=== PATIENT | male | born 1935 | race Caucasian/White ===

== ENCOUNTER 2017-12-30 20:48 | Inpatient (IN) | payer MEDICARE, OTHER ==
[2017-12-30] MEDS ORDERED: Sodium Chloride 0.9% 10 ML Syringe FLUSH PRN (21:02)
[2017-12-30] MEDS ORDERED: cefTRIAXone 2 GM in Sodium Chloride 0.9% 100 ML IV ONE (21:03)
[2017-12-30] MEDS ORDERED: Sodium Chloride 0.9% 500 ML IV ONE (21:05)
[2017-12-30] MEDS ORDERED: Albuterol/Ipratropium 3.0-0.5 MG/3 ML Neb Soln NEB ONE (21:38)
--- NOTE | 2017-12-30 23:36 | EDM.PDOC ---
ED HPI GENERAL MEDICAL PROBLEM - General Chief Complaint: General Stated Complaint: [facility] Time Seen by Provider: 12/30/17 20:53 Source of Information: Reports: Patient, EMS History Limitations: Reports: No Limitations - History of Present Illness INITIAL COMMENTS - FREE TEXT/NARRATIVE: The patient presents by ambulance from [facility]. He has had generalized weakness, nausea, fever and cough. This has been going on for a few days. When EMS arrived his oxygen saturations were in the low 80s. He was also confused. They got him on some oxygen and he is feeling better. He has a productive cough. He has a low grade temp. He has no asthma or COPD. He is trying to stop smoking. He has no chest pain but he does feel short of breath. He has no abdominal pain. He has nausea but no vomiting. He did have some diarrhea but that is normal for him. Onset: Gradual Duration: Day(s): (3) Severity: Moderate Improves with: Reports: None Worsens with: Reports: None Associated Symptoms: Reports: Cough, Fever/Chills, Malaise, Nausea/Vomiting, Shortness of Breath. Denies: Chest Pain, Headaches - Related Data Allergies Allergy/AdvReac Type Severity Reaction Status Date / Time levofloxacin Allergy Airway Verified 02/29/16 03:50 Tightness Sulfa (Sulfonamide Allergy Anaphylactic Verified 02/28/16 14:18 Antibiotics) Shock Home Meds: Home Meds Aspirin 1 tab PO DAILY 07/02/15 [History] Levothyroxine [Synthroid] 50 mcg PO DAILY 07/02/15 [History] Metoprolol Tartrate [Lopressor] 50 mg PO BID 07/02/15 [History] amLODIPine Besylate [Amlodipine Besylate] 2.5 mg PO DAILY 07/02/15 [History] predniSONE [Prednisone] 5 mg PO DAILY 07/02/15 [History] Cholecalciferol (Vitamin D3) [Vitamin D] 2,000 unit PO DAILY 02/05/16 [History] Cyanocobalamin (Vitamin B-12) [Cyanocobalamin Injection] 1,000 mcg IM ASDIRECTED 02/05/16 [History] Furosemide [Lasix] 20 - 40 mg PO DAILY PRN 02/05/16 [History] LORazepam [Ativan] 0.5 mg PO BEDTIME 02/05/16 [History] Niacin 500 mg PO DAILY 02/05/16 [History] Omeprazole [Prilosec] 20 mg PO DAILY 02/05/16 [History] Warfarin [Coumadin] 5 mg PO MOFR 02/05/16 [History] Hydrocodone/Acetaminophen [Hydrocodon-Acetaminophen 5-325] 1 - 2 each PO Q6HR PRN #20 tablet 02/22/16 [Rx] PARoxetine [Paxil] 10 tab PO BEDTIME 02/28/16 [History] Pravastatin Sodium 5 mg PO DAILY 02/28/16 [History] Warfarin [Coumadin] 2.5 mg PO SUTUWETHSA 02/28/16 [History] metroNIDAZOLE [Flagyl] 500 mg PO Q12H 02/28/16 [History] Past Medical History Cardiovascular History: Reports: Afib, Arrhythmia, CAD, High Cholesterol, Hypertension, [place], PVD Gastrointestinal History: Reports: GERD Genitourinary History: Reports: Chronic Renal Insuffiency Musculoskeletal History: Reports: Other (See Below) Other Musculoskeletal History: Chronic back pain Psychiatric History: Reports: Anxiety, Depression Endocrine/Metabolic History: Reports: Hypothyroidism - Past Surgical History Cardiovascular Surgical History: Reports: Carotid Endarterectomy, Coronary Artery Stent, Vascular Surgery GI Surgical History: Reports: Appendectomy Social & Family History - Family History Cardiac: Reports: [place] - Tobacco Use Smoking Status *Q: Former Smoker Years of Tobacco use: 50 Packs/Tins Daily: 1 Used Tobacco, but Quit: Yes Month Tobacco Last Used: doesnt remember when he quit Second Hand Smoke Exposure: No - Caffeine Use Caffeine Use: Reports: Coffee - Alcohol Use Days Per Week of Alcohol Use: 1 Number of Drinks Per Day: 1 Total Drinks Per Week: 1 - Recreational Drug Use Recreational Drug Use: No - Living Situation & Occupation Living situation: Reports: , with Spouse Occupation: Retired ED ROS GENERAL - Review of Systems Review Of Systems: See Below Constitutional: Reports: Fever, Chills, Malaise, Weakness, Fatigue HEENT: Reports: No Symptoms Respiratory: Reports: Shortness of Breath, Cough Cardiovascular: Reports: No Symptoms Endocrine: Reports: No Symptoms GI/Abdominal: Reports: Abdominal Pain, Nausea. Denies: Vomiting : Reports: No Symptoms Musculoskeletal: Reports: No Symptoms Skin: Reports: No Symptoms ED EXAM, GENERAL - Physical Exam Exam: See Below Exam Limited By: No Limitations General Appearance: Alert, No Apparent Distress Ears: Normal External Exam Nose: Normal Inspection Head: Atraumatic, Normocephalic Neck: Normal Inspection Respiratory/Chest: No Respiratory Distress, Rhonchi Cardiovascular: Regular Rate, Rhythm, No Edema, No Murmur GI/Abdominal: Soft, Non-Tender, No Organomegaly, No Mass Back Exam: Normal Inspection Extremities: Normal Inspection Course - Vital Signs Last Recorded V/S: Last Vital Signs Temp 99.7 F 12/30/17 20:55 Pulse 106 H 12/30/17 20:55 Resp 18 12/30/17 20:55 BP 114/73 12/30/17 20:55 Pulse Ox 95 12/30/17 22:12 - Orders/Labs/Meds Orders: Active Orders 24 hr Category Date Time Status Patient Status [ADT] Routine ADT 12/30/17 23:37 Ordered Cardiac Monitoring [RC] . DIRECTED Care 12/30/17 21:02 Active Oxygen Therapy [RC] PRN Care 12/30/17 21:02 Active Peripheral IV Care [RC] . DIRECTED Care 12/30/17 21:02 Active RT Aerosol Therapy [RC] ASDIRECTED Care 12/30/17 21:38 Active Chest 2V [CR] Stat Exams 12/30/17 21:02 Taken CULTURE BLOOD [BC] Stat Lab 12/30/17 21:24 Received CULTURE BLOOD [BC] Stat Lab 12/30/17 21:30 Received Sodium Chloride 0.9% [Saline Flush] Med 12/30/17 21:02 Active 10 ml FLUSH ASDIRECTED PRN Blood Culture x2 Reflex Set [OM.PC] Stat Oth 12/30/17 21:03 Ordered Peripheral IV Insertion Adult [OM.PC] Stat Oth 12/30/17 21:02 Ordered Medication Orders Sodium Chloride (Saline Flush) 10 ml FLUSH ASDIRECTED PRN PRN Reason: Keep Vein Open Last Admin: 12/30/17 21:38 Dose: 10 ml Labs: Laboratory Tests 12/30/17 12/30/17 12/30/17 Range/Units 21:24 21:24 21:24 WBC 6.92 (4.23-9.07) K/mm3 RBC 3.76 L (4.63-6.08) M/mm3 Hgb 14.0 (13.7-17.5) gm/L Hct 39.1 L (40.1-51.0) % MCV 104.0 H (79.0-92.2) fl MCH 37.2 H (25.7-32.2) pg MCHC 35.8 H (32.2-35.5) g/dl RDW Std Deviation 52.3 H (35.1-43.9) fL Plt Count 148 L (163-337) K/mm3 MPV 9.4 (9.4-12.3) fl Neut % (Auto) 72.9 H (34.0-67.9) % Lymph % (Auto) 14.6 L (21.8-53.1) % [place] % (Auto) 11.1 (5.3-12.2) % Eos % (Auto) 1.0 (0.8-7.0) Baso % (Auto) 0.4 (0.1-1.2) % Neut # (Auto) 5.04 (1.78-5.38) K/mm3 Lymph # (Auto) 1.01 L (1.32-3.57) K/mm3 [place] # (Auto) 0.77 (0.30-0.82) K/mm3 Eos # (Auto) 0.07 (0.04-0.54) K/mm3 Baso # (Auto) 0.03 (0.01-0.08) K/mm3 PT (8.0-13.0) SECONDS INR Sodium 134 L (136-145) mEq/L Potassium 4.0 (3.5-5.1) mEq/L Chloride 97 L (98-107) mEq/L Carbon Dioxide 25 (21-32) mEq/L Anion Gap 16.0 H (5-15) BUN 21 H (7-18) mg/dL Creatinine 1.8 H (0.7-1.3) mg/dL Est Cr Clr Drug Dosing 26.39 mL/min Estimated GFR (MDRD) 36 (>60) mL/min BUN/Creatinine Ratio 11.7 L (14-18) Glucose 114 (83-115) mg/dL Lactic Acid 1.3 (0.4-2.0) mmol/L Calcium 8.8 (8.5-10.1) mg/dL Total Bilirubin 0.7 (0.2-1.0) mg/dL AST 34 (15-37) U/L ALT 30 (16-63) U/L Alkaline Phosphatase 84 (46-116) U/L C-Reactive Protein 5.2 H* (<1.0) mg/dL Total Protein 7.2 (6.4-8.2) g/dl Albumin 3.4 (3.4-5.0) g/dl Globulin 3.8 gm/dL Albumin/Globulin Ratio 0.9 L (1-2) 12/30/17 Range/Units 21:24 WBC (4.23-9.07) K/mm3 RBC (4.63-6.08) M/mm3 Hgb (13.7-17.5) gm/L Hct (40.1-51.0) % MCV (79.0-92.2) fl MCH (25.7-32.2) pg MCHC (32.2-35.5) g/dl RDW Std Deviation (35.1-43.9) fL Plt Count (163-337) K/mm3 MPV (9.4-12.3) fl Neut % (Auto) (34.0-67.9) % Lymph % (Auto) (21.8-53.1) % [place] % (Auto) (5.3-12.2) % Eos % (Auto) (0.8-7.0) Baso % (Auto) (0.1-1.2) % Neut # (Auto) (1.78-5.38) K/mm3 Lymph # (Auto) (1.32-3.57) K/mm3 [place] # (Auto) (0.30-0.82) K/mm3 Eos # (Auto) (0.04-0.54) K/mm3 Baso # (Auto) (0.01-0.08) K/mm3 PT 14.0 H (8.0-13.0) SECONDS INR 1.27 Sodium (136-145) mEq/L Potassium (3.5-5.1) mEq/L Chloride (98-107) mEq/L Carbon Dioxide (21-32) mEq/L Anion Gap (5-15) BUN (7-18) mg/dL Creatinine (0.7-1.3) mg/dL Est Cr Clr Drug Dosing mL/min Estimated GFR (MDRD) (>60) mL/min BUN/Creatinine Ratio (14-18) Glucose (83-115) mg/dL Lactic Acid (0.4-2.0) mmol/L Calcium (8.5-10.1) mg/dL Total Bilirubin (0.2-1.0) mg/dL AST (15-37) U/L ALT (16-63) U/L Alkaline Phosphatase (46-116) U/L C-Reactive Protein (<1.0) mg/dL Total Protein (6.4-8.2) g/dl Albumin (3.4-5.0) g/dl Globulin gm/dL Albumin/Globulin Ratio (1-2) Meds: Medications Generic Name Dose Route Start Last Admin Trade Name Freq PRN Reason Stop Dose Admin Sodium Chloride 10 ml 12/30/17 21:02 12/30/17 21:38 Saline Flush FLUSH 10 ml ASDIRECTED PRN Administration Keep Vein Open Discontinued Medications Generic Name Dose Route Start Last Admin Trade Name Freq PRN Reason Stop Dose Admin Albuterol/Ipratropium 3 ml 12/30/17 21:38 12/30/17 22:09 Duoneb 3.0-0.5 Mg/3 Ml NEB 12/30/17 21:39 3 ml ONETIME ONE Administration Ceftriaxone Sodium 2 gm/ 100 mls @ 200 mls/hr 12/30/17 21:03 12/30/17 21:38 Sodium Chloride IV 12/30/17 21:32 200 mls/hr ONETIME ONE Administration Sodium Chloride 500 mls @ 1,000 mls/hr 12/30/17 21:05 12/30/17 21:38 Normal Saline IV 12/30/17 21:34 1,000 mls/hr .BOLUS ONE Administration - Re-Assessments/Exams Free Text/Narrative Re-Assessment/Exam: 12/30/17 23:36 I ordered oxygen, IV NS 500ml bolus, duoneb, labs, CXR, influenza and rocephin 2 grams IV. 12/30/17 23:39 His CXR shows emphysematous changes. His CBC looks good. His INR was 1.27. His Na was 134. His creatinine was elevated at 1.8. His CRP was elevated at 5.2. I feel clinically he has pneumonia. He also has hypoxia. I feel he needs to be admitted. I called Dr Catalan and he agreed to the admission. Departure - Departure Time of Disposition: 23:45 Disposition: Admitted As Inpatient 66 Condition: Good Clinical Impression: Hypoxia, Renal insufficiency Pneumonia Qualifiers: Pneumonia type: due to unspecified organism Laterality: unspecified laterality Lung location: unspecified part of lung Qualified Code(s): J18.9 - Pneumonia, unspecified organism - Discharge Information Referrals: David Hazel MD [Primary Care Provider] - Forms: ED Department Discharge - My Orders Last 24 Hours: My Active Orders 12/30/17 21:02 Cardiac Monitoring [RC] . DIRECTED Oxygen Therapy [RC] PRN Peripheral IV Care [RC] . DIRECTED Chest 2V [CR] Stat Sodium Chloride 0.9% [Saline Flush] 10 ml FLUSH ASDIRECTED PRN Peripheral IV Insertion Adult [OM.PC] Stat 12/30/17 21:03 Blood Culture x2 Reflex Set [OM.PC] Stat 12/30/17 21:24 CULTURE BLOOD [BC] Stat 12/30/17 21:30 CULTURE BLOOD [BC] Stat 12/30/17 21:38 RT Aerosol Therapy [RC] ASDIRECTED 12/30/17 23:37 Patient Status [ADT] Routine - Assessment/Plan Last 24 Hours: My Active Orders 12/30/17 21:02 Cardiac Monitoring [RC] . DIRECTED Oxygen Therapy [RC] PRN Peripheral IV Care [RC] . DIRECTED Chest 2V [CR] Stat Sodium Chloride 0.9% [Saline Flush] 10 ml FLUSH ASDIRECTED PRN Peripheral IV Insertion Adult [OM.PC] Stat 12/30/17 21:03 Blood Culture x2 Reflex Set [OM.PC] Stat 12/30/17 21:24 CULTURE BLOOD [BC] Stat 12/30/17 21:30 CULTURE BLOOD [BC] Stat 12/30/17 21:38 RT Aerosol Therapy [RC] ASDIRECTED 12/30/17 23:37 Patient Status [ADT] Routine
[2017-12-31] MEDS ORDERED: Ondansetron 4 MG/2 ML SDV IVPUSH PRN (00:30)
[2017-12-31] MEDS ORDERED: cefTRIAXone 2 GM in Sodium Chloride 0.9% 100 ML IV SCH (01:00)
[2017-12-31] MEDS: Albuterol/Ipratropium 3.0-0.5 MG/3 ML Neb Soln NEB SCH ×4 (02:14→21:16)
[2017-12-31] MEDS: Acetaminophen 325 MG Tab PO PRN (03:41)
--- NOTE | 2017-12-31 06:32 | PCM.HP ---
H&P History of Present Illness - General Date of Service: 12/31/17 Admit Problem/Dx: Admission Diagnosis/Problem Admission Diagnosis/Problem Hypoxia Source of Information: Patient, Old Records, Provider, RN Notes Reviewed History Limitations: Reports: No Limitations - History of Present Illness Initial Comments - Free Text/Narative: This is an 82 yo elderly white male with past medical hx/o Atrial Fibrillation, HR controlled, on Warfarin, Hx/o Arrhythmia, CAD S/p Stent Placement, HTN, HLD, PVD, GERD, Renal Insufficiency/CKD Stage 3, Chronic Back Pain, Hypothyroidism, Anxiety, Depression, Hx/o GCA, PMR, and Temporal Arteritis who was brought in by ambulance to the emergency department for evaluation of subjective fever associated with generalized weakness, malaise, nausea, vomiting and productive cough that have been going on for a few days now. Patient carries a history of smoking but quit long time ago. He was never been diagnosed with asthma or COPD in the past. He denies any chest pain but admits to feeling short winded. When EMS arrived at the [facility], he was found saturating in the low 80s. His initial workup in the emergency department shows a CBC remarkable for RBC of 3.76, hematocrit of 39.1, MCV of 104.0, MCH of 37.2, MCHC of 35.8, RDW of 52.3, platelet count of 148, neutrophils of 72.9% and lymphocytes of 14.6%. His coagulation study shows PT of 14 and INR of 1.27. His chemistry is remarkable for sodium of 134, chloride of 97, anion gap of 16, BUN of 21, creatinine of 1.8, and CRP of 5.2. His UA is not suggestive of urinary tract infection. His chest x-ray shows no acute abnormal findings. Patient is being admitted for acute viral illness and bronchitis. He is full code. - Related Data Allergies/Adverse Reactions: Allergies Allergy/AdvReac Type Severity Reaction Status Date / Time levofloxacin Allergy Airway Verified 12/31/17 00:35 Tightness Sulfa (Sulfonamide Allergy Anaphylactic Verified 12/31/17 00:35 Antibiotics) Shock Home Medications: Home Meds Aspirin 1 tab PO DAILY 07/02/15 [History] Levothyroxine [Synthroid] 50 mcg PO 0600 07/02/15 [History] Metoprolol Tartrate [Lopressor] 25 mg PO BID 07/02/15 [History] predniSONE [Prednisone] 2.5 mg PO DAILY 07/02/15 [History] Cholecalciferol (Vitamin D3) [Vitamin D] 1,000 unit PO DAILY 02/05/16 [History] Cyanocobalamin (Vitamin B-12) [Cyanocobalamin Injection] 1,000 mcg IM ASDIRECTED 02/05/16 [History] Omeprazole [Prilosec] 20 mg PO DAILY 02/05/16 [History] PARoxetine [Paxil] 15 mg PO BID 12/31/17 [History] Pravastatin Sodium 10 mg PO DAILY 12/31/17 [History] Warfarin Pharmacy to Dose [Pharmacy to Dose - Warfarin] 1 dose .XX ASDIRECTED [History] predniSONE [Prednisone] 2.5 mg PO Q48H 01/01/18 [History] Past Medical History Cardiovascular History: Reports: Afib, Arrhythmia, CAD, High Cholesterol, Hypertension, [place], PVD Gastrointestinal History: Reports: GERD Genitourinary History: Reports: Chronic Renal Insuffiency Musculoskeletal History: Reports: Other (See Below) Other Musculoskeletal History: Chronic back pain Psychiatric History: Reports: Anxiety, Depression Endocrine/Metabolic History: Reports: Hypothyroidism - Past Surgical History Cardiovascular Surgical History: Reports: Carotid Endarterectomy, Coronary Artery Stent, Vascular Surgery GI Surgical History: Reports: Appendectomy Social & Family History - Family History Cardiac: Reports: [place] - Tobacco Use Smoking Status *Q: Unknown Ever Smoked Years of Tobacco use: 50 Packs/Tins Daily: 1 Used Tobacco, but Quit: Yes Month Tobacco Last Used: doesnt remember when he quit Second Hand Smoke Exposure: No - Caffeine Use Caffeine Use: Reports: Coffee - Alcohol Use Days Per Week of Alcohol Use: 1 Number of Drinks Per Day: 1 Total Drinks Per Week: 1 - Recreational Drug Use Recreational Drug Use: No - Living Situation & Occupation Living situation: Reports: , with Spouse Occupation: Retired H&P Review of Systems - Review of Systems: Review Of Systems: See Below General: Reports: Fever, Chills, Malaise, Weakness, Fatigue HEENT: Reports: No Symptoms Pulmonary: Reports: Shortness of Breath, Cough Cardiovascular: Denies: Chest Pain, Palpitations, Dyspnea on Exertion, Edema, Lightheadedness, Syncope, Claudication Gastrointestinal: Reports: Abdominal Pain, Flatus, Nausea. Denies: Constipation , Diarrhea, Decreased Appetite, Difficulty Swallowing, Vomiting Genitourinary: Reports: No Symptoms Musculoskeletal: Reports: No Symptoms Skin: Denies: Cyanosis, Mottled, Pallor, Diaphoresis, Bruising, Pruritis, Rash Psychiatric: Denies: Confusion, Depression, Anxiety, Hallucinations Neurological: Denies: Confusion, Pre-Existing Deficit, Difficulty Walking, Weakness, Gait Disturbance Hematologic/Lymphatic: Reports: No Symptoms Immunologic: Reports: No Symptoms Exam - Exam Exam: See Below - Vital Signs Vital Signs: Last Vital Signs Temp 37.0 C 12/31/17 04:36 Pulse 103 H 12/31/17 03:36 Resp 26 H 12/31/17 03:36 BP 100/70 12/31/17 03:36 Pulse Ox 95 12/31/17 03:36 Weight: 56.926 kg - Exam General: Alert, Cooperative, Mild Distress, Other (Appears well and reasonable) HEENT: Conjunctiva Clear, EACs Clear, EOMI, Hearing Intact, Mucosa Moist & [place] , Nares Patent, Normal Nasal Septum, Posterior Pharynx Clear, Pupils Equal, Pupils Reactive Neck: Supple, Trachea Midline, +2 Carotid Pulse wo Bruit Lungs: Normal Respiratory Effort, Decreased Breath Sounds, Rhonchi, Wheezing Cardiovascular: Regular Rate, Regular Rhythm, Normal S1, Normal S2 GI/Abdominal Exam: Normal Bowel Sounds, Soft, Non-Tender, No Organomegaly, No Distention, No Abnormal Bruit (Male) Exam: Deferred Rectal (Males) Exam: Deferred Back Exam: Normal Inspection, Decreased Range of Motion Extremities: Normal Inspection, Normal Range of Motion, Non-Tender, No Pedal Edema, Normal Capillary Refill Peripheral Pulses: 2+: Posterior Tibial (L), Posterior Tibial (R), Dorsalis Pedis (L), Dorsalis Pedis (R) Skin: Warm, Dry, Intact Neuro Extensive - Mental Status: Normal Cognition, Memory Intact Neuro Extensive - Motor, Sensory, Reflexes: CN II-XII Intact, Normal Gait Psychiatric: Alert, Normal Affect, Normal Mood - Patient Data Lab Results Last 24 hrs: Laboratory Results - last 24 hr 12/31/17 12/31/17 12/31/17 Range/Units 00:45 04:33 05:23 WBC 7.62 (4.23-9.07) K/mm3 RBC 3.50 L (4.63-6.08) M/mm3 Hgb 12.6 L (13.7-17.5) gm/L Hct 37.2 L (40.1-51.0) % MCV 106.3 H (79.0-92.2) fl MCH 36.0 H (25.7-32.2) pg MCHC 33.9 (32.2-35.5) g/dl RDW Std Deviation 51.9 H (35.1-43.9) fL Plt Count 140 L (163-337) K/mm3 MPV 9.2 L (9.4-12.3) fl Neut % (Auto) 71.8 H (34.0-67.9) % Lymph % (Auto) 13.4 L (21.8-53.1) % [place] % (Auto) 13.8 H (5.3-12.2) % Eos % (Auto) 0.7 L (0.8-7.0) Baso % (Auto) 0.3 (0.1-1.2) % Neut # (Auto) 5.48 H (1.78-5.38) K/mm3 Lymph # (Auto) 1.02 L (1.32-3.57) K/mm3 [place] # (Auto) 1.05 H (0.30-0.82) K/mm3 Eos # (Auto) 0.05 (0.04-0.54) K/mm3 Baso # (Auto) 0.02 (0.01-0.08) K/mm3 Urine Color Yellow (Yellow) Urine Appearance Clear (Clear) Urine pH 6.5 (5.0-8.0) Ur Specific [place] 1.025 (1.005-1.030) Urine Protein 2+ H (Negative) Urine Glucose (UA) Negative (Negative) Urine Ketones Negative (Negative) Urine Occult Blood Negative (Negative) Urine Nitrite Negative (Negative) Urine Bilirubin Negative (Negative) Urine Urobilinogen 0.2 (0.2-1.0) Ur Leukocyte Esterase Negative (Negative) MRSA (PCR) Negative Result Diagrams: 01/01/18 06:45 01/01/18 06:45 *Q Meaningful Use (ADM) - VTE *Q VTE Criteria *Q: - Stroke *Q Stroke Criteria *Q: - AMI *Q AMI Criteria *Q: Problem List Initiated/Reviewed/Updated: Yes Orders Last 24hrs: Active Orders 24 hr Category Date Time Status Aspiration Precautions [RC] ASDIRECTED Care 12/31/17 04:34 Active Bedrest Bathroom Privileges [RC] ASDIRECTED Care 12/31/17 00:25 Active Insert Urinary Catheter [OM.PC] Q24H Care 12/31/17 04:45 Ordered Oxygen Therapy Adult [Oxygen Therapy] [RC] ASDIRECTED Care 12/31/17 00:26 Active Regular Diet [DIET] Diet 12/31/17 Breakfast Active BMP [BASIC METABOLIC PANEL,BMP] [CHEM] Routine Lab 12/31/17 05:23 Received CBC WITH AUTO DIFF [HEME] Routine Lab 12/31/17 05:23 Results CRP [C-REACTIVE PROTEIN] [CHEM] Routine Lab 12/31/17 05:23 Received CULTURE URINE [RM] Routine Lab 12/31/17 05:20 Received MG [MAGNESIUM] [CHEM] Routine Lab 12/31/17 05:23 Received RESPIRATORY PANEL BY PCR [MREF] Routine Lab 12/31/17 00:45 Received UA W/MICROSCOPIC [URIN] Routine Lab 12/31/17 04:33 Results Acetaminophen [Tylenol] Med 12/31/17 00:32 Active 650 mg PO Q4H PRN Albuterol/Ipratropium [DuoNeb 3.0-0.5 MG/3 ML] Med 12/31/17 03:00 Active 3 ml NEB Q6HRRT Ondansetron [Zofran] Med 12/31/17 00:30 Active 4 mg IVPUSH Q6H PRN cefTRIAXone [Rocephin] 2 gm Med 12/31/17 21:00 Active Sodium Chloride 0.9% [Normal Saline] 100 ml IV Q24H Resuscitation Status Routine Resus Stat 12/31/17 00:25 Ordered Medication Orders Acetaminophen (Tylenol) 650 mg PO Q4H PRN PRN Reason: Pain/Fever Last Admin: 12/31/17 03:41 Dose: 650 mg Albuterol/Ipratropium (Duoneb 3.0-0.5 Mg/3 Ml) 3 ml NEB Q6HRRT JARRED Last Admin: 12/31/17 02:14 Dose: 3 ml Ceftriaxone Sodium 2 gm/ (Sodium Chloride) 100 mls @ 200 mls/hr IV Q24H JARRED Ondansetron HCl (Zofran) 4 mg IVPUSH Q6H PRN PRN Reason: Nausea/Vomiting Sodium Chloride (Saline Flush) 10 ml FLUSH ASDIRECTED PRN PRN Reason: Keep Vein Open Last Admin: 12/30/17 21:38 Dose: 10 ml Assessment/Plan Comment:: Assessment/Plan: Acute: AMS/Encephalopathy - Likely 2/2 Metabolic Encephalopathy - Supportive Care - Aspiration and Fall Precautions - DDx: Organic Brain failure--> consider cognitive eval by [employer] - Treat underlying cause Febrile Illness - Likely 2/2 Viral Illness - Influenza screening, Blood cultures, and UA-all negative - Respiratory Panel - Supportive care RAD with Bronchitis - Cannot r/o Viral - Productive cough - No hx/o Asthma/COPD - He was a former smoker - Decongestant/Expectorant - IV Azithromycin Daily - Sputum Cx, Mycoplasma, Strep pneumonia Ag test - Consider PFT Subtherapeutic INR - INR 1.27 - Non-complaint per [facility] staff - Will bridge with Lovenox subQ BID Chronic: Atrial Fibrillation, HR controlled, on Warfarin Hx/o Arrhythmia CAD S/p Stent Placement HTN HLD PVD GERD Renal Insufficiency/CKD Stage 3 Back Pain Hypothyroidism Anxiety Depression Plan: Admitted to the floor midnight Resume Home Meds Routine AM Labs PT/OT consult SW/CM for d/c planning Fall Precaution Code status: 1
[2017-12-31] MEDS ORDERED: Warfarin 5 MG Tab PO SCH ×2 (06:45→18:00)
--- NOTE | 2017-12-31 07:15 | CR ---
Chest: Two views of the chest were obtained. Comparison: Prior chest x-ray of 02/28/16. Heart size appears at the upper limits of normal. Mild tortuosity of the thoracic aorta is seen with atherosclerotic change. Lungs show no acute parenchymal densities. Bony structures are within normal limits for the patient's age. Surgical clips are seen at the base of the left neck. Impression: 1. Incidental findings. Nothing acute is suspected. Diagnostic code #2
[2017-12-31] MEDS ORDERED: PRAVASTATIN 10 MG PO SCH (09:00)
[2017-12-31] MEDS ORDERED: PRAVASTATIN SODIUM 5 MG PO SCH (09:00)
[2017-12-31] MEDS ORDERED: amLODIPine 10 MG Tab PO SCH (09:00)
[2017-12-31] MEDS ORDERED: NIACIN 500 MG PO SCH (09:00)
[2017-12-31] MEDS ORDERED: LORazepam 2 MG/ML MDV IVPUSH PRN (09:35)
[2017-12-31] MEDS ORDERED: hydrALAZINE 20 MG/ML SDV IVPUSH PRN (09:35)
[2017-12-31] MEDS ORDERED: Metoprolol Tartrate 5 MG/5 ML SDV IVPUSH PRN (09:35)
[2017-12-31] MEDS ORDERED: Acetaminophen/HYDROcodone 325-5 MG Tab PO PRN (09:37)
[2017-12-31] MEDS ORDERED: Bisacodyl 5 MG Tab PO PRN (09:37)
[2017-12-31] MEDS ORDERED: HYDROmorphone 0.5 MG/0.5 ML SYRINGE IVPUSH PRN (09:37)
[2017-12-31] MEDS ORDERED: Polyethylene Glycol 3350 Powder 17 GM Packet PO PRN (09:37)
[2017-12-31] MEDS ORDERED: Promethazine 6.25 MG in Sodium Chloride 0.9% 50 ML IV PRN (09:37)
[2017-12-31] MEDS ORDERED: Docusate Sodium 100 MG Cap PO PRN (09:37)
[2017-12-31] MEDS ORDERED: Azithromycin 500 MG in Sodium Chloride 0.9% 250 ML IV ONE (10:00)
--- NOTE | 2017-12-31 10:30 | PCM.SN ---
- Free Text/Narrative Note: Anna Balbuena called to inform us that patient was non-compliant with his medications. He was confused overnight but seemed to be at baseline. He was reasonable and pleasant during my conversation with him this morning. He may need possible cognitive eval.
[2017-12-31] MEDS: Enoxaparin 60 MG/0.6 ML Syringe SUBCUT SCH (10:49)
[2017-12-31] MEDS: Levothyroxine 50 MCG Tab PO SCH (10:52)
[2017-12-31] MEDS: Potassium Chloride 20 MEQ Tab.ER PO ONE ×2 (10:52→11:57)
[2017-12-31] MEDS: Cholecalciferol (Vitamin D3) 1,000 Unit Tab PO SCH (10:53)
[2017-12-31] MEDS: Aspirin 81 MG Tab.Chew PO SCH (10:53)
[2017-12-31] MEDS: Pantoprazole 40 MG Tab.CR PO SCH (10:53)
[2017-12-31] MEDS: Metoprolol Tartrate 25 MG Tab PO SCH ×2 (12:18→22:10)
[2017-12-31] MEDS ORDERED: Temazepam 7.5 MG Cap PO PRN (21:00)
[2017-12-31] MEDS ORDERED: PARoxetine 20 MG Tab PO SCH (21:00)
[2017-12-31] MEDS ORDERED: LORazepam 0.5 MG Tab PO SCH (21:00)
[2017-12-31] MEDS: PAROXETINE PO SCH (22:09)
[2017-12-31] MEDS: Simvastatin 10 MG Tab PO SCH (22:10)
[2018-01-01] MEDS ORDERED: guaiFENesin/Dextromethorphan 100-10 MG/5 ML Soln 5 ML Cup PO PRN (00:55)
[2018-01-01] MEDS: Albuterol/Ipratropium 3.0-0.5 MG/3 ML Neb Soln NEB SCH ×4 (03:52→20:13)
[2018-01-01] MEDS: Pantoprazole 40 MG Tab.CR PO SCH (06:30)
[2018-01-01] MEDS: Levothyroxine 50 MCG Tab PO SCH (06:30)
[2018-01-01] MEDS: Acetaminophen 325 MG Tab PO PRN (08:16)
[2018-01-01] MEDS: Cholecalciferol (Vitamin D3) 1,000 Unit Tab PO SCH (08:17)
[2018-01-01] MEDS: Metoprolol Tartrate 25 MG Tab PO SCH ×2 (08:17→20:51)
[2018-01-01] MEDS: Aspirin 81 MG Tab.Chew PO SCH (08:17)
[2018-01-01] MEDS: Enoxaparin 60 MG/0.6 ML Syringe SUBCUT SCH (08:18)
[2018-01-01] MEDS: PAROXETINE PO SCH ×2 (08:21→20:57)
[2018-01-01] MEDS: Azithromycin 500 MG in Sodium Chloride 0.9% 250 ML IV SCH (08:22)
--- NOTE | 2018-01-01 09:46 | PCM.PN ---
- General Info Date of Service: 01/01/18 Admission Dx/Problem (Free Text): Admission Diagnosis/Problem Admission Diagnosis/Problem Hypoxia Subjective Update: Follow Up Functional Status: Reports: Pain Controlled, Tolerating Diet, Ambulating - Review of Systems General: Denies: Fever, Weakness, Fatigue, Malaise, Chills HEENT: Reports: No Symptoms Pulmonary: Reports: Cough, Sputum. Denies: Shortness of Breath Cardiovascular: Denies: Chest Pain, Palpitations, Dyspnea on Exertion, Edema, Lightheadedness Gastrointestinal: Reports: Flatus. Denies: Abdominal Pain, Constipation, Diarrhea, Nausea, Vomiting Genitourinary: Reports: No Symptoms Musculoskeletal: Reports: No Symptoms Skin: Denies: Cyanosis, Mottled, Pallor, Diaphoresis Neurological: Denies: Confusion, Seizure, Difficulty Walking, Weakness, Gait Disturbance Psychiatric: Denies: Depression, Anxiety, Agitation, Hallucinations Systems Review Comment:: No significant overnight or acute issues. She still has mild cough. She slept pretty good last night. He is afebrile without leukocytosis. He is on 1L NC sating at 99%. He has no new complaints. - Patient Data Vitals - Most Recent: Last Vital Signs Temp 38.2 C H 01/01/18 08:16 Pulse 89 01/01/18 08:17 Resp 24 H 01/01/18 07:33 BP 122/49 L 01/01/18 08:17 Pulse Ox 84 L 01/01/18 08:52 Weight - Most Recent: 57.198 kg I&O - Last 24 Hours: Intake & Output 12/31/17 01/01/18 01/01/18 22:59 06:59 14:59 Intake Total 1200 350 Output Total 400 Balance 800 350 Lab Results Last 24 Hours: Laboratory Results - last 24 hr 12/31/17 01/01/18 01/01/18 Range/Units 05:23 06:45 06:45 WBC 7.28 (4.23-9.07) K/mm3 RBC 3.46 L (4.63-6.08) M/mm3 Hgb 12.6 L (13.7-17.5) gm/L Hct 37.1 L (40.1-51.0) % MCV 107.2 H (79.0-92.2) fl MCH 36.4 H (25.7-32.2) pg MCHC 34.0 (32.2-35.5) g/dl RDW Std Deviation 52.8 H (35.1-43.9) fL Plt Count 117 L (163-337) K/mm3 MPV 9.4 (9.4-12.3) fl Neut % (Auto) 63.7 (34.0-67.9) % Lymph % (Auto) 16.9 L (21.8-53.1) % Weber % (Auto) 18.1 H (5.3-12.2) % Eos % (Auto) 1.0 (0.8-7.0) Baso % (Auto) 0.3 (0.1-1.2) % Neut # (Auto) 4.64 (1.78-5.38) K/mm3 Lymph # (Auto) 1.23 L (1.32-3.57) K/mm3 Weber # (Auto) 1.32 H (0.30-0.82) K/mm3 Eos # (Auto) 0.07 (0.04-0.54) K/mm3 Baso # (Auto) 0.02 (0.01-0.08) K/mm3 Manual Slide Review Abnormal smear PT (8.0-13.0) SECONDS INR Sodium 134 L (136-145) mEq/L Potassium 4.7 (3.5-5.1) mEq/L Chloride 99 (98-107) mEq/L Carbon Dioxide 24 (21-32) mEq/L Anion Gap 15.7 H (5-15) BUN 27 H (7-18) mg/dL Creatinine 1.9 H (0.7-1.3) mg/dL Est Cr Clr Drug Dosing 24.25 mL/min Estimated GFR (MDRD) 34 (>60) mL/min BUN/Creatinine Ratio 14.2 (14-18) Glucose 75 L (83-115) mg/dL Calcium 8.7 (8.5-10.1) mg/dL Magnesium 2.1 (1.8-2.4) mg/dl C-Reactive Protein 17.2 H* (<1.0) mg/dL Mycoplasma pneumon IgM Negative (NEGATIVE) 01/01/18 Range/Units 06:45 WBC (4.23-9.07) K/mm3 RBC (4.63-6.08) M/mm3 Hgb (13.7-17.5) gm/L Hct (40.1-51.0) % MCV (79.0-92.2) fl MCH (25.7-32.2) pg MCHC (32.2-35.5) g/dl RDW Std Deviation (35.1-43.9) fL Plt Count (163-337) K/mm3 MPV (9.4-12.3) fl Neut % (Auto) (34.0-67.9) % Lymph % (Auto) (21.8-53.1) % Weber % (Auto) (5.3-12.2) % Eos % (Auto) (0.8-7.0) Baso % (Auto) (0.1-1.2) % Neut # (Auto) (1.78-5.38) K/mm3 Lymph # (Auto) (1.32-3.57) K/mm3 Weber # (Auto) (0.30-0.82) K/mm3 Eos # (Auto) (0.04-0.54) K/mm3 Baso # (Auto) (0.01-0.08) K/mm3 Manual Slide Review PT 13.0 (8.0-13.0) SECONDS INR 1.21 Sodium (136-145) mEq/L Potassium (3.5-5.1) mEq/L Chloride (98-107) mEq/L Carbon Dioxide (21-32) mEq/L Anion Gap (5-15) BUN (7-18) mg/dL Creatinine (0.7-1.3) mg/dL Est Cr Clr Drug Dosing mL/min Estimated GFR (MDRD) (>60) mL/min BUN/Creatinine Ratio (14-18) Glucose (83-115) mg/dL Calcium (8.5-10.1) mg/dL Magnesium (1.8-2.4) mg/dl C-Reactive Protein (<1.0) mg/dL Mycoplasma pneumon IgM (NEGATIVE) Manjeet Results Last 24 Hours: Microbiology 12/31/17 00:45 Respiratory Virus Panel (PCR) (MANJEET) - Final Nasopharyngeal Swab 12/31/17 05:20 Urine Culture - Preliminary Urine, Catheterized NO GROWTH AFTER 1 DAY Med Orders - Current: Current Medications Acetaminophen (Tylenol) 650 mg PO Q4H PRN PRN Reason: Pain/Fever Last Admin: 01/01/18 08:16 Dose: 650 mg Hydrocodone Bitart/Acetaminophen ([place] 325-5 Mg) 1 tab PO Q4H PRN PRN Reason: Pain (moderate 4-6) Albuterol/Ipratropium (Duoneb 3.0-0.5 Mg/3 Ml) 3 ml NEB Q6HRRT [facility] [place] Last Admin: 01/01/18 09:05 Dose: 3 ml Aspirin (Aspirin) 81 mg PO DAILY [facility] [place] Last Admin: 01/01/18 08:17 Dose: 81 mg Bisacodyl (Dulcolax) 5 mg PO DAILY PRN PRN Reason: Constipation Cholecalciferol (Vitamin D3) 2,000 units PO DAILY [facility] [place] Last Admin: 01/01/18 08:17 Dose: 2,000 units Docusate Sodium (Colace) 100 mg PO BID PRN PRN Reason: Constipation Enoxaparin Sodium (Lovenox) 55 mg SUBCUT DAILY [facility] [place] Last Admin: 01/01/18 08:18 Dose: 55 mg Guaifenesin/Phenylephrine HCl (Robitussin Dm) 5 ml PO Q4H PRN PRN Reason: Cough Hydralazine HCl (Apresoline) 10 mg IVPUSH Q4H PRN PRN Reason: Hypertension Hydromorphone HCl (Dilaudid) 0.25 mg IVPUSH Q2H PRN PRN Reason: Pain (severe 7-10) Promethazine HCl 6.25 mg/ (Sodium Chloride) 50.25 mls @ 100 mls/hr IV Q6H PRN PRN Reason: Nausea/Vomiting Azithromycin 500 mg/ Sodium (Chloride) 250 mls @ 250 mls/hr IV Q24H [facility] [place] Last Admin: 01/01/18 08:22 Dose: 250 mls/hr Levothyroxine Sodium (Synthroid) 50 mcg PO ACBREAKFAST [facility] [place] Last Admin: 01/01/18 06:30 Dose: 50 mcg Lorazepam (Ativan) 2 mg IVPUSH Q4H PRN PRN Reason: Seizures Magnesium Sulfate (Pharmacy To Dose - Magnesium Replacement) 0 dose .XX ASDIRECTED PRN PRN Reason: RX TO WATCH MAG LEVELS Metoprolol Tartrate (Lopressor) 25 mg PO BID [facility] [place] Last Admin: 01/01/18 08:17 Dose: 25 mg Metoprolol Tartrate (Lopressor) 5 mg IVPUSH Q4H PRN PRN Reason: Tachycardia Ondansetron HCl (Zofran) 4 mg IVPUSH Q6H PRN PRN Reason: Nausea/Vomiting Last Admin: 12/31/17 11:13 Dose: 4 mg Pantoprazole Sodium (Protonix) 40 mg PO DAILY@0700 [facility] [place] Last Admin: 01/01/18 06:30 Dose: 40 mg Paroxetine 15 Mg 0 each PO BID [facility] [place] Last Admin: 01/01/18 08:21 Dose: Not Given Polyethylene Glycol (Miralax) 17 gm PO DAILY PRN PRN Reason: Constipation Potassium Chloride (Pharmacy To Dose - Potassium Replacement) 0 dose .XX ASDIRECTED PRN PRN Reason: RX TO WATCH K LEVELS Senna/Docusate Sodium (Senna Plus) 1 tab PO BID PRN PRN Reason: Constipation Simvastatin (Zocor) 5 mg PO BEDTIME [facility] [place] Last Admin: 12/31/17 22:10 Dose: 5 mg Sodium Chloride (Saline Flush) 10 ml FLUSH ASDIRECTED PRN PRN Reason: Keep Vein Open Last Admin: 12/30/17 21:38 Dose: 10 ml Temazepam (Restoril) 7.5 mg PO BEDTIME PRN PRN Reason: Sleep Warfarin Sodium (Pharmacy To Dose - Warfarin) 0 dose .XX ASDIRECTED PRN PRN Reason: RX TO DOSE COUMADIN Discontinued Medications Albuterol/Ipratropium (Duoneb 3.0-0.5 Mg/3 Ml) 3 ml NEB ONETIME ONE Stop: 12/30/17 21:39 Last Admin: 12/30/17 22:09 Dose: 3 ml Amlodipine Besylate (Norvasc) 2.5 mg PO DAILY [facility] [place] Ceftriaxone Sodium 2 gm/ (Sodium Chloride) 100 mls @ 200 mls/hr IV ONETIME ONE Stop: 12/30/17 21:32 Last Admin: 12/30/17 21:38 Dose: 200 mls/hr Sodium Chloride (Normal Saline) 500 mls @ 1,000 mls/hr IV .BOLUS ONE Stop: 12/30/17 21:34 Last Admin: 12/30/17 21:38 Dose: 1,000 mls/hr Ceftriaxone Sodium 2 gm/ (Sodium Chloride) 100 mls @ 200 mls/hr IV Q24H [facility] [place] Ceftriaxone Sodium 2 gm/ (Dextrose/Water) 100 mls @ 200 mls/hr IV Q24H [facility] [place] Azithromycin 500 mg/ Sodium (Chloride) 250 mls @ 250 mls/hr IV ONETIME ONE Stop: 12/31/17 10:59 Last Admin: 12/31/17 10:48 Dose: 250 mls/hr Magnesium Sulfate/Dextrose 1 (gm/ Premix) 100 mls @ 100 mls/hr IV ONETIME ONE Stop: 12/31/17 11:59 Last Admin: 12/31/17 10:48 Dose: 100 mls/hr Lorazepam (Ativan) 0.5 mg PO BEDTIME [facility] [place] Non-Formulary Medication (Niacin) 500 mg PO DAILY [facility] [place] Non-Formulary Medication (Pravastatin Sodium [Pravastatin Sodium]) 5 mg PO DAILY [facility] [place] Last Admin: 12/31/17 11:59 Dose: Not Given Pravastatin 10 Mg 1 each PO DAILY [facility] [place] Last Admin: 12/31/17 11:59 Dose: Not Given Paroxetine HCl (Paxil) mg PO BEDTIME [facility] [place] Potassium Chloride (Klor-Con M20) 40 meq PO ONETIME ONE Stop: 12/31/17 12:01 Last Admin: 12/31/17 11:57 Dose: Not Given Warfarin Sodium (Coumadin) 5 mg PO MOFR [facility] [place] Warfarin Sodium (Coumadin) 2.5 mg PO SUTUWETHSA [facility] [place] Last Admin: 12/31/17 11:59 Dose: Not Given Warfarin Sodium (Coumadin) 5 mg PO QPM [facility] [place] Stop: 12/31/17 21:00 Last Admin: 12/31/17 18:06 Dose: 5 mg - Exam Quality Assessment: Supplemental Oxygen General: Alert, Cooperative, No Acute Distress HEENT: Pupils Equal, Pupils Reactive, EOMI, Mucous Membr. Moist/[place] Neck: Supple, Trachea Midline, No JVD, No Thyromegaly Lungs: Normal Respiratory Effort, Decreased Breath Sounds, Rhonchi (mild) Cardiovascular: Regular Rate, Regular Rhythm GI/Abdominal Exam: Normal Bowel Sounds, Soft, Non-Tender, No Organomegaly, No Distention, No Abnormal Bruit (Male) Exam: Deferred Back Exam: Normal Inspection, Decreased Range of Motion Extremities: Normal Inspection, Normal Range of Motion, Non-Tender, No Pedal Edema, Normal Capillary Refill Peripheral Pulses: 2+: Dorsalis Pedis (L), Dorsalis Pedis (R) Skin: Warm, Dry, Intact Neurological: No New Focal Deficit Psy/Mental Status: Alert, Normal Affect, Normal Mood - Problem List Review Problem List Initiated/Reviewed/Updated: Yes - My Orders Last 24 Hours: My Active Orders 12/31/17 09:00 Aspirin 81 mg PO DAILY Cholecalciferol (Vitamin D3) [Vitamin D3] 2,000 units PO DAILY Levothyroxine [Synthroid] 50 mcg PO ACBREAKFAST 12/31/17 09:35 LORazepam [Ativan] 2 mg IVPUSH Q4H PRN Metoprolol Tartrate [Lopressor] 5 mg IVPUSH Q4H PRN hydrALAZINE [Apresoline] 10 mg IVPUSH Q4H PRN 12/31/17 09:37 Ambulate [RC] ASDIRECTED Height and Weight [RC] 04 Intake and Output [RC] 04,16 Up ad Babita [RC] ASDIRECTED VTE/DVT Education [RC] PER UNIT ROUTINE Vital Signs [RC] Q4H Acetaminophen/HYDROcodone [[place] 325-5 MG] 1 tab PO Q4H PRN Bisacodyl [Dulcolax] 5 mg PO DAILY PRN Docusate Sodium [Colace] 100 mg PO BID PRN Docusate Sodium/Sennosides [Senna Plus] 1 tab PO BID PRN HYDROmorphone [Dilaudid] 0.25 mg IVPUSH Q2H PRN Polyethylene Glycol 3350 [MiraLAX] 17 gm PO DAILY PRN Promethazine [Phenergan] 6.25 mg Sodium Chloride 0.9% [Normal Saline] 50 ml IV Q6H 12/31/17 09:39 Consult to [employer] Assistant [CONS] Routine Consult to Spiritual Care [CONS] Routine OT Evaluation and Treatment [CONS] Routine PT Evaluation and Treatment [CONS] Routine Respiratory Care Assess and Treatment [CONS] Routine 12/31/17 09:45 Magnesium Rep Pharmacy to Dose [Pharmacy to Dose - Magnesium Replacement] 0 dose .XX ASDIRECTED PRN Potassium Rep Pharmacy to Dose [Pharmacy to Dose - Potassium Replacement] 0 dose .XX ASDIRECTED PRN Warfarin Pharmacy to Dose [Pharmacy to Dose - Warfarin] 0 dose .XX ASDIRECTED PRN 12/31/17 10:30 Acapella [RT Chest Physiotherapy] [RC] ASDIRECTED Enoxaparin [Lovenox] 55 mg SUBCUT DAILY 12/31/17 11:45 Metoprolol Tartrate [Lopressor] 25 mg PO BID 12/31/17 16:10 [employer] Evaluation and Treatment [CONS] Routine 12/31/17 21:00 Patient's Own Medication [Ptom] 0 each PO BID Simvastatin [Zocor] 5 mg PO BEDTIME Temazepam [Restoril] 7.5 mg PO BEDTIME PRN 01/01/18 00:55 Dextromethorphan/guaiFENesin [Robitussin DM] 5 ml PO Q4H PRN 01/01/18 00:56 CULTURE SPUTUM + SMEAR [RM] Routine 01/01/18 07:00 PFT with Bronchodilator [RT Spirometry with Bronchodilator] [RESPCARE] Routine 01/01/18 09:00 Azithromycin [Zithromax] 500 mg Sodium Chloride 0.9% [Normal Saline] 250 ml IV Q24H 01/02/18 05:11 BASIC METABOLIC PANEL,BMP [CHEM] AM C-REACTIVE PROTEIN [CHEM] AM CBC WITH AUTO DIFF [HEME] AM INR,PT,PROTHROMBIN TIME [COAG] AM MAGNESIUM [CHEM] AM 01/03/18 05:11 BASIC METABOLIC PANEL,BMP [CHEM] AM C-REACTIVE PROTEIN [CHEM] AM CBC WITH AUTO DIFF [HEME] AM INR,PT,PROTHROMBIN TIME [COAG] AM MAGNESIUM [CHEM] AM 01/04/18 05:11 INR,PT,PROTHROMBIN TIME [COAG] AM MAGNESIUM [CHEM] AM - Plan Plan:: Assessment/Plan: Acute: RAD with Bronchitis, Improved - 2/2 Human Metapneumovirus - Productive cough - No hx/o Asthma/COPD - He was a former smoker - Decongestant/Expectorant - IV Azithromycin Daily - Mycoplasma-negative; Sputum Cx and Strep pneumonia Ag test-pending - Unable to perform PFT Subtherapeutic INR - INR 1.27--> 1.21 - Non-complaint per [facility] staff - Continue home dose warfarin and Lovenox subQ Daily Severe Memory Impairment - [employer] eval - He is non-compliant with home meds according [facility] staff - [facility] placement recommendation Resolved: S/p AMS/Encephalopathy--> He is at baseline - Likely 2/2 Metabolic Encephalopathy - Supportive Care - Aspiration and Fall Precautions - DDx: Organic Brain failure--> consider cognitive eval by [employer]IL[employer] - Treat underlying cause S/p Febrile Illness - Likely 2/2 Viral Illness from Human Metapneumovirus - Influenza screening, Blood cultures, and UA-all negative - Respiratory Panel - Supportive care Chronic: Atrial Fibrillation, HR controlled, on Warfarin Hx/o Arrhythmia CAD S/p Stent Placement HTN HLD PVD GERD Renal Insufficiency/CKD Stage 3 Back Pain Hypothyroidism Anxiety Depression Plan: He is clinically stable Continue current treatment Routine AM Labs Continue RT/PT/OT consult SW/CM for d/c planning Fall Precaution DVT/GI PPx: Warfarin/Lovenox and PPI Additional orders as above Code status: 1 D/c pending placement
[2018-01-01] MEDS: Nicotine 7 MG/24 Hr Patch TRDERM SCH (14:20)
[2018-01-01] MEDS ORDERED: Warfarin 7.5 MG Tab PO SCH (18:00)
[2018-01-01] MEDS: Simvastatin 10 MG Tab PO SCH (20:51)
[2018-01-02] MEDS: Albuterol/Ipratropium 3.0-0.5 MG/3 ML Neb Soln NEB SCH ×2 (02:12→09:03)
[2018-01-02] MEDS: Levothyroxine 50 MCG Tab PO SCH (05:59)
[2018-01-02] MEDS: Pantoprazole 40 MG Tab.CR PO SCH (05:59)
[2018-01-02] MEDS ORDERED: Warfarin 5 MG Tab PO SCH (06:32)
[2018-01-02] MEDS: Cholecalciferol (Vitamin D3) 1,000 Unit Tab PO SCH (08:39)
[2018-01-02] MEDS: Metoprolol Tartrate 25 MG Tab PO SCH (08:39)
[2018-01-02] MEDS: Enoxaparin 60 MG/0.6 ML Syringe SUBCUT SCH (08:40)
[2018-01-02] MEDS: Nicotine 7 MG/24 Hr Patch TRDERM SCH (08:40)
[2018-01-02] MEDS: Aspirin 81 MG Tab.Chew PO SCH (08:40)
[2018-01-02] MEDS: Azithromycin 500 MG in Sodium Chloride 0.9% 250 ML IV SCH (08:41)
--- NOTE | 2018-01-02 14:52 | PCM.DCSUM1 ---
Discharge Summary - Hospital Course Brief History: This is an 82 yo elderly white male with past medical hx/o Atrial Fibrillation, HR controlled, on Warfarin, Hx/o Arrhythmia, CAD S/p Stent Placement, HTN, HLD, PVD, GERD, Renal Insufficiency/CKD Stage 3, Chronic Back Pain, Hypothyroidism, Anxiety, Depression, Hx/o GCA, PMR, and Temporal Arteritis who was brought in by ambulance to the emergency department for evaluation of subjective fever associated with generalized weakness, malaise, nausea, vomiting and productive cough that have been going on for a few days now. - Discharge Data Discharge Date: 01/02/18 Discharge Disposition: DC/Tfer to SNF 03 Condition: Good - Discharge Diagnosis/Problem(s) (1) Bronchitis SNOMED Code(s): 77696904 ICD Code: J40 - BRONCHITIS, NOT SPECIFIED ACUTE OR CHRONIC Status: Acute (2) Subtherapeutic international normalized ratio (INR) SNOMED Code(s): 146674093 ICD Code: R79.1 - ABNORMAL COAGULATION PROFILE Status: Acute (3) Memory loss or impairment SNOMED Code(s): 214846856 ICD Code: R41.3 - OTHER AMNESIA Status: Acute (4) Altered mental status, unspecified SNOMED Code(s): 525163716 ICD Code: R41.82 - ALTERED MENTAL STATUS, UNSPECIFIED Status: Acute Qualifiers: Altered mental status type: transient alteration of awareness Qualified Code(s): R40.4 - Transient alteration of awareness (5) Febrile respiratory illness SNOMED Code(s): 64513668 ICD Code: J98.9 - RESPIRATORY DISORDER, UNSPECIFIED; R50.9 - FEVER, UNSPECIFIED Status: Acute - Patient Summary/Data Operative Procedure(s) Performed: None Complications: None Consults: Consultations 12/31/17 09:39 Consult to Assembler Motor Vehicle [CONS] Routine Consult to Spiritual Care [CONS] Routine OT Evaluation and Treatment [CONS] Routine PT Evaluation and Treatment [CONS] Routine Respiratory Care Assess and Treatment [CONS] Routine 12/31/17 16:10 SLIDE FASTENER CHAIN ASSEMBLER Evaluation and Treatment [CONS] Routine Labs Pending at D/C: None Recommended Follow-up Testing/Procedures: None Planned Operative Procedure(s) after DC: None Hospital Course: Patient was admitted for acute viral illness and bronchitis. All infectious work up to include influenza screening, mycoplasma pneumonia antigen, strep pneumoniae antigen, urine and blood cultures, were all negative for any organismal growth. His respiratory panel was positive for Human Metapneumovirus which we suspect was the cause of his bronchitis. However he improved immediately with adequate respiratory treatment. On this admission, he was found with subtherapeutic INR. We felt this was due to medical noncompliance confirmed by [facility] staff. But he was bridged with Lovenox and continued on his home warfarin dose. His hospital course was uncomplicated and the rest of his chronic medical illness remained stable. During this admission, he was diagnosed with severe memory impairment through cognitive evaluation and was deemed appropriate for placement in a facility with 24hr care. Therefore once medically cleared, he was then discharged to [facility] which will be his new home. - Patient Instructions Diet: Heart Healthy Diet, Usual Diet as Tolerated Activity: As Tolerated Driving: Do Not Drive Showering/Bathing: May Shower Notify Provider of: Fever, Increased Pain, Nausea and/or Vomiting Other/Special Instructions: - Please take all new medications as directed. - Resume all routine medications. - Recommend INR check through your family doctor's office Fri-Friday. - Recommend PFT after discharge. - Continue routine home activities as tolerated. - Use IS Q2H. - Call or follow up with your doctor for any questions or concerns after discharge. - Follow up with your doctor in 1 week - Discharge Plan Prescriptions/Med Rec: Albuterol/Ipratropium [Combivent Respimat] 4 gm IH Q4H PRN #1 aer.w.adap PRN Reason: Other Azithromycin [IJP: Azithromycin] 250 mg PO ASDIRECTED #6 tab Enoxaparin Sodium [Lovenox] 60 mg SQ DAILY #3 ml Saccharomyces Boulardii [Florastor] 250 mg PO DAILY #5 cap Home Medications: Home Meds Aspirin 1 tab PO DAILY 07/02/15 [History] Levothyroxine [Synthroid] 50 mcg PO 0600 07/02/15 [History] Metoprolol Tartrate [Lopressor] 25 mg PO BID 07/02/15 [History] predniSONE [Prednisone] 2.5 mg PO DAILY 07/02/15 [History] Cholecalciferol (Vitamin D3) [Vitamin D3] 1,000 unit PO DAILY 02/05/16 [History] Cyanocobalamin (Vitamin B-12) [Cyanocobalamin Injection] 1,000 mcg IM ASDIRECTED 02/05/16 [History] Omeprazole [Prilosec] 20 mg PO DAILY 02/05/16 [History] PARoxetine [Paxil] 15 mg PO BID 12/31/17 [History] Pravastatin Sodium 10 mg PO DAILY 12/31/17 [History] Warfarin Pharmacy to Dose [Pharmacy to Dose - Warfarin] 1 dose .XX ASDIRECTED [History] predniSONE [Prednisone] 2.5 mg PO Q48H 01/01/18 [History] Albuterol/Ipratropium [Combivent Respimat] 4 gm IH Q4H PRN #1 aer.w.adap [Rx] Azithromycin [IJP: Azithromycin] 250 mg PO ASDIRECTED #6 tab 01/02/18 [Rx] Enoxaparin Sodium [Lovenox] 60 mg SQ DAILY #3 ml 01/02/18 [Rx] Saccharomyces Boulardii [Florastor] 250 mg PO DAILY #5 cap 01/02/18 [Rx] Patient Handouts: Viral Respiratory Infection, [id number], Acute Bronchitis, Adult, [id number], Steps to Quit Smoking, Fever, Adult, [id number] Referrals: David Hazel MD [Primary Care Provider] - - Discharge Summary/Plan Comment DC Time >30 min.: Yes (45 mins) Discharge Summary/Plan Comment: Discharge to [facility] Info Date of Service: 01/02/18 Admission Dx/Problem (Free Text: Admission Diagnosis/Problem Admission Diagnosis/Problem Hypoxia Subjective Update: Follow Up Functional Status: Reports: Pain Controlled, Tolerating Diet, Urinating. Denies : New Symptoms - Review of Systems General: Reports: Malaise. Denies: Fever, Weakness, Fatigue, Chills HEENT: Reports: No Symptoms Pulmonary: Reports: Shortness of Breath, Cough Cardiovascular: Denies: Chest Pain, Palpitations, Dyspnea on Exertion, Lightheadedness Gastrointestinal: Reports: Flatus. Denies: Abdominal Pain, Constipation, Decreased Appetite, Diarrhea, Nausea, Vomiting Genitourinary: Reports: No Symptoms Musculoskeletal: Reports: No Symptoms Skin: Denies: Cyanosis, Jaundice, Mottled, Pallor, Diaphoresis, Pruritis, Rash Neurological: Reports: Weakness, Gait Disturbance. Denies: Confusion, Difficulty Walking Psychiatric: Denies: Depression, Anxiety, Agitation, Hallucinations Systems Review Comment: No significant overnight or acute issues. He slept pretty good. He feels brethter - Patient Data Vitals - Most Recent: Last Vital Signs Temp 36.6 C 01/02/18 07:41 Pulse 97 01/02/18 08:39 Resp 19 01/02/18 07:41 BP 104/86 01/02/18 08:39 Pulse Ox 94 L 01/02/18 09:04 Weight - Most Recent: 57.833 kg I&O - Last 24 hours: Intake & Output 01/01/18 01/02/18 01/02/18 22:59 06:59 14:59 Intake Total 910 700 0 Balance 910 700 0 Lab Results - Last 24 hrs: Laboratory Results - last 24 hr 01/02/18 01/02/18 01/02/18 Range/Units 06:50 06:50 06:50 WBC 5.46 (4.23-9.07) K/mm3 RBC 3.12 L (4.63-6.08) M/mm3 Hgb 11.1 L (13.7-17.5) gm/L Hct 32.9 L (40.1-51.0) % MCV 105.4 H (79.0-92.2) fl MCH 35.6 H (25.7-32.2) pg MCHC 33.7 (32.2-35.5) g/dl RDW Std Deviation 52.2 H (35.1-43.9) fL Plt Count 121 L (163-337) K/mm3 MPV 9.4 (9.4-12.3) fl Neut % (Auto) 56.7 (34.0-67.9) % Lymph % (Auto) 26.4 (21.8-53.1) % [place] % (Auto) 14.7 H (5.3-12.2) % Eos % (Auto) 1.8 (0.8-7.0) Baso % (Auto) 0.2 (0.1-1.2) % Neut # (Auto) 3.10 (1.78-5.38) K/mm3 Lymph # (Auto) 1.44 (1.32-3.57) K/mm3 [place] # (Auto) 0.80 (0.30-0.82) K/mm3 Eos # (Auto) 0.10 (0.04-0.54) K/mm3 Baso # (Auto) 0.01 (0.01-0.08) K/mm3 Manual Slide Review Abnormal smear PT 17.8 H (8.0-13.0) SECONDS INR 1.66 Sodium 135 L (136-145) mEq/L Potassium 4.2 (3.5-5.1) mEq/L Chloride 99 (98-107) mEq/L Carbon Dioxide 27 (21-32) mEq/L Anion Gap 13.2 (5-15) BUN 31 H (7-18) mg/dL Creatinine 2.0 H (0.7-1.3) mg/dL Est Cr Clr Drug Dosing 23.29 mL/min Estimated GFR (MDRD) 32 (>60) mL/min BUN/Creatinine Ratio 15.5 (14-18) Glucose 81 L (83-115) mg/dL Calcium 8.3 L (8.5-10.1) mg/dL Magnesium 1.9 (1.8-2.4) mg/dl C-Reactive Protein 13.9 H* (<1.0) mg/dL RAMON Results - Last 24 hrs: Microbiology 12/31/17 05:20 Urine Culture - Final Urine, Catheterized NO GROWTH AFTER 2 DAYS 12/31/17 05:20 Streptococcus pneumoniae Antigen (M - Final Urine Med Orders - Current: Current Medications Acetaminophen (Tylenol) 650 mg PO Q4H PRN PRN Reason: Pain/Fever Last Admin: 01/01/18 08:16 Dose: 650 mg Hydrocodone Bitart/Acetaminophen ([place] 325-5 Mg) 1 tab PO Q4H PRN PRN Reason: Pain (moderate 4-6) Albuterol/Ipratropium (Duoneb 3.0-0.5 Mg/3 Ml) 3 ml NEB Q6HRRT [facility] Last Admin: 01/02/18 09:03 Dose: 3 ml Aspirin (Aspirin) 81 mg PO DAILY [facility] Last Admin: 01/02/18 08:40 Dose: 81 mg Bisacodyl (Dulcolax) 5 mg PO DAILY PRN PRN Reason: Constipation Cholecalciferol (Vitamin D3) 2,000 units PO DAILY [facility] Last Admin: 01/02/18 08:39 Dose: 2,000 units Docusate Sodium (Colace) 100 mg PO BID PRN PRN Reason: Constipation Enoxaparin Sodium (Lovenox) 55 mg SUBCUT DAILY [facility] Last Admin: 01/02/18 08:40 Dose: 55 mg Guaifenesin/Phenylephrine HCl (Robitussin Dm) 5 ml PO Q4H PRN PRN Reason: Cough Hydralazine HCl (Apresoline) 10 mg IVPUSH Q4H PRN PRN Reason: Hypertension Hydromorphone HCl (Dilaudid) 0.25 mg IVPUSH Q2H PRN PRN Reason: Pain (severe 7-10) Promethazine HCl 6.25 mg/ (Sodium Chloride) 50.25 mls @ 100 mls/hr IV Q6H PRN PRN Reason: Nausea/Vomiting Azithromycin 500 mg/ Sodium (Chloride) 250 mls @ 250 mls/hr IV Q24H [facility] Last Admin: 01/02/18 08:41 Dose: 250 mls/hr Levothyroxine Sodium (Synthroid) 50 mcg PO ACBREAKFAST [facility] Last Admin: 01/02/18 05:59 Dose: 50 mcg Lorazepam (Ativan) 2 mg IVPUSH Q4H PRN PRN Reason: Seizures Magnesium Sulfate (Pharmacy To Dose - Magnesium Replacement) 0 dose .XX ASDIRECTED PRN PRN Reason: RX TO WATCH MAG LEVELS Metoprolol Tartrate (Lopressor) 25 mg PO BID [facility] Last Admin: 01/02/18 08:39 Dose: 25 mg Metoprolol Tartrate (Lopressor) 5 mg IVPUSH Q4H PRN PRN Reason: Tachycardia Miscellaneous Information (Remove Patch) 0 ea TRDERM DAILY [facility] Nicotine (Habitrol) 7 mg TRDERM DAILY [facility] Last Admin: 01/02/18 08:40 Dose: 7 mg Ondansetron HCl (Zofran) 4 mg IVPUSH Q6H PRN PRN Reason: Nausea/Vomiting Last Admin: 12/31/17 11:13 Dose: 4 mg Pantoprazole Sodium (Protonix) 40 mg PO DAILY@0700 [facility] Last Admin: 01/02/18 05:59 Dose: 40 mg Paroxetine 15 Mg 0 each PO BID [facility] Last Admin: 01/01/18 20:57 Dose: Not Given Polyethylene Glycol (Miralax) 17 gm PO DAILY PRN PRN Reason: Constipation Potassium Chloride (Pharmacy To Dose - Potassium Replacement) 0 dose .XX ASDIRECTED PRN PRN Reason: RX TO WATCH K LEVELS Senna/Docusate Sodium (Senna Plus) 1 tab PO BID PRN PRN Reason: Constipation Simvastatin (Zocor) 5 mg PO BEDTIME [facility] Last Admin: 01/01/18 20:51 Dose: 5 mg Sodium Chloride (Saline Flush) 10 ml FLUSH ASDIRECTED PRN PRN Reason: Keep Vein Open Last Admin: 12/30/17 21:38 Dose: 10 ml Temazepam (Restoril) 7.5 mg PO BEDTIME PRN PRN Reason: Sleep Warfarin Sodium (Pharmacy To Dose - Warfarin) 0 dose .XX ASDIRECTED PRN PRN Reason: RX TO DOSE COUMADIN Discontinued Medications Albuterol/Ipratropium (Duoneb 3.0-0.5 Mg/3 Ml) 3 ml NEB ONETIME ONE Stop: 12/30/17 21:39 Last Admin: 12/30/17 22:09 Dose: 3 ml Amlodipine Besylate (Norvasc) 2.5 mg PO DAILY [facility] Ceftriaxone Sodium 2 gm/ (Sodium Chloride) 100 mls @ 200 mls/hr IV ONETIME ONE Stop: 12/30/17 21:32 Last Admin: 12/30/17 21:38 Dose: 200 mls/hr Sodium Chloride (Normal Saline) 500 mls @ 1,000 mls/hr IV .BOLUS ONE Stop: 12/30/17 21:34 Last Admin: 12/30/17 21:38 Dose: 1,000 mls/hr Ceftriaxone Sodium 2 gm/ (Sodium Chloride) 100 mls @ 200 mls/hr IV Q24H [facility] Ceftriaxone Sodium 2 gm/ (Dextrose/Water) 100 mls @ 200 mls/hr IV Q24H [facility] Azithromycin 500 mg/ Sodium (Chloride) 250 mls @ 250 mls/hr IV ONETIME ONE Stop: 12/31/17 10:59 Last Admin: 12/31/17 10:48 Dose: 250 mls/hr Magnesium Sulfate/Dextrose 1 (gm/ Premix) 100 mls @ 100 mls/hr IV ONETIME ONE Stop: 12/31/17 11:59 Last Admin: 12/31/17 10:48 Dose: 100 mls/hr Lorazepam (Ativan) 0.5 mg PO BEDTIME [facility] Non-Formulary Medication (Niacin) 500 mg PO DAILY [facility] Non-Formulary Medication (Pravastatin Sodium [Pravastatin Sodium]) 5 mg PO DAILY [facility] Last Admin: 12/31/17 11:59 Dose: Not Given Pravastatin 10 Mg 1 each PO DAILY [facility] Last Admin: 12/31/17 11:59 Dose: Not Given Paroxetine HCl (Paxil) mg PO BEDTIME [facility] Potassium Chloride (Klor-Con M20) 40 meq PO ONETIME ONE Stop: 12/31/17 12:01 Last Admin: 12/31/17 11:57 Dose: Not Given Warfarin Sodium (Coumadin) 5 mg PO MOFR [facility] Warfarin Sodium (Coumadin) 2.5 mg PO SUTUWETHSA [facility] Last Admin: 12/31/17 11:59 Dose: Not Given Warfarin Sodium (Coumadin) 5 mg PO QPM [facility] Stop: 12/31/17 21:00 Last Admin: 12/31/17 18:06 Dose: 5 mg Warfarin Sodium (Coumadin) 7.5 mg PO QPM [facility] Stop: 01/01/18 21:00 Last Admin: 01/01/18 17:09 Dose: 7.5 mg - Exam Quality Assessment: Reports: Supplemental Oxygen General: Reports: Alert, Cooperative, No Acute Distress HEENT: Reports: Pupils Equal, Pupils Reactive, EOMI, Mucous Membr. Moist/[place] Neck: Reports: Supple, Trachea Midline, No JVD, No Thyromegaly Lungs: Reports: Normal Respiratory Effort, Decreased Breath Sounds, Rhonchi Cardiovascular: Reports: Irregular Rhythm GI/Abdominal Exam: Normal Bowel Sounds, Soft, Non-Tender, No Organomegaly, No Distention, No Abnormal Bruit, No Mass (Male) Exam: Deferred Rectal (Males) Exam: Deferred Back Exam: Reports: Normal Inspection, Decreased Range of Motion Extremities: Normal Inspection, Normal Range of Motion, Non-Tender, No Pedal Edema, Normal Capillary Refill Skin: Reports: Warm, Dry, Intact Neurological: Reports: No New Focal Deficit Psy/Mental Status: Reports: Alert, Normal Affect, Normal Mood *Q Meaningful Use (DIS) - VTE *Q VTE Criteria *Q: - Stroke *Q Stroke Criteria *Q: - AMI *Q AMI Criteria *Q:
[2018-01-02 17:25] VITALS: BP 97/57
== END 2018-01-02 15:05 | DRG 203 ==
LOC: JD.ED 20:48 → JD.MS 23:37
PROVIDERS: ADMIT Internal Medicine; ATTEND Internal Medicine
DX: J18.9 Pneumonia, unspecified organism (principal); J45.909 Unspecified asthma, uncomplicated; R79.1 Abnormal coagulation profile; R09.02 Hypoxemia; N18.9 Chronic kidney disease, unspecified; R41.3 Other amnesia; R41.82 Altered mental status, unspecified; B34.9 Viral infection, unspecified; B34.8 Other viral infections of unspecified site; I25.10 Atherosclerotic heart disease of native coronary artery without angina pectoris; I12.9 Hypertensive chronic kidney disease with stage 1 through stage 4 chronic kidney disease, or unspecified chronic kidney disease; N18.3 Chronic kidney disease, stage 3 (moderate); Z95.5 Presence of coronary angioplasty implant and graft; I25.2 Old myocardial infarction; I73.9 Peripheral vascular disease, unspecified; I48.91 Unspecified atrial fibrillation; K21.9 Gastro-esophageal reflux disease without esophagitis; E03.9 Hypothyroidism, unspecified; F32.9 Major depressive disorder, single episode, unspecified; F41.9 Anxiety disorder, unspecified; G89.29 Other chronic pain; M54.9 Dorsalgia, unspecified; Z91.19 Patient's noncompliance with other medical treatment and regimen; Z87.891 Personal history of nicotine dependence; Z88.1 Allergy status to other antibiotic agents; Z88.2 Allergy status to sulfonamides; Z79.01 Long term (current) use of anticoagulants; Z79.82 Long term (current) use of aspirin; Z79.899 Other long term (current) drug therapy
CPT/HCPCS: 36415; 71046; 80053; 83605; 85025; 85610; 86140; 87040 ×2; 87804 ×2; 94640; 96365; 99285; J0696; J7030; J7040; J7050; 51701; 80048; 81001; 83735; 86738; 87086; 87486; 87581; 87633; 87641; 87798; 87899; 94667; 94760; 94761; 96125-GN; 97110-GO; 97110-GP; 97116-GP; 97162-GP; 97166-GO; 97530-GO; 97530-GP; 97535-GO; A9270-GY; G0515-GN; J0456; J1650; J2405; J3475

== ENCOUNTER 2018-01-09 08:13 | Emergency (ER) | payer MEDICARE, OTHER ==
[2018-01-09 08:30] VITALS: BP 151/41
[2018-01-09] MEDS ORDERED: Acetaminophen/HYDROcodone 325-5 MG Tab PO ONE (08:39)
--- NOTE | 2018-01-09 10:50 | EDM.PDOC ---
ED HPI GENERAL MEDICAL PROBLEM - General Chief Complaint: Lower Extremity Injury/Pain Stated Complaint: FLANK PAIN/NAUSEA Time Seen by Provider: 01/09/18 08:35 Source of Information: Reports: Patient, [facility] Records History Limitations: Reports: No Limitations - History of Present Illness INITIAL COMMENTS - FREE TEXT/NARRATIVE: The patient presents with progressive right hip pain. This has been going on for over 1 week. He denies injury such as a fall or lifting. He is a resident of a skilled nursing here in town. He says it hurts more when he moves a certain way. It feels better to lay on his right side. He has no other injuries. He denies fever, chills, cough, chest pain, shortness of breath, abdominal pain, nausea or vomiting. Onset: Gradual Duration: Week(s): Location: Reports: Lower Extremity, Right (hip) Quality: Reports: Sharp Severity: Moderate Improves with: Reports: Immobilization Worsens with: Reports: Movement Associated Symptoms: Reports: No Other Symptoms Right Hip Pain Score (Numeric/FACES): 9 - Related Data Allergies Allergy/AdvReac Type Severity Reaction Status Date / Time levofloxacin Allergy Airway Verified 01/09/18 08:25 Tightness Sulfa (Sulfonamide Allergy Anaphylactic Verified 01/09/18 08:25 Antibiotics) Shock Home Meds: Home Meds Aspirin 81 mg PO DAILY 01/09/18 [History] Azithromycin [IJD: Azithromycin] 250 mg PO DAILY 01/09/18 [History] Enoxaparin [Lovenox] 60 mg SQ BID 01/09/18 [History] Hydrocodone/Acetaminophen [Hydrocodon-Acetaminophen 5-325] 1 - 2 each PO Q6HR PRN #20 tablet 01/09/18 [Rx] Levothyroxine [Synthroid] 50 mcg PO DAILY 01/09/18 [History] Metoprolol Tartrate [Lopressor] 25 mg PO BID 01/09/18 [History] Omeprazole 20 mg PO DAILY 01/09/18 [History] PARoxetine [Paxil] 15 mg PO BID 01/09/18 [History] Pravastatin Sodium [Pravastatin (Pravachol)] 10 mg PO DAILY 01/09/18 [History] Saccharomyces Boulardii [Florastor] 250 mg PO DAILY 01/09/18 [History] predniSONE [Prednisone] 2.5 mg PO ASDIRECTED 01/09/18 [History] predniSONE [Prednisone] 2.5 mg PO DAILY 01/09/18 [History] Past Medical History Cardiovascular History: Reports: Afib, Arrhythmia, CAD, High Cholesterol, Hypertension, [place], PVD Gastrointestinal History: Reports: GERD Genitourinary History: Reports: Chronic Renal Insuffiency Musculoskeletal History: Reports: Other (See Below) Other Musculoskeletal History: Chronic back pain Psychiatric History: Reports: Anxiety, Depression Endocrine/Metabolic History: Reports: Hypothyroidism - Past Surgical History Cardiovascular Surgical History: Reports: Carotid Endarterectomy, Coronary Artery Stent, Vascular Surgery GI Surgical History: Reports: Appendectomy Social & Family History - Family History Cardiac: Reports: [place] - Tobacco Use Smoking Status *Q: Former Smoker Years of Tobacco use: 50 Packs/Tins Daily: 1 Used Tobacco, but Quit: Yes Month Tobacco Last Used: 2 years ago Second Hand Smoke Exposure: No - Caffeine Use Caffeine Use: Reports: Coffee Caffeine Use Comment: drinks about 2 cups of coffee per day - Alcohol Use Days Per Week of Alcohol Use: 1 Number of Drinks Per Day: 1 Total Drinks Per Week: 1 - Recreational Drug Use Recreational Drug Use: No - Living Situation & Occupation Living situation: Reports: , with Spouse Occupation: Retired Review of Systems - Review of Systems Review Of Systems: See Below Constitutional: Reports: No Symptoms Eyes: Reports: No Symptoms Ears: Reports: No Symptoms Nose: Reports: No Symptoms Mouth/Throat: Reports: No Symptoms Respiratory: Reports: No Symptoms Cardiovascular: Reports: No Symptoms GI/Abdominal: Reports: No Symptoms Genitourinary: Reports: No Symptoms Musculoskeletal: Reports: Other (Right hip pain) ED EXAM, GENERAL - Physical Exam Exam: See Below Exam Limited By: No Limitations General Appearance: Alert, No Apparent Distress Ears: Normal External Exam Nose: Normal Inspection Head: Atraumatic, Normocephalic Neck: Normal Inspection Respiratory/Chest: No Respiratory Distress, Lungs Clear, Normal Breath Sounds Cardiovascular: Regular Rate, Rhythm, No Edema, No Murmur GI/Abdominal: Soft, Non-Tender, No Organomegaly, No Mass Back Exam: Normal Inspection Extremities: Other (No pain upon palpation to the right hip. He has pain when he moves in the bed but I cannot reproduce the pain with palpation.) Course - Vital Signs Last Recorded V/S: Last Vital Signs Temp 98.4 F 01/09/18 08:26 Pulse 80 03/02/18 08:26 Resp 16 01/09/18 08:26 BP 151/41 H 01/09/18 08:26 Pulse Ox 92 L 01/09/18 08:26 - Orders/Labs/Meds Orders: Active Orders 24 hr Category Date Time Status Hip wo Cont Rt [CT] Stat Exams 01/09/18 08:40 Taken Meds: Medications Discontinued Medications Generic Name Dose Route Start Last Admin Trade Name Brayan PRN Reason Stop Dose Admin Hydrocodone Bitart/Acetaminophen 1 tab 01/09/18 08:39 01/09/18 08:45 [place] 325-5 Mg PO 01/09/18 08:40 1 tab ONETIME ONE Administration - Re-Assessments/Exams Free Text/Narrative Re-Assessment/Exam: 01/09/18 10:55 I ordered a hydrococone and a CT of his right hip. The CT shows old fractures within the inferior and superior right pubic ramus. Degenerative change within the right hip and osteopenia. Nothing acute is appreciated on CT study of the right hip. He may have aggravated the old injury. He thinks maybe a few weeks ago he may have fallen but he is not sure. Departure - Departure Time of Disposition: 11:00 Disposition: Home, Self-Care 01 Condition: Good Clinical Impression: Inferior pubic ramus fracture Qualifiers: Encounter type: subsequent encounter Fracture type: closed Laterality: right Fracture healing: with routine healing Qualified Code(s): S32.591D - Other specified fracture of right pubis, subsequent encounter for fracture with routine healing Fracture of superior ramus of right pubis Qualifiers: Encounter type: initial encounter Fracture type: closed Qualified Code(s): S32.511A - Fracture of superior rim of right pubis, initial encounter for closed fracture - Discharge Information Prescriptions: Hydrocodone/Acetaminophen [Hydrocodon-Acetaminophen 5-325] 1 - 2 each PO Q6HR PRN #20 tablet PRN Reason: Pain Referrals: David Hazel MD [Primary Care Provider] - 1 Week Additional Instructions: Take your medication as prescribed. Take the hydrocodone as needed for pain. Please return if you are worse. - My Orders Last 24 Hours: My Active Orders 01/09/18 08:40 Hip wo Cont Rt [CT] Stat - Assessment/Plan Last 24 Hours: My Active Orders 01/09/18 08:40 Hip wo Cont Rt [CT] Stat
--- NOTE | 2018-01-12 08:13 | CT ---
CT right hip Technique: Multiple axial through the right hip were obtained. Reconstructed coronal and sagittal images were reviewed. Comparison: No prior hip exam. Findings: Degenerative cystic change is noted within the humeral head and within the acetabulum. Minimal spurring is noted off the femoral head. Deformity from old healed fracture is noted within the superior and inferior pubic ramus on the right side. No acute fracture is identified within the right hip. Osteopenia is present. Mild degenerative change is seen within the right sacroiliac joint. Impression: 1. Old fractures within the inferior and superior right pubic ramus. 2. Degenerative change within the right hip and osteopenia. 3. Nothing acute is appreciated on CT study of the right hip. Diagnostic code #2 MTDD
== END 2018-01-09 11:47 | disposition home or self-care (01) ==
LOC: JD.ED 08:13
DX: S32.511A Fracture of superior rim of right pubis, initial encounter for closed fracture (principal); S32.591A Other specified fracture of right pubis, initial encounter for closed fracture; I25.10 Atherosclerotic heart disease of native coronary artery without angina pectoris; I48.91 Unspecified atrial fibrillation; I12.9 Hypertensive chronic kidney disease with stage 1 through stage 4 chronic kidney disease, or unspecified chronic kidney disease; N18.9 Chronic kidney disease, unspecified; F32.9 Major depressive disorder, single episode, unspecified; E03.9 Hypothyroidism, unspecified; K21.9 Gastro-esophageal reflux disease without esophagitis; Z95.5 Presence of coronary angioplasty implant and graft; Z87.891 Personal history of nicotine dependence; Z79.82 Long term (current) use of aspirin; Z79.2 Long term (current) use of antibiotics; Z79.899 Other long term (current) drug therapy; Z79.52 Long term (current) use of systemic steroids; Z88.1 Allergy status to other antibiotic agents; Z88.2 Allergy status to sulfonamides; X58.XXXA Exposure to other specified factors, initial encounter
CPT/HCPCS: 73700; 99285; A9270; 99283

== ENCOUNTER 2018-01-12 12:16 | Inpatient (IN) | payer MEDICARE, OTHER ==
--- NOTE | 2018-01-12 13:34 | EDM.PDOC ---
ED HPI GENERAL MEDICAL PROBLEM - General Chief Complaint: General Stated Complaint: [facility] Time Seen by Provider: 01/12/18 13:15 Source of Information: Reports: Patient, [facility] Records History Limitations: Reports: Other (confused) - History of Present Illness INITIAL COMMENTS - FREE TEXT/NARRATIVE: Patient is a 82-year-old male who presents to the ED from [facility] with concerns of low hemoglobin and also mildly confuse with elevated INR. Bleeding persisted after trimming his finger nails. Bleeding subsided with placement of a Band-Aid. Due to the confusion and elevated INR with low hemoglobin referred to the ED for further evaluation. - Related Data Allergies Allergy/AdvReac Type Severity Reaction Status Date / Time levofloxacin Allergy Airway Verified 01/09/18 08:25 Tightness Sulfa (Sulfonamide Allergy Anaphylactic Verified 01/09/18 08:25 Antibiotics) Shock Home Meds: Home Meds Acetaminophen 650 mg PO Q4H PRN 01/12/18 [History] Acetaminophen/HYDROcodone [[place] 325-5 MG] 1 tab PO Q6H PRN 01/12/18 [History] Albuterol/Ipratropium [Combivent Respimat] 1 inhalation IH Q4H PRN 01/12/18 [ History] Aspirin [Adult Low Dose Aspirin EC] 81 mg PO QAM 01/12/18 [History] Barrier Cream. 1 applic TOP TID 01/12/18 [History] Cholecalciferol (Vitamin D3) [Vitamin D3] 1,000 unit PO QAM 01/12/18 [History] Cyanocobalamin (Vitamin B-12) [Cyanocobalamin Injection] 1,000 mcg IJ Q30D 01/12 [History] Levothyroxine [Synthroid] 50 mcg PO QAM 01/12/18 [History] Metoprolol Tartrate 25 mg PO BID 01/12/18 [History] Omeprazole 20 mg PO QAM 01/12/18 [History] PARoxetine HCl [Paroxetine HCl] 15 mg PO BID 01/12/18 [History] Pravastatin Sodium 10 mg PO QAM 01/12/18 [History] Saccharomyces Boulardii [Florastor] 250 mg PO QAM 01/12/18 [History] Warfarin [Coumadin] 2.5 mg PO QPM 01/12/18 [History] predniSONE [Prednisone] 2.5 mg PO Q2D 01/12/18 [History] predniSONE [Prednisone] 2.5 mg PO QAM 01/12/18 [History] Past Medical History Cardiovascular History: Reports: Afib, Arrhythmia, CAD, High Cholesterol, Hypertension, NV, PVD Gastrointestinal History: Reports: GERD Genitourinary History: Reports: Chronic Renal Insuffiency Musculoskeletal History: Reports: Other (See Below) Other Musculoskeletal History: Chronic back pain Psychiatric History: Reports: Anxiety, Depression Endocrine/Metabolic History: Reports: Hypothyroidism - Past Surgical History Cardiovascular Surgical History: Reports: Carotid Endarterectomy, Coronary Artery Stent, Vascular Surgery GI Surgical History: Reports: Appendectomy Social & Family History - Family History Cardiac: Reports: NV - Tobacco Use Smoking Status *Q: Unknown Ever Smoked Years of Tobacco use: 50 Packs/Tins Daily: 1 Used Tobacco, but Quit: Yes Month Tobacco Last Used: 2 years ago Second Hand Smoke Exposure: No - Caffeine Use Caffeine Use: Reports: Coffee Caffeine Use Comment: drinks about 2 cups of coffee per day - Alcohol Use Days Per Week of Alcohol Use: 1 Number of Drinks Per Day: 1 Total Drinks Per Week: 1 - Recreational Drug Use Recreational Drug Use: No - Living Situation & Occupation Living situation: Reports: , with Spouse Occupation: Retired ED ROS GENERAL - Review of Systems Review Of Systems: See Below Constitutional: Reports: No Symptoms HEENT: Reports: No Symptoms Respiratory: Reports: Shortness of Breath (chronically, on O2 via NC). Denies: Cough, Sputum Cardiovascular: Reports: No Symptoms GI/Abdominal: Reports: No Symptoms : Reports: No Symptoms Skin: Denies: Rash Neurological: Reports: Confusion ED EXAM, GENERAL - Physical Exam Exam: See Below Exam Limited By: Other (mildly confused.) General Appearance: Alert, No Apparent Distress Eye Exam: Bilateral Eye: EOMI, PERRL (pinpoint) Ears: Hearing Grossly Normal Nose: Normal Inspection Throat/Mouth: Normal Voice, No Airway Compromise Head: Atraumatic, Normocephalic Neck: Normal Inspection, Supple, Non-Tender, Full Range of Motion Respiratory/Chest: No Respiratory Distress, Lungs Clear, Normal Breath Sounds, No Accessory Muscle Use, Other (Chronically on o2. ) Cardiovascular: Normal Peripheral Pulses, Irregularly Irregular Peripheral Pulses: 3+: Radial (L), Radial (R) GI/Abdominal: Normal Bowel Sounds, Soft, Non-Tender, No Organomegaly Rectal (Males) Exam: Normal Exam, Normal Rectal Tone, Heme - Stool. No: Black Stool, Bloody Stool, Heme + Stool, Hemorrhoids Back Exam: Normal Inspection Extremities: Normal Inspection, Normal Range of Motion, Non-Tender Neurological: Alert, CN II-XII Intact, Normal Cognition, No Motor/Sensory Deficits, Confused Psychiatric: Normal Affect, Normal Mood Skin Exam: Warm, Dry, Intact, Other (Intermittent bruising throughout his body.) . No: Normal Color (pale) Course - Vital Signs Last Recorded V/S: Last Vital Signs Temp 98.4 F 01/12/18 18:46 Pulse 68 01/12/18 12:27 Resp 19 01/12/18 18:46 BP 135/51 L 01/12/18 18:46 Pulse Ox 99 01/12/18 18:46 - Orders/Labs/Meds Orders: Active Orders 24 hr Category Date Time Status Admission Status [Patient Status] [ADT] Routine ADT 01/12/18 20:07 Ordered Cardiac Monitoring [RC] . DIRECTED Care 01/12/18 20:07 Ordered EKG Documentation Completion [RC] STAT Care 01/12/18 13:29 Active Notify Provider [RC] ASDIRECTED Care 01/12/18 17:17 Active CXR [Chest 1V Frontal] [CR] Stat Exams 01/12/18 17:14 Taken PACKED CELLS [RED BLOOD CELLS LP] [BBK] Stat Lab 01/12/18 13:45 Results TYPE AND SCREEN [BBK] Stat Lab 01/12/18 13:45 Results Oseltamivir [Tamiflu] Med 01/13/18 19:52 Once 30 mg PO ONETIME ONE Sodium Chloride 0.9% [Normal Saline] 100 ml Med 01/12/18 15:00 Active IV ASDIRECTED Sodium Chloride 0.9% [Saline Flush] Med 01/12/18 14:55 Active 10 ml FLUSH ONETIME PRN Transfuse Red Blood Cells [COMM] Stat Oth 01/12/18 17:17 Ordered Medication Orders Sodium Chloride (Normal Saline) 100 mls @ 75 mls/hr IV ASDIRECTED JARRED Last Admin: 01/12/18 15:29 Dose: 75 mls/hr Oseltamivir Phosphate (Tamiflu) 30 mg PO ONETIME ONE Stop: 01/13/18 19:53 Sodium Chloride (Saline Flush) 10 ml FLUSH ONETIME PRN PRN Reason: IV FLUSH Last Admin: 01/12/18 15:29 Dose: 10 ml Labs: Laboratory Tests 01/12/18 01/12/18 01/12/18 Range/Units 13:45 13:45 13:45 WBC 14.09 H (4.23-9.07) K/mm3 RBC 2.29 L (4.63-6.08) M/mm3 Hgb 8.1 L (13.7-17.5) gm/L Hct 24.3 L (40.1-51.0) % MCV 106.1 H (79.0-92.2) fl MCH 35.4 H (25.7-32.2) pg MCHC 33.3 (32.2-35.5) g/dl RDW Std Deviation 50.3 H (35.1-43.9) fL Plt Count 429 H (163-337) K/mm3 MPV 8.5 L (9.4-12.3) fl Neutrophils % (Manual) 88 H (40-60) % Band Neutrophils % 0 (0-10) % Lymphocytes % (Manual) 11 L (20-40) % Atypical Lymphs % 0 % Monocytes % (Manual) 1 L (2-10) % Eosinophils % (Manual) 0 L (0.8-7.0) % Basophils % (Manual) 0 L (0.2-1.2) Platelet Estimate Adequate Plt Morphology Comment Normal Anisocytosis 2+ moderate Macrocytosis 2+ moderate RBC Morph Comment Not Reportable PT 63.0 H* (8.0-13.0) SECONDS INR 5.78 H* APTT 67 H (22-36) SECONDS Sodium 136 (136-145) mEq/L Potassium 4.2 (3.5-5.1) mEq/L Chloride 99 (98-107) mEq/L Carbon Dioxide 26 (21-32) mEq/L Anion Gap 15.2 H (5-15) BUN 27 H (7-18) mg/dL Creatinine 1.8 H (0.7-1.3) mg/dL Est Cr Clr Drug Dosing 24.36 mL/min Estimated GFR (MDRD) 36 (>60) mL/min BUN/Creatinine Ratio 15.0 (14-18) Glucose 126 H (83-115) mg/dL Calcium 8.9 (8.5-10.1) mg/dL Total Bilirubin 0.7 (0.2-1.0) mg/dL AST 42 H (15-37) U/L ALT 31 (16-63) U/L Alkaline Phosphatase 77 (46-116) U/L Troponin I < 0.017 (0.00-0.056) ng/mL Total Protein 7.1 (6.4-8.2) g/dl Albumin 2.9 L (3.4-5.0) g/dl Globulin 4.2 gm/dL Albumin/Globulin Ratio 0.7 L (1-2) TSH 3rd Generation (0.358-3.74) uIU/mL Urine Color (Yellow) Urine Appearance (Clear) Urine pH (5.0-8.0) Ur Specific [place] (1.005-1.030) Urine Protein (Negative) Urine Glucose (UA) (Negative) Urine Ketones (Negative) Urine Occult Blood (Negative) Urine Nitrite (Negative) Urine Bilirubin (Negative) Urine Urobilinogen (0.2-1.0) Ur Leukocyte Esterase (Negative) Urine RBC (0-5) /hpf Urine WBC (0-5) /hpf Ur Epithelial Cells (0-5) /hpf Urine Bacteria (FEW) /hpf Urine Mucus (FEW) /hpf Mycoplasma pneumon IgM (NEGATIVE) Blood Type Gel Antibody Screen Crossmatch 01/12/18 01/12/18 01/12/18 Range/Units 13:45 13:45 13:45 WBC (4.23-9.07) K/mm3 RBC (4.63-6.08) M/mm3 Hgb (13.7-17.5) gm/L Hct (40.1-51.0) % MCV (79.0-92.2) fl MCH (25.7-32.2) pg MCHC (32.2-35.5) g/dl RDW Std Deviation (35.1-43.9) fL Plt Count (163-337) K/mm3 MPV (9.4-12.3) fl Neutrophils % (Manual) (40-60) % Band Neutrophils % (0-10) % Lymphocytes % (Manual) (20-40) % Atypical Lymphs % % Monocytes % (Manual) (2-10) % Eosinophils % (Manual) (0.8-7.0) % Basophils % (Manual) (0.2-1.2) Platelet Estimate Plt Morphology Comment Anisocytosis Macrocytosis RBC Morph Comment PT (8.0-13.0) SECONDS INR APTT (22-36) SECONDS Sodium (136-145) mEq/L Potassium (3.5-5.1) mEq/L Chloride (98-107) mEq/L Carbon Dioxide (21-32) mEq/L Anion Gap (5-15) BUN (7-18) mg/dL Creatinine (0.7-1.3) mg/dL Est Cr Clr Drug Dosing mL/min Estimated GFR (MDRD) (>60) mL/min BUN/Creatinine Ratio (14-18) Glucose (83-115) mg/dL Calcium (8.5-10.1) mg/dL Total Bilirubin (0.2-1.0) mg/dL AST (15-37) U/L ALT (16-63) U/L Alkaline Phosphatase (46-116) U/L Troponin I (0.00-0.056) ng/mL Total Protein (6.4-8.2) g/dl Albumin (3.4-5.0) g/dl Globulin gm/dL Albumin/Globulin Ratio (1-2) TSH 3rd Generation 1.725 (0.358-3.74) uIU/mL Urine Color (Yellow) Urine Appearance (Clear) Urine pH (5.0-8.0) Ur Specific [place] (1.005-1.030) Urine Protein (Negative) Urine Glucose (UA) (Negative) Urine Ketones (Negative) Urine Occult Blood (Negative) Urine Nitrite (Negative) Urine Bilirubin (Negative) Urine Urobilinogen (0.2-1.0) Ur Leukocyte Esterase (Negative) Urine RBC (0-5) /hpf Urine WBC (0-5) /hpf Ur Epithelial Cells (0-5) /hpf Urine Bacteria (FEW) /hpf Urine Mucus (FEW) /hpf Mycoplasma pneumon IgM Negative (NEGATIVE) Blood Type AB POSITIVE Gel Antibody Screen Negative Crossmatch See Detail 01/12/18 Range/Units 16:08 WBC (4.23-9.07) K/mm3 RBC (4.63-6.08) M/mm3 Hgb (13.7-17.5) gm/L Hct (40.1-51.0) % MCV (79.0-92.2) fl MCH (25.7-32.2) pg MCHC (32.2-35.5) g/dl RDW Std Deviation (35.1-43.9) fL Plt Count (163-337) K/mm3 MPV (9.4-12.3) fl Neutrophils % (Manual) (40-60) % Band Neutrophils % (0-10) % Lymphocytes % (Manual) (20-40) % Atypical Lymphs % % Monocytes % (Manual) (2-10) % Eosinophils % (Manual) (0.8-7.0) % Basophils % (Manual) (0.2-1.2) Platelet Estimate Plt Morphology Comment Anisocytosis Macrocytosis RBC Morph Comment PT (8.0-13.0) SECONDS INR APTT (22-36) SECONDS Sodium (136-145) mEq/L Potassium (3.5-5.1) mEq/L Chloride (98-107) mEq/L Carbon Dioxide (21-32) mEq/L Anion Gap (5-15) BUN (7-18) mg/dL Creatinine (0.7-1.3) mg/dL Est Cr Clr Drug Dosing mL/min Estimated GFR (MDRD) (>60) mL/min BUN/Creatinine Ratio (14-18) Glucose (83-115) mg/dL Calcium (8.5-10.1) mg/dL Total Bilirubin (0.2-1.0) mg/dL AST (15-37) U/L ALT (16-63) U/L Alkaline Phosphatase (46-116) U/L Troponin I (0.00-0.056) ng/mL Total Protein (6.4-8.2) g/dl Albumin (3.4-5.0) g/dl Globulin gm/dL Albumin/Globulin Ratio (1-2) TSH 3rd Generation (0.358-3.74) uIU/mL Urine Color Yellow (Yellow) Urine Appearance Clear (Clear) Urine pH 5.5 (5.0-8.0) Ur Specific [place] 1.025 (1.005-1.030) Urine Protein 2+ H (Negative) Urine Glucose (UA) Negative (Negative) Urine Ketones Trace H (Negative) Urine Occult Blood Negative (Negative) Urine Nitrite Negative (Negative) Urine Bilirubin Negative (Negative) Urine Urobilinogen 0.2 (0.2-1.0) Ur Leukocyte Esterase Negative (Negative) Urine RBC Not seen (0-5) /hpf Urine WBC 0-5 (0-5) /hpf Ur Epithelial Cells 0-5 (0-5) /hpf Urine Bacteria Few (FEW) /hpf Urine Mucus Not seen (FEW) /hpf Mycoplasma pneumon IgM (NEGATIVE) Blood Type Gel Antibody Screen Crossmatch Meds: Medications Generic Name Dose Route Start Last Admin Trade Name Freq PRN Reason Stop Dose Admin Sodium Chloride 100 mls @ 75 mls/hr 01/12/18 15:00 01/12/18 15:29 Normal Saline IV 75 mls/hr ASDIRECTED JARRED Administration Oseltamivir Phosphate 30 mg 01/13/18 19:52 Tamiflu PO 01/13/18 19:53 ONETIME ONE Sodium Chloride 10 ml 01/12/18 14:55 01/12/18 15:29 Saline Flush FLUSH 10 ml ONETIME PRN Administration IV FLUSH Discontinued Medications Generic Name Dose Route Start Last Admin Trade Name Freq PRN Reason Stop Dose Admin Sodium Chloride 500 mls @ 999 mls/hr 01/12/18 14:49 01/12/18 16:10 Normal Saline IV 01/12/18 15:19 999 mls/hr .BOLUS ONE Administration Iopamidol 100 ml 01/12/18 14:55 01/12/18 15:28 Isovue-300 (61%) IVPUSH 01/12/18 14:56 100 ml ONETIME ONE Administration - Re-Assessments/Exams Free Text/Narrative Re-Assessment/Exam: On examination patient has a Band-Aid to the tip of the right middle finger. Appears bleeding is controlled. Patient offers no complaints this time. He is mildly confused. He has a history of major depression disorder, anxiety, A. fib on Coumadin. Per nursing staff patient is mildly confused unclear cause at this point. Hemoglobin was found to be low at 8 thus referred to ER for further evaluation and treatment. Patient denies any nausea vomiting, chest pain, shortness of breath, abdominal pain, blood from his rectum or blood within the stool. He denies any painful urination. Does not recall hitting his head. On examination of the head there is no concerning findings. Pupils are pinpoint and slightly reactive. EOM's intact. There is no known recent fall. 01/12/18 14:14 Stool hemoccult was negagive . Patient has severe ecchymosis noted to the right flank and also right anterior iliac crest. Unclear patient fell. On previous examination 01/02/18 hgb was 11. X-ray of the right hip did not indicate any bony abnormalities. Per [facility] staff patient became more confused after taking norco. 1417 Patients INR is 5.78. Will order CT of the head w/o contrast. Awaiting for cmp. Patient will most likely require ct of the abdomen and pelvis. Labs reviewed: White blood cell count 14.09, hemoglobin 8.1, platelet count 429 , differential is pending. INR supratherapeutic at 5.78. Chemistry panel revealed creatinine 1.8 which is close to patient's baseline. Troponin less than 0.017. Hemoglobin has dropped from 14.0 December 30, 2017 to 8.1 today. Stool Hemoccult test was negative for blood. Ordered CT of the head and abdomen pelvis with IV contrast. Discussed with Dr. Benjamin and agrees to obtain CT of the abdomen/pelvis with IV contrast although Creatine is elevated. IV with NS 500mls/hr bolus ordered. CT of the head impression: No acute findings. CT abdomen and pelvis impression: Enlarged and heterogeneous psoas muscle continues into the iliac crests muscle. This is noted on the right side is compatible with ilial psoas muscle hematoma. No free fluid within the abdomen is seen. Increasing size abdominal aortic aneurysm from previous study measuring 2.7 cm to 4.7 rate is now. My dilated bladder. Compression deformities at the thoracolumnar junction which are an interval change from prior exam. 01/12/18 17:[address] Benson. Requests CXR, mycoplasma, influenza, and type/cross PRBCs 2 units. 01/12/18 17:[address] Benjamin. No significant change from previous cxr. No acute findings. Spoke with Dr. Benson again with results of CXR. Influenza screen pending. Blood ordered. [facility] [place]. Influenza screen is positive for B. Blood being administered. Awaiting for admission. 2210 Admission orders placed. Departure - Departure Time of Disposition: 13:50 Disposition: Refer to Observation Condition: Good Clinical Impression: Confusion, Influenza, Influenza B Anemia Qualifiers: Anemia type: unspecified type Qualified Code(s): D64.9 - Anemia, unspecified Hematoma of right psoas region to anticoagulant therapy Qualifiers: Encounter type: initial encounter Qualified Code(s): S30.1XXA - Contusion of abdominal wall, initial encounter - Discharge Information Referrals: David Hazel MD [Primary Care Provider] - Forms: ED Department Discharge - My Orders Last 24 Hours: My Active Orders 01/12/18 13:29 EKG Documentation Completion [RC] STAT 01/12/18 13:45 PACKED CELLS [RED BLOOD CELLS LP] [BBK] Stat TYPE AND SCREEN [BBK] Stat 01/12/18 14:55 Sodium Chloride 0.9% [Saline Flush] 10 ml FLUSH ONETIME PRN 01/12/18 15:00 Sodium Chloride 0.9% [Normal Saline] 100 ml IV ASDIRECTED 01/12/18 17:14 CXR [Chest 1V Frontal] [CR] Stat 01/12/18 17:17 Notify Provider [RC] ASDIRECTED Transfuse Red Blood Cells [COMM] Stat 01/12/18 20:07 Admission Status [Patient Status] [ADT] Routine Cardiac Monitoring [RC] . DIRECTED 01/13/18 19:52 Oseltamivir [Tamiflu] 30 mg PO ONETIME ONE - Assessment/Plan Last 24 Hours: My Active Orders 01/12/18 13:29 EKG Documentation Completion [RC] STAT 01/12/18 13:45 PACKED CELLS [RED BLOOD CELLS LP] [BBK] Stat TYPE AND SCREEN [BBK] Stat 01/12/18 14:55 Sodium Chloride 0.9% [Saline Flush] 10 ml FLUSH ONETIME PRN 01/12/18 15:00 Sodium Chloride 0.9% [Normal Saline] 100 ml IV ASDIRECTED 01/12/18 17:14 CXR [Chest 1V Frontal] [CR] Stat 01/12/18 17:17 Notify Provider [RC] ASDIRECTED Transfuse Red Blood Cells [COMM] Stat 01/12/18 20:07 Admission Status [Patient Status] [ADT] Routine Cardiac Monitoring [RC] . DIRECTED 01/13/18 19:52 Oseltamivir [Tamiflu] 30 mg PO ONETIME ONE
[2018-01-12] MEDS ORDERED: Sodium Chloride 0.9% 500 ML IV ONE (14:49)
[2018-01-12] MEDS ORDERED: Sodium Chloride 0.9% 10 ML Syringe FLUSH PRN (14:55)
[2018-01-12] MEDS ORDERED: Iopamidol 612 MG/ML 100 ML Bottle IVPUSH ONE (14:55)
[2018-01-12] MEDS ORDERED: Sodium Chloride 0.9% 100 ML IV SCH (15:00)
--- NOTE | 2018-01-12 15:38 | CT ---
CT abdomen and pelvis Technique: Multiple axial sections were obtained from above the dome of the diaphragm inferiorly through the pubic symphysis. Intravenous contrast was utilized. No oral contrast has been given. Findings: Enlarged heterogeneous psoas muscle is seen compatible with iliopsoas muscle hematoma. This continues down into the iliacus muscle. Calcified pleural plaques seen within the right lung base with adjacent parenchymal scarring. Liver shows no focal parenchymal abnormality. Spleen appears within normal limits. Distal aorta shows aneurysmal dilatation with intramural thrombus. Maximum AP dimension is about 4.0 cm. Aneurysm on prior study measures about 3.7 cm in greatest size. Atherosclerotic change seen throughout the aorta and iliac vessels. Kidneys show symmetric contrast enhancement. Cortical calcification is noted within the right kidney which is stable from previous exam. No hydronephrosis is seen. Pancreas is within normal limits. Gallbladder contains no calcified gallstones. No retroperitoneal adenopathy or mesenteric abnormalities are seen. No pelvic mass or adenopathy is noted. Bladder is mildly dilated. Delayed images shows contrast within the ureters and bladder. Bone window settings were reviewed which shows several compression deformities at the thoracolumbar junction which represent an interval change from prior CT exam. Impression: 1. Enlarged and heterogeneous psoas muscle continues into the iliacus muscle. This is noted on the right side and is compatible with iliopsoas muscle hematoma. 2. No free fluid within the abdomen is seen. 3. Increasing size of abdominal aortic aneurysm from prior study from 3.7 cm 4.0 cm. 4. Mildly dilated bladder. 5. Compression deformities at the thoracolumbar junction which are an interval change from prior exam. Diagnostic code #3
--- NOTE | 2018-01-12 15:38 | CT ---
Head CT Technique: Multiple axial sections through the brain were obtained. Intravenous contrast was not utilized. Comparison: No prior intracranial imaging. Findings: Ventricles along with basal cisterns and sulci over the convexities are moderately prominent. 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 Mild diminished density is noted within the periventricular white matter which is compatible with small vessel ischemic demyelination change. Old lacunar infarct is noted within the left basal ganglia. No other abnormal parenchymal densities are seen. No evidence of intracranial hemorrhage. No midline shift or mass effect is seen. Bone window settings were reviewed which shows no acute calvarial abnormality. Mild areas of mucosal thickening are seen within the ethmoid and frontal sinuses which is most likely chronic. Impression: 1. Senescent change as noted above. Sinus findings which are felt to be incidental. 2. No acute intracranial abnormality is identified. Diagnostic code #2
[2018-01-12] MEDS ORDERED: Acetaminophen 325 MG Tab PO PRN (20:33)
[2018-01-12] MEDS ORDERED: Furosemide 40 MG/4 ML VIAL IVPUSH ONE (21:45)
[2018-01-12] MEDS: Metoprolol Tartrate 25 MG Tab PO SCH (21:46)
[2018-01-12] MEDS ORDERED: Oseltamivir 30 MG Cap PO ONE (22:30)
[2018-01-12] MEDS: Acetaminophen/HYDROcodone 325-5 MG Tab PO PRN (23:05)
[2018-01-13] MEDS: Acetaminophen/HYDROcodone 325-5 MG Tab PO PRN ×2 (06:48→17:15)
[2018-01-13] MEDS: Levothyroxine 50 MCG Tab PO SCH (06:48)
[2018-01-13] MEDS: Pantoprazole 40 MG Tab.CR PO SCH (06:48)
--- NOTE | 2018-01-13 07:26 | CR ---
Chest: Portable view of the chest was obtained. Comparison: Prior chest x-ray of 12/30/17. Heart size appears within normal limits for portable technique. Slight tortuosity of the thoracic aorta is seen as well as mild atherosclerotic calcification. Minimal atelectasis is seen within the right lateral costophrenic angle. Lungs otherwise are clear. Bony structures show mild scoliosis within the spine as well as osteopenia. Impression: 1. Incidental findings. Nothing acute is seen on portable chest x-ray. Diagnostic code #2
[2018-01-13] MEDS ORDERED: Phytonadione ORAL 2.5mg/2.5ml Soln Simple Syrup U/D PO ONE (08:00)
[2018-01-13] MEDS: PAROXETINE HCL PO SCH ×3 (08:17→21:26)
[2018-01-13] MEDS: Saccharomyces Boulardii (Probiotic) 250 MG Cap PO SCH (09:09)
[2018-01-13] MEDS: Simvastatin 20 MG Tab PO SCH (09:10)
[2018-01-13] MEDS: Metoprolol Tartrate 25 MG Tab PO SCH ×2 (09:10→21:22)
[2018-01-13] MEDS: Oseltamivir 30 MG Cap PO SCH (09:10)
--- NOTE | 2018-01-13 16:08 | PCM.PN ---
- General Info Date of Service: 01/13/18 Functional Status: Reports: Tolerating Diet (minimal intake), Urinating - Review of Systems General: Reports: Weakness HEENT: Reports: No Symptoms Pulmonary: Reports: No Symptoms Cardiovascular: Reports: No Symptoms Gastrointestinal: Reports: No Symptoms Genitourinary: Reports: No Symptoms Musculoskeletal: Reports: No Symptoms Skin: Reports: No Symptoms Neurological: Reports: Confusion (decreased) Psychiatric: Reports: No Symptoms - Patient Data Vitals - Most Recent: Last Vital Signs Temp 36.9 C 01/13/18 09:09 Pulse 73 01/13/18 09:10 Resp 18 01/13/18 09:09 BP 121/75 01/13/18 09:10 Pulse Ox 92 L 01/13/18 09:09 Weight - Most Recent: 55.111 kg I&O - Last 24 Hours: Intake & Output 01/13/18 01/13/18 01/13/18 06:59 14:59 22:59 Intake Total 0 Balance 0 Med Orders - Current: Current Medications Acetaminophen (Tylenol) 650 mg PO Q6H PRN PRN Reason: Pain/Fever Hydrocodone Bitart/Acetaminophen ([place] 325-5 Mg) 1 tab PO Q6H PRN PRN Reason: Pain Last Admin: 01/13/18 06:48 Dose: 1 tab Levothyroxine Sodium (Synthroid) 50 mcg PO ACBREAKFAST [facility] Last Admin: 01/13/18 06:48 Dose: 50 mcg Metoprolol Tartrate (Lopressor) 25 mg PO BID [facility] Last Admin: 01/13/18 09:10 Dose: 25 mg Oseltamivir Phosphate (Tamiflu) 30 mg PO DAILY [facility] Last Admin: 01/13/18 09:10 Dose: 30 mg Pantoprazole Sodium (Protonix) 40 mg PO DAILY@0700 [facility] Last Admin: 01/13/18 06:48 Dose: 40 mg Paroxetine Hcl [ Paroxetine Hcl] 15 Mg 0 each PO BID [facility] Last Admin: 01/13/18 10:49 Dose: Not Given Saccharomyces Boulardii (Florastor) 250 mg PO QAM [facility] Last Admin: 01/13/18 09:09 Dose: 250 mg Simvastatin (Zocor) 20 mg PO QAM [facility] Last Admin: 01/13/18 09:10 Dose: 20 mg Sodium Chloride (Saline Flush) 10 ml FLUSH ONETIME PRN PRN Reason: IV FLUSH Last Admin: 01/12/18 15:29 Dose: 10 ml Discontinued Medications Furosemide (Lasix) 40 mg IVPUSH NOW ONE Stop: 01/12/18 21:46 Last Admin: 01/12/18 21:53 Dose: 40 mg Sodium Chloride (Normal Saline) 500 mls @ 999 mls/hr IV .BOLUS ONE Stop: 01/12/18 15:19 Last Admin: 01/12/18 16:10 Dose: 999 mls/hr Sodium Chloride (Normal Saline) 100 mls @ 75 mls/hr IV ASDIRECTED [facility] Last Admin: 01/12/18 15:29 Dose: 75 mls/hr Iopamidol (Isovue-300 (61%)) 100 ml IVPUSH ONETIME ONE Stop: 01/12/18 14:56 Last Admin: 01/12/18 15:28 Dose: 100 ml Oseltamivir Phosphate (Tamiflu) 30 mg PO ONETIME ONE Stop: 01/13/18 19:53 Oseltamivir Phosphate (Tamiflu) 30 mg PO ONETIME ONE Stop: 01/12/18 22:31 Last Admin: 01/12/18 22:21 Dose: 30 mg Phytonadione (Aquamephyton) 2.5 mg PO ONETIME ONE Stop: 01/13/18 08:01 Last Admin: 01/13/18 09:10 Dose: 2.5 mg - Exam Quality Assessment: Supplemental Oxygen, DVT Prophylaxis General: Alert, Oriented, Cooperative, No Acute Distress HEENT: Pupils Equal, Pupils Reactive, EOMI Neck: Supple, Trachea Midline, No JVD Lungs: Normal Respiratory Effort GI/Abdominal Exam: Normal Bowel Sounds, Soft, Non-Tender, No Organomegaly, No Distention (Male) Exam: Deferred Back Exam: Normal Inspection Extremities: Normal Inspection, Normal Capillary Refill Skin: Warm, Dry Neurological: No New Focal Deficit, Normal Speech Psy/Mental Status: Alert, Normal Affect, Normal Mood - Problem List & Annotations (1) Anemia SNOMED Code(s): 425094133 Code(s): D64.9 - ANEMIA, UNSPECIFIED Status: Acute Priority: High Current Visit: Yes Qualifiers: Anemia type: unspecified type Qualified Code(s): D64.9 - Anemia, unspecified (2) Hematoma of right psoas region to anticoagulant therapy SNOMED Code(s): 327735659 Code(s): S30.1XXA - CONTUSION OF ABDOMINAL WALL, INITIAL ENCOUNTER Status: Acute Priority: High Current Visit: Yes Qualifiers: Encounter type: subsequent encounter Qualified Code(s): S30.1XXD - Contusion of abdominal wall, subsequent encounter (3) Influenza B SNOMED Code(s): 11300011 Code(s): J10.1 - FLU DUE TO OTH IDENT INFLUENZA VIRUS W OTH RESP MANIFEST Status: Resolved Priority: High Current Visit: Yes (4) Altered mental status, unspecified SNOMED Code(s): 730803659 Code(s): R41.82 - ALTERED MENTAL STATUS, UNSPECIFIED Status: Acute Current Visit: No Qualifiers: Altered mental status type: transient alteration of awareness Qualified Code(s): R40.4 - Transient alteration of awareness (5) Benign essential hypertension SNOMED Code(s): 3985703 Code(s): I10 - ESSENTIAL (PRIMARY) HYPERTENSION Status: Acute Current Visit: No - Problem List Review Problem List Initiated/Reviewed/Updated: Yes - Plan Plan:: Impression: AMS with leukocyctosis Influenza B positive, SNF resident; clarify vaccination status Supra-therapeutic INR on Coumadin for A Fib Anemia with recent fall, unclear time frame. radiology studies: CT of head unremarkable; CT of abdomen/pelvis large hemotoma involving psoas muscle to the iliac crest; additionally enlarging abdominal aortic aneursym, 2.7 now 4.7 cm as noted. Compression fractures as mentioned, see formal report. Chronic CAD/[place] with PCI HTN HLD A fib on Coumadin PVD (carotid artery stenosis with CEA) Plan: IVF-->dec reased when oral intake has improved; follow UO TamiFlu, renal dose Infectious work up Vitamin K, hold Coumadin; resume home dose when appropriate Pain mgt Transfuse 2 units PRBCs with lasix Correct electrolyte imbalance Droplet isolation Vascular surg consult for AA as OP. Clear liquids advance as tolerated DVT prophylaxis GI prophylaxis Consult PT/OT; return SNF when appropriate.
--- NOTE | 2018-01-13 16:08 | PCM.HP ---
H&P History of Present Illness - General Date of Service: 01/12/18 Source of Information: Provider History Limitations: Reports: No Limitations - History of Present Illness Initial Comments - Free Text/Narative: 82 year old frail SNF resident with multiple medical problems presents with AMS ; he has been found to have a psoas muscle hematoma with a supra-therapeutic INR. The patient will receive two units of PRBCs. It is unknown when he fell at the SNF. He has been worked up for respiratory infection and is Influenza B positive. Clarification for his Flu vaccine status will be pursue. The patient is unable to participate in his history. Onset of Symptoms: Reports: Unknown/Unsure Symptom Onset Date: 01/12/18 Duration of Symptoms: Reports: Day(s):, Getting Worse Location: Reports: Generalized Quality: Reports: Same as Previous Episode Severity: Moderate Improves with: Reports: Medication Worsens with: Reports: None Associated Symptoms: Reports: Confusion, Cough, Diaphoresis, Fever/Chills, Loss of Appetite, Malaise, Nausea/Vomiting, Shortness of Breath, Weakness - Related Data Allergies/Adverse Reactions: Allergies Allergy/AdvReac Type Severity Reaction Status Date / Time levofloxacin Allergy Airway Verified 01/09/18 08:25 Tightness Sulfa (Sulfonamide Allergy Anaphylactic Verified 01/09/18 08:25 Antibiotics) Shock Home Medications: Home Meds Acetaminophen 650 mg PO Q4H PRN 01/12/18 [History] Acetaminophen/HYDROcodone [[place] 325-5 MG] 1 tab PO Q6H PRN 01/12/18 [History] Albuterol/Ipratropium [Combivent Respimat] 1 inhalation IH Q4H PRN 01/12/18 [ History] Barrier Cream. 1 applic TOP TID 01/12/18 [History] Cholecalciferol (Vitamin D3) [Vitamin D3] 1,000 unit PO QAM 01/12/18 [History] Cyanocobalamin (Vitamin B-12) [Cyanocobalamin Injection] 1,000 mcg IJ Q30D 01/12 [History] Levothyroxine [Synthroid] 50 mcg PO QAM 01/12/18 [History] Metoprolol Tartrate 25 mg PO BID 01/12/18 [History] Omeprazole 20 mg PO QAM 01/12/18 [History] PARoxetine HCl [Paroxetine HCl] 15 mg PO BID 01/12/18 [History] Pravastatin Sodium 10 mg PO QAM 01/12/18 [History] Saccharomyces Boulardii [Florastor] 250 mg PO QAM 01/12/18 [History] Warfarin [Coumadin] 2.5 mg PO QPM 01/12/18 [History] Tamsulosin [Flomax] 0.4 mg PO BIDPC #60 cap.er 01/16/18 [Rx] Past Medical History Cardiovascular History: Reports: Afib, Arrhythmia, CAD, High Cholesterol, Hypertension, [place], PVD Gastrointestinal History: Reports: GERD Genitourinary History: Reports: Chronic Renal Insuffiency Musculoskeletal History: Reports: Other (See Below) Other Musculoskeletal History: Chronic back pain Psychiatric History: Reports: Anxiety, Depression Endocrine/Metabolic History: Reports: Hypothyroidism - Past Surgical History Cardiovascular Surgical History: Reports: Carotid Endarterectomy, Coronary Artery Stent, Vascular Surgery GI Surgical History: Reports: Appendectomy Social & Family History - Family History Family Medical History: Noncontributory Cardiac: Reports: [place] - Tobacco Use Smoking Status *Q: Former Smoker Years of Tobacco use: 50 Packs/Tins Daily: 1 Used Tobacco, but Quit: Yes Month Tobacco Last Used: unsure Second Hand Smoke Exposure: No - Caffeine Use Caffeine Use: Reports: Coffee Other Caffeine Use: 2 cups per day Caffeine Use Comment: drinks about 2 cups of coffee per day - Alcohol Use Days Per Week of Alcohol Use: 0 Number of Drinks Per Day: 1 Total Drinks Per Week: 0 - Recreational Drug Use Recreational Drug Use: No - Living Situation & Occupation Living situation: Reports: , with Spouse Occupation: Retired H&P Review of Systems - Review of Systems: Review Of Systems: See Below General: Reports: Malaise, Weakness, Fatigue HEENT: Reports: No Symptoms Pulmonary: Reports: Shortness of Breath Cardiovascular: Reports: No Symptoms Gastrointestinal: Reports: No Symptoms Genitourinary: Reports: No Symptoms Musculoskeletal: Reports: Back Pain Skin: Reports: No Symptoms Psychiatric: Reports: Confusion Neurological: Reports: No Symptoms, Dizziness Hematologic/Lymphatic: Reports: No Symptoms Immunologic: Reports: No Symptoms Exam - Exam Exam: See Below - Vital Signs Vital Signs: Last Vital Signs Temp 36.9 C 01/13/18 09:09 Pulse 73 01/13/18 09:10 Resp 18 01/13/18 09:09 BP 121/75 01/13/18 09:10 Pulse Ox 92 L 01/13/18 09:09 Weight: 55.111 kg - Exam Quality Assessment: Supplemental Oxygen General: Mild Distress, Lethargic HEENT: Conjunctiva Clear, Pupils Equal, Pupils Reactive, PERRLA Neck: Trachea Midline Lungs: Normal Respiratory Effort, Decreased Breath Sounds Cardiovascular: Regular Rate, Irregular Rhythm GI/Abdominal Exam: Normal Bowel Sounds, Soft, No Organomegaly, No Distention (Male) Exam: Deferred Rectal (Males) Exam: Deferred Back Exam: Normal Inspection Extremities: Normal Inspection, Slow Capillary Refill Skin: Warm Neurological: Cranial Nerves Intact Neuro Extensive - Mental Status: Other (lethergy) Neuro Extensive - Motor, Sensory, Reflexes: CN II-XII Intact Psychiatric: Other (see above) - Patient Data Result Diagrams: 01/16/18 06:38 01/16/18 06:38 *Q Meaningful Use (ADM) - VTE *Q VTE Criteria *Q: - Stroke *Q Stroke Criteria *Q: - AMI *Q AMI Criteria *Q: Problem List Initiated/Reviewed/Updated: Yes Orders Last 24hrs: Medication Orders Acetaminophen (Tylenol) 650 mg PO Q6H PRN PRN Reason: Pain/Fever Hydrocodone Bitart/Acetaminophen ([place] 325-5 Mg) 1 tab PO Q6H PRN PRN Reason: Pain Last Admin: 01/13/18 06:48 Dose: 1 tab Admin: 01/12/18 23:05 Dose: 1 tab Levothyroxine Sodium (Synthroid) 50 mcg PO ACBREAKFAST [facility] Last Admin: 01/13/18 06:48 Dose: 50 mcg Metoprolol Tartrate (Lopressor) 25 mg PO BID [facility] Last Admin: 01/13/18 09:10 Dose: 25 mg Admin: 01/12/18 21:46 Dose: 25 mg Oseltamivir Phosphate (Tamiflu) 30 mg PO DAILY [facility] Last Admin: 01/13/18 09:10 Dose: 30 mg Pantoprazole Sodium (Protonix) 40 mg PO DAILY@0700 [facility] Last Admin: 01/13/18 06:48 Dose: 40 mg Paroxetine Hcl [ Paroxetine Hcl] 15 Mg 0 each PO BID [facility] Last Admin: 01/13/18 10:49 Dose: Admin: 01/13/18 08:17 Dose: Saccharomyces Boulardii (Florastor) 250 mg PO QAM [facility] Last Admin: 01/13/18 09:09 Dose: 250 mg Simvastatin (Zocor) 20 mg PO QAM [facility] Last Admin: 01/13/18 09:10 Dose: 20 mg Sodium Chloride (Saline Flush) 10 ml FLUSH ONETIME PRN PRN Reason: IV FLUSH Last Admin: 01/12/18 15:29 Dose: 10 ml Assessment/Plan Comment:: Impression: AMS with leukocyctosis Influenza B positive, SNF resident; clarify vaccination status Supra-therapeutic INR on Coumadin for A Fib Anemia with recent fall, unclear time frame. radiology studies: CT of head unremarkable; CT of abdomen/pelvis large hemotoma involving psoas muscle to the iliac crest; additionally enlarging abdominal aortic aneursym, 2.7 now 4.7 cm as noted. Compression fractures as mentioned, see formal report. Chronic CAD/[place] with PCI HTN HLD A fib on Coumadin PVD (carotid artery stenosis with CEA) Plan: IVF TamiFlu, renal dose Infectious work up Vitamin K, hold Coumadin Pain mgt Transfuse 2 units PRBCs with lasix Correct electrolyte imbalance Droplet isolation Vascular surg consult for AA as OP. Clear liquids advance as tolerated DVT prophylaxis GI prophylaxis Consult PT/OT; return SNF when appropriate.
[2018-01-13] MEDS: HYDROmorphone 0.5 MG/0.5 ML SYRINGE IVPUSH PRN (18:53)
[2018-01-13] MEDS ORDERED: Oseltamivir 30 MG Cap PO ONE (19:52)
[2018-01-14] MEDS: Pantoprazole 40 MG Tab.CR PO SCH (05:59)
[2018-01-14] MEDS: Levothyroxine 50 MCG Tab PO SCH (05:59)
[2018-01-14] MEDS: Acetaminophen/HYDROcodone 325-5 MG Tab PO PRN ×2 (07:54→15:01)
[2018-01-14] MEDS: Saccharomyces Boulardii (Probiotic) 250 MG Cap PO SCH (09:38)
[2018-01-14] MEDS: Oseltamivir 30 MG Cap PO SCH (09:39)
[2018-01-14] MEDS: Simvastatin 20 MG Tab PO SCH (09:40)
[2018-01-14] MEDS: Metoprolol Tartrate 25 MG Tab PO SCH ×2 (09:40→20:33)
[2018-01-14] MEDS: PAROXETINE HCL PO SCH ×2 (09:43→20:33)
[2018-01-14] MEDS: HYDROmorphone 0.5 MG/0.5 ML SYRINGE IVPUSH PRN ×2 (11:02→21:09)
--- NOTE | 2018-01-14 13:18 | PCM.PN ---
- General Info Date of Service: 01/14/18 Functional Status: Reports: Tolerating Diet (improved) - Review of Systems General: Reports: No Symptoms HEENT: Reports: No Symptoms Pulmonary: Reports: No Symptoms Cardiovascular: Reports: No Symptoms Gastrointestinal: Reports: No Symptoms Genitourinary: Reports: No Symptoms Musculoskeletal: Reports: No Symptoms Skin: Reports: No Symptoms Psychiatric: Reports: Confusion (query ), Other (demanding with the nurses at night) - Patient Data Vitals - Most Recent: Last Vital Signs Temp 37.1 C 01/14/18 07:32 Pulse 70 01/14/18 09:40 Resp 20 01/14/18 07:32 BP 122/63 01/14/18 09:40 Pulse Ox 93 L 01/14/18 08:28 Weight - Most Recent: 54.941 kg I&O - Last 24 Hours: Intake & Output 01/13/18 01/14/18 01/14/18 22:59 06:59 14:59 Intake Total 760 100 240 Output Total 400 0 Balance 360 100 240 Lab Results Last 24 Hours: Laboratory Results - last 24 hr 01/14/18 01/14/18 01/14/18 Range/Units 06:00 06:10 06:10 WBC 9.60 H (4.23-9.07) K/mm3 RBC 3.17 L (4.63-6.08) M/mm3 Hgb 10.6 L (13.7-17.5) gm/L Hct 32.0 L (40.1-51.0) % MCV 100.9 H (79.0-92.2) fl MCH 33.4 H (25.7-32.2) pg MCHC 33.1 (32.2-35.5) g/dl RDW Std Deviation 57.9 H (35.1-43.9) fL Plt Count 331 (163-337) K/mm3 MPV 8.9 L (9.4-12.3) fl Neut % (Auto) 68.0 H (34.0-67.9) % Lymph % (Auto) 17.2 L (21.8-53.1) % [place] % (Auto) 11.8 (5.3-12.2) % Eos % (Auto) 2.4 (0.8-7.0) Baso % (Auto) 0.2 (0.1-1.2) % Neut # (Auto) 6.53 H (1.78-5.38) K/mm3 Lymph # (Auto) 1.65 (1.32-3.57) K/mm3 [place] # (Auto) 1.13 H (0.30-0.82) K/mm3 Eos # (Auto) 0.23 (0.04-0.54) K/mm3 Baso # (Auto) 0.02 (0.01-0.08) K/mm3 Manual Slide Review Not Reportable PT 14.7 H (8.0-13.0) SECONDS INR 1.37 Sodium 135 L (136-145) mEq/L Potassium 3.7 (3.5-5.1) mEq/L Chloride 97 L (98-107) mEq/L Carbon Dioxide 28 (21-32) mEq/L Anion Gap 13.7 (5-15) BUN 23 H (7-18) mg/dL Creatinine 1.8 H (0.7-1.3) mg/dL Est Cr Clr Drug Dosing 24.59 mL/min Estimated GFR (MDRD) 36 (>60) mL/min BUN/Creatinine Ratio 12.8 L (14-18) Glucose 87 (83-115) mg/dL Calcium 8.7 (8.5-10.1) mg/dL Magnesium 2.1 (1.8-2.4) mg/dl C-Reactive Protein 19.0 H* (<1.0) mg/dL Med Orders - Current: Current Medications Acetaminophen (Tylenol) 650 mg PO Q6H PRN PRN Reason: Pain/Fever Hydrocodone Bitart/Acetaminophen ([place] 325-5 Mg) 1 tab PO Q6H PRN PRN Reason: Pain Last Admin: 01/14/18 07:54 Dose: 1 tab Hydromorphone HCl (Dilaudid) 0.5 mg IVPUSH Q4H PRN PRN Reason: Pain (severe 7-10) Last Admin: 01/14/18 11:02 Dose: 0.5 mg Levothyroxine Sodium (Synthroid) 50 mcg PO ACBREAKFAST [facility] Last Admin: 01/14/18 05:59 Dose: 50 mcg Metoprolol Tartrate (Lopressor) 25 mg PO BID [facility] Last Admin: 01/14/18 09:40 Dose: 25 mg Oseltamivir Phosphate (Tamiflu) 30 mg PO DAILY [facility] Stop: 01/16/18 11:00 Last Admin: 01/14/18 09:39 Dose: 30 mg Pantoprazole Sodium (Protonix) 40 mg PO DAILY@0700 [facility] Last Admin: 01/14/18 05:59 Dose: 40 mg Paroxetine Hcl [ Paroxetine Hcl] 15 Mg 0 each PO BID [facility] Last Admin: 01/14/18 09:43 Dose: Not Given Saccharomyces Boulardii (Florastor) 250 mg PO [facility] Last Admin: 01/14/18 09:38 Dose: 250 mg Simvastatin (Zocor) 20 mg PO [facility] Last Admin: 01/14/18 09:40 Dose: 20 mg Sodium Chloride (Saline Flush) 10 ml FLUSH ONETIME PRN PRN Reason: IV FLUSH Last Admin: 01/12/18 15:29 Dose: 10 ml Warfarin Sodium (Pharmacy To Dose - Warfarin) 1 dose PO ASDIRECTED [facility] Warfarin Sodium (Coumadin) 7.5 mg PO ONETIME ONE Stop: 01/14/18 18:01 Discontinued Medications Furosemide (Lasix) 40 mg IVPUSH NOW ONE Stop: 01/12/18 21:46 Last Admin: 01/12/18 21:53 Dose: 40 mg Sodium Chloride (Normal Saline) 500 mls @ 999 mls/hr IV .BOLUS ONE Stop: 01/12/18 15:19 Last Admin: 01/12/18 16:10 Dose: 999 mls/hr Sodium Chloride (Normal Saline) 100 mls @ 75 mls/hr IV ASDIRECTED [facility] Last Admin: 01/12/18 15:29 Dose: 75 mls/hr Iopamidol (Isovue-300 (61%)) 100 ml IVPUSH ONETIME ONE Stop: 01/12/18 14:56 Last Admin: 01/12/18 15:28 Dose: 100 ml Oseltamivir Phosphate (Tamiflu) 30 mg PO ONETIME ONE Stop: 01/13/18 19:53 Oseltamivir Phosphate (Tamiflu) 30 mg PO ONETIME ONE Stop: 01/12/18 22:31 Last Admin: 01/12/18 22:21 Dose: 30 mg Phytonadione (Aquamephyton) 2.5 mg PO ONETIME ONE Stop: 01/13/18 08:01 Last Admin: 01/13/18 09:10 Dose: 2.5 mg - Exam Quality Assessment: Supplemental Oxygen, DVT Prophylaxis General: Alert, Oriented, Cooperative, No Acute Distress HEENT: Pupils Equal, Pupils Reactive, EOMI Neck: Supple, Trachea Midline, No JVD Lungs: Normal Respiratory Effort Cardiovascular: Regular Rate GI/Abdominal Exam: Normal Bowel Sounds, Soft, Non-Tender, No Organomegaly, No Distention (Male) Exam: Deferred Back Exam: Normal Inspection Extremities: Normal Inspection Skin: Warm Neurological: No New Focal Deficit, Normal Speech Psy/Mental Status: Alert, Labile Mood - Problem List Review Problem List Initiated/Reviewed/Updated: Yes - My Orders Last 24 Hours: My Active Orders 01/13/18 16:44 Occult Blood Diagnostic GI [OCCULT BLOOD DIAGNOSTIC] [OP] Routine 01/13/18 18:42 HYDROmorphone [Dilaudid] 0.5 mg IVPUSH Q4H PRN 01/13/18 20:07 Oxygen Therapy [RC] ASDIRECTED 01/14/18 10:45 Warfarin Pharmacy to Dose [Pharmacy to Dose - Warfarin] 1 dose PO ASDIRECTED 01/14/18 18:00 Warfarin [Coumadin] 7.5 mg PO ONETIME ONE - Plan Plan:: Impression: AMS with leukocyctosis Influenza B positive, SNF resident; clarify vaccination status Supra-therapeutic INR on Coumadin for A Fib Anemia with recent fall, unclear time frame. radiology studies: CT of head unremarkable; CT of abdomen/pelvis large hemotoma involving psoas muscle to the iliac crest; additionally enlarging abdominal aortic aneursym, 2.7 now 4.7 cm as noted. Compression fractures as mentioned, see formal report. Chronic CAD/[place] with PCI HTN HLD A fib on Coumadin PVD (carotid artery stenosis with CEA) Plan: IVF-->decreased when oral intake has improved; follow UO TamiFlu, renal dose Infectious negative except Influenza B Straight cath, if bladder scan with urine content >300 cc; check Q 6 H Resume Coumadin, home dose Pain mgt Hgb stable, follow Correct electrolyte imbalance Droplet isolation Vascular surg consult for AA as OP. Sofet diet DVT prophylaxis GI prophylaxis Consult PT/OT; return SNF when appropriate.
[2018-01-14] MEDS: Dextrose 5%-0.9% NaCl 1,000 ML IV SCH (17:45)
[2018-01-14] MEDS ORDERED: Warfarin 7.5 MG Tab PO ONE (18:00)
[2018-01-15] MEDS ORDERED: Magnesium Hydroxide 400 MG/5 ML Susp 30 ML Cup PO ONE ×2 (03:34→06:30)
[2018-01-15] MEDS: Levothyroxine 50 MCG Tab PO SCH (06:17)
[2018-01-15] MEDS: Pantoprazole 40 MG Tab.CR PO SCH (06:18)
[2018-01-15] MEDS: Dextrose 5%-0.9% NaCl 1,000 ML IV SCH (07:46)
[2018-01-15] MEDS: Saccharomyces Boulardii (Probiotic) 250 MG Cap PO SCH (09:17)
[2018-01-15] MEDS: Simvastatin 20 MG Tab PO SCH (09:17)
[2018-01-15] MEDS: Tamsulosin 0.4 MG Cap.ER PO SCH ×2 (09:17→17:45)
[2018-01-15] MEDS: Metoprolol Tartrate 25 MG Tab PO SCH ×2 (09:18→21:41)
[2018-01-15] MEDS: PAROXETINE HCL PO SCH ×2 (09:19→21:42)
[2018-01-15] MEDS: Oseltamivir 30 MG Cap PO SCH (09:19)
[2018-01-15] MEDS: Acetaminophen/HYDROcodone 325-5 MG Tab PO PRN ×2 (10:42→17:45)
--- NOTE | 2018-01-15 14:00 | PCM.PN ---
- General Info Date of Service: 01/15/18 Subjective Update: Inappropriate and demanding with the nurses, see nursing notes Functional Status: Reports: Pain Controlled, Tolerating Diet, Urinating - Review of Systems General: Reports: No Symptoms HEENT: Reports: No Symptoms Pulmonary: Reports: No Symptoms Cardiovascular: Reports: No Symptoms Gastrointestinal: Reports: No Symptoms Genitourinary: Reports: No Symptoms Musculoskeletal: Reports: No Symptoms Skin: Reports: No Symptoms Neurological: Reports: No Symptoms Psychiatric: Reports: No Symptoms - Patient Data Vitals - Most Recent: Last Vital Signs Temp 36.6 C 01/15/18 06:27 Pulse 72 01/15/18 09:18 Resp 18 01/15/18 06:27 BP 126/80 01/15/18 09:18 Pulse Ox 91 L 01/15/18 08:53 Weight - Most Recent: 55.021 kg I&O - Last 24 Hours: Intake & Output 01/14/18 01/15/18 01/15/18 22:59 06:59 14:59 Intake Total 1220 350 120 Output Total 0 375 Balance 1220 -25 120 Lab Results Last 24 Hours: Laboratory Results - last 24 hr 01/15/18 01/15/18 01/15/18 Range/Units 06:27 06:27 06:27 WBC 8.87 (4.23-9.07) K/mm3 RBC 3.14 L (4.63-6.08) M/mm3 Hgb 10.5 L (13.7-17.5) gm/L Hct 31.8 L (40.1-51.0) % MCV 101.3 H (79.0-92.2) fl MCH 33.4 H (25.7-32.2) pg MCHC 33.0 (32.2-35.5) g/dl RDW Std Deviation 53.8 H (35.1-43.9) fL Plt Count 325 (163-337) K/mm3 MPV 8.9 L (9.4-12.3) fl Neut % (Auto) 69.9 H (34.0-67.9) % Lymph % (Auto) 16.0 L (21.8-53.1) % [place] % (Auto) 10.7 (5.3-12.2) % Eos % (Auto) 2.7 (0.8-7.0) Baso % (Auto) 0.2 (0.1-1.2) % Neut # (Auto) 6.20 H (1.78-5.38) K/mm3 Lymph # (Auto) 1.42 (1.32-3.57) K/mm3 [place] # (Auto) 0.95 H (0.30-0.82) K/mm3 Eos # (Auto) 0.24 (0.04-0.54) K/mm3 Baso # (Auto) 0.02 (0.01-0.08) K/mm3 PT 14.2 H (8.0-13.0) SECONDS INR 1.32 Sodium 135 L (136-145) mEq/L Potassium 3.7 (3.5-5.1) mEq/L Chloride 100 (98-107) mEq/L Carbon Dioxide 27 (21-32) mEq/L Anion Gap 11.7 (5-15) BUN 22 H (7-18) mg/dL Creatinine 1.6 H (0.7-1.3) mg/dL Est Cr Clr Drug Dosing 27.70 mL/min Estimated GFR (MDRD) 42 (>60) mL/min BUN/Creatinine Ratio 13.8 L (14-18) Glucose 130 H (83-115) mg/dL Calcium 8.3 L (8.5-10.1) mg/dL Magnesium 1.7 L (1.8-2.4) mg/dl C-Reactive Protein 17.5 H* (<1.0) mg/dL Manjeet Results Last 24 Hours: Microbiology 01/15/18 10:20 Stool Occult Blood (MANJEET) - Final Stool / Feces NEGATIVE OCCULT BLOOD Med Orders - Current: Current Medications Acetaminophen (Tylenol) 650 mg PO Q6H PRN PRN Reason: Pain/Fever Hydrocodone Bitart/Acetaminophen ([place] 325-5 Mg) 1 tab PO Q6H PRN PRN Reason: Pain Last Admin: 01/15/18 10:42 Dose: 1 tab Hydromorphone HCl (Dilaudid) 0.5 mg IVPUSH Q4H PRN PRN Reason: Pain (severe 7-10) Last Admin: 01/14/18 21:09 Dose: 0.5 mg Levothyroxine Sodium (Synthroid) 50 mcg PO ACBREAKFAST JARRED Last Admin: 01/15/18 06:17 Dose: 50 mcg Metoprolol Tartrate (Lopressor) 25 mg PO BID [facility] Last Admin: 01/15/18 09:18 Dose: 25 mg Oseltamivir Phosphate (Tamiflu) 30 mg PO DAILY [facility] Stop: 01/16/18 11:00 Last Admin: 01/15/18 09:19 Dose: 30 mg Pantoprazole Sodium (Protonix) 40 mg PO DAILY@0700 [facility] Last Admin: 01/15/18 06:18 Dose: 40 mg Paroxetine Hcl [ Paroxetine Hcl] 15 Mg 0 each PO BID [facility] Last Admin: 01/15/18 09:19 Dose: Not Given Saccharomyces Boulardii (Florastor) [facility] Last Admin: 01/15/18 09:17 Dose: 250 mg Simvastatin (Zocor) [address] [facility] Last Admin: 01/15/18 09:17 Dose: 20 mg Sodium Chloride (Saline Flush) 10 ml FLUSH ONETIME PRN PRN Reason: IV FLUSH Last Admin: 01/12/18 15:29 Dose: 10 ml [facility] Last Admin: 01/15/18 09:17 Dose: 0.4 mg Warfarin Sodium (Pharmacy To Dose - Warfarin) 1 dose PO ASDIRECTED [facility] Discontinued Medications Furosemide (Lasix) 40 mg IVPUSH NOW ONE Stop: 01/12/18 21:46 Last Admin: 01/12/18 21:53 Dose: 40 mg Sodium Chloride (Normal Saline) 500 mls @ 999 mls/hr IV .BOLUS ONE Stop: 01/12/18 15:19 Last Admin: 01/12/18 16:10 Dose: 999 mls/hr Sodium Chloride (Normal Saline) 100 mls @ 75 mls/hr IV ASDIRECTED [facility] Last Admin: 01/12/18 15:29 Dose: 75 mls/hr Dextrose/Sodium Chloride (Dextrose 5%-Normal Saline) 1,000 mls @ 75 mls/hr IV ASDIRECTED [facility] Last Admin: 01/15/18 07:46 Dose: 75 mls/hr Iopamidol (Isovue-300 (61%)) 100 ml IVPUSH ONETIME ONE Stop: 01/12/18 14:56 Last Admin: 01/12/18 15:28 Dose: 100 ml Magnesium Hydroxide (Milk Of Magnesia) 30 ml PO ONETIME ONE Stop: 01/15/18 03:35 Last Admin: 01/15/18 06:24 Dose: 30 ml Magnesium Hydroxide (Milk Of Magnesia) 30 ml PO ONETIME ONE Stop: 01/15/18 06:31 Last Admin: 01/15/18 07:03 Dose: Not Given Oseltamivir Phosphate (Tamiflu) 30 mg PO ONETIME ONE Stop: 01/13/18 19:53 Oseltamivir Phosphate (Tamiflu) 30 mg PO ONETIME ONE Stop: 01/12/18 22:31 Last Admin: 01/12/18 22:21 Dose: 30 mg Phytonadione (Aquamephyton) 2.5 mg PO ONETIME ONE Stop: 01/13/18 08:01 Last Admin: 01/13/18 09:10 Dose: 2.5 mg Warfarin Sodium (Coumadin) 7.5 mg PO ONETIME ONE Stop: 01/14/18 18:01 Last Admin: 01/14/18 17:35 Dose: 7.5 mg - Exam Quality Assessment: DVT Prophylaxis General: Alert, Oriented, No Acute Distress HEENT: Pupils Equal, Pupils Reactive, EOMI Neck: Trachea Midline, No JVD Lungs: Normal Respiratory Effort, Decreased Breath Sounds Cardiovascular: Regular Rate, Irregular Rhythm GI/Abdominal Exam: Normal Bowel Sounds, Soft, Non-Tender, No Organomegaly, No Distention (Male) Exam: Deferred Back Exam: Normal Inspection Extremities: Normal Inspection, Normal Capillary Refill Skin: Warm, Dry Neurological: No New Focal Deficit Psy/Mental Status: Alert, Labile Mood, Agitated - Problem List Review Problem List Initiated/Reviewed/Updated: Yes - My Orders Last 24 Hours: My Active Orders 01/14/18 17:15 Communication Order [RC] ASDIRECTED 01/15/18 12:42 Urinary Catheter Assessment [RC] ASDIRECTED 01/15/18 12:45 Urinary Catheter Insertion [Insert Urinary Catheter] [OM.PC] Q24H - Plan Plan:: Impression: AMS with leukocyctosis; resolved, currently labile, demanding of staff; see documentation BPH/post void check Q 6H; santos if needed; Flomax 0.4 mg BID Influenza B positive---->TamiFlu last dose will be01/16/18, SNF resident; clarify vaccination status Supra-therapeutic INR on Coumadin for A Fib; received Vitamin K, continue home dose; will need INR on 01/19/18 Anemia with recent fall, unclear time frame. radiology studies: CT of head unremarkable; CT of abdomen/pelvis large hemotoma involving psoas muscle to the iliac crest; additionally enlarging abdominal aortic aneursym, 2.7 now 4.7 cm as noted. Compression fractures as mentioned, see formal report. Chronic CAD/MS with PCI HTN HLD A fib on Coumadin PVD (carotid artery stenosis with CEA) Plan: IVF-->decreased when oral intake has improved; follow UO TamiFlu, renal dose Infectious negative except Influenza B Straight cath, if bladder scan with urine content >300 cc; check Q 6 H Resume Coumadin, home dose Pain mgt Hgb stable, follow Correct electrolyte imbalance Droplet isolation Vascular surg consult for AA as OP. Sofet diet DVT prophylaxis GI prophylaxis Consult PT/OT; return SNF 24-48 hours.
[2018-01-15] MEDS ORDERED: Sodium Chloride 0.9% 1,000 ML IV SCH (19:30)
[2018-01-16] MEDS: HYDROmorphone 0.5 MG/0.5 ML SYRINGE IVPUSH PRN (01:28)
[2018-01-16] MEDS: Levothyroxine 50 MCG Tab PO SCH (06:38)
[2018-01-16] MEDS: Pantoprazole 40 MG Tab.CR PO SCH (06:39)
[2018-01-16] MEDS: Saccharomyces Boulardii (Probiotic) 250 MG Cap PO SCH (10:08)
[2018-01-16] MEDS: Metoprolol Tartrate 25 MG Tab PO SCH ×2 (10:08→11:33)
[2018-01-16] MEDS: Tamsulosin 0.4 MG Cap.ER PO SCH (10:08)
[2018-01-16] MEDS: Oseltamivir 30 MG Cap PO SCH (10:08)
[2018-01-16] MEDS: Simvastatin 20 MG Tab PO SCH (10:08)
[2018-01-16 10:21] VITALS: BP 90/62
--- NOTE | 2018-01-16 11:28 | PCM.DCSUM1 ---
Discharge Summary - Hospital Course Free Text/Narrative:: Patient is a 82-year-old male who presents to the ED from [facility] with concerns of low hemoglobin and also mildly confuse with elevated INR. Bleeding persisted after trimming his finger nails. Bleeding subsided with placement of a Band-Aid. Due to the confusion and elevated INR with low hemoglobin referred to the ED for further evaluation. On examination patient has a Band-Aid to the tip of the right middle finger. Appears bleeding is controlled. Patient offers no complaints this time. He is mildly confused. He has a history of major depression disorder, anxiety, A. fib on Coumadin. Per nursing staff patient is mildly confused unclear cause at this point. Hemoglobin was found to be low at 8 thus referred to ER for further evaluation and treatment. Patient denies any nausea vomiting, chest pain, shortness of breath, abdominal pain, blood from his rectum or blood within the stool. He denies any painful urination. Does not recall hitting his head. On examination of the head there is no concerning findings. Pupils are pinpoint and slightly reactive. EOM's intact. There is no known recent fall. Hemoglobin has dropped from 14.0 on 12/30/17, 11. on 01/02/18 and 8.1 today. Stool Hemoccult test was negative for blood in ED . Patient has severe ecchymosis noted to the right flank and also right anterior iliac crest. Unclear if patient fell. X- ray of the right hip did not indicate any bony abnormalities. Per [facility] staff patient became more confused after taking norco. INR is 5.78. CT of the head is obtained in ED and with impression: No acute findings. Chemistry panel revealed creatinine 1.8 which is close to patient's baseline. Troponin less than 0.017. Discussed with Dr. Benjamin and agrees to obtain CT of the abdomen/ pelvis with IV contrast although Creatinine is elevated. IV with NS 500mls/hr bolus ordered; CT abdomen and pelvis impression: Enlarged and heterogeneous psoas muscle continues into the iliac crests muscle. This is noted on the right side is compatible with ilial psoas muscle hematoma. No free fluid within the abdomen is seen. Increasing size abdominal aortic aneurysm from previous study measuring 2.7 cm to 4.7 rate is now. My dilated bladder. Compression deformities at the thoracolumnar junction which are an interval change from prior exam. CXR reviewed with Dr. Benjamin. No significant change from previous cxr. No acute findings. Influenza screen is positive for B. Blood being administered. Spoke with Dr. Kim, Hospitalist who agrees to admission, Admission orders placed - Discharge Data Discharge Date: 01/16/18 (admit date 01/13/18) Discharge Disposition: DC/Tfer to SNF 03 Condition: Fair - Discharge Diagnosis/Problem(s) (1) Anemia SNOMED Code(s): 105162735 ICD Code: D64.9 - ANEMIA, UNSPECIFIED Status: Acute Priority: High Qualifiers: Anemia type: unspecified type Qualified Code(s): D64.9 - Anemia, unspecified (2) Hematoma of right psoas region to anticoagulant therapy SNOMED Code(s): 503270427 ICD Code: S30.1XXA - CONTUSION OF ABDOMINAL WALL, INITIAL ENCOUNTER Status : Acute Priority: High Qualifiers: Encounter type: subsequent encounter Qualified Code(s): S30.1XXD - Contusion of abdominal wall, subsequent encounter (3) Influenza B SNOMED Code(s): 95764270 ICD Code: J10.1 - FLU DUE TO OTH IDENT INFLUENZA VIRUS W OTH RESP MANIFEST Status: Resolved Priority: High (4) Urinary retention SNOMED Code(s): 413301745 ICD Code: R33.9 - RETENTION OF URINE, UNSPECIFIED Status: Acute Priority : High (5) Confusion SNOMED Code(s): 343208249 ICD Code: R41.0 - DISORIENTATION, UNSPECIFIED Status: Chronic Priority: Medium - Patient Summary/Data Operative Procedure(s) Performed: None Complications: None Consults: None Labs Pending at D/C: None Recommended Follow-up Testing/Procedures: Patient DC instructions: PT OT to eval and treat upon return to [facility] facility. Follow up with PCP Dr. Hazel within one week of discharge, recheck labs at that time- CBC, BMP, INR -Follow up on aortic aneurysm as well Bladder scan every 6-8 hours, straight cath if >300cc or per protocol. Planned Operative Procedure(s) after DC: None Hospital Course: Impression: AMS with leukocyctosis; resolved, currently labile, demanding of staff; see documentation BPH/post void check Q 6H; santos if needed; Flomax 0.4 mg BID Influenza B positive---->TamiFlu last dose will be01/16/18, SNF resident; clarify vaccination status Supra-therapeutic INR on Coumadin for A Fib; received Vitamin K, continue home dose; will need INR on 01/19/18 Anemia with recent fall, unclear time frame. radiology studies: CT of head unremarkable; CT of abdomen/pelvis large hemotoma involving psoas muscle to the iliac crest; additionally enlarging abdominal aortic aneursym, 2.7 now 4.7 cm as noted. Compression fractures as mentioned, see formal report. Chronic CAD/MO with PCI HTN HLD A fib on Coumadin PVD (carotid artery stenosis with CEA) Plan: IVF-->decreased when oral intake has improved; follow UO TamiFlu, renal dose Infectious negative except Influenza B Straight cath, if bladder scan with urine content >300 cc; check Q 6 H Resume Coumadin, home dose Pain mgt Hgb stable, follow Correct electrolyte imbalance Droplet isolation Vascular surg consult for AA as OP. Sofet diet DVT prophylaxis GI prophylaxis Consult PT/OT; return SNF 24-48 hours. - Patient Instructions Diet: Heart Healthy Diet, Usual Diet as Tolerated Activity: As Tolerated Driving: Do Not Drive Showering/Bathing: May Shower Notify Provider of: Fever, Increased Pain, Swelling and Redness, Nausea and/or Vomiting - Discharge Plan Prescriptions/Med Rec: Tamsulosin [Flomax] 0.4 mg PO BIDPC #60 cap.er Home Medications: Home Meds Acetaminophen 650 mg PO Q4H PRN 01/12/18 [History] Acetaminophen/HYDROcodone [[place] 325-5 MG] 1 tab PO Q6H PRN 01/12/18 [History] Albuterol/Ipratropium [Combivent Respimat] 1 inhalation IH Q4H PRN 01/12/18 [ History] Barrier Cream. 1 applic TOP TID 01/12/18 [History] Cholecalciferol (Vitamin D3) [Vitamin D3] 1,000 unit PO QAM 01/12/18 [History] Cyanocobalamin (Vitamin B-12) [Cyanocobalamin Injection] 1,000 mcg IJ Q30D 01/12 [History] Levothyroxine [Synthroid] 50 mcg PO QAM 01/12/18 [History] Metoprolol Tartrate 25 mg PO BID 01/12/18 [History] Omeprazole 20 mg PO QAM 01/12/18 [History] PARoxetine HCl [Paroxetine HCl] 15 mg PO BID 01/12/18 [History] Pravastatin Sodium 10 mg PO QAM 01/12/18 [History] Saccharomyces Boulardii [Florastor] 250 mg PO QAM 01/12/18 [History] Warfarin [Coumadin] 2.5 mg PO QPM 01/12/18 [History] Tamsulosin [Flomax] 0.4 mg PO BIDPC #60 cap.er 01/16/18 [Rx] Patient Handouts: Blood Transfusion, Adult, [id number], Anemia Forms: ED Department Discharge Referrals: David Hazel MD [Primary Care Provider] - - Discharge Summary/Plan Comment DC Time >30 min.: Yes (45 min) - General Info Date of Service: 01/16/18 Admission Dx/Problem (Free Text: Anemia, Influenza B Doing better, VSS, last day of tamiflu tx for flu B. Plans for DC back to SNF today. Functional Status: Reports: Pain Controlled, Tolerating Diet, Ambulating, Urinating (bladder scans) - Review of Systems General: Reports: Weakness, Fatigue HEENT: Reports: No Symptoms Pulmonary: Reports: No Symptoms. Denies: Cough Cardiovascular: Reports: No Symptoms. Denies: Chest Pain Gastrointestinal: Reports: No Symptoms. Denies: Abdominal Pain, Diarrhea, Nausea, Vomiting Genitourinary: Reports: Retention (santos cath has been dc'd, PRN bladder scans) Musculoskeletal: Reports: Other (still with ecchymosis to flank) Neurological: Reports: Confusion Psychiatric: Reports: Confusion - Patient Data Vitals - Most Recent: Last Vital Signs Temp 99.0 F 01/16/18 09:22 Pulse 92 01/16/18 10:19 Resp 20 01/16/18 09:22 BP 90/62 01/16/18 10:19 Pulse Ox 95 01/16/18 10:27 Weight - Most Recent: 120 lb 11.2 oz I&O - Last 24 hours: Intake & Output 01/15/18 01/16/18 01/16/18 22:59 06:59 14:59 Intake Total 620 562 Output Total 1425 1000 Balance -805 -438 Lab Results - Last 24 hrs: Laboratory Results - last 24 hr 01/15/18 01/16/18 01/16/18 Range/Units 19:54 06:38 06:38 WBC 8.21 (4.23-9.07) K/mm3 RBC 2.96 L (4.63-6.08) M/mm3 Hgb 9.9 L (13.7-17.5) gm/L Hct 30.5 L (40.1-51.0) % MCV 103.0 H (79.0-92.2) fl MCH 33.4 H (25.7-32.2) pg MCHC 32.5 (32.2-35.5) g/dl RDW Std Deviation 54.8 H (35.1-43.9) fL Plt Count 298 (163-337) K/mm3 MPV 8.9 L (9.4-12.3) fl Neut % (Auto) 69.9 H (34.0-67.9) % Lymph % (Auto) 14.0 L (21.8-53.1) % [place] % (Auto) 12.7 H (5.3-12.2) % Eos % (Auto) 2.8 (0.8-7.0) Baso % (Auto) 0.2 (0.1-1.2) % Neut # (Auto) 5.74 H (1.78-5.38) K/mm3 Lymph # (Auto) 1.15 L (1.32-3.57) K/mm3 [place] # (Auto) 1.04 H (0.30-0.82) K/mm3 Eos # (Auto) 0.23 (0.04-0.54) K/mm3 Baso # (Auto) 0.02 (0.01-0.08) K/mm3 PT 17.8 H (8.0-13.0) SECONDS INR 1.66 Sodium (136-145) mEq/L Potassium (3.5-5.1) mEq/L Chloride (98-107) mEq/L Carbon Dioxide (21-32) mEq/L Anion Gap (5-15) BUN (7-18) mg/dL Creatinine (0.7-1.3) mg/dL Est Cr Clr Drug Dosing mL/min Estimated GFR (MDRD) (>60) mL/min BUN/Creatinine Ratio (14-18) Glucose (83-115) mg/dL Calcium (8.5-10.1) mg/dL Magnesium (1.8-2.4) mg/dl C-Reactive Protein (<1.0) mg/dL C.difficile [id number]-[id number] Presumptive negative C. difficile Tox (PCR) Negative 01/16/18 Range/Units 06:38 WBC (4.23-9.07) K/mm3 RBC (4.63-6.08) M/mm3 Hgb (13.7-17.5) gm/L Hct (40.1-51.0) % MCV (79.0-92.2) fl MCH (25.7-32.2) pg MCHC (32.2-35.5) g/dl RDW Std Deviation (35.1-43.9) fL Plt Count (163-337) K/mm3 MPV (9.4-12.3) fl Neut % (Auto) (34.0-67.9) % Lymph % (Auto) (21.8-53.1) % [place] % (Auto) (5.3-12.2) % Eos % (Auto) (0.8-7.0) Baso % (Auto) (0.1-1.2) % Neut # (Auto) (1.78-5.38) K/mm3 Lymph # (Auto) (1.32-3.57) K/mm3 [place] # (Auto) (0.30-0.82) K/mm3 Eos # (Auto) (0.04-0.54) K/mm3 Baso # (Auto) (0.01-0.08) K/mm3 PT (8.0-13.0) SECONDS INR Sodium 135 L (136-145) mEq/L Potassium 3.9 (3.5-5.1) mEq/L Chloride 100 (98-107) mEq/L Carbon Dioxide 27 (21-32) mEq/L Anion Gap 11.9 (5-15) BUN 20 H (7-18) mg/dL Creatinine 1.6 H (0.7-1.3) mg/dL Est Cr Clr Drug Dosing 27.56 mL/min Estimated GFR (MDRD) 42 (>60) mL/min BUN/Creatinine Ratio 12.5 L (14-18) Glucose 109 (83-115) mg/dL Calcium 8.3 L (8.5-10.1) mg/dL Magnesium 1.8 (1.8-2.4) mg/dl C-Reactive Protein 19.6 H* (<1.0) mg/dL C.difficile [id number] C. difficile Tox (PCR) RAMON Results - Last 24 hrs: Microbiology 01/15/18 10:20 Stool Occult Blood (RAMON) - Final Stool / Feces NEGATIVE OCCULT BLOOD Med Orders - Current: Current Medications Acetaminophen (Tylenol) 650 mg PO Q6H PRN PRN Reason: Pain/Fever Hydrocodone Bitart/Acetaminophen ([place] 325-5 Mg) 1 tab PO Q6H PRN PRN Reason: Pain Last Admin: 01/15/18 17:45 Dose: 1 tab Hydromorphone HCl (Dilaudid) 0.5 mg IVPUSH Q4H PRN PRN Reason: Pain (severe 7-10) Last Admin: 01/16/18 01:28 Dose: 0.5 mg Levothyroxine Sodium (Synthroid) 50 mcg PO ACBREAKFAST [facility] Last Admin: 01/16/18 06:38 Dose: 50 mcg Metoprolol Tartrate (Lopressor) 25 mg PO BID [facility] Last Admin: 01/15/18 21:41 Dose: 25 mg Pantoprazole Sodium (Protonix) 40 mg PO DAILY@0700 [facility] Last Admin: 01/16/18 06:39 Dose: 40 mg Paroxetine Hcl [ Paroxetine Hcl] 15 Mg 0 each PO BID [facility] Last Admin: 01/15/18 21:42 Dose: Not Given Saccharomyces Boulardii (Florastor) 250 mg PO QAM [facility] Last Admin: 01/16/18 10:08 Dose: 250 mg Simvastatin (Zocor) 20 mg PO QAM [facility] Last Admin: 01/16/18 10:08 Dose: 20 mg Sodium Chloride (Saline Flush) 10 ml FLUSH ONETIME PRN PRN Reason: IV FLUSH Last Admin: 01/12/18 15:29 Dose: 10 ml [facility] Last Admin: 01/16/18 10:08 Dose: 0.4 mg Warfarin Sodium (Pharmacy To Dose - Warfarin) 1 dose PO ASDIRECTED [facility] Discontinued Medications Furosemide (Lasix) 40 mg IVPUSH NOW ONE Stop: 01/12/18 21:46 Last Admin: 01/12/18 21:53 Dose: 40 mg Sodium Chloride (Normal Saline) 500 mls @ 999 mls/hr IV .BOLUS ONE Stop: 01/12/18 15:19 Last Admin: 01/12/18 16:10 Dose: 999 mls/hr Sodium Chloride (Normal Saline) 100 mls @ 75 mls/hr IV ASDIRECTED [facility] Last Admin: 01/12/18 15:29 Dose: 75 mls/hr Dextrose/Sodium Chloride (Dextrose 5%-Normal Saline) 1,000 mls @ 75 mls/hr IV ASDIRECTED [facility] Last Admin: 01/15/18 07:46 Dose: 75 mls/hr Sodium Chloride (Normal Saline) 1,000 mls @ 75 mls/hr IV ASDIRECTED [facility] Stop: 01/16/18 08:49 Last Admin: 01/15/18 20:05 Dose: 75 mls/hr Iopamidol (Isovue-300 (61%)) 100 ml IVPUSH ONETIME ONE Stop: 01/12/18 14:56 Last Admin: 01/12/18 15:28 Dose: 100 ml Magnesium Hydroxide (Milk Of Magnesia) 30 ml PO ONETIME ONE Stop: 01/15/18 03:35 Last Admin: 01/15/18 06:24 Dose: 30 ml Magnesium Hydroxide (Milk Of Magnesia) 30 ml PO ONETIME ONE Stop: 01/15/18 06:31 Last Admin: 01/15/18 07:03 Dose: Not Given Oseltamivir Phosphate (Tamiflu) 30 mg PO ONETIME ONE Stop: 01/13/18 19:53 Oseltamivir Phosphate (Tamiflu) 30 mg PO DAILY [facility] Stop: 01/16/18 11:00 Last Admin: 01/16/18 10:08 Dose: 30 mg Oseltamivir Phosphate (Tamiflu) 30 mg PO ONETIME ONE Stop: 01/12/18 22:31 Last Admin: 01/12/18 22:21 Dose: 30 mg Phytonadione (Aquamephyton) 2.5 mg PO ONETIME ONE Stop: 01/13/18 08:01 Last Admin: 01/13/18 09:10 Dose: 2.5 mg Warfarin Sodium (Coumadin) 7.5 mg PO ONETIME ONE Stop: 01/14/18 18:01 Last Admin: 01/14/18 17:35 Dose: 7.5 mg - Exam Quality Assessment: Reports: DVT Prophylaxis General: Reports: Alert, Cooperative HEENT: Reports: Pupils Equal, EOMI, Mucous Membr. Moist/[place] Neck: Reports: Supple Lungs: Reports: Normal Respiratory Effort, Decreased Breath Sounds Cardiovascular: Reports: Regular Rate, Regular Rhythm GI/Abdominal Exam: Normal Bowel Sounds, Soft, Non-Tender (Male) Exam: Deferred Rectal (Males) Exam: Deferred Back Exam: Reports: Other (ecchymosis noted to flank) Extremities: No Pedal Edema, Normal Capillary Refill Neurological: Reports: No New Focal Deficit Psy/Mental Status: Reports: Alert, Anxious *Q Meaningful Use (DIS) - VTE *Q VTE Criteria *Q: - Stroke *Q Stroke Criteria *Q: - AMI *Q AMI Criteria *Q:
[2018-01-16] MEDS: PAROXETINE HCL PO SCH (11:34)
== END 2018-01-16 12:30 | DRG 153 ==
LOC: JD.ED 12:16 → JD.MS 20:07 → OBSVTOIN 01-13 13:44
PROVIDERS: ADMIT Physician Assistant Medical; ATTEND Internal Medicine Cardiovascular Disease
DX: J11.1 Influenza due to unidentified influenza virus with other respiratory manifestations (principal); D64.9 Anemia, unspecified; S30.1XXD Contusion of abdominal wall, subsequent encounter; W19.XXXD Unspecified fall, subsequent encounter; R41.82 Altered mental status, unspecified; I48.91 Unspecified atrial fibrillation; N40.1 Benign prostatic hyperplasia with lower urinary tract symptoms; R33.8 Other retention of urine; I25.10 Atherosclerotic heart disease of native coronary artery without angina pectoris; I10 Essential (primary) hypertension; Z95.5 Presence of coronary angioplasty implant and graft; Z87.891 Personal history of nicotine dependence; I25.2 Old myocardial infarction; E78.5 Hyperlipidemia, unspecified; K21.9 Gastro-esophageal reflux disease without esophagitis; G89.29 Other chronic pain; M54.9 Dorsalgia, unspecified; F32.9 Major depressive disorder, single episode, unspecified; F41.9 Anxiety disorder, unspecified; E03.9 Hypothyroidism, unspecified; Z88.1 Allergy status to other antibiotic agents; Z88.2 Allergy status to sulfonamides; Z79.01 Long term (current) use of anticoagulants; Z79.82 Long term (current) use of aspirin; Z79.899 Other long term (current) drug therapy
CPT/HCPCS: 36415 ×2; 70450; 71045; 74177; 80048; 80053; 81001; 83735; 84443; 84484; 85025 ×2; 85610 ×3; 85730; 86140; 86738; 86850; 86900; 86901; 86922; 87804 ×2; 93005; 96361; 96374; 97116; 97162; 99285; A9270 ×11; G0378 ×2; J1940; J7030; J7040; J7050; P9016 ×2; Q9967; 36430; 51701; 51702; 51798; 82272; 87493; 87641; 87899; 94760; 94761; 96360; 97110-GO; 97166-GO; 97530-GO; 97535-GO; 99220; 99231; 99232; 99239; 99283; J1170; J7042

== ENCOUNTER 2018-02-09 09:40 | Inpatient (IN) | payer MEDICARE, OTHER ==
[2018-02-09] MEDS ORDERED: Sodium Chloride 0.9% 10 ML Syringe FLUSH PRN ×2 (10:06→17:01)
[2018-02-09] MEDS ORDERED: Albuterol/Ipratropium 3.0-0.5 MG/3 ML Neb Soln NEB ONE (10:09)
--- NOTE | 2018-02-09 10:51 | CR ---
Chest: Portable view of the chest was obtained. Comparison: Prior chest x-ray of 01/12/18. Heart is enlarged. Lungs are hyperinflated compatible with emphysematous change. Small pleural effusion is felt to be present within the right lung base. Mild parenchymal density is noted within the right lung base. Right perihilar markings are slightly increased. Impression: 1. Cardiomegaly and small right-sided pleural effusion with questionable asymmetric right-sided pulmonary vascular congestion. 2. Possible right basilar pneumonia or atelectasis. 3. Emphysematous change. Diagnostic code #3
[2018-02-09] MEDS ORDERED: cefTRIAXone 2 GM in Sodium Chloride 0.9% 100 ML IV ONE (12:08)
--- NOTE | 2018-02-09 14:16 | EDM.PDOC ---
ED HPI GENERAL MEDICAL PROBLEM - General Chief Complaint: Respiratory Problem Stated Complaint: HIGH BP/EDEMA/RESPIRATORY PROBLEMS Time Seen by Provider: 02/09/18 10:01 Source of Information: Reports: Patient, Intermediate Records History Limitations: Reports: No Limitations - History of Present Illness INITIAL COMMENTS - FREE TEXT/NARRATIVE: The patient presents with increased shortness of breath and cough. He is a resident of [facility]. He is on oxygen at the halfway at 2L. He is requiring 4L to keep above 90%. Without it he is 74%. He does not have a fever here but he has some chills. He has a productive cough. He has no chest pain. He has no abdominal pain, nausea, or vomiting. He has no pain or edema in his legs. Onset: Gradual Duration: Day(s): Severity: Moderate Improves with: Reports: None Worsens with: Reports: None Associated Symptoms: Reports: Cough, cough w sputum, Fever/Chills, Shortness of Breath. Denies: Headaches, Nausea/Vomiting - Related Data Allergies Allergy/AdvReac Type Severity Reaction Status Date / Time levofloxacin Allergy Airway Verified 02/09/18 09:57 Tightness Sulfa (Sulfonamide Allergy Anaphylactic Verified 02/09/18 09:57 Antibiotics) Shock Home Meds: Home Meds Acetaminophen 650 mg PO TID 02/09/18 [History] Acetaminophen/HYDROcodone [[place] 325-5 MG] 1 tab PO Q6H PRN 02/09/18 [History] Albuterol/Ipratropium [Combivent Respimat] 4 gm IH Q4H PRN 02/09/18 [History] Cholecalciferol (Vitamin D3) [Vitamin D3] 1,000 unit PO DAILY 02/09/18 [History] Cyanocobalamin (Vitamin B-12) [Physicians Ez Use B-12] 1,000 mcg IJ ASDIRECTED 02/09/18 [History] Levothyroxine [Synthroid] 50 mcg PO ACBREAKFAST 02/09/18 [History] Metoprolol Tartrate [Lopressor] 25 mg PO Q12HR 02/09/18 [History] Omeprazole 20 mg PO DAILY 02/09/18 [History] PARoxetine HCl [Paroxetine HCl] 15 mg PO BID 02/09/18 [History] Pravastatin [Pravachol] 10 mg PO DAILY 02/09/18 [History] Saccharomyces Boulardii [Florastor] 250 mg PO DAILY 02/09/18 [History] Tamsulosin HCl [Flomax] 0.4 mg PO BID 02/09/18 [History] fentaNYL [Fentanyl] 1 each TD ASDIRECTED 02/09/18 [History] predniSONE [Prednisone] 25 mg PO DAILY 02/09/18 [History] Past Medical History Cardiovascular History: Reports: Afib, Arrhythmia, CAD, High Cholesterol, Hypertension, [place], PVD Respiratory History: Reports: Bronchitis, Recurrent Gastrointestinal History: Reports: GERD Genitourinary History: Reports: Chronic Renal Insuffiency Musculoskeletal History: Reports: Back Pain, Chronic Other Musculoskeletal History: Chronic back pain Psychiatric History: Reports: Anxiety, Depression Endocrine/Metabolic History: Reports: Hypothyroidism - Infectious Disease History Infectious Disease History: Reports: Other (See Below) Other Infectious Disease History: human metapneumovirus - Past Surgical History Cardiovascular Surgical History: Reports: Carotid Endarterectomy, Coronary Artery Stent, Vascular Surgery GI Surgical History: Reports: Appendectomy Social & Family History - Family History Family Medical History: Noncontributory Cardiac: Reports: [place] - Tobacco Use Smoking Status *Q: Never Smoker Years of Tobacco use: 50 Packs/Tins Daily: 1 Used Tobacco, but Quit: Yes Month/Year Tobacco Last Used: unsure Second Hand Smoke Exposure: No - Caffeine Use Caffeine Use: Reports: None Other Caffeine Use: 2 cups per day Caffeine Use Comment: drinks about 2 cups of coffee per day - Alcohol Use Days Per Week of Alcohol Use: 0 Number of Drinks Per Day: 1 Total Drinks Per Week: 0 - Recreational Drug Use Recreational Drug Use: No - Living Situation & Occupation Living situation: Reports: , with Spouse Occupation: Retired ED ROS GENERAL - Review of Systems Review Of Systems: See Below Constitutional: Reports: Chills. Denies: Fever HEENT: Reports: No Symptoms Respiratory: Reports: Shortness of Breath, Cough, Sputum Cardiovascular: Reports: No Symptoms Endocrine: Reports: No Symptoms GI/Abdominal: Reports: No Symptoms : Reports: No Symptoms Musculoskeletal: Reports: No Symptoms ED EXAM, GENERAL - Physical Exam Exam: See Below Exam Limited By: No Limitations General Appearance: Alert, No Apparent Distress Ears: Normal External Exam Nose: Normal Inspection Head: Atraumatic, Normocephalic Neck: Normal Inspection Respiratory/Chest: No Respiratory Distress, Decreased Breath Sounds, Rhonchi Cardiovascular: Regular Rate, Rhythm, No Edema, No Murmur GI/Abdominal: Soft, Non-Tender, No Organomegaly, No Mass Back Exam: Normal Inspection Extremities: Normal Inspection Course - Vital Signs Last Recorded V/S: Last Vital Signs Temp 97.6 F 02/09/18 09:52 Pulse 70 02/09/18 09:52 Resp 13 02/09/18 09:52 BP 169/64 H 02/09/18 09:52 Pulse Ox 97 02/09/18 10:35 - Orders/Labs/Meds Orders: Active Orders 24 hr Category Date Time Status Cardiac Monitoring [RC] . DIRECTED Care 02/09/18 10:06 Active EKG Documentation Completion [RC] STAT Care 02/09/18 10:08 Active Oxygen Therapy [RC] PRN Care 02/09/18 10:06 Active Peripheral IV Care [RC] . DIRECTED Care 02/09/18 10:08 Active RT Aerosol Therapy [RC] ASDIRECTED Care 02/09/18 10:09 Active CULTURE BLOOD [BC] Stat Lab 02/09/18 10:25 Received CULTURE BLOOD [BC] Stat Lab 02/09/18 10:33 Received UA W/MICROSCOPIC [URIN] Stat Lab 02/09/18 12:57 Ordered Sodium Chloride 0.9% [Saline Flush] Med 02/09/18 10:06 Active 10 ml FLUSH ASDIRECTED PRN Blood Culture x2 Reflex Set [OM.PC] Stat Oth 02/09/18 10:09 Ordered Peripheral IV Insertion Adult [OM.PC] Stat Oth 02/09/18 10:06 Ordered Medication Orders Sodium Chloride (Saline Flush) 10 ml FLUSH ASDIRECTED PRN PRN Reason: Keep Vein Open Last Admin: 02/09/18 10:33 Dose: 10 ml Labs: Laboratory Tests 02/09/18 02/09/18 02/09/18 Range/Units 09:55 09:55 09:55 WBC 21.33 H (4.23-9.07) K/mm3 RBC 2.79 L (4.63-6.08) M/mm3 Hgb 9.6 L (13.7-17.5) gm/L Hct 30.0 L (40.1-51.0) % MCV 107.5 H (79.0-92.2) fl MCH 34.4 H (25.7-32.2) pg MCHC 32.0 L (32.2-35.5) g/dl RDW Std Deviation 65.0 H (35.1-43.9) fL Plt Count 130 L (163-337) K/mm3 MPV 10.1 (9.4-12.3) fl Neut % (Auto) 85.3 H (34.0-67.9) % Lymph % (Auto) 2.9 L (21.8-53.1) % [place] % (Auto) 11.1 (5.3-12.2) % Eos % (Auto) 0.5 L (0.8-7.0) Baso % (Auto) 0.0 L (0.1-1.2) % Neut # (Auto) 18.19 H (1.78-5.38) K/mm3 Lymph # (Auto) 0.62 L (1.32-3.57) K/mm3 [place] # (Auto) 2.36 H (0.30-0.82) K/mm3 Eos # (Auto) 0.10 (0.04-0.54) K/mm3 Baso # (Auto) 0.01 (0.01-0.08) K/mm3 Manual Slide Review Abnormal smear Sodium 141 (136-145) mEq/L Potassium 4.6 (3.5-5.1) mEq/L Chloride 102 (98-107) mEq/L Carbon Dioxide 33 H (21-32) mEq/L Anion Gap 10.6 (5-15) BUN 34 H (7-18) mg/dL Creatinine 1.5 H (0.7-1.3) mg/dL Est Cr Clr Drug Dosing 33.20 mL/min Estimated GFR (MDRD) 45 (>60) mL/min BUN/Creatinine Ratio 22.7 H (14-18) Glucose 124 H (83-115) mg/dL Lactic Acid (0.4-2.0) mmol/L Calcium 9.1 (8.5-10.1) mg/dL Total Bilirubin 0.5 (0.2-1.0) mg/dL AST 33 (15-37) U/L ALT 33 (16-63) U/L Alkaline Phosphatase 56 (46-116) U/L Troponin I 0.043 (0.00-0.056) ng/mL NT-Pro-B Natriuret Pep 19876 H (0-450) pg/mL Total Protein 6.0 L (6.4-8.2) g/dl Albumin 3.0 L (3.4-5.0) g/dl Globulin 3.0 gm/dL Albumin/Globulin Ratio 1.0 (1-2) 02/09/18 Range/Units 10:33 WBC (4.23-9.07) K/mm3 RBC (4.63-6.08) M/mm3 Hgb (13.7-17.5) gm/L Hct (40.1-51.0) % MCV (79.0-92.2) fl MCH (25.7-32.2) pg MCHC (32.2-35.5) g/dl RDW Std Deviation (35.1-43.9) fL Plt Count (163-337) K/mm3 MPV (9.4-12.3) fl Neut % (Auto) (34.0-67.9) % Lymph % (Auto) (21.8-53.1) % [place] % (Auto) (5.3-12.2) % Eos % (Auto) (0.8-7.0) Baso % (Auto) (0.1-1.2) % Neut # (Auto) (1.78-5.38) K/mm3 Lymph # (Auto) (1.32-3.57) K/mm3 [place] # (Auto) (0.30-0.82) K/mm3 Eos # (Auto) (0.04-0.54) K/mm3 Baso # (Auto) (0.01-0.08) K/mm3 Manual Slide Review Sodium (136-145) mEq/L Potassium (3.5-5.1) mEq/L Chloride (98-107) mEq/L Carbon Dioxide (21-32) mEq/L Anion Gap (5-15) BUN (7-18) mg/dL Creatinine (0.7-1.3) mg/dL Est Cr Clr Drug Dosing mL/min Estimated GFR (MDRD) (>60) mL/min BUN/Creatinine Ratio (14-18) Glucose (83-115) mg/dL Lactic Acid 1.3 (0.4-2.0) mmol/L Calcium (8.5-10.1) mg/dL Total Bilirubin (0.2-1.0) mg/dL AST (15-37) U/L ALT (16-63) U/L Alkaline Phosphatase (46-116) U/L Troponin I (0.00-0.056) ng/mL NT-Pro-B Natriuret Pep (0-450) pg/mL Total Protein (6.4-8.2) g/dl Albumin (3.4-5.0) g/dl Globulin gm/dL Albumin/Globulin Ratio (1-2) Meds: Medications Generic Name Dose Route Start Last Admin Trade Name Freq PRN Reason Stop Dose Admin Sodium Chloride 10 ml 02/09/18 10:06 02/09/18 10:33 Saline Flush FLUSH 10 ml ASDIRECTED PRN Administration Keep Vein Open Discontinued Medications Generic Name Dose Route Start Last Admin Trade Name Freq PRN Reason Stop Dose Admin Albuterol/Ipratropium 3 ml 02/09/18 10:09 02/09/18 10:18 Duoneb 3.0-0.5 Mg/3 Ml NEB 02/09/18 10:10 3 ml ONETIME ONE Administration Ceftriaxone Sodium 2 gm/ 100 mls @ 100 mls/hr 02/09/18 12:08 02/09/18 12:14 Sodium Chloride IV 02/09/18 13:07 100 mls/hr ONETIME ONE Administration - Re-Assessments/Exams Free Text/Narrative Re-Assessment/Exam: 02/09/18 14:12 I ordered oxygen, duoneb, IV, CXR, EKG, labs, and blood cultures. 02/09/18 14:13 His WBC was elevated at 21.33. His Hgb was low at 9.6. His platelets were low at 130. His creatinine was elevated at 1.5. His glucose was 124. His BNP was elevated at 15,721. His troponin is negative. His CXR shows cardiomegaly, emphysema, congestion and a RLL infiltrate. I did get blood cultures and I ordered rocephin 2 grams IV. He has pneumonia and hypoxia. I called Dr Catalan and he agreed to the admission. Departure - Departure Time of Disposition: 14:15 Disposition: Admitted As Inpatient 66 Condition: Fair Clinical Impression: Hypoxia, Elevated brain natriuretic peptide (BNP) level, Renal insufficiency Pneumonia Qualifiers: Pneumonia type: due to unspecified organism Laterality: unspecified laterality Lung location: unspecified part of lung Qualified Code(s): J18.9 - Pneumonia, unspecified organism Anemia Qualifiers: Anemia type: unspecified type Qualified Code(s): D64.9 - Anemia, unspecified CHF (congestive heart failure) Qualifiers: Heart failure type: other Qualified Code(s): I50.9 - Heart failure, unspecified - Discharge Information Referrals: David Hazel MD [Primary Care Provider] - - My Orders Last 24 Hours: My Active Orders 02/09/18 10:06 Cardiac Monitoring [RC] . DIRECTED Oxygen Therapy [RC] PRN Sodium Chloride 0.9% [Saline Flush] 10 ml FLUSH ASDIRECTED PRN Peripheral IV Insertion Adult [OM.PC] Stat 02/09/18 10:08 EKG Documentation Completion [RC] STAT Peripheral IV Care [RC] . DIRECTED 02/09/18 10:09 RT Aerosol Therapy [RC] ASDIRECTED Blood Culture x2 Reflex Set [OM.PC] Stat 02/09/18 10:25 CULTURE BLOOD [BC] Stat 02/09/18 10:33 CULTURE BLOOD [BC] Stat 02/09/18 12:57 UA W/MICROSCOPIC [URIN] Stat - Assessment/Plan Last 24 Hours: My Active Orders 02/09/18 10:06 Cardiac Monitoring [RC] . DIRECTED Oxygen Therapy [RC] PRN Sodium Chloride 0.9% [Saline Flush] 10 ml FLUSH ASDIRECTED PRN Peripheral IV Insertion Adult [OM.PC] Stat 02/09/18 10:08 EKG Documentation Completion [RC] STAT Peripheral IV Care [RC] . DIRECTED 02/09/18 10:09 RT Aerosol Therapy [RC] ASDIRECTED Blood Culture x2 Reflex Set [OM.PC] Stat 02/09/18 10:25 CULTURE BLOOD [BC] Stat 02/09/18 10:33 CULTURE BLOOD [BC] Stat 02/09/18 12:57 UA W/MICROSCOPIC [URIN] Stat
--- NOTE | 2018-02-09 14:34 | EDM.PDOC ---
ED HPI GENERAL MEDICAL PROBLEM - General Chief Complaint: Respiratory Problem Stated Complaint: HIGH BP/EDEMA/RESPIRATORY PROBLEMS Time Seen by Provider: 02/09/18 10:01 - Related Data Allergies Allergy/AdvReac Type Severity Reaction Status Date / Time levofloxacin Allergy Airway Verified 02/09/18 09:57 Tightness Sulfa (Sulfonamide Allergy Anaphylactic Verified 02/09/18 09:57 Antibiotics) Shock Home Meds: Home Meds Acetaminophen 650 mg PO TID 02/09/18 [History] Acetaminophen/HYDROcodone [[place] 325-5 MG] 1 tab PO Q6H PRN 02/09/18 [History] Albuterol/Ipratropium [Combivent Respimat] 4 gm IH Q4H PRN 02/09/18 [History] Cholecalciferol (Vitamin D3) [Vitamin D3] 1,000 unit PO DAILY 02/09/18 [History] Cyanocobalamin (Vitamin B-12) [Physicians Ez Use B-12] 1,000 mcg IJ ASDIRECTED 02/09/18 [History] Levothyroxine [Synthroid] 50 mcg PO ACBREAKFAST 02/09/18 [History] Metoprolol Tartrate [Lopressor] 25 mg PO Q12HR 02/09/18 [History] Omeprazole 20 mg PO DAILY 02/09/18 [History] PARoxetine HCl [Paroxetine HCl] 15 mg PO BID 02/09/18 [History] Pravastatin [Pravachol] 10 mg PO DAILY 02/09/18 [History] Saccharomyces Boulardii [Florastor] 250 mg PO DAILY 02/09/18 [History] Tamsulosin HCl [Flomax] 0.4 mg PO BID 02/09/18 [History] fentaNYL [Fentanyl] 1 each TD ASDIRECTED 02/09/18 [History] predniSONE [Prednisone] 25 mg PO DAILY 02/09/18 [History] Past Medical History Cardiovascular History: Reports: Afib, Arrhythmia, CAD, High Cholesterol, Hypertension, [place], PVD Respiratory History: Reports: Bronchitis, Recurrent Gastrointestinal History: Reports: GERD Genitourinary History: Reports: Chronic Renal Insuffiency Musculoskeletal History: Reports: Back Pain, Chronic Other Musculoskeletal History: Chronic back pain Psychiatric History: Reports: Anxiety, Depression Endocrine/Metabolic History: Reports: Hypothyroidism - Infectious Disease History Infectious Disease History: Reports: Other (See Below) Other Infectious Disease History: human metapneumovirus - Past Surgical History Cardiovascular Surgical History: Reports: Carotid Endarterectomy, Coronary Artery Stent, Vascular Surgery GI Surgical History: Reports: Appendectomy Social & Family History - Family History Family Medical History: Noncontributory Cardiac: Reports: [place] - Tobacco Use Smoking Status *Q: Never Smoker Years of Tobacco use: 50 Packs/Tins Daily: 1 Used Tobacco, but Quit: Yes Month/Year Tobacco Last Used: unsure Second Hand Smoke Exposure: No - Caffeine Use Caffeine Use: Reports: None Other Caffeine Use: 2 cups per day Caffeine Use Comment: drinks about 2 cups of coffee per day - Alcohol Use Days Per Week of Alcohol Use: 0 Number of Drinks Per Day: 1 Total Drinks Per Week: 0 - Recreational Drug Use Recreational Drug Use: No - Living Situation & Occupation Living situation: Reports: , with Spouse Occupation: Retired Course - Vital Signs Last Recorded V/S: Last Vital Signs Temp 97.6 F 02/09/18 09:52 Pulse 70 02/09/18 09:52 Resp 13 02/09/18 09:52 BP 169/64 H 02/09/18 09:52 Pulse Ox 97 02/09/18 10:35 - Orders/Labs/Meds Orders: Active Orders 24 hr Category Date Time Status Cardiac Monitoring [RC] . DIRECTED Care 02/09/18 10:06 Active EKG Documentation Completion [RC] STAT Care 02/09/18 10:08 Active Oxygen Therapy [RC] PRN Care 02/09/18 10:06 Active Peripheral IV Care [RC] . DIRECTED Care 02/09/18 10:08 Active RT Aerosol Therapy [RC] ASDIRECTED Care 02/09/18 10:09 Active CULTURE BLOOD [BC] Stat Lab 02/09/18 10:25 Received CULTURE BLOOD [BC] Stat Lab 02/09/18 10:33 Received UA W/MICROSCOPIC [URIN] Stat Lab 02/09/18 12:57 Ordered Sodium Chloride 0.9% [Saline Flush] Med 02/09/18 10:06 Active 10 ml FLUSH ASDIRECTED PRN Blood Culture x2 Reflex Set [OM.PC] Stat Oth 02/09/18 10:09 Ordered Peripheral IV Insertion Adult [OM.PC] Stat Oth 02/09/18 10:06 Ordered Medication Orders Sodium Chloride (Saline Flush) 10 ml FLUSH ASDIRECTED PRN PRN Reason: Keep Vein Open Last Admin: 02/09/18 10:33 Dose: 10 ml Labs: Laboratory Tests 02/09/18 02/09/18 02/09/18 Range/Units 09:55 09:55 09:55 WBC 21.33 H (4.23-9.07) K/mm3 RBC 2.79 L (4.63-6.08) M/mm3 Hgb 9.6 L (13.7-17.5) gm/L Hct 30.0 L (40.1-51.0) % MCV 107.5 H (79.0-92.2) fl MCH 34.4 H (25.7-32.2) pg MCHC 32.0 L (32.2-35.5) g/dl RDW Std Deviation 65.0 H (35.1-43.9) fL Plt Count 130 L (163-337) K/mm3 MPV 10.1 (9.4-12.3) fl Neut % (Auto) 85.3 H (34.0-67.9) % Lymph % (Auto) 2.9 L (21.8-53.1) % [place] % (Auto) 11.1 (5.3-12.2) % Eos % (Auto) 0.5 L (0.8-7.0) Baso % (Auto) 0.0 L (0.1-1.2) % Neut # (Auto) 18.19 H (1.78-5.38) K/mm3 Lymph # (Auto) 0.62 L (1.32-3.57) K/mm3 [place] # (Auto) 2.36 H (0.30-0.82) K/mm3 Eos # (Auto) 0.10 (0.04-0.54) K/mm3 Baso # (Auto) 0.01 (0.01-0.08) K/mm3 Manual Slide Review Abnormal smear Sodium 141 (136-145) mEq/L Potassium 4.6 (3.5-5.1) mEq/L Chloride 102 (98-107) mEq/L Carbon Dioxide 33 H (21-32) mEq/L Anion Gap 10.6 (5-15) BUN 34 H (7-18) mg/dL Creatinine 1.5 H (0.7-1.3) mg/dL Est Cr Clr Drug Dosing 33.20 mL/min Estimated GFR (MDRD) 45 (>60) mL/min BUN/Creatinine Ratio 22.7 H (14-18) Glucose 124 H (83-115) mg/dL Lactic Acid (0.4-2.0) mmol/L Calcium 9.1 (8.5-10.1) mg/dL Total Bilirubin 0.5 (0.2-1.0) mg/dL AST 33 (15-37) U/L ALT 33 (16-63) U/L Alkaline Phosphatase 56 (46-116) U/L Troponin I 0.043 (0.00-0.056) ng/mL NT-Pro-B Natriuret Pep 28665 H (0-450) pg/mL Total Protein 6.0 L (6.4-8.2) g/dl Albumin 3.0 L (3.4-5.0) g/dl Globulin 3.0 gm/dL Albumin/Globulin Ratio 1.0 (1-2) 02/09/18 Range/Units 10:33 WBC (4.23-9.07) K/mm3 RBC (4.63-6.08) M/mm3 Hgb (13.7-17.5) gm/L Hct (40.1-51.0) % MCV (79.0-92.2) fl MCH (25.7-32.2) pg MCHC (32.2-35.5) g/dl RDW Std Deviation (35.1-43.9) fL Plt Count (163-337) K/mm3 MPV (9.4-12.3) fl Neut % (Auto) (34.0-67.9) % Lymph % (Auto) (21.8-53.1) % [place] % (Auto) (5.3-12.2) % Eos % (Auto) (0.8-7.0) Baso % (Auto) (0.1-1.2) % Neut # (Auto) (1.78-5.38) K/mm3 Lymph # (Auto) (1.32-3.57) K/mm3 [place] # (Auto) (0.30-0.82) K/mm3 Eos # (Auto) (0.04-0.54) K/mm3 Baso # (Auto) (0.01-0.08) K/mm3 Manual Slide Review Sodium (136-145) mEq/L Potassium (3.5-5.1) mEq/L Chloride (98-107) mEq/L Carbon Dioxide (21-32) mEq/L Anion Gap (5-15) BUN (7-18) mg/dL Creatinine (0.7-1.3) mg/dL Est Cr Clr Drug Dosing mL/min Estimated GFR (MDRD) (>60) mL/min BUN/Creatinine Ratio (14-18) Glucose (83-115) mg/dL Lactic Acid 1.3 (0.4-2.0) mmol/L Calcium (8.5-10.1) mg/dL Total Bilirubin (0.2-1.0) mg/dL AST (15-37) U/L ALT (16-63) U/L Alkaline Phosphatase (46-116) U/L Troponin I (0.00-0.056) ng/mL NT-Pro-B Natriuret Pep (0-450) pg/mL Total Protein (6.4-8.2) g/dl Albumin (3.4-5.0) g/dl Globulin gm/dL Albumin/Globulin Ratio (1-2) Meds: Medications Generic Name Dose Route Start Last Admin Trade Name Freq PRN Reason Stop Dose Admin Sodium Chloride 10 ml 02/09/18 10:06 02/09/18 10:33 Saline Flush FLUSH 10 ml ASDIRECTED PRN Administration Keep Vein Open Discontinued Medications Generic Name Dose Route Start Last Admin Trade Name Freq PRN Reason Stop Dose Admin Albuterol/Ipratropium 3 ml 02/09/18 10:09 02/09/18 10:18 Duoneb 3.0-0.5 Mg/3 Ml NEB 02/09/18 10:10 3 ml ONETIME ONE Administration Ceftriaxone Sodium 2 gm/ 100 mls @ 100 mls/hr 02/09/18 12:08 02/09/18 12:14 Sodium Chloride IV 02/09/18 13:07 100 mls/hr ONETIME ONE Administration Departure - Discharge Information Referrals: David Hazel MD [Primary Care Provider] - Forms: ED Department Discharge
--- NOTE | 2018-02-09 16:40 | PCM.HP ---
<Deana Corona - Last Filed: 02/09/18 18:47> H&P History of Present Illness - General Date of Service: 02/09/18 Admit Problem/Dx: Admission Diagnosis/Problem Admission Diagnosis/Problem Hypoxia Source of Information: Patient, [facility] Records, Old Records, Provider History Limitations: Reports: No Limitations - History of Present Illness Initial Comments - Free Text/Narative: HPI: This is an 82 yo male with past medical hx/o Afib, MS, CAD with stenting, recurrent bronchitis, HLD, GERD, HTN, CKD stage III, anemia, hypothyroid who comes in today from [facility] for increased shortness of breath and a productive cough. He reports no fever, abdominal pain, chest pain, or GI/ complaints. He does report some chills. His initial workup in the ED showed a CBC remarkable for WBC of 21.33, MCHC of 34.4, RDW 65, neutrophils of 85.3 % and lymphocyte of 2.9 %. His chemistry is remarkable for BUN of 34, Creatinine of 1.5, Glucose of 124, Alkaline phosphatase of 56, Troponin of 0.043, [place] [address], Total protein of 6, an Albumin of 3. UA is not impressive for UTI. Chest X-ray shows cardiomegaly, emphysematous change, right-sided pleural effusion and vascular congestion possible for right basilar pneumonia or atelectasis per Dr. Ricardo. He is subsequently admitted to the telemetry unit. His code status is DNR/DNI. His PCP is David Hazel at [place]. - Related Data Allergies/Adverse Reactions: Allergies Allergy/AdvReac Type Severity Reaction Status Date / Time levofloxacin Allergy Airway Verified 02/09/18 09:57 Tightness Sulfa (Sulfonamide Allergy Anaphylactic Verified 02/09/18 09:57 Antibiotics) Shock Home Medications: Home Meds Acetaminophen 650 mg PO Q4HR 02/09/18 [History] Acetaminophen/HYDROcodone [[place] 325-5 MG] 1 tab PO Q6H PRN 02/09/18 [History] Albuterol/Ipratropium [Combivent Respimat] 4 gm IH Q4H PRN 02/09/18 [History] Cholecalciferol (Vitamin D3) [Vitamin D3] 1,000 unit PO DAILY 02/09/18 [History] Cyanocobalamin (Vitamin B-12) [Physicians Ez Use B-12] 1,000 mcg IJ ASDIRECTED 02/09/18 [History] Insulin Aspart [NovoLOG] 4 units SQ BID 02/09/18 [History] Levothyroxine [Synthroid] 50 mcg PO ACBREAKFAST 02/09/18 [History] Metoprolol Tartrate [Lopressor] 25 mg PO Q12HR 02/09/18 [History] Omeprazole 20 mg PO DAILY 02/09/18 [History] PARoxetine HCl [Paroxetine HCl] 15 mg PO BID 02/09/18 [History] Pravastatin [Pravachol] 10 mg PO DAILY 02/09/18 [History] Saccharomyces Boulardii [Florastor] 250 mg PO DAILY 02/09/18 [History] Tamsulosin HCl [Flomax] 0.4 mg PO BID 02/09/18 [History] Warfarin [Coumadin] 1.25 mg PO DAILY 02/09/18 [History] fentaNYL [Fentanyl] 1 each TD ASDIRECTED 02/09/18 [History] predniSONE [Prednisone] 25 mg PO DAILY 02/09/18 [History] Past Medical History Cardiovascular History: Reports: Afib, Arrhythmia, CAD, High Cholesterol, Hypertension, MS, PVD Respiratory History: Reports: Bronchitis, Recurrent Gastrointestinal History: Reports: GERD Genitourinary History: Reports: Chronic Renal Insuffiency Musculoskeletal History: Reports: Back Pain, Chronic, Fracture Other Musculoskeletal History: Chronic back pain Psychiatric History: Reports: Anxiety, Depression Endocrine/Metabolic History: Reports: Hypothyroidism Hematologic History: Reports: Anemia - Infectious Disease History Infectious Disease History: Reports: Other (See Below) Other Infectious Disease History: human metapneumovirus - Past Surgical History Cardiovascular Surgical History: Reports: Carotid Endarterectomy, Coronary Artery Stent, Vascular Surgery Respiratory Surgical History: Reports: None GI Surgical History: Reports: Appendectomy Male Surgical History: Reports: Other (See Below) Other Male Surgeries/Procedures: exploratory prostate/testicle surgery Endocrine Surgical History: Reports: None Social & Family History - Family History Family Medical History: Noncontributory Cardiac: Reports: MS - Tobacco Use Smoking Status *Q: Former Smoker Years of Tobacco use: 64 Packs/Tins Daily: 1 Used Tobacco, but Quit: Yes Month/Year Tobacco Last Used: can't quite remember Second Hand Smoke Exposure: No - Caffeine Use Caffeine Use: Reports: Coffee Other Caffeine Use: 2 cups per day Caffeine Use Comment: drinks about 2 cups of coffee per day - Alcohol Use Days Per Week of Alcohol Use: 0 Number of Drinks Per Day: 1 Total Drinks Per Week: 0 - Recreational Drug Use Recreational Drug Use: No - Living Situation & Occupation Living situation: Reports: , with Spouse Occupation: Retired H&P Review of Systems - Review of Systems: Review Of Systems: See Below General: Reports: Chills. Denies: Fever HEENT: Reports: No Symptoms Pulmonary: Reports: Shortness of Breath (O2 2L at home increased to 4L here), Wheezing (throughout), Cough, Sputum Cardiovascular: Reports: No Symptoms. Denies: Chest Pain Gastrointestinal: Reports: No Symptoms. Denies: Abdominal Pain, Diarrhea, Nausea, Vomiting Genitourinary: Reports: No Symptoms Musculoskeletal: Reports: No Symptoms Skin: Reports: No Symptoms Psychiatric: Reports: No Symptoms Neurological: Reports: No Symptoms Hematologic/Lymphatic: Reports: No Symptoms Immunologic: Reports: No Symptoms Exam - Exam Exam: See Below - Vital Signs Vital Signs: Last Vital Signs Temp 98.8 F 02/09/18 15:50 Pulse 69 02/09/18 15:50 Resp 24 H 02/09/18 15:50 BP 150/59 H 02/09/18 15:50 Pulse Ox 97 02/09/18 15:50 Weight: 64.728 kg - Exam Quality Assessment: Supplemental Oxygen (4L nasal cannula), DVT Prophylaxis. No : Urinary Catheter General: Alert, Oriented, Cooperative HEENT: Conjunctiva Clear, EOMI, Hearing Intact, Mucosa Moist & [employer], Nares Patent, Normal Nasal Septum, PERRLA Neck: Supple, Trachea Midline, 2 Lungs: Normal Respiratory Effort, Crackles (R>L), Rhonchi (R>L) Cardiovascular: Irregular Rhythm (A Fib) GI/Abdominal Exam: Normal Bowel Sounds, Soft, Non-Tender, No Organomegaly, No Distention, No Abnormal Bruit, No Mass, Pelvis Stable (Male) Exam: Deferred Rectal (Males) Exam: Deferred Back Exam: Normal Inspection, Full Range of Motion, NT Extremities: Normal Range of Motion, Non-Tender, Normal Capillary Refill, Pedal Edema (+2 bilaterally) Peripheral Pulses: 1+: Posterior Tibial (L), Posterior Tibial (R), Dorsalis Pedis (L), Dorsalis Pedis (R) Skin: Warm, Dry, Intact Neurological: Cranial Nerves Intact (grossly) Neuro Extensive - Mental Status: Alert, Oriented x3, Normal Mood/Affect, Normal Cognition Psychiatric: Alert, Normal Affect, Normal Mood - Patient Data Lab Results Last 24 hrs: Laboratory Results - last 24 hr 02/09/18 02/09/18 02/09/18 Range/Units 09:55 09:55 09:55 WBC 21.33 H (4.23-9.07) K/mm3 RBC 2.79 L (4.63-6.08) M/mm3 Hgb 9.6 L (13.7-17.5) gm/L Hct 30.0 L (40.1-51.0) % MCV 107.5 H (79.0-92.2) fl MCH 34.4 H (25.7-32.2) pg MCHC 32.0 L (32.2-35.5) g/dl RDW Std Deviation 65.0 H (35.1-43.9) fL Plt Count 130 L (163-337) K/mm3 MPV 10.1 (9.4-12.3) fl Neut % (Auto) 85.3 H (34.0-67.9) % Lymph % (Auto) 2.9 L (21.8-53.1) % [place] % (Auto) 11.1 (5.3-12.2) % Eos % (Auto) 0.5 L (0.8-7.0) Baso % (Auto) 0.0 L (0.1-1.2) % Neut # (Auto) 18.19 H (1.78-5.38) K/mm3 Lymph # (Auto) 0.62 L (1.32-3.57) K/mm3 [place] # (Auto) 2.36 H (0.30-0.82) K/mm3 Eos # (Auto) 0.10 (0.04-0.54) K/mm3 Baso # (Auto) 0.01 (0.01-0.08) K/mm3 Manual Slide Review Abnormal smear Sodium 141 (136-145) mEq/L Potassium 4.6 (3.5-5.1) mEq/L Chloride 102 (98-107) mEq/L Carbon Dioxide 33 H (21-32) mEq/L Anion Gap 10.6 (5-15) BUN 34 H (7-18) mg/dL Creatinine 1.5 H (0.7-1.3) mg/dL Est Cr Clr Drug Dosing 33.20 mL/min Estimated GFR (MDRD) 45 (>60) mL/min BUN/Creatinine Ratio 22.7 H (14-18) Glucose 124 H (83-115) mg/dL Lactic Acid (0.4-2.0) mmol/L Calcium 9.1 (8.5-10.1) mg/dL Total Bilirubin 0.5 (0.2-1.0) mg/dL AST 33 (15-37) U/L ALT 33 (16-63) U/L Alkaline Phosphatase 56 (46-116) U/L Troponin I 0.043 (0.00-0.056) ng/mL NT-Pro-B Natriuret Pep 45121 H (0-450) pg/mL Total Protein 6.0 L (6.4-8.2) g/dl Albumin 3.0 L (3.4-5.0) g/dl Globulin 3.0 gm/dL Albumin/Globulin Ratio 1.0 (1-2) Urine Color (Yellow) Urine Appearance (Clear) Urine pH (5.0-8.0) Ur Specific [place] (1.005-1.030) Urine Protein (Negative) Urine Glucose (UA) (Negative) Urine Ketones (Negative) Urine Occult Blood (Negative) Urine Nitrite (Negative) Urine Bilirubin (Negative) Urine Urobilinogen (0.2-1.0) Ur Leukocyte Esterase (Negative) Urine RBC (0-5) /hpf Urine WBC (0-5) /hpf Ur Epithelial Cells (0-5) /hpf Amorphous Sediment (NOT SEEN) /hpf Urine Bacteria (FEW) /hpf Urine Mucus (FEW) /hpf 02/09/18 02/09/18 Range/Units 10:33 15:20 WBC (4.23-9.07) K/mm3 RBC (4.63-6.08) M/mm3 Hgb (13.7-17.5) gm/L Hct (40.1-51.0) % MCV (79.0-92.2) fl MCH (25.7-32.2) pg MCHC (32.2-35.5) g/dl RDW Std Deviation (35.1-43.9) fL Plt Count (163-337) K/mm3 MPV (9.4-12.3) fl Neut % (Auto) (34.0-67.9) % Lymph % (Auto) (21.8-53.1) % [place] % (Auto) (5.3-12.2) % Eos % (Auto) (0.8-7.0) Baso % (Auto) (0.1-1.2) % Neut # (Auto) (1.78-5.38) K/mm3 Lymph # (Auto) (1.32-3.57) K/mm3 [place] # (Auto) (0.30-0.82) K/mm3 Eos # (Auto) (0.04-0.54) K/mm3 Baso # (Auto) (0.01-0.08) K/mm3 Manual Slide Review Sodium (136-145) mEq/L Potassium (3.5-5.1) mEq/L Chloride (98-107) mEq/L Carbon Dioxide (21-32) mEq/L Anion Gap (5-15) BUN (7-18) mg/dL Creatinine (0.7-1.3) mg/dL Est Cr Clr Drug Dosing mL/min Estimated GFR (MDRD) (>60) mL/min BUN/Creatinine Ratio (14-18) Glucose (83-115) mg/dL Lactic Acid 1.3 (0.4-2.0) mmol/L Calcium (8.5-10.1) mg/dL Total Bilirubin (0.2-1.0) mg/dL AST (15-37) U/L ALT (16-63) U/L Alkaline Phosphatase (46-116) U/L Troponin I (0.00-0.056) ng/mL NT-Pro-B Natriuret Pep (0-450) pg/mL Total Protein (6.4-8.2) g/dl Albumin (3.4-5.0) g/dl Globulin gm/dL Albumin/Globulin Ratio (1-2) Urine Color Light yellow (Yellow) Urine Appearance Slt cloudy H (Clear) Urine pH 7.0 (5.0-8.0) Ur Specific [place] 1.020 (1.005-1.030) Urine Protein 1+ H (Negative) Urine Glucose (UA) Negative (Negative) Urine Ketones Negative (Negative) Urine Occult Blood Negative (Negative) Urine Nitrite Negative (Negative) Urine Bilirubin Negative (Negative) Urine Urobilinogen 0.2 (0.2-1.0) Ur Leukocyte Esterase Negative (Negative) Urine RBC 0-5 (0-5) /hpf Urine WBC 10-20 H (0-5) /hpf Ur Epithelial Cells 0-5 (0-5) /hpf Amorphous Sediment Moderate H (NOT SEEN) /hpf Urine Bacteria Many H (FEW) /hpf Urine Mucus Not seen (FEW) /hpf Result Diagrams: 02/09/18 09:55 02/09/18 09:55 - Problem List (1) ARDS (adult respiratory distress syndrome) SNOMED Code(s): 50158619 ICD Code: J80 - ACUTE RESPIRATORY DISTRESS SYNDROME Status: Acute Priority: High Current Visit: Yes (2) Afib SNOMED Code(s): 07203500 ICD Code: I48.91 - UNSPECIFIED ATRIAL FIBRILLATION Status: Chronic Priority: Medium Current Visit: Yes (3) CAD (coronary artery disease) SNOMED Code(s): 42026334 ICD Code: I25.10 - ATHSCL HEART DISEASE OF [place] CORONARY ARTERY W/O ANG PCTRS Status: Acute Priority: Medium Current Visit: No Qualifiers: Coronary Disease-Associated Artery/Lesion type: unspecified vessel or lesion type [place] vs. transplanted heart: [place] heart Associated angina: without angina Qualified Code(s): I25.10 - Atherosclerotic heart disease of [place] coronary artery without angina pectoris (4) HLD (hyperlipidemia) SNOMED Code(s): 73139695 ICD Code: E78.5 - HYPERLIPIDEMIA, UNSPECIFIED Status: Chronic Priority: Low Current Visit: No (5) GERD (gastroesophageal reflux disease) SNOMED Code(s): 609263889 ICD Code: K21.9 - GASTRO-ESOPHAGEAL REFLUX DISEASE WITHOUT ESOPHAGITIS Status: Chronic Priority: Low Current Visit: No (6) CKD (chronic kidney disease), stage III SNOMED Code(s): 797856449 ICD Code: N18.3 - CHRONIC KIDNEY DISEASE, STAGE 3 (MODERATE) Status: Chronic Priority: Medium Current Visit: Yes (7) Hypothyroid SNOMED Code(s): 41063756 ICD Code: E03.9 - HYPOTHYROIDISM, UNSPECIFIED Status: Chronic Priority: Low Current Visit: No (8) Elevated brain natriuretic peptide (BNP) level SNOMED Code(s): 309932154, 123822638 ICD Code: R79.89 - OTHER SPECIFIED ABNORMAL FINDINGS OF BLOOD CHEMISTRY Status: Acute Current Visit: Yes (9) Hypoxia SNOMED Code(s): 250282088 ICD Code: R09.02 - HYPOXEMIA Status: Acute Current Visit: Yes (10) Benign essential hypertension SNOMED Code(s): 0558185 ICD Code: I10 - ESSENTIAL (PRIMARY) HYPERTENSION Status: Acute Current Visit: No (11) Subtherapeutic international normalized ratio (INR) SNOMED Code(s): 475362134, 153107250 ICD Code: R79.1 - ABNORMAL COAGULATION PROFILE Status: Acute Priority: Medium Current Visit: No Problem List Initiated/Reviewed/Updated: Yes Orders Last 24hrs: Active Orders 24 hr Category Date Time Status Patient Status [ADT] Routine ADT 02/09/18 15:32 Active Cardiac Monitoring [RC] . DIRECTED Care 02/09/18 10:06 Active EKG Documentation Completion [RC] STAT Care 02/09/18 10:08 Active Oxygen Therapy [RC] PRN Care 02/09/18 10:06 Active RT Aerosol Therapy [RC] ASDIRECTED Care 02/09/18 10:09 Active CULTURE BLOOD [BC] Stat Lab 02/09/18 10:25 Received CULTURE BLOOD [BC] Stat Lab 02/09/18 10:33 Received UA W/MICROSCOPIC [URIN] Stat Lab 02/09/18 15:20 Ordered Sodium Chloride 0.9% [Saline Flush] Med 02/09/18 10:06 Active 10 ml FLUSH ASDIRECTED PRN Blood Culture x2 Reflex Set [OM.PC] Stat Oth 02/09/18 10:09 Ordered Peripheral IV Insertion Adult [OM.PC] Stat Oth 02/09/18 10:06 Ordered Medication Orders Sodium Chloride (Saline Flush) 10 ml FLUSH ASDIRECTED PRN PRN Reason: Keep Vein Open Last Admin: 02/09/18 10:33 Dose: 10 ml Assessment/Plan Comment:: I/P: Acute: Probable ARDS -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 Atelectasis -H/o metapneumo -Rocephin 2g IV given in ER -Start Azithro 500 IV--> PO 250 tomorrow for prophylactic treatment -Labs: Respiratory viral panel, Influenza, M. pneumo, S. pneumo Probable New onset CHF -Risk factors: CAD, MS, Afib -CXR: Pleural effusion -BNP: 85170 -Clinical: Pitting edema 2+ bilaterally -2D echo in AM -Fluid and salt restriction -Start Lasix IV Chronic: Afib--> On warfarin MS CAD with stenting Recurrent bronchitis HLD GERD HTN CKD stage III--> eGFR 45, baseline Anemia--> Hgb 9.6; monitor Hypothyroid Subtherapeutic INR --> check INR today; pharmacy to dose warfarin Plan: Transfered to telemetry unit today PNA protocol Continue home meds Other orders as indicated above CM/SW for discharge planning Routine AM labs RT/PT/OT DVT Prophylaxis: On warfarin GI prophylaxis: Protonix Ambulated as tolerated Code Status: DNR/DNI; PCP: David Hazel <Neptali Catalan - Last Filed: 02/09/18 19:05> H&P History of Present Illness - General Admit Problem/Dx: Admission Diagnosis/Problem Admission Diagnosis/Problem Hypoxia Exam - Vital Signs Vital Signs: Last Vital Signs Temp 37.1 C 02/09/18 15:50 Pulse 69 02/09/18 15:50 Resp 24 H 02/09/18 15:50 BP 150/59 H 02/09/18 15:50 Pulse Ox 100 02/09/18 17:48 - Patient Data Lab Results Last 24 hrs: Laboratory Results - last 24 hr 02/09/18 02/09/18 02/09/18 Range/Units 09:55 09:55 09:55 WBC 21.33 H (4.23-9.07) K/mm3 RBC 2.79 L (4.63-6.08) M/mm3 Hgb 9.6 L (13.7-17.5) gm/L Hct 30.0 L (40.1-51.0) % MCV 107.5 H (79.0-92.2) fl MCH 34.4 H (25.7-32.2) pg MCHC 32.0 L (32.2-35.5) g/dl RDW Std Deviation 65.0 H (35.1-43.9) fL Plt Count 130 L (163-337) K/mm3 MPV 10.1 (9.4-12.3) fl Neut % (Auto) 85.3 H (34.0-67.9) % Lymph % (Auto) 2.9 L (21.8-53.1) % [place] % (Auto) 11.1 (5.3-12.2) % Eos % (Auto) 0.5 L (0.8-7.0) Baso % (Auto) 0.0 L (0.1-1.2) % Neut # (Auto) 18.19 H (1.78-5.38) K/mm3 Lymph # (Auto) 0.62 L (1.32-3.57) K/mm3 [place] # (Auto) 2.36 H (0.30-0.82) K/mm3 Eos # (Auto) 0.10 (0.04-0.54) K/mm3 Baso # (Auto) 0.01 (0.01-0.08) K/mm3 Manual Slide Review Abnormal smear Sodium 141 (136-145) mEq/L Potassium 4.6 (3.5-5.1) mEq/L Chloride 102 (98-107) mEq/L Carbon Dioxide 33 H (21-32) mEq/L Anion Gap 10.6 (5-15) BUN 34 H (7-18) mg/dL Creatinine 1.5 H (0.7-1.3) mg/dL Est Cr Clr Drug Dosing 33.20 mL/min Estimated GFR (MDRD) 45 (>60) mL/min BUN/Creatinine Ratio 22.7 H (14-18) Glucose 124 H (83-115) mg/dL Lactic Acid (0.4-2.0) mmol/L Calcium 9.1 (8.5-10.1) mg/dL Total Bilirubin 0.5 (0.2-1.0) mg/dL AST 33 (15-37) U/L ALT 33 (16-63) U/L Alkaline Phosphatase 56 (46-116) U/L CK-MB (CK-2) (0-3.6) ng/ml Troponin I 0.043 (0.00-0.056) ng/mL NT-Pro-B Natriuret Pep 36933 H (0-450) pg/mL Total Protein 6.0 L (6.4-8.2) g/dl Albumin 3.0 L (3.4-5.0) g/dl Globulin 3.0 gm/dL Albumin/Globulin Ratio 1.0 (1-2) Urine Color (Yellow) Urine Appearance (Clear) Urine pH (5.0-8.0) Ur Specific [place] (1.005-1.030) Urine Protein (Negative) Urine Glucose (UA) (Negative) Urine Ketones (Negative) Urine Occult Blood (Negative) Urine Nitrite (Negative) Urine Bilirubin (Negative) Urine Urobilinogen (0.2-1.0) Ur Leukocyte Esterase (Negative) Urine RBC (0-5) /hpf Urine WBC (0-5) /hpf Ur Epithelial Cells (0-5) /hpf Amorphous Sediment (NOT SEEN) /hpf Urine Bacteria (FEW) /hpf Urine Mucus (FEW) /hpf 02/09/18 02/09/18 02/09/18 Range/Units 10:33 15:20 17:35 WBC (4.23-9.07) K/mm3 RBC (4.63-6.08) M/mm3 Hgb (13.7-17.5) gm/L Hct (40.1-51.0) % MCV (79.0-92.2) fl MCH (25.7-32.2) pg MCHC (32.2-35.5) g/dl RDW Std Deviation (35.1-43.9) fL Plt Count (163-337) K/mm3 MPV (9.4-12.3) fl Neut % (Auto) (34.0-67.9) % Lymph % (Auto) (21.8-53.1) % [place] % (Auto) (5.3-12.2) % Eos % (Auto) (0.8-7.0) Baso % (Auto) (0.1-1.2) % Neut # (Auto) (1.78-5.38) K/mm3 Lymph # (Auto) (1.32-3.57) K/mm3 [place] # (Auto) (0.30-0.82) K/mm3 Eos # (Auto) (0.04-0.54) K/mm3 Baso # (Auto) (0.01-0.08) K/mm3 Manual Slide Review Sodium (136-145) mEq/L Potassium (3.5-5.1) mEq/L Chloride (98-107) mEq/L Carbon Dioxide (21-32) mEq/L Anion Gap (5-15) BUN (7-18) mg/dL Creatinine (0.7-1.3) mg/dL Est Cr Clr Drug Dosing mL/min Estimated GFR (MDRD) (>60) mL/min BUN/Creatinine Ratio (14-18) Glucose (83-115) mg/dL Lactic Acid 1.3 (0.4-2.0) mmol/L Calcium (8.5-10.1) mg/dL Total Bilirubin (0.2-1.0) mg/dL AST (15-37) U/L ALT (16-63) U/L Alkaline Phosphatase (46-116) U/L CK-MB (CK-2) 0.9 (0-3.6) ng/ml Troponin I 0.024 (0.00-0.056) ng/mL NT-Pro-B Natriuret Pep (0-450) pg/mL Total Protein (6.4-8.2) g/dl Albumin (3.4-5.0) g/dl Globulin gm/dL Albumin/Globulin Ratio (1-2) Urine Color Light yellow (Yellow) Urine Appearance Slt cloudy H (Clear) Urine pH 7.0 (5.0-8.0) Ur Specific [place] 1.020 (1.005-1.030) Urine Protein 1+ H (Negative) Urine Glucose (UA) Negative (Negative) Urine Ketones Negative (Negative) Urine Occult Blood Negative (Negative) Urine Nitrite Negative (Negative) Urine Bilirubin Negative (Negative) Urine Urobilinogen 0.2 (0.2-1.0) Ur Leukocyte Esterase Negative (Negative) Urine RBC 0-5 (0-5) /hpf Urine WBC 10-20 H (0-5) /hpf Ur Epithelial Cells 0-5 (0-5) /hpf Amorphous Sediment Moderate H (NOT SEEN) /hpf Urine Bacteria Many H (FEW) /hpf Urine Mucus Not seen (FEW) /hpf Result Diagrams: 02/09/18 09:55 02/09/18 09:55 Problem List Initiated/Reviewed/Updated: Yes Orders Last 24hrs: Active Orders 24 hr Category Date Time Status Patient Status [ADT] Routine ADT 02/09/18 15:32 Active Blood Glucose Check, Bedside [RC] BID Care 02/09/18 21:00 Active Cardiac Monitoring [RC] . DIRECTED Care 02/09/18 10:06 Active Cardiac Monitoring [RC] CONTINUOUS Care 02/09/18 17:02 Active EKG Documentation Completion [RC] STAT Care 02/09/18 10:08 Active Height and Weight [RC] 04 Care 02/09/18 17:01 Active Intake and Output [RC] QSHIFT Care 02/09/18 17:02 Active Oxygen Therapy [RC] PRN Care 02/09/18 10:06 Active Oxygen Therapy [RC] PRN Care 02/09/18 17:01 Active Pulse Oximetry [RC] PRN Care 02/09/18 17:02 Active RT Aerosol Therapy [RC] ASDIRECTED Care 02/09/18 10:09 Active RT Aerosol Therapy [RC] ASDIRECTED Care 02/09/18 17:03 Active RT Incentive Spirometry [RC] ASDIRECTED Care 02/09/18 17:22 Active Up With Assistance [RC] ASDIRECTED Care 02/09/18 17:01 Active Up ad Babita [RC] ASDIRECTED Care 02/09/18 17:01 Active VTE/DVT Education [RC] PER UNIT ROUTINE Care 02/09/18 17:01 Active Vital Signs [RC] Q4H Care 02/09/18 17:01 Active Consult to Rn Plastics [CONS] Routine Cons 02/09/18 17:04 Active OT Evaluation and Treatment [CONS] Routine Cons 02/09/18 17:04 Active PT Evaluation and Treatment [CONS] Routine Cons 02/09/18 17:04 Active Respiratory Care Assess and Treatment [CONS] Routine Cons 02/09/18 17:04 Active Fluid Restriction [DIET] Diet 02/09/18 Dinner Active Heart Healthy Diet [DIET] Diet 02/09/18 Dinner Active Sodium Restricted Diet [DIET] Diet 02/09/18 Dinner Active Chest 1V Frontal [CR] AM Exams 02/11/18 05:11 Ordered Echo Comp wo Cont [US] Routine Exams 02/10/18 07:00 Ordered BASIC METABOLIC PANEL,BMP [CHEM] AM Lab 02/10/18 05:11 Ordered BASIC METABOLIC PANEL,BMP [CHEM] AM Lab 02/11/18 05:11 Ordered BASIC METABOLIC PANEL,BMP [CHEM] AM Lab 02/12/18 05:11 Ordered BASIC METABOLIC PANEL,BMP [CHEM] AM Lab 02/13/18 05:11 Ordered BASIC METABOLIC PANEL,BMP [CHEM] AM Lab 02/14/18 05:11 Ordered C-REACTIVE PROTEIN [CHEM] AM Lab 02/10/18 05:11 Ordered C-REACTIVE PROTEIN [CHEM] AM Lab 02/11/18 05:11 Ordered C-REACTIVE PROTEIN [CHEM] AM Lab 02/12/18 05:11 Ordered C-REACTIVE PROTEIN [CHEM] AM Lab 02/13/18 05:11 Ordered C-REACTIVE PROTEIN [CHEM] AM Lab 02/14/18 05:11 Ordered CBC WITH AUTO DIFF [HEME] AM Lab 02/10/18 05:11 Ordered CBC WITH AUTO DIFF [HEME] AM Lab 02/11/18 05:11 Ordered CBC WITH AUTO DIFF [HEME] AM Lab 02/12/18 05:11 Ordered CBC WITH AUTO DIFF [HEME] AM Lab 02/13/18 05:11 Ordered CBC WITH AUTO DIFF [HEME] AM Lab 02/14/18 05:11 Ordered CKMB [CHEM] AM Lab 02/10/18 05:11 Ordered CULTURE BLOOD [BC] Stat Lab 02/09/18 10:25 Received CULTURE BLOOD [BC] Stat Lab 02/09/18 10:33 Received CULTURE SPUTUM + SMEAR [RM] Stat Lab 02/09/18 17:04 Ordered CULTURE URINE [RM] Stat Lab 02/09/18 15:20 Received INFLUENZA A+B AG SCREEN [RM] Stat Lab 02/09/18 18:29 Ordered MAGNESIUM [CHEM] AM Lab 02/10/18 05:11 Ordered MYCOPLASMA PNEUMONIAE IGM AB [CHEM] Stat Lab 02/09/18 09:55 Received PRO B-TYPE NATRIUR PEPT,BNPPRO [CHEM] DAILY Lab 02/10/18 05:11 Ordered PRO B-TYPE NATRIUR PEPT,BNPPRO [CHEM] DAILY Lab 02/11/18 05:11 Ordered PRO B-TYPE NATRIUR PEPT,BNPPRO [CHEM] DAILY Lab 02/12/18 05:11 Ordered PRO B-TYPE NATRIUR PEPT,BNPPRO [CHEM] DAILY Lab 02/13/18 05:11 Ordered PRO B-TYPE NATRIUR PEPT,BNPPRO [CHEM] DAILY Lab 02/14/18 05:11 Ordered RESPIRATORY PANEL BY PCR [MREF] Routine Lab 02/09/18 18:29 Ordered STREP PNEUMONIAE ANTIGEN [MREF] Routine Lab 02/09/18 15:20 Received TROPONIN I [CHEM] AM Lab 02/10/18 05:11 Ordered UA W/MICROSCOPIC [URIN] Stat Lab 02/09/18 15:20 Ordered Acetaminophen [Tylenol] Med 02/09/18 17:01 Active 650 mg PO Q4H PRN Acetaminophen [Tylenol] Med 02/09/18 17:00 Pending 650 mg PO Q4HR Acetaminophen/HYDROcodone [[place] 325-5 MG] Med 02/09/18 17:01 Active 1 tab PO Q4H PRN Albuterol/Ipratropium Med 02/09/18 16:55 Pending 4 gm IH Q4H PRN Albuterol/Ipratropium [DuoNeb 3.0-0.5 MG/3 ML] Med 02/09/18 17:01 Active 3 ml NEB Q4H PRN Azithromycin [Zithromax] Med 02/10/18 09:00 Active 250 mg PO DAILY Azithromycin [Zithromax] 500 mg Med 02/09/18 18:29 Active Sodium Chloride 0.9% [Normal Saline] 250 ml IV ONETIME Bisacodyl [Dulcolax] Med 02/09/18 17:01 Active 5 mg PO DAILY PRN Cholecalciferol (Vitamin D3) [Vitamin D3] Med 02/10/18 09:00 Active 1,000 units PO DAILY Cyanocobalamin (Vitamin B-12) [Physicians Ez Use B-12] Med 02/09/18 17:00 Pending 1,000 mcg IJ ASDIRECTED Dextromethorphan/guaiFENesin [Robitussin DM] Med 02/09/18 18:32 Active 10 ml PO Q4H PRN Docusate Sodium [Colace] Med 02/09/18 17:01 Active 100 mg PO BID PRN Docusate Sodium/Sennosides [Senna Plus] Med 02/09/18 17:01 Active 1 tab PO BID PRN Furosemide [Lasix] 100 mg Med 02/09/18 17:15 Active Sodium Chloride 0.9% [Normal Saline] 90 ml IV TITRATE HYDROmorphone [Dilaudid] Med 02/09/18 17:01 Active 0.25 mg IVPUSH Q2H PRN Hydrochlorothiazide Med 02/09/18 21:00 Active 6.25 mg PO BIDDIURETIC Insulin Aspart [NovoLOG] Med 02/09/18 21:00 Active 4 unit SUBCUT BID PRN LORazepam [Ativan] Med 02/09/18 17:01 Active 0.25 mg IV Q6H PRN Levothyroxine [Synthroid] Med 02/10/18 06:00 Active 50 mcg PO ACBREAKFAST Magnesium Rep Pharmacy to Dose [Pharmacy to Dose - Med 02/09/18 17:15 Pending Magnesium Replacement] 1 dose .XX ASDIRECTED Metoprolol Tartrate [Lopressor] Med 02/09/18 21:00 Active 25 mg PO Q12HR Metoprolol Tartrate [Lopressor] Med 02/09/18 17:07 Active 5 mg IVPUSH Q4H PRN Ondansetron [Zofran] Med 02/09/18 17:01 Active 4 mg IV Q6H PRN PARoxetine [Paxil] Med 02/09/18 21:00 Active 15 mg PO BID Pantoprazole [ProTONIX] Med 02/10/18 09:00 Active 40 mg PO DAILY Polyethylene Glycol 3350 [MiraLAX] Med 02/09/18 17:01 Active 17 gm PO DAILY PRN Potassium Rep Pharmacy to Dose [Pharmacy to Dose - Med 02/09/18 17:15 Pending Potassium Replacement] 1 dose .XX ASDIRECTED Promethazine [Phenergan] 6.25 mg Med 02/09/18 17:01 Active Sodium Chloride 0.9% [Normal Saline] 50 ml IV Q6H Saccharomyces Boulardii [Florastor] Med 02/10/18 09:00 Active 250 mg PO DAILY Simvastatin [Zocor] Med 02/10/18 09:00 Active 5 mg PO DAILY Sodium Chloride 0.9% [Saline Flush] Med 02/09/18 10:06 Active 10 ml FLUSH ASDIRECTED PRN Sodium Chloride 0.9% [Saline Flush] Med 02/09/18 17:01 Active 10 ml FLUSH ASDIRECTED PRN Tamsulosin [Flomax] Med 02/09/18 21:00 Active 0.4 mg PO BID Temazepam [Restoril] Med 02/09/18 17:01 Active 7.5 mg PO BEDTIME PRN Warfarin [Coumadin] Med 02/10/18 09:00 Pending 1.25 mg PO DAILY fentaNYL [Fentanyl] Med 02/09/18 17:00 Pending 1 each TD ASDIRECTED hydrALAZINE [Apresoline] Med 02/09/18 17:07 Active 10 mg IVPUSH Q4H PRN predniSONE Med 02/10/18 09:00 Active 25 mg PO DAILY Blood Culture x2 Reflex Set [OM.PC] Stat Oth 02/09/18 10:09 Ordered Peripheral IV Insertion Adult [OM.PC] Stat Oth 02/09/18 10:06 Ordered Saline Lock Insert [OM.PC] Routine Oth 02/09/18 17:01 Ordered Resuscitation Status Routine Resus Stat 02/09/18 16:29 Ordered Medication Orders Acetaminophen (Tylenol) 650 mg PO Q4HR JARRED Acetaminophen (Tylenol) 650 mg PO Q4H PRN PRN Reason: Pain (Mild 1-3)/fever Hydrocodone Bitart/Acetaminophen ([place] 325-5 Mg) 1 tab PO Q4H PRN PRN Reason: Pain (moderate 4-6) Albuterol/Ipratropium (Duoneb 3.0-0.5 Mg/3 Ml) 3 ml NEB Q4H PRN PRN Reason: Shortness Of Breath/wheezing Last Admin: 02/09/18 17:41 Dose: 3 ml Azithromycin (Zithromax) 250 mg PO DAILY JARRED Stop: 02/12/18 10:00 Bisacodyl (Dulcolax) 5 mg PO DAILY PRN PRN Reason: Constipation Cholecalciferol (Vitamin D3) 1,000 units PO DAILY JARRED Docusate Sodium (Colace) 100 mg PO BID PRN PRN Reason: Constipation Guaifenesin/Phenylephrine HCl (Robitussin Dm) 10 ml PO Q4H PRN PRN Reason: Cough Hydralazine HCl (Apresoline) 10 mg IVPUSH Q4H PRN PRN Reason: Hypertension Hydrochlorothiazide (Hydrochlorothiazide) 6.25 mg PO BIDDIURETIC JARRED Hydromorphone HCl (Dilaudid) 0.25 mg IVPUSH Q2H PRN PRN Reason: Pain (severe 7-10) Furosemide 100 mg/ Sodium (Chloride) 100 mls @ 3 mls/hr IV TITRATE JARRED; Protocol Promethazine HCl 6.25 mg/ (Sodium Chloride) 50.25 mls @ 100 mls/hr IV Q6H PRN PRN Reason: Nausea/Vomiting Azithromycin 500 mg/ Sodium (Chloride) 250 mls @ 250 mls/hr IV ONETIME ONE Stop: 02/09/18 19:28 Insulin Aspart (Novolog) 4 unit SUBCUT BID PRN PRN Reason: Blood Glucose Levothyroxine Sodium (Synthroid) 50 mcg PO ACBREAKFAST JARRED Lorazepam (Ativan) 0.25 mg IV Q6H PRN PRN Reason: Anxiety Magnesium Sulfate (Pharmacy To Dose - Magnesium Replacement) 1 dose .XX ASDIRECTED [facility] Metoprolol Tartrate (Lopressor) 25 mg PO Q12HR [facility] Metoprolol Tartrate (Lopressor) 5 mg IVPUSH Q4H PRN PRN Reason: Tachycardia Non-Formulary Medication (Albuterol/Ipratropium) 4 gm IH Q4H PRN PRN Reason: Shortness of Breath Non-Formulary Medication (Cyanocobalamin (Vitamin B-12) [Physicians Ez Use B-12] ) 1,000 mcg IJ ASDIRECTED [facility] Non-Formulary Medication (Fentanyl [Fentanyl]) 1 each TD ASDIRECTED [facility] Ondansetron HCl (Zofran) 4 mg IV Q6H PRN PRN Reason: Nausea/Vomiting Pantoprazole Sodium (Protonix) 40 mg PO DAILY [facility] Paroxetine HCl (Paxil) 15 mg PO BID [facility] Polyethylene Glycol (Miralax) 17 gm PO DAILY PRN PRN Reason: Constipation Potassium Chloride (Pharmacy To Dose - Potassium Replacement) 1 dose .XX ASDIRECTED [facility] Prednisone (Prednisone) 25 mg PO DAILY [facility] Saccharomyces Boulardii (Florastor) 250 mg PO DAILY [facility] Senna/Docusate Sodium (Senna Plus) 1 tab PO BID PRN PRN Reason: Constipation Simvastatin (Zocor) 5 mg PO DAILY [facility] Sodium Chloride (Saline Flush) 10 ml FLUSH ASDIRECTED PRN PRN Reason: Keep Vein Open Last Admin: 02/09/18 10:33 Dose: 10 ml Sodium Chloride (Saline Flush) 10 ml FLUSH ASDIRECTED PRN PRN Reason: Keep Vein Open Tamsulosin HCl (Flomax) 0.4 mg PO BID JARR[facility] Temazepam (Restoril) 7.5 mg PO BEDTIME PRN PRN Reason: Sleep Warfarin Sodium (Coumadin) 1.25 mg PO DAILY [facility] Assessment/Plan Comment:: Patient has no ARDS but ESSIE (acute respiratory distress) i.e trouble breathing.
[2018-02-09] MEDS ORDERED: Acetaminophen/HYDROcodone 325-5 MG Tab PO PRN ×2 (16:55→17:01)
[2018-02-09] MEDS ORDERED: COMBIVENT RESPIMAT INH PRN (16:55)
[2018-02-09] MEDS ORDERED: [UNRECOGNIZED DRUG - OTHER] IJ SCH (17:00)
[2018-02-09] MEDS ORDERED: Non-Formulary Medication 1 Each (Fentanyl [Fentanyl] 1 EACH) TD SCH (17:00)
[2018-02-09] MEDS ORDERED: CYANOCOBALAMIN IJ SCH (17:00)
[2018-02-09] MEDS ORDERED: HYDROmorphone 0.5 MG/0.5 ML SYRINGE IVPUSH PRN (17:01)
[2018-02-09] MEDS ORDERED: Promethazine 6.25 MG in Sodium Chloride 0.9% 50 ML IV PRN (17:01)
[2018-02-09] MEDS ORDERED: Docusate Sodium 100 MG Cap PO PRN (17:01)
[2018-02-09] MEDS ORDERED: Albuterol/Ipratropium 3.0-0.5 MG/3 ML Neb Soln NEB PRN (17:01)
[2018-02-09] MEDS ORDERED: Polyethylene Glycol 3350 Powder 17 GM Packet PO PRN (17:01)
[2018-02-09] MEDS ORDERED: Temazepam 7.5 MG Cap PO PRN (17:01)
[2018-02-09] MEDS ORDERED: Bisacodyl 5 MG Tab PO PRN (17:01)
[2018-02-09] MEDS ORDERED: Ondansetron 4 MG/2 ML SDV IV PRN (17:01)
[2018-02-09] MEDS ORDERED: LORazepam 2 MG/ML SDV IV PRN (17:01)
[2018-02-09] MEDS ORDERED: Metoprolol Tartrate 5 MG/5 ML SDV IVPUSH PRN (17:07)
[2018-02-09] MEDS ORDERED: hydrALAZINE 20 MG/ML SDV IVPUSH PRN (17:07)
[2018-02-09] MEDS ORDERED: Furosemide 100 MG in Sodium Chloride 0.9% 90 ML IV SCH (17:15)
[2018-02-09] MEDS ORDERED: Azithromycin 500 MG in Sodium Chloride 0.9% 250 ML IV ONE (18:29)
[2018-02-09] MEDS ORDERED: guaiFENesin/Dextromethorphan 100-10 MG/5 ML Soln 5 ML Cup PO PRN (18:32)
[2018-02-09] MEDS: Tamsulosin 0.4 MG Cap.ER PO SCH (20:27)
[2018-02-09] MEDS: Metoprolol Tartrate 25 MG Tab PO SCH (20:27)
[2018-02-09] MEDS: PARoxetine 20 MG Tab PO SCH (20:28)
[2018-02-09] MEDS: Hydrochlorothiazide 25 MG Tab PO SCH (20:29)
[2018-02-09] MEDS ORDERED: Insulin Aspart 100 Units/ML 3 ML Pen SUBCUT PRN (21:00)
[2018-02-09] MEDS ORDERED: Insulin Aspart 100 Units/ML 3 ML Pen SUBCUT SCH (21:00)
[2018-02-09] MEDS: Acetaminophen 325 MG Tab PO PRN (22:19)
[2018-02-10] MEDS: Hydrochlorothiazide 25 MG Tab PO SCH (06:16)
[2018-02-10] MEDS: Levothyroxine 50 MCG Tab PO SCH (06:16)
[2018-02-10] MEDS: Tamsulosin 0.4 MG Cap.ER PO SCH ×2 (08:59→20:04)
[2018-02-10] MEDS: Simvastatin 10 MG Tab PO SCH (08:59)
[2018-02-10] MEDS: Saccharomyces Boulardii (Probiotic) 250 MG Cap PO SCH (08:59)
[2018-02-10] MEDS: Pantoprazole 40 MG Tab.CR PO SCH (08:59)
[2018-02-10] MEDS: Cholecalciferol (Vitamin D3) 1,000 Unit Tab PO SCH (08:59)
[2018-02-10] MEDS: Metoprolol Tartrate 25 MG Tab PO SCH ×2 (09:00→20:02)
[2018-02-10] MEDS: Azithromycin 250 MG Tab PO SCH (09:00)
[2018-02-10] MEDS ORDERED: Cyanocobalamin (Vitamin B12) 1,000 MCG/ML SDV IM ONE (09:00)
[2018-02-10] MEDS: predniSONE 5 MG Tab PO SCH (09:00)
[2018-02-10] MEDS ORDERED: Enoxaparin 40 MG/0.4 ML Syringe SUBCUT SCH (11:00)
--- NOTE | 2018-02-10 12:31 | PCM.PN ---
<Deana Corona - Last Filed: 02/10/18 13:42> - General Info Date of Service: 02/10/18 Admission Dx/Problem (Free Text): Admission Diagnosis/Problem Admission Diagnosis/Problem Hypoxia Subjective Update: In to see Will today. He is sitting in bed eating lunch. Overall he is doing well. He has no complaints. His cough and breathing have improved slightly. He has been sleeping well. Good appetite. Ambulating. Pain is controlled. No fever , chills, abdominal pain, nausea, vomiting, diarrhea. Urinating well without catheter. Incentive Spirometry. No concerns from nursing. Functional Status: Reports: Pain Controlled, Tolerating Diet, Ambulating, Urinating, Incentive Spirometry - Review of Systems General: Reports: No Symptoms. Denies: Fever HEENT: Reports: No Symptoms Pulmonary: Reports: Shortness of Breath (improving), Cough (slight improvement) , Sputum, Wheezing. Denies: Pleuritic Chest Pain Cardiovascular: Reports: Edema (pedal edema). Denies: Chest Pain Gastrointestinal: Reports: No Symptoms. Denies: Abdominal Pain, Constipation, Diarrhea, Nausea, Vomiting Genitourinary: Reports: No Symptoms. Denies: Dysuria, Frequency, Burning, Pain , Incontinence Musculoskeletal: Reports: No Symptoms Skin: Reports: No Symptoms Neurological: Reports: No Symptoms Psychiatric: Reports: No Symptoms - Patient Data Vitals - Most Recent: Last Vital Signs Temp 97.9 F 02/10/18 02:29 Pulse 74 02/10/18 09:00 Resp 20 02/10/18 08:58 BP 140/89 02/10/18 09:00 Pulse Ox 95 02/10/18 08:58 Weight - Most Recent: 63.412 kg I&O - Last 24 Hours: Intake & Output 02/09/18 02/10/18 02/10/18 22:59 06:59 14:59 Intake Total 60 465 180 Output Total 1100 Balance 60 -635 180 Lab Results Last 24 Hours: Laboratory Results - last 24 hr 02/09/18 02/09/18 02/09/18 Range/Units 09:55 10:33 15:20 WBC (4.23-9.07) K/mm3 RBC (4.63-6.08) M/mm3 Hgb (13.7-17.5) gm/L Hct (40.1-51.0) % MCV (79.0-92.2) fl MCH (25.7-32.2) pg MCHC (32.2-35.5) g/dl RDW Std Deviation (35.1-43.9) fL Plt Count (163-337) K/mm3 MPV (9.4-12.3) fl Neut % (Auto) (34.0-67.9) % Lymph % (Auto) (21.8-53.1) % [place] % (Auto) (5.3-12.2) % Eos % (Auto) (0.8-7.0) Baso % (Auto) (0.1-1.2) % Neut # (Auto) (1.78-5.38) K/mm3 Lymph # (Auto) (1.32-3.57) K/mm3 [place] # (Auto) (0.30-0.82) K/mm3 Eos # (Auto) (0.04-0.54) K/mm3 Baso # (Auto) (0.01-0.08) K/mm3 Manual Slide Review PT (8.0-13.0) SECONDS INR Sodium (136-145) mEq/L Potassium (3.5-5.1) mEq/L Chloride (98-107) mEq/L Carbon Dioxide (21-32) mEq/L Anion Gap (5-15) BUN (7-18) mg/dL Creatinine (0.7-1.3) mg/dL Est Cr Clr Drug Dosing mL/min Estimated GFR (MDRD) (>60) mL/min BUN/Creatinine Ratio (14-18) Glucose (83-115) mg/dL POC Glucose (83-110) mg/dL Lactic Acid 1.3 (0.4-2.0) mmol/L Calcium (8.5-10.1) mg/dL Magnesium (1.8-2.4) mg/dl CK-MB (CK-2) (0-3.6) ng/ml Troponin I (0.00-0.056) ng/mL C-Reactive Protein (<1.0) mg/dL NT-Pro-B Natriuret Pep (0-450) pg/mL Urine Color Light yellow (Yellow) Urine Appearance Slt cloudy H (Clear) Urine pH 7.0 (5.0-8.0) Ur Specific [place] 1.020 (1.005-1.030) Urine Protein 1+ H (Negative) Urine Glucose (UA) Negative (Negative) Urine Ketones Negative (Negative) Urine Occult Blood Negative (Negative) Urine Nitrite Negative (Negative) Urine Bilirubin Negative (Negative) Urine Urobilinogen 0.2 (0.2-1.0) Ur Leukocyte Esterase Negative (Negative) Urine RBC 0-5 (0-5) /hpf Urine WBC 10-20 H (0-5) /hpf Ur Epithelial Cells 0-5 (0-5) /hpf Amorphous Sediment Moderate H (NOT SEEN) /hpf Urine Bacteria Many H (FEW) /hpf Urine Mucus Not seen (FEW) /hpf Mycoplasma pneumon IgM Negative (NEGATIVE) MRSA (PCR) 02/09/18 02/09/18 02/10/18 Range/Units 17:35 21:59 02:30 WBC (4.23-9.07) K/mm3 RBC (4.63-6.08) M/mm3 Hgb (13.7-17.5) gm/L Hct (40.1-51.0) % MCV (79.0-92.2) fl MCH (25.7-32.2) pg MCHC (32.2-35.5) g/dl RDW Std Deviation (35.1-43.9) fL Plt Count (163-337) K/mm3 MPV (9.4-12.3) fl Neut % (Auto) (34.0-67.9) % Lymph % (Auto) (21.8-53.1) % [place] % (Auto) (5.3-12.2) % Eos % (Auto) (0.8-7.0) Baso % (Auto) (0.1-1.2) % Neut # (Auto) (1.78-5.38) K/mm3 Lymph # (Auto) (1.32-3.57) K/mm3 [place] # (Auto) (0.30-0.82) K/mm3 Eos # (Auto) (0.04-0.54) K/mm3 Baso # (Auto) (0.01-0.08) K/mm3 Manual Slide Review PT (8.0-13.0) SECONDS INR Sodium (136-145) mEq/L Potassium (3.5-5.1) mEq/L Chloride (98-107) mEq/L Carbon Dioxide (21-32) mEq/L Anion Gap (5-15) BUN (7-18) mg/dL Creatinine (0.7-1.3) mg/dL Est Cr Clr Drug Dosing mL/min Estimated GFR (MDRD) (>60) mL/min BUN/Creatinine Ratio (14-18) Glucose (83-115) mg/dL POC Glucose 149 H (83-110) mg/dL Lactic Acid (0.4-2.0) mmol/L Calcium (8.5-10.1) mg/dL Magnesium (1.8-2.4) mg/dl CK-MB (CK-2) 0.9 (0-3.6) ng/ml Troponin I 0.024 (0.00-0.056) ng/mL C-Reactive Protein (<1.0) mg/dL NT-Pro-B Natriuret Pep (0-450) pg/mL Urine Color (Yellow) Urine Appearance (Clear) Urine pH (5.0-8.0) Ur Specific [place] (1.005-1.030) Urine Protein (Negative) Urine Glucose (UA) (Negative) Urine Ketones (Negative) Urine Occult Blood (Negative) Urine Nitrite (Negative) Urine Bilirubin (Negative) Urine Urobilinogen (0.2-1.0) Ur Leukocyte Esterase (Negative) Urine RBC (0-5) /hpf Urine WBC (0-5) /hpf Ur Epithelial Cells (0-5) /hpf Amorphous Sediment (NOT SEEN) /hpf Urine Bacteria (FEW) /hpf Urine Mucus (FEW) /hpf Mycoplasma pneumon IgM (NEGATIVE) MRSA (PCR) Negative 02/10/18 02/10/18 02/10/18 Range/Units 05:53 05:53 05:53 WBC 9.92 H (4.23-9.07) K/mm3 RBC 2.53 L (4.63-6.08) M/mm3 Hgb 8.5 L (13.7-17.5) gm/L Hct 27.0 L (40.1-51.0) % MCV 106.7 H (79.0-92.2) fl MCH 33.6 H (25.7-32.2) pg MCHC 31.5 L (32.2-35.5) g/dl RDW Std Deviation 65.8 H (35.1-43.9) fL Plt Count 116 L (163-337) K/mm3 MPV 10.3 (9.4-12.3) fl Neut % (Auto) 74.3 H (34.0-67.9) % Lymph % (Auto) 15.1 L (21.8-53.1) % [place] % (Auto) 10.0 (5.3-12.2) % Eos % (Auto) 0.4 L (0.8-7.0) Baso % (Auto) 0.0 L (0.1-1.2) % Neut # (Auto) 7.37 H (1.78-5.38) K/mm3 Lymph # (Auto) 1.50 (1.32-3.57) K/mm3 [place] # (Auto) 0.99 H (0.30-0.82) K/mm3 Eos # (Auto) 0.04 (0.04-0.54) K/mm3 Baso # (Auto) 0.00 L (0.01-0.08) K/mm3 Manual Slide Review Abnormal smear PT (8.0-13.0) SECONDS INR Sodium 143 (136-145) mEq/L Potassium 4.0 (3.5-5.1) mEq/L Chloride 103 (98-107) mEq/L Carbon Dioxide 34 H (21-32) mEq/L Anion Gap 10.0 (5-15) BUN 31 H (7-18) mg/dL Creatinine 1.4 H (0.7-1.3) mg/dL Est Cr Clr Drug Dosing 36.49 mL/min Estimated GFR (MDRD) 49 (>60) mL/min BUN/Creatinine Ratio 22.1 H (14-18) Glucose 91 (83-115) mg/dL POC Glucose (83-110) mg/dL Lactic Acid (0.4-2.0) mmol/L Calcium 8.6 (8.5-10.1) mg/dL Magnesium 1.9 (1.8-2.4) mg/dl CK-MB (CK-2) 0.8 (0-3.6) ng/ml Troponin I 0.032 (0.00-0.056) ng/mL C-Reactive Protein 11.9 H* (<1.0) mg/dL NT-Pro-B Natriuret Pep 17846 H (0-450) pg/mL Urine Color (Yellow) Urine Appearance (Clear) Urine pH (5.0-8.0) Ur Specific [place] (1.005-1.030) Urine Protein (Negative) Urine Glucose (UA) (Negative) Urine Ketones (Negative) Urine Occult Blood (Negative) Urine Nitrite (Negative) Urine Bilirubin (Negative) Urine Urobilinogen (0.2-1.0) Ur Leukocyte Esterase (Negative) Urine RBC (0-5) /hpf Urine WBC (0-5) /hpf Ur Epithelial Cells (0-5) /hpf Amorphous Sediment (NOT SEEN) /hpf Urine Bacteria (FEW) /hpf Urine Mucus (FEW) /hpf Mycoplasma pneumon IgM (NEGATIVE) MRSA (PCR) 02/10/18 02/10/18 02/10/18 Range/Units 05:53 05:53 06:15 WBC (4.23-9.07) K/mm3 RBC (4.63-6.08) M/mm3 Hgb (13.7-17.5) gm/L Hct (40.1-51.0) % MCV (79.0-92.2) fl MCH (25.7-32.2) pg MCHC (32.2-35.5) g/dl RDW Std Deviation (35.1-43.9) fL Plt Count (163-337) K/mm3 MPV (9.4-12.3) fl Neut % (Auto) (34.0-67.9) % Lymph % (Auto) (21.8-53.1) % [place] % (Auto) (5.3-12.2) % Eos % (Auto) (0.8-7.0) Baso % (Auto) (0.1-1.2) % Neut # (Auto) (1.78-5.38) K/mm3 Lymph # (Auto) (1.32-3.57) K/mm3 [place] # (Auto) (0.30-0.82) K/mm3 Eos # (Auto) (0.04-0.54) K/mm3 Baso # (Auto) (0.01-0.08) K/mm3 Manual Slide Review PT 16.1 H (8.0-13.0) SECONDS INR 1.50 Sodium (136-145) mEq/L Potassium (3.5-5.1) mEq/L Chloride (98-107) mEq/L Carbon Dioxide (21-32) mEq/L Anion Gap (5-15) BUN (7-18) mg/dL Creatinine (0.7-1.3) mg/dL Est Cr Clr Drug Dosing mL/min Estimated GFR (MDRD) (>60) mL/min BUN/Creatinine Ratio (14-18) Glucose (83-115) mg/dL POC Glucose 287 H (83-110) mg/dL Lactic Acid (0.4-2.0) mmol/L Calcium (8.5-10.1) mg/dL Magnesium (1.8-2.4) mg/dl CK-MB (CK-2) (0-3.6) ng/ml Troponin I (0.00-0.056) ng/mL C-Reactive Protein (<1.0) mg/dL NT-Pro-B Natriuret Pep (0-450) pg/mL Urine Color (Yellow) Urine Appearance (Clear) Urine pH (5.0-8.0) Ur Specific [place] (1.005-1.030) Urine Protein (Negative) Urine Glucose (UA) (Negative) Urine Ketones (Negative) Urine Occult Blood (Negative) Urine Nitrite (Negative) Urine Bilirubin (Negative) Urine Urobilinogen (0.2-1.0) Ur Leukocyte Esterase (Negative) Urine RBC (0-5) /hpf Urine WBC (0-5) /hpf Ur Epithelial Cells (0-5) /hpf Amorphous Sediment (NOT SEEN) /hpf Urine Bacteria (FEW) /hpf Urine Mucus (FEW) /hpf Mycoplasma pneumon IgM Negative (NEGATIVE) MRSA (PCR) 02/10/18 Range/Units 11:18 WBC (4.23-9.07) K/mm3 RBC (4.63-6.08) M/mm3 Hgb (13.7-17.5) gm/L Hct (40.1-51.0) % MCV (79.0-92.2) fl MCH (25.7-32.2) pg MCHC (32.2-35.5) g/dl RDW Std Deviation (35.1-43.9) fL Plt Count (163-337) K/mm3 MPV (9.4-12.3) fl Neut % (Auto) (34.0-67.9) % Lymph % (Auto) (21.8-53.1) % [place] % (Auto) (5.3-12.2) % Eos % (Auto) (0.8-7.0) Baso % (Auto) (0.1-1.2) % Neut # (Auto) (1.78-5.38) K/mm3 Lymph # (Auto) (1.32-3.57) K/mm3 [place] # (Auto) (0.30-0.82) K/mm3 Eos # (Auto) (0.04-0.54) K/mm3 Baso # (Auto) (0.01-0.08) K/mm3 Manual Slide Review PT (8.0-13.0) SECONDS INR Sodium (136-145) mEq/L Potassium (3.5-5.1) mEq/L Chloride (98-107) mEq/L Carbon Dioxide (21-32) mEq/L Anion Gap (5-15) BUN (7-18) mg/dL Creatinine (0.7-1.3) mg/dL Est Cr Clr Drug Dosing mL/min Estimated GFR (MDRD) (>60) mL/min BUN/Creatinine Ratio (14-18) Glucose (83-115) mg/dL POC Glucose 116 H (83-110) mg/dL Lactic Acid (0.4-2.0) mmol/L Calcium (8.5-10.1) mg/dL Magnesium (1.8-2.4) mg/dl CK-MB (CK-2) (0-3.6) ng/ml Troponin I (0.00-0.056) ng/mL C-Reactive Protein (<1.0) mg/dL NT-Pro-B Natriuret Pep (0-450) pg/mL Urine Color (Yellow) Urine Appearance (Clear) Urine pH (5.0-8.0) Ur Specific [place] (1.005-1.030) Urine Protein (Negative) Urine Glucose (UA) (Negative) Urine Ketones (Negative) Urine Occult Blood (Negative) Urine Nitrite (Negative) Urine Bilirubin (Negative) Urine Urobilinogen (0.2-1.0) Ur Leukocyte Esterase (Negative) Urine RBC (0-5) /hpf Urine WBC (0-5) /hpf Ur Epithelial Cells (0-5) /hpf Amorphous Sediment (NOT SEEN) /hpf Urine Bacteria (FEW) /hpf Urine Mucus (FEW) /hpf Mycoplasma pneumon IgM (NEGATIVE) MRSA (PCR) Manjeet Results Last 24 Hours: Microbiology 02/09/18 10:25 Aerobic Blood Culture - Preliminary Blood - Venous NO GROWTH AFTER 1 DAY Anaerobic Blood Culture - Preliminary NO GROWTH AFTER 1 DAY 02/09/18 10:33 Aerobic Blood Culture - Preliminary Blood - Venous - Lab Draw NO GROWTH AFTER 1 DAY Anaerobic Blood Culture - Preliminary NO GROWTH AFTER 1 DAY 02/09/18 19:13 Gram Stain - Final Sputum - Expectorated Sputum Culture - Final 02/09/18 19:15 Influenza Type A Antigen Screen - Final Nasopharyngeal Swab NEGATIVE INFLUENZA A VIRUS AG Influenza Type B Antigen Screen - Final NEGATIVE INFLUENZA B VIRUS AG Med Orders - Current: Current Medications Acetaminophen (Tylenol) 650 mg PO Q4H PRN PRN Reason: Pain (Mild 1-3)/fever Last Admin: 02/09/18 22:19 Dose: 650 mg Hydrocodone Bitart/Acetaminophen ([place] 325-5 Mg) 1 tab PO Q4H PRN PRN Reason: Pain (moderate 4-6) Albuterol/Ipratropium (Duoneb 3.0-0.5 Mg/3 Ml) 3 ml NEB Q4H PRN PRN Reason: Shortness Of Breath/wheezing Last Admin: 02/09/18 17:41 Dose: 3 ml Azithromycin (Zithromax) 250 mg PO DAILY [facility] Stop: 02/12/18 10:00 Last Admin: 02/10/18 09:00 Dose: 250 mg Bisacodyl (Dulcolax) 5 mg PO DAILY PRN PRN Reason: Constipation Cholecalciferol (Vitamin D3) 1,000 units PO DAILY [facility] Last Admin: 02/10/18 08:59 Dose: 1,000 units Docusate Sodium (Colace) 100 mg PO BID PRN PRN Reason: Constipation Enoxaparin Sodium (Lovenox) 40 mg SUBCUT DAILY [facility] Fentanyl (Duragesic) 12 mcg TRDERM Q72H [facility] Guaifenesin/Phenylephrine HCl (Robitussin Dm) 10 ml PO Q4H PRN PRN Reason: Cough Hydralazine HCl (Apresoline) 10 mg IVPUSH Q4H PRN PRN Reason: Hypertension Hydrochlorothiazide (Hydrochlorothiazide) 6.25 mg PO BIDDIURETIC [facility] Last Admin: 02/10/18 06:16 Dose: 6.25 mg Hydromorphone HCl (Dilaudid) 0.25 mg IVPUSH Q2H PRN PRN Reason: Pain (severe 7-10) Furosemide 100 mg/ Sodium (Chloride) 100 mls @ 3 mls/hr IV TITRATE [facility]; Protocol Stop: 02/10/18 22:30 Last Admin: 02/09/18 22:23 Dose: 3 mls/hr Promethazine HCl 6.25 mg/ (Sodium Chloride) 50.25 mls @ 100 mls/hr IV Q6H PRN PRN Reason: Nausea/Vomiting Insulin Aspart (Novolog) 0 unit SUBCUT BID [facility]; Protocol Levothyroxine Sodium (Synthroid) 50 mcg PO ACBREAKFAST [facility] Last Admin: 02/10/18 06:16 Dose: 50 mcg Lorazepam (Ativan) 0.25 mg IV Q6H PRN PRN Reason: Anxiety Magnesium Sulfate (Pharmacy To Dose - Magnesium Replacement) 0 dose .XX ASDIRECTED PRN PRN Reason: RX TO WATCH MAG LEVELS Metoprolol Tartrate (Lopressor) 25 mg PO Q12HR [facility] Last Admin: 02/10/18 09:00 Dose: 25 mg Metoprolol Tartrate (Lopressor) 5 mg IVPUSH Q4H PRN PRN Reason: Tachycardia Ondansetron HCl (Zofran) 4 mg IV Q6H PRN PRN Reason: Nausea/Vomiting Pantoprazole Sodium (Protonix) 40 mg PO DAILY [facility] Last Admin: 02/10/18 08:59 Dose: 40 mg Paroxetine HCl (Paxil) 15 mg PO BID [facility] Last Admin: 02/10/18 12:02 Dose: 15 mg Combivent Respimat Inhaler (Albuterol/Ipratropium 4 Gm) 0 each INH Q4H PRN PRN Reason: Shortness of Breath Polyethylene Glycol (Miralax) 17 gm PO DAILY PRN PRN Reason: Constipation Potassium Chloride (Pharmacy To Dose - Potassium Replacement) 0 dose .XX ASDIRECTED PRN PRN Reason: RX TO WATCH K LEVELS Prednisone (Prednisone) 25 mg PO DAILY [facility] Last Admin: 02/10/18 09:00 Dose: 25 mg Saccharomyces Boulardii (Florastor) 250 mg PO DAILY [facility] Last Admin: 02/10/18 08:59 Dose: 250 mg Senna/Docusate Sodium (Senna Plus) 1 tab PO BID PRN PRN Reason: Constipation Simvastatin (Zocor) 5 mg PO DAILY [facility] Last Admin: 02/10/18 08:59 Dose: 5 mg Sodium Chloride (Saline Flush) 10 ml FLUSH ASDIRECTED PRN PRN Reason: Keep Vein Open Tamsulosin HCl (Flomax) 0.4 mg PO BID [facility] Last Admin: 02/10/18 08:59 Dose: 0.4 mg Temazepam (Restoril) 7.5 mg PO BEDTIME PRN PRN Reason: Sleep Warfarin Sodium (Coumadin) 2.5 mg PO ONETIME ONE Stop: 02/10/18 18:01 Warfarin Sodium (Pharmacy To Dose - Warfarin) 1 dose PO ASDIRECTED [facility] Discontinued Medications Acetaminophen (Tylenol) 650 mg PO Q4HR [facility] Hydrocodone Bitart/Acetaminophen ([place] 325-5 Mg) 1 tab PO Q6H PRN PRN Reason: Pain Albuterol/Ipratropium (Duoneb 3.0-0.5 Mg/3 Ml) 3 ml NEB ONETIME ONE Stop: 02/09/18 10:10 Last Admin: 02/09/18 10:18 Dose: 3 ml Cyanocobalamin (Vitamin B12) 1,000 mcg IM SEECOMMENT ONE Stop: 02/10/18 09:01 Last Admin: 02/10/18 09:01 Dose: 1,000 mcg Ceftriaxone Sodium 2 gm/ (Sodium Chloride) 100 mls @ 100 mls/hr IV ONETIME ONE Stop: 02/09/18 13:07 Last Admin: 02/09/18 12:14 Dose: 100 mls/hr Azithromycin 500 mg/ Sodium (Chloride) 250 mls @ 250 mls/hr IV ONETIME ONE Stop: 02/09/18 19:28 Last Admin: 02/09/18 19:14 Dose: 250 mls/hr Insulin Aspart (Novolog) 4 unit SUBCUT BID [facility] Non-Formulary Medication (Cyanocobalamin (Vitamin B-12) [Physicians Ez Use B-12] ) 1,000 mcg IJ ASDIRECTED [facility] Non-Formulary Medication (Fentanyl [Fentanyl]) 1 each TD ASDIRECTED [facility] Paroxetine HCl (Paxil) 15 mg PO BID [facility] Last Admin: 02/09/18 20:28 Dose: 15 mg Sodium Chloride (Saline Flush) 10 ml FLUSH ASDIRECTED PRN PRN Reason: Keep Vein Open Last Admin: 02/09/18 10:33 Dose: 10 ml - Exam Quality Assessment: Supplemental Oxygen (nasal cannula 4L), DVT Prophylaxis. No : Urine Catheter General: Alert, Oriented, No Acute Distress HEENT: Pupils Equal, Pupils Reactive, EOMI, Mucous Membr. Moist/[place] Neck: Supple Lungs: Normal Respiratory Effort, Decreased Breath Sounds, Crackles (R>L), Rhonchi (R>L), Wheezing (throughout) Cardiovascular: Irregular Rhythm (Afib) GI/Abdominal Exam: Normal Bowel Sounds, Soft, Non-Tender, No Distention (Male) Exam: Deferred Back Exam: Normal Inspection, Full Range of Motion Extremities: Normal Range of Motion, Non-Tender, Normal Capillary Refill, Pedal Edema (3+) Peripheral Pulses: 1+: Posterior Tibial (L), Posterior Tibial (R), Dorsalis Pedis (L), Dorsalis Pedis (R) Skin: Warm, Dry, Intact Neurological: No New Focal Deficit Psy/Mental Status: Alert, Normal Affect, Normal Mood - Problem List & Annotations (1) Acute respiratory distress SNOMED Code(s): 116719087 Code(s): R06.03 - ACUTE RESPIRATORY DISTRESS Status: Acute Priority: High Current Visit: Yes (2) Afib SNOMED Code(s): 08197574 Code(s): I48.91 - UNSPECIFIED ATRIAL FIBRILLATION Status: Chronic Priority: Medium Current Visit: Yes (3) CAD (coronary artery disease) SNOMED Code(s): 65141525 Code(s): I25.10 - ATHSCL HEART DISEASE OF [place]' CORONARY ARTERY W/O ANG PCTRS Status: Acute Priority: Medium Current Visit: No Qualifiers: Coronary Disease-Associated Artery/Lesion type: unspecified vessel or lesion type Circle vs. transplanted heart: platinum heart Associated angina: without angina Qualified Code(s): I25.10 - Atherosclerotic heart disease of [place] coronary artery without angina pectoris (4) HLD (hyperlipidemia) SNOMED Code(s): 18648745 Code(s): E78.5 - HYPERLIPIDEMIA, UNSPECIFIED Status: Chronic Priority: Low Current Visit: No (5) GERD (gastroesophageal reflux disease) SNOMED Code(s): 892380155 Code(s): K21.9 - GASTRO-ESOPHAGEAL REFLUX DISEASE WITHOUT ESOPHAGITIS Status: Chronic Priority: Low Current Visit: No (6) CKD (chronic kidney disease), stage III SNOMED Code(s): 338276094 Code(s): N18.3 - CHRONIC KIDNEY DISEASE, STAGE 3 (MODERATE) Status: Chronic Priority: Medium Current Visit: Yes (7) Hypothyroid SNOMED Code(s): 68040828 Code(s): E03.9 - HYPOTHYROIDISM, UNSPECIFIED Status: Chronic Priority: Low Current Visit: No (8) Elevated brain natriuretic peptide (BNP) level SNOMED Code(s): 368624717, 254232051 Code(s): R79.89 - OTHER SPECIFIED ABNORMAL FINDINGS OF BLOOD CHEMISTRY Status: Acute Current Visit: Yes (9) Hypoxia SNOMED Code(s): 563058476 Code(s): R09.02 - HYPOXEMIA Status: Acute Current Visit: Yes (10) Benign essential hypertension SNOMED Code(s): 9196670 Code(s): I10 - ESSENTIAL (PRIMARY) HYPERTENSION Status: Acute Current Visit: No (11) Subtherapeutic international normalized ratio (INR) SNOMED Code(s): 914479749, 105447310 Code(s): R79.1 - ABNORMAL COAGULATION PROFILE Status: Acute Priority: Medium Current Visit: No - Problem List Review Problem List Initiated/Reviewed/Updated: Yes - My Orders Last 24 Hours: My Active Orders 02/09/18 15:20 STREP PNEUMONIAE ANTIGEN [MREF] Routine 02/09/18 18:32 Dextromethorphan/guaiFENesin [Robitussin DM] 10 ml PO Q4H PRN 02/09/18 19:15 RESPIRATORY PANEL BY PCR [MREF] Routine 02/10/18 08:51 Consult to Case Management [CONS] Routine Consult to [place] [CONS] Routine 02/10/18 09:00 Azithromycin [Zithromax] 250 mg PO DAILY 02/10/18 10:45 Warfarin Pharmacy to Dose [Pharmacy to Dose - Warfarin] 1 dose PO ASDIRECTED 02/10/18 11:00 Enoxaparin [Lovenox] 40 mg SUBCUT DAILY 02/10/18 12:01 CULTURE SPUTUM + SMEAR [RM] Stat - Plan Plan:: I/P: Acute: Probable Acute Respiratory Distress -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 Atelectasis -H/o metapneumo -Rocephin 2g IV given in ER -Azithro 500 IV x1 given 02/09/18--> Azithro 250 PO started 02/10/18 (Day 2) -Labs: RVP, Influenza, Mycoplasma, S. pneumo, MRSA--> Influenza, Mycoplasma and MRSA negative; awaiting RVP and S. pneumo results Probable New onset CHF -Risk factors: CAD, SD, Afib -CXR: Pleural effusion -BNP: 95464-->57011 -Clinical: Pitting edema 3+ bilaterally -2D echo 02/10/18--> done, awaiting report. -Fluid and salt restriction -Lasix (gtt started 02/09/18 @22:23) -D/C Lasix gtt after 24 hours--> Lasix IV push until BNP decreases and/or clinically improved, then switch to PO Chronic: Afib--> On warfarin SD CAD with stenting Recurrent bronchitis HLD GERD HTN CKD stage III--> eGFR 45, baseline Anemia--> Hgb 9.6-->8.5; continue to monitor Hypothyroid Subtherapeutic INR --> INR 1.71; pharmacy to dose lovenox bridge and warfarin Plan: Transfered to telemetry unit today PNA protocol Continue home meds Other orders as indicated above CM/SW for discharge planning Routine AM labs RT/PT/OT DVT Prophylaxis: On warfarin GI prophylaxis: Protonix Ambulated as tolerated Code Status: DNR/DNI; PCP: David Hazel <Neptali Catalan T - Last Filed: 02/10/18 15:23> - Patient Data Vitals - Most Recent: Last Vital Signs Temp 36.6 C 02/10/18 02:29 Pulse 74 02/10/18 09:00 Resp 20 02/10/18 08:58 BP 140/89 02/10/18 09:00 Pulse Ox 95 02/10/18 08:58 I&O - Last 24 Hours: Intake & Output 02/10/18 02/10/18 02/10/18 06:59 14:59 22:59 Intake Total 465 360 Output Total 1100 Balance -635 360 Lab Results Last 24 Hours: Laboratory Results - last 24 hr 02/09/18 02/09/18 02/09/18 Range/Units 09:55 15:20 17:35 WBC (4.23-9.07) K/mm3 RBC (4.63-6.08) M/mm3 Hgb (13.7-17.5) gm/L Hct (40.1-51.0) % MCV (79.0-92.2) fl MCH (25.7-32.2) pg MCHC (32.2-35.5) g/dl RDW Std Deviation (35.1-43.9) fL Plt Count (163-337) K/mm3 MPV (9.4-12.3) fl Neut % (Auto) (34.0-67.9) % Lymph % (Auto) (21.8-53.1) % [place] % (Auto) (5.3-12.2) % Eos % (Auto) (0.8-7.0) Baso % (Auto) (0.1-1.2) % Neut # (Auto) (1.78-5.38) K/mm3 Lymph # (Auto) (1.32-3.57) K/mm3 [place] # (Auto) (0.30-0.82) K/mm3 Eos # (Auto) (0.04-0.54) K/mm3 Baso # (Auto) (0.01-0.08) K/mm3 Manual Slide Review PT (8.0-13.0) SECONDS INR Sodium (136-145) mEq/L Potassium (3.5-5.1) mEq/L Chloride (98-107) mEq/L Carbon Dioxide (21-32) mEq/L Anion Gap (5-15) BUN (7-18) mg/dL Creatinine (0.7-1.3) mg/dL Est Cr Clr Drug Dosing mL/min Estimated GFR (MDRD) (>60) mL/min BUN/Creatinine Ratio (14-18) Glucose (83-115) mg/dL POC Glucose (83-110) mg/dL Calcium (8.5-10.1) mg/dL Magnesium (1.8-2.4) mg/dl CK-MB (CK-2) 0.9 (0-3.6) ng/ml Troponin I 0.024 (0.00-0.056) ng/mL C-Reactive Protein (<1.0) mg/dL NT-Pro-B Natriuret Pep (0-450) pg/mL Urine Color Light yellow (Yellow) Urine Appearance Slt cloudy H (Clear) Urine pH 7.0 (5.0-8.0) Ur Specific [place] 1.020 (1.005-1.030) Urine Protein 1+ H (Negative) Urine Glucose (UA) Negative (Negative) Urine Ketones Negative (Negative) Urine Occult Blood Negative (Negative) Urine Nitrite Negative (Negative) Urine Bilirubin Negative (Negative) Urine Urobilinogen 0.2 (0.2-1.0) Ur Leukocyte Esterase Negative (Negative) Urine RBC 0-5 (0-5) /hpf Urine WBC 10-20 H (0-5) /hpf Ur Epithelial Cells 0-5 (0-5) /hpf Amorphous Sediment Moderate H (NOT SEEN) /hpf Urine Bacteria Many H (FEW) /hpf Urine Mucus Not seen (FEW) /hpf Mycoplasma pneumon IgM Negative (NEGATIVE) MRSA (PCR) 02/09/18 02/10/18 02/10/18 Range/Units 21:59 02:30 05:53 WBC 9.92 H (4.23-9.07) K/mm3 RBC 2.53 L (4.63-6.08) M/mm3 Hgb 8.5 L (13.7-17.5) gm/L Hct 27.0 L (40.1-51.0) % MCV 106.7 H (79.0-92.2) fl MCH 33.6 H (25.7-32.2) pg MCHC 31.5 L (32.2-35.5) g/dl RDW Std Deviation 65.8 H (35.1-43.9) fL Plt Count 116 L (163-337) K/mm3 MPV 10.3 (9.4-12.3) fl Neut % (Auto) 74.3 H (34.0-67.9) % Lymph % (Auto) 15.1 L (21.8-53.1) % [place] % (Auto) 10.0 (5.3-12.2) % Eos % (Auto) 0.4 L (0.8-7.0) Baso % (Auto) 0.0 L (0.1-1.2) % Neut # (Auto) 7.37 H (1.78-5.38) K/mm3 Lymph # (Auto) 1.50 (1.32-3.57) K/mm3 [place] # (Auto) 0.99 H (0.30-0.82) K/mm3 Eos # (Auto) 0.04 (0.04-0.54) K/mm3 Baso # (Auto) 0.00 L (0.01-0.08) K/mm3 Manual Slide Review Abnormal smear PT (8.0-13.0) SECONDS INR Sodium (136-145) mEq/L Potassium (3.5-5.1) mEq/L Chloride (98-107) mEq/L Carbon Dioxide (21-32) mEq/L Anion Gap (5-15) BUN (7-18) mg/dL Creatinine (0.7-1.3) mg/dL Est Cr Clr Drug Dosing mL/min Estimated GFR (MDRD) (>60) mL/min BUN/Creatinine Ratio (14-18) Glucose (83-115) mg/dL POC Glucose 149 H (83-110) mg/dL Calcium (8.5-10.1) mg/dL Magnesium (1.8-2.4) mg/dl CK-MB (CK-2) (0-3.6) ng/ml Troponin I (0.00-0.056) ng/mL C-Reactive Protein (<1.0) mg/dL NT-Pro-B Natriuret Pep (0-450) pg/mL Urine Color (Yellow) Urine Appearance (Clear) Urine pH (5.0-8.0) Ur Specific [place] (1.005-1.030) Urine Protein (Negative) Urine Glucose (UA) (Negative) Urine Ketones (Negative) Urine Occult Blood (Negative) Urine Nitrite (Negative) Urine Bilirubin (Negative) Urine Urobilinogen (0.2-1.0) Ur Leukocyte Esterase (Negative) Urine RBC (0-5) /hpf Urine WBC (0-5) /hpf Ur Epithelial Cells (0-5) /hpf Amorphous Sediment (NOT SEEN) /hpf Urine Bacteria (FEW) /hpf Urine Mucus (FEW) /hpf Mycoplasma pneumon IgM (NEGATIVE) MRSA (PCR) Negative 02/10/18 02/10/18 02/10/18 Range/Units 05:53 05:53 05:53 WBC (4.23-9.07) K/mm3 RBC (4.63-6.08) M/mm3 Hgb (13.7-17.5) gm/L Hct (40.1-51.0) % MCV (79.0-92.2) fl MCH (25.7-32.2) pg MCHC (32.2-35.5) g/dl RDW Std Deviation (35.1-43.9) fL Plt Count (163-337) K/mm3 MPV (9.4-12.3) fl Neut % (Auto) (34.0-67.9) % Lymph % (Auto) (21.8-53.1) % [place] % (Auto) (5.3-12.2) % Eos % (Auto) (0.8-7.0) Baso % (Auto) (0.1-1.2) % Neut # (Auto) (1.78-5.38) K/mm3 Lymph # (Auto) (1.32-3.57) K/mm3 [place] # (Auto) (0.30-0.82) K/mm3 Eos # (Auto) (0.04-0.54) K/mm3 Baso # (Auto) (0.01-0.08) K/mm3 Manual Slide Review PT 16.1 H (8.0-13.0) SECONDS INR 1.50 Sodium 143 (136-145) mEq/L Potassium 4.0 (3.5-5.1) mEq/L Chloride 103 (98-107) mEq/L Carbon Dioxide 34 H (21-32) mEq/L Anion Gap 10.0 (5-15) BUN 31 H (7-18) mg/dL Creatinine 1.4 H (0.7-1.3) mg/dL Est Cr Clr Drug Dosing 36.49 mL/min Estimated GFR (MDRD) 49 (>60) mL/min BUN/Creatinine Ratio 22.1 H (14-18) Glucose 91 (83-115) mg/dL POC Glucose (83-110) mg/dL Calcium 8.6 (8.5-10.1) mg/dL Magnesium 1.9 (1.8-2.4) mg/dl CK-MB (CK-2) 0.8 (0-3.6) ng/ml Troponin I 0.032 (0.00-0.056) ng/mL C-Reactive Protein 11.9 H* (<1.0) mg/dL NT-Pro-B Natriuret Pep 05684 H (0-450) pg/mL Urine Color (Yellow) Urine Appearance (Clear) Urine pH (5.0-8.0) Ur Specific [place] (1.005-1.030) Urine Protein (Negative) Urine Glucose (UA) (Negative) Urine Ketones (Negative) Urine Occult Blood (Negative) Urine Nitrite (Negative) Urine Bilirubin (Negative) Urine Urobilinogen (0.2-1.0) Ur Leukocyte Esterase (Negative) Urine RBC (0-5) /hpf Urine WBC (0-5) /hpf Ur Epithelial Cells (0-5) /hpf Amorphous Sediment (NOT SEEN) /hpf Urine Bacteria (FEW) /hpf Urine Mucus (FEW) /hpf Mycoplasma pneumon IgM (NEGATIVE) MRSA (PCR) 02/10/18 02/10/18 02/10/18 Range/Units 05:53 06:15 11:18 WBC (4.23-9.07) K/mm3 RBC (4.63-6.08) M/mm3 Hgb (13.7-17.5) gm/L Hct (40.1-51.0) % MCV (79.0-92.2) fl MCH (25.7-32.2) pg MCHC (32.2-35.5) g/dl RDW Std Deviation (35.1-43.9) fL Plt Count (163-337) K/mm3 MPV (9.4-12.3) fl Neut % (Auto) (34.0-67.9) % Lymph % (Auto) (21.8-53.1) % [place] % (Auto) (5.3-12.2) % Eos % (Auto) (0.8-7.0) Baso % (Auto) (0.1-1.2) % Neut # (Auto) (1.78-5.38) K/mm3 Lymph # (Auto) (1.32-3.57) K/mm3 [place] # (Auto) (0.30-0.82) K/mm3 Eos # (Auto) (0.04-0.54) K/mm3 Baso # (Auto) (0.01-0.08) K/mm3 Manual Slide Review PT (8.0-13.0) SECONDS INR Sodium (136-145) mEq/L Potassium (3.5-5.1) mEq/L Chloride (98-107) mEq/L Carbon Dioxide (21-32) mEq/L Anion Gap (5-15) BUN (7-18) mg/dL Creatinine (0.7-1.3) mg/dL Est Cr Clr Drug Dosing mL/min Estimated GFR (MDRD) (>60) mL/min BUN/Creatinine Ratio (14-18) Glucose (83-115) mg/dL POC Glucose 287 H 116 H (83-110) mg/dL Calcium (8.5-10.1) mg/dL Magnesium (1.8-2.4) mg/dl CK-MB (CK-2) (0-3.6) ng/ml Troponin I (0.00-0.056) ng/mL C-Reactive Protein (<1.0) mg/dL NT-Pro-B Natriuret Pep (0-450) pg/mL Urine Color (Yellow) Urine Appearance (Clear) Urine pH (5.0-8.0) Ur Specific [place] (1.005-1.030) Urine Protein (Negative) Urine Glucose (UA) (Negative) Urine Ketones (Negative) Urine Occult Blood (Negative) Urine Nitrite (Negative) Urine Bilirubin (Negative) Urine Urobilinogen (0.2-1.0) Ur Leukocyte Esterase (Negative) Urine RBC (0-5) /hpf Urine WBC (0-5) /hpf Ur Epithelial Cells (0-5) /hpf Amorphous Sediment (NOT SEEN) /hpf Urine Bacteria (FEW) /hpf Urine Mucus (FEW) /hpf Mycoplasma pneumon IgM Negative (NEGATIVE) MRSA (PCR) Manjeet Results Last 24 Hours: Microbiology 02/09/18 15:20 Urine Culture - Preliminary Urine, Clean Catch Gram Positive Cocci Gram Positive Cocci#2 02/09/18 10:25 Aerobic Blood Culture - Preliminary Blood - Venous NO GROWTH AFTER 1 DAY Anaerobic Blood Culture - Preliminary NO GROWTH AFTER 1 DAY 02/09/18 10:33 Aerobic Blood Culture - Preliminary Blood - Venous - Lab Draw NO GROWTH AFTER 1 DAY Anaerobic Blood Culture - Preliminary NO GROWTH AFTER 1 DAY 02/09/18 19:13 Gram Stain - Final Sputum - Expectorated Sputum Culture - Final 02/09/18 19:15 Influenza Type A Antigen Screen - Final Nasopharyngeal Swab NEGATIVE INFLUENZA A VIRUS AG Influenza Type B Antigen Screen - Final NEGATIVE INFLUENZA B VIRUS AG Med Orders - Current: Current Medications Acetaminophen (Tylenol) 650 mg PO Q4H PRN PRN Reason: Pain (Mild 1-3)/fever Last Admin: 02/09/18 22:19 Dose: 650 mg Acetaminophen (Tylenol) 325 mg PO TID [facility] Last Admin: 02/10/18 14:43 Dose: 325 mg Hydrocodone Bitart/Acetaminophen ([place] 325-5 Mg) 1 tab PO Q4H PRN PRN Reason: Pain (moderate 4-6) Albuterol/Ipratropium (Duoneb 3.0-0.5 Mg/3 Ml) 3 ml NEB Q4H PRN PRN Reason: Shortness Of Breath/wheezing Last Admin: 02/09/18 17:41 Dose: 3 ml Azithromycin (Zithromax) 250 mg PO DAILY [facility] Stop: 02/12/18 10:00 Last Admin: 02/10/18 09:00 Dose: 250 mg Bisacodyl (Dulcolax) 5 mg PO DAILY PRN PRN Reason: Constipation Cholecalciferol (Vitamin D3) 1,000 units PO DAILY [facility] Last Admin: 02/10/18 08:59 Dose: 1,000 units Docusate Sodium (Colace) 100 mg PO BID PRN PRN Reason: Constipation Fentanyl (Duragesic) 12 mcg TRDERM Q72H JARRED Furosemide (Lasix) 20 mg IVPUSH BIDDIURETIC [facility] Guaifenesin/Phenylephrine HCl (Robitussin Dm) 10 ml PO Q4H PRN PRN Reason: Cough Hydralazine HCl (Apresoline) 10 mg IVPUSH Q4H PRN PRN Reason: Hypertension Hydrochlorothiazide (Hydrochlorothiazide) 12.5 mg PO BIDDIURETIC [facility] Last Admin: 02/10/18 13:39 Dose: 12.5 mg Hydromorphone HCl (Dilaudid) 0.25 mg IVPUSH Q2H PRN PRN Reason: Pain (severe 7-10) Furosemide 100 mg/ Sodium (Chloride) 100 mls @ 3 mls/hr IV TITRATE [facility]; Protocol Stop: 02/10/18 22:30 Last Admin: 02/09/18 22:23 Dose: 3 mls/hr Promethazine HCl 6.25 mg/ (Sodium Chloride) 50.25 mls @ 100 mls/hr IV Q6H PRN PRN Reason: Nausea/Vomiting Insulin Aspart (Novolog) 0 unit SUBCUT BID [facility]; Protocol Levothyroxine Sodium (Synthroid) 50 mcg PO ACBREAKFAST [facility] Last Admin: 02/10/18 06:16 Dose: 50 mcg Lorazepam (Ativan) 0.25 mg IV Q6H PRN PRN Reason: Anxiety Magnesium Sulfate (Pharmacy To Dose - Magnesium Replacement) 0 dose .XX ASDIRECTED PRN PRN Reason: RX TO WATCH MAG LEVELS Metoprolol Tartrate (Lopressor) 25 mg PO Q12HR [facility] Last Admin: 02/10/18 09:00 Dose: 25 mg Metoprolol Tartrate (Lopressor) 5 mg IVPUSH Q4H PRN PRN Reason: Tachycardia Ondansetron HCl (Zofran) 4 mg IV Q6H PRN PRN Reason: Nausea/Vomiting Pantoprazole Sodium (Protonix) 40 mg PO DAILY [facility] Last Admin: 02/10/18 08:59 Dose: 40 mg Paroxetine HCl (Paxil) 15 mg PO BID [facility] Last Admin: 02/10/18 12:02 Dose: 15 mg Combivent Respimat Inhaler (Albuterol/Ipratropium 4 Gm) 0 each INH Q4H PRN PRN Reason: Shortness of Breath Polyethylene Glycol (Miralax) 17 gm PO DAILY PRN PRN Reason: Constipation Potassium Chloride (Pharmacy To Dose - Potassium Replacement) 0 dose .XX ASDIRECTED PRN PRN Reason: RX TO WATCH K LEVELS Prednisone (Prednisone) 25 mg PO DAILY [facility] Last Admin: 02/10/18 09:00 Dose: 25 mg Saccharomyces Boulardii (Florastor) 250 mg PO DAILY [facility] Last Admin: 02/10/18 08:59 Dose: 250 mg Senna/Docusate Sodium (Senna Plus) 1 tab PO BID PRN PRN Reason: Constipation Simvastatin (Zocor) 5 mg PO DAILY [facility] Last Admin: 02/10/18 08:59 Dose: 5 mg Sodium Chloride (Saline Flush) 10 ml FLUSH ASDIRECTED PRN PRN Reason: Keep Vein Open Tamsulosin HCl (Flomax) 0.4 mg PO BID [facility] Last Admin: 02/10/18 08:59 Dose: 0.4 mg Temazepam (Restoril) 7.5 mg PO BEDTIME PRN PRN Reason: Sleep Warfarin Sodium (Coumadin) 2.5 mg PO ONETIME ONE Stop: 02/10/18 18:01 Warfarin Sodium (Pharmacy To Dose - Warfarin) 1 dose PO ASDIRECTED [facility] Discontinued Medications Acetaminophen (Tylenol) 650 mg PO Q4HR [facility] Hydrocodone Bitart/Acetaminophen ([place] 325-5 Mg) 1 tab PO Q6H PRN PRN Reason: Pain Albuterol/Ipratropium (Duoneb 3.0-0.5 Mg/3 Ml) 3 ml NEB ONETIME ONE Stop: 02/09/18 10:10 Last Admin: 02/09/18 10:18 Dose: 3 ml Cyanocobalamin (Vitamin B12) 1,000 mcg IM SEECOMMENT ONE Stop: 02/10/18 09:01 Last Admin: 02/10/18 09:01 Dose: 1,000 mcg Enoxaparin Sodium (Lovenox) 40 mg SUBCUT DAILY [facility] Last Admin: 02/10/18 12:44 Dose: 40 mg Hydrochlorothiazide (Hydrochlorothiazide) 6.25 mg PO BIDDIURETIC [facility] Last Admin: 02/10/18 06:16 Dose: 6.25 mg Ceftriaxone Sodium 2 gm/ (Sodium Chloride) 100 mls @ 100 mls/hr IV ONETIME ONE Stop: 02/09/18 13:07 Last Admin: 02/09/18 12:14 Dose: 100 mls/hr Azithromycin 500 mg/ Sodium (Chloride) 250 mls @ 250 mls/hr IV ONETIME ONE Stop: 02/09/18 19:28 Last Admin: 02/09/18 19:14 Dose: 250 mls/hr Insulin Aspart (Novolog) 4 unit SUBCUT BID JARRED Non-Formulary Medication (Cyanocobalamin (Vitamin B-12) [Physicians Ez Use B-12] ) 1,000 mcg IJ ASDIRECTED JARRED Non-Formulary Medication (Fentanyl [Fentanyl]) 1 each TD ASDIRECTED [facility] Paroxetine HCl (Paxil) 15 mg PO BID JARRED Last Admin: 02/10/18 12:55 Dose: Not Given Sodium Chloride (Saline Flush) 10 ml FLUSH ASDIRECTED PRN PRN Reason: Keep Vein Open Last Admin: 02/09/18 10:33 Dose: 10 ml - My Orders Last 24 Hours: My Active Orders 02/09/18 15:20 CULTURE URINE [RM] Stat 02/09/18 16:29 Resuscitation Status Routine 02/09/18 16:55 Patient's Own Medication [Ptom] 0 each INH Q4H PRN 02/09/18 17:01 Height and Weight [RC] 04 Oxygen Therapy [RC] PRN Up With Assistance [RC] ASDIRECTED Up ad Babita [RC] ASDIRECTED VTE/DVT Education [RC] PER UNIT ROUTINE Vital Signs [RC] Q4H Acetaminophen [Tylenol] 650 mg PO Q4H PRN Acetaminophen/HYDROcodone [[place] 325-5 MG] 1 tab PO Q4H PRN Albuterol/Ipratropium [DuoNeb 3.0-0.5 MG/3 ML] 3 ml NEB Q4H PRN Bisacodyl [Dulcolax] 5 mg PO DAILY PRN Docusate Sodium [Colace] 100 mg PO BID PRN Docusate Sodium/Sennosides [Senna Plus] 1 tab PO BID PRN HYDROmorphone [Dilaudid] 0.25 mg IVPUSH Q2H PRN LORazepam [Ativan] 0.25 mg IV Q6H PRN Ondansetron [Zofran] 4 mg IV Q6H PRN Polyethylene Glycol 3350 [MiraLAX] 17 gm PO DAILY PRN Promethazine [Phenergan] 6.25 mg Sodium Chloride 0.9% [Normal Saline] 50 ml IV Q6H Sodium Chloride 0.9% [Saline Flush] 10 ml FLUSH ASDIRECTED PRN Temazepam [Restoril] 7.5 mg PO BEDTIME PRN Saline Lock Insert [OM.PC] Routine 02/09/18 17:02 Cardiac Monitoring [RC] CONTINUOUS Intake and Output [RC] 04,16 Pulse Oximetry [RC] PRN 02/09/18 17:04 Consult to Maxillofacial Prosthetics Dentist [CONS] Routine OT Evaluation and Treatment [CONS] Routine PT Evaluation and Treatment [CONS] Routine Respiratory Care Assess and Treatment [CONS] Routine 02/09/18 17:07 Metoprolol Tartrate [Lopressor] 5 mg IVPUSH Q4H PRN hydrALAZINE [Apresoline] 10 mg IVPUSH Q4H PRN 02/09/18 17:15 Furosemide [Lasix] 100 mg Sodium Chloride 0.9% [Normal Saline] 90 ml IV TITRATE Magnesium Rep Pharmacy to Dose [Pharmacy to Dose - Magnesium Replacement] 0 dose .XX ASDIRECTED PRN Potassium Rep Pharmacy to Dose [Pharmacy to Dose - Potassium Replacement] 0 dose .XX ASDIRECTED PRN 02/09/18 17:22 RT Incentive Spirometry [RC] ASDIRECTED 02/09/18 19:13 CULTURE SPUTUM + SMEAR [RM] Stat 02/09/18 21:00 Blood Glucose Check, Bedside [RC] BID Metoprolol Tartrate [Lopressor] 25 mg PO Q12HR Tamsulosin [Flomax] 0.4 mg PO BID 02/09/18 23:25 CULTURE SPUTUM + SMEAR [RM] Routine 02/09/18 Dinner Fluid Restriction [DIET] Heart Healthy Diet [DIET] Sodium Restricted Diet [DIET] 02/10/18 02:30 METH-RESIST S.AUR,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 [MOLEC] Routine 02/10/18 06:00 Levothyroxine [Synthroid] 50 mcg PO ACBREAKFAST 02/10/18 09:00 Cholecalciferol (Vitamin D3) [Vitamin D3] 1,000 units PO DAILY Pantoprazole [ProTONIX] 40 mg PO DAILY Saccharomyces Boulardii [Florastor] 250 mg PO DAILY Simvastatin [Zocor] 5 mg PO DAILY fentaNYL [Duragesic] 12 mcg TRDERM Q72H predniSONE 25 mg PO DAILY 02/10/18 11:45 PARoxetine [Paxil] 15 mg PO BID 02/10/18 14:00 Hydrochlorothiazide 12.5 mg PO BIDDIURETIC 02/10/18 15:00 Acetaminophen [Tylenol] 325 mg PO TID 02/10/18 18:00 Warfarin [Coumadin] 2.5 mg PO ONETIME ONE 02/10/18 21:00 Insulin Aspart [NovoLOG] See Protocol SUBCUT BID 02/11/18 05:11 Chest 1V Frontal [CR] AM BASIC METABOLIC PANEL,BMP [CHEM] AM C-REACTIVE PROTEIN [CHEM] AM CBC WITH AUTO DIFF [HEME] AM PRO B-TYPE NATRIUR PEPT,BNPPRO [CHEM] DAILY 02/12/18 05:11 BASIC METABOLIC PANEL,BMP [CHEM] AM C-REACTIVE PROTEIN [CHEM] AM CBC WITH AUTO DIFF [HEME] AM PRO B-TYPE NATRIUR PEPT,BNPPRO [CHEM] DAILY 02/13/18 05:11 BASIC METABOLIC PANEL,BMP [CHEM] AM C-REACTIVE PROTEIN [CHEM] AM CBC WITH AUTO DIFF [HEME] AM PRO B-TYPE NATRIUR PEPT,BNPPRO [CHEM] DAILY 02/14/18 05:11 BASIC METABOLIC PANEL,BMP [CHEM] AM C-REACTIVE PROTEIN [CHEM] AM CBC WITH AUTO DIFF [HEME] AM PRO B-TYPE NATRIUR PEPT,BNPPRO [CHEM] DAILY - Plan Plan:: With increasing proNP level, he likely has New onset of HF pending 2D Echo. His respiratory distress resolved.
[2018-02-10] MEDS: PARoxetine 20 MG Tab PO SCH (12:55)
[2018-02-10] MEDS: Hydrochlorothiazide 12.5 MG Cap PO SCH (13:39)
[2018-02-10] MEDS: Acetaminophen 325 MG Tab PO SCH ×4 (14:43→20:04)
[2018-02-10] MEDS: fentaNYL 12 MCG/HR Transdermal Patch TRDERM SCH (16:37)
[2018-02-10] MEDS ORDERED: Warfarin 2.5 MG Tab PO ONE (18:00)
[2018-02-10] MEDS ORDERED: Insulin Aspart 100 Units/ML 3 ML Pen SUBCUT SCH (21:00)
[2018-02-11] MEDS: Levothyroxine 50 MCG Tab PO SCH (06:16)
[2018-02-11] MEDS: Furosemide 20 MG/2 ML VIAL IVPUSH SCH ×2 (06:16→14:40)
[2018-02-11] MEDS: Hydrochlorothiazide 12.5 MG Cap PO SCH ×2 (06:16→14:39)
[2018-02-11] MEDS: Insulin Aspart 100 Units/ML 3 ML Pen SUBCUT SCH ×2 (06:26→21:07)
[2018-02-11] MEDS ORDERED: Insulin Aspart 100 Units/ML 3 ML Pen SUBCUT SCH (07:00)
--- NOTE | 2018-02-11 08:00 | PCM.PN ---
- General Info Date of Service: 02/11/18 Admission Dx/Problem (Free Text): Admission Diagnosis/Problem Admission Diagnosis/Problem Hypoxia Subjective Update: In to see Will today. He is laying in bed. Overall he is doing well. His cough and breathing have improved slightly- he is now comfortable on 2L of O2 instead of 4L. Pain is controlled- per nursing he has been denying his fentanyl patch. No fever, chills, abdominal pain, nausea, or vomiting. Some diarrhea- will give probiotic. Urinating well without catheter- states he has no pain with urination and no blood in urine. He has been sleeping well. Good appetite. Per nursing, he has refused ambulating and sitting in chair- discussed the importance of walking and sitting up for his lungs. He also admits to not using his spirometry as prescribed- discussed the importance of using it to prevent increasing lung issues. Nursing noted there was ingrown toenail on right third toe- I did inspect it, but does not look infected- will monitor. No other concerns from nursing. Functional Status: Reports: Pain Controlled, Tolerating Diet, Ambulating, Urinating, Incentive Spirometry - Review of Systems General: Reports: No Symptoms. Denies: Fever, Chills HEENT: Reports: No Symptoms Pulmonary: Reports: Shortness of Breath (improving), Cough, Sputum (decreasing) , Wheezing. Denies: Pleuritic Chest Pain Cardiovascular: Reports: No Symptoms, Edema (pedal edema). Denies: Chest Pain Gastrointestinal: Reports: No Symptoms. Denies: Abdominal Pain, Constipation, Decreased Appetite, Diarrhea, Nausea, Vomiting Genitourinary: Reports: No Symptoms. Denies: Dysuria, Frequency, Burning, Pain , Hematuria Musculoskeletal: Reports: No Symptoms Skin: Reports: No Symptoms Neurological: Reports: No Symptoms Psychiatric: Reports: No Symptoms - Patient Data Vitals - Most Recent: Last Vital Signs Temp 98.4 F 02/11/18 04:08 Pulse 66 02/11/18 04:08 Resp 16 02/11/18 04:08 BP 180/144 H 02/11/18 04:08 Pulse Ox 96 02/11/18 04:08 Weight - Most Recent: 133 lb 2 oz I&O - Last 24 Hours: Intake & Output 02/10/18 02/11/18 02/11/18 22:59 06:59 14:59 Intake Total 700 218 Output Total 2700 1400 Balance -1999 Lab Results Last 24 Hours: Laboratory Results - last 24 hr 02/10/18 02/10/18 02/10/18 Range/Units 05:53 05:53 05:53 WBC (4.23-9.07) K/mm3 RBC (4.63-6.08) M/mm3 Hgb (13.7-17.5) gm/L Hct (40.1-51.0) % MCV (79.0-92.2) fl MCH (25.7-32.2) pg MCHC (32.2-35.5) g/dl RDW Std Deviation (35.1-43.9) fL Plt Count (163-337) K/mm3 MPV (9.4-12.3) fl Neut % (Auto) (34.0-67.9) % Lymph % (Auto) (21.8-53.1) % [place] % (Auto) (5.3-12.2) % Eos % (Auto) (0.8-7.0) Baso % (Auto) (0.1-1.2) % Neut # (Auto) (1.78-5.38) K/mm3 Lymph # (Auto) (1.32-3.57) K/mm3 [place] # (Auto) (0.30-0.82) K/mm3 Eos # (Auto) (0.04-0.54) K/mm3 Baso # (Auto) (0.01-0.08) K/mm3 Manual Slide Review Sodium 143 (136-145) mEq/L Potassium 4.0 (3.5-5.1) mEq/L Chloride 103 (98-107) mEq/L Carbon Dioxide 34 H (21-32) mEq/L Anion Gap 10.0 (5-15) BUN 31 H (7-18) mg/dL Creatinine 1.4 H (0.7-1.3) mg/dL Est Cr Clr Drug Dosing 36.49 mL/min Estimated GFR (MDRD) 49 (>60) mL/min BUN/Creatinine Ratio 22.1 H (14-18) Glucose 91 (83-115) mg/dL POC Glucose (83-110) mg/dL Calcium 8.6 (8.5-10.1) mg/dL Magnesium 1.9 (1.8-2.4) mg/dl CK-MB (CK-2) 0.8 (0-3.6) ng/ml Troponin I 0.032 (0.00-0.056) ng/mL C-Reactive Protein 11.9 H* (<1.0) mg/dL NT-Pro-B Natriuret Pep 49915 H (0-450) pg/mL Mycoplasma pneumon IgM Negative (NEGATIVE) 02/10/18 02/10/18 02/11/18 Range/Units 11:18 21:07 05:56 WBC (4.23-9.07) K/mm3 RBC (4.63-6.08) M/mm3 Hgb (13.7-17.5) gm/L Hct (40.1-51.0) % MCV (79.0-92.2) fl MCH (25.7-32.2) pg MCHC (32.2-35.5) g/dl RDW Std Deviation (35.1-43.9) fL Plt Count (163-337) K/mm3 MPV (9.4-12.3) fl Neut % (Auto) (34.0-67.9) % Lymph % (Auto) (21.8-53.1) % [place] % (Auto) (5.3-12.2) % Eos % (Auto) (0.8-7.0) Baso % (Auto) (0.1-1.2) % Neut # (Auto) (1.78-5.38) K/mm3 Lymph # (Auto) (1.32-3.57) K/mm3 [place] # (Auto) (0.30-0.82) K/mm3 Eos # (Auto) (0.04-0.54) K/mm3 Baso # (Auto) (0.01-0.08) K/mm3 Manual Slide Review Sodium (136-145) mEq/L Potassium (3.5-5.1) mEq/L Chloride (98-107) mEq/L Carbon Dioxide (21-32) mEq/L Anion Gap (5-15) BUN (7-18) mg/dL Creatinine (0.7-1.3) mg/dL Est Cr Clr Drug Dosing mL/min Estimated GFR (MDRD) (>60) mL/min BUN/Creatinine Ratio (14-18) Glucose (83-115) mg/dL POC Glucose 116 H 219 H 130 H (83-110) mg/dL Calcium (8.5-10.1) mg/dL Magnesium (1.8-2.4) mg/dl CK-MB (CK-2) (0-3.6) ng/ml Troponin I (0.00-0.056) ng/mL C-Reactive Protein (<1.0) mg/dL NT-Pro-B Natriuret Pep (0-450) pg/mL Mycoplasma pneumon IgM (NEGATIVE) 02/11/18 02/11/18 02/11/18 Range/Units 05:57 05:57 05:57 WBC 6.25 (4.23-9.07) K/mm3 RBC 2.76 L (4.63-6.08) M/mm3 Hgb 9.5 L (13.7-17.5) gm/L Hct 29.1 L (40.1-51.0) % MCV 105.4 H (79.0-92.2) fl MCH 34.4 H (25.7-32.2) pg MCHC 32.6 (32.2-35.5) g/dl RDW Std Deviation 62.9 H (35.1-43.9) fL Plt Count 134 L (163-337) K/mm3 MPV 10.0 (9.4-12.3) fl Neut % (Auto) 70.3 H (34.0-67.9) % Lymph % (Auto) 16.0 L (21.8-53.1) % [place] % (Auto) 13.1 H (5.3-12.2) % Eos % (Auto) 0.2 L (0.8-7.0) Baso % (Auto) 0.2 (0.1-1.2) % Neut # (Auto) 4.40 (1.78-5.38) K/mm3 Lymph # (Auto) 1.00 L (1.32-3.57) K/mm3 [place] # (Auto) 0.82 (0.30-0.82) K/mm3 Eos # (Auto) 0.01 L (0.04-0.54) K/mm3 Baso # (Auto) 0.01 (0.01-0.08) K/mm3 Manual Slide Review Abnormal smear Sodium 142 (136-145) mEq/L Potassium 3.7 (3.5-5.1) mEq/L Chloride 99 (98-107) mEq/L Carbon Dioxide 37 H (21-32) mEq/L Anion Gap 9.7 (5-15) BUN 31 H (7-18) mg/dL Creatinine 1.5 H (0.7-1.3) mg/dL Est Cr Clr Drug Dosing 32.43 mL/min Estimated GFR (MDRD) 45 (>60) mL/min BUN/Creatinine Ratio 20.7 H (14-18) Glucose 128 H (83-115) mg/dL POC Glucose (83-110) mg/dL Calcium 9.0 (8.5-10.1) mg/dL Magnesium (1.8-2.4) mg/dl CK-MB (CK-2) (0-3.6) ng/ml Troponin I (0.00-0.056) ng/mL C-Reactive Protein 10.3 H* (<1.0) mg/dL NT-Pro-B Natriuret Pep 58747 H (0-450) pg/mL Mycoplasma pneumon IgM (NEGATIVE) Manjeet Results Last 24 Hours: Microbiology 02/09/18 15:20 Urine Culture - Preliminary Urine, Clean Catch Gram Positive Cocci Gram Positive Cocci#2 02/09/18 19:15 Respiratory Virus Panel (PCR) - Final Nasopharyngeal Swab 02/09/18 15:20 Streptococcus pneumoniae Antigen (M - Final Urine 02/09/18 10:25 Aerobic Blood Culture - Preliminary Blood - Venous NO GROWTH AFTER 1 DAY Anaerobic Blood Culture - Preliminary NO GROWTH AFTER 1 DAY 02/09/18 10:33 Aerobic Blood Culture - Preliminary Blood - Venous - Lab Draw NO GROWTH AFTER 1 DAY Anaerobic Blood Culture - Preliminary NO GROWTH AFTER 1 DAY Med Orders - Current: Current Medications Acetaminophen (Tylenol) 650 mg PO Q4H PRN PRN Reason: Pain (Mild 1-3)/fever Last Admin: 02/09/18 22:19 Dose: 650 mg Acetaminophen (Tylenol) 325 mg PO TID JARRED Last Admin: 02/10/18 20:04 Dose: 325 mg Hydrocodone Bitart/Acetaminophen ([place] 325-5 Mg) 1 tab PO Q4H PRN PRN Reason: Pain (moderate 4-6) Albuterol/Ipratropium (Duoneb 3.0-0.5 Mg/3 Ml) 3 ml NEB Q4H PRN PRN Reason: Shortness Of Breath/wheezing Last Admin: 02/09/18 17:41 Dose: 3 ml Azithromycin (Zithromax) 250 mg PO DAILY [facility] Stop: 02/12/18 10:00 Last Admin: 02/10/18 09:00 Dose: 250 mg Bisacodyl (Dulcolax) 5 mg PO DAILY PRN PRN Reason: Constipation Cholecalciferol (Vitamin D3) 1,000 units PO DAILY [facility] Last Admin: 02/10/18 08:59 Dose: 1,000 units Docusate Sodium (Colace) 100 mg PO BID PRN PRN Reason: Constipation Fentanyl (Duragesic) 12 mcg TRDERM Q72H [facility] Last Admin: 02/10/18 16:37 Dose: Not Given Furosemide (Lasix) 20 mg IVPUSH BIDDIURETIC [facility] Last Admin: 02/11/18 06:16 Dose: 20 mg Guaifenesin/Phenylephrine HCl (Robitussin Dm) 10 ml PO Q4H PRN PRN Reason: Cough Hydralazine HCl (Apresoline) 10 mg IVPUSH Q4H PRN PRN Reason: Hypertension Hydrochlorothiazide (Hydrochlorothiazide) 12.5 mg PO BIDDIURETIC [facility] Last Admin: 02/11/18 06:16 Dose: 12.5 mg Hydromorphone HCl (Dilaudid) 0.25 mg IVPUSH Q2H PRN PRN Reason: Pain (severe 7-10) Promethazine HCl 6.25 mg/ (Sodium Chloride) 50.25 mls @ 100 mls/hr IV Q6H PRN PRN Reason: Nausea/Vomiting Insulin Aspart (Novolog) 0 unit SUBCUT BID@0700,2100 [facility]; Protocol Last Admin: 02/11/18 06:26 Dose: Not Given Levothyroxine Sodium (Synthroid) 50 mcg PO ACBREAKFAST [facility] Last Admin: 02/11/18 06:16 Dose: 50 mcg Lorazepam (Ativan) 0.25 mg IV Q6H PRN PRN Reason: Anxiety Magnesium Sulfate (Pharmacy To Dose - Magnesium Replacement) 0 dose .XX ASDIRECTED PRN PRN Reason: RX TO WATCH MAG LEVELS Metoprolol Tartrate (Lopressor) 25 mg PO Q12HR [facility] Last Admin: 02/10/18 20:02 Dose: 25 mg Metoprolol Tartrate (Lopressor) 5 mg IVPUSH Q4H PRN PRN Reason: Tachycardia Ondansetron HCl (Zofran) 4 mg IV Q6H PRN PRN Reason: Nausea/Vomiting Pantoprazole Sodium (Protonix) 40 mg PO DAILY [facility] Last Admin: 02/10/18 08:59 Dose: 40 mg Paroxetine HCl (Paxil) 15 mg PO BID [facility] Last Admin: 02/10/18 20:04 Dose: 15 mg Combivent Respimat Inhaler (Albuterol/Ipratropium 4 Gm) 0 each INH Q4H PRN PRN Reason: Shortness of Breath Polyethylene Glycol (Miralax) 17 gm PO DAILY PRN PRN Reason: Constipation Potassium Chloride (Pharmacy To Dose - Potassium Replacement) 0 dose .XX ASDIRECTED PRN PRN Reason: RX TO WATCH K LEVELS Prednisone (Prednisone) 25 mg PO DAILY [facility] Last Admin: 02/10/18 09:00 Dose: 25 mg Saccharomyces Boulardii (Florastor) 250 mg PO DAILY [facility] Last Admin: 02/10/18 08:59 Dose: 250 mg Senna/Docusate Sodium (Senna Plus) 1 tab PO BID PRN PRN Reason: Constipation Simvastatin (Zocor) 5 mg PO DAILY [facility] Last Admin: 02/10/18 08:59 Dose: 5 mg Sodium Chloride (Saline Flush) 10 ml FLUSH ASDIRECTED PRN PRN Reason: Keep Vein Open Tamsulosin HCl (Flomax) 0.4 mg PO BID [facility] Last Admin: 02/10/18 20:04 Dose: 0.4 mg Temazepam (Restoril) 7.5 mg PO BEDTIME PRN PRN Reason: Sleep Warfarin Sodium (Pharmacy To Dose - Warfarin) 1 dose PO ASDIRECTED [facility] Discontinued Medications Acetaminophen (Tylenol) 650 mg PO Q4HR [facility] Last Admin: 02/10/18 19:53 Dose: Not Given Hydrocodone Bitart/Acetaminophen ([place] 325-5 Mg) 1 tab PO Q6H PRN PRN Reason: Pain Albuterol/Ipratropium (Duoneb 3.0-0.5 Mg/3 Ml) 3 ml NEB ONETIME ONE Stop: 04/02/18 10:10 Last Admin: 02/09/18 10:18 Dose: 3 ml Cyanocobalamin (Vitamin B12) 1,000 mcg IM SEECOMMENT ONE Stop: 02/10/18 09:01 Last Admin: 02/10/18 09:01 Dose: 1,000 mcg Enoxaparin Sodium (Lovenox) 40 mg SUBCUT DAILY [facility] Last Admin: 02/10/18 12:44 Dose: 40 mg Hydrochlorothiazide (Hydrochlorothiazide) 6.25 mg PO BIDDIURETIC JARRED Last Admin: 02/10/18 06:16 Dose: 6.25 mg Ceftriaxone Sodium 2 gm/ (Sodium Chloride) 100 mls @ 100 mls/hr IV ONETIME ONE Stop: 02/09/18 13:07 Last Admin: 02/09/18 12:14 Dose: 100 mls/hr Furosemide 100 mg/ Sodium (Chloride) 100 mls @ 3 mls/hr IV TITRATE JARRED; Protocol Stop: 02/10/18 22:30 Last Admin: 02/09/18 22:23 Dose: 3 mls/hr Azithromycin 500 mg/ Sodium (Chloride) 250 mls @ 250 mls/hr IV ONETIME ONE Stop: 02/09/18 19:28 Last Admin: 02/09/18 19:14 Dose: 250 mls/hr Insulin Aspart (Novolog) 4 unit SUBCUT BID [facility] Insulin Aspart (Novolog) 0 unit SUBCUT BID [facility]; Protocol Last Admin: 02/10/18 21:30 Dose: 2 units Insulin Aspart (Novolog) 0 unit SUBCUT BID [facility]; Protocol Non-Formulary Medication (Cyanocobalamin (Vitamin B-12) [Physicians Ez Use B-12] ) 1,000 mcg IJ ASDIRECTED [facility] Non-Formulary Medication (Fentanyl [Fentanyl]) 1 each TD ASDIRECTED JARR[facility] Paroxetine HCl (Paxil) 15 mg PO BID [facility] Last Admin: 02/10/18 12:55 Dose: Not Given Sodium Chloride (Saline Flush) 10 ml FLUSH ASDIRECTED PRN PRN Reason: Keep Vein Open Last Admin: 02/09/18 10:33 Dose: 10 ml Warfarin Sodium (Coumadin) 2.5 mg PO ONETIME ONE Stop: 02/10/18 18:01 Last Admin: 02/10/18 17:58 Dose: 2.5 mg - Exam Quality Assessment: Supplemental Oxygen (2L nasal cannula), DVT Prophylaxis. No : Urine Catheter General: Alert, Oriented HEENT: Pupils Equal, Pupils Reactive, EOMI, Mucous Membr. Moist/[place] Neck: Supple Lungs: Normal Respiratory Effort, Decreased Breath Sounds, Crackles (R>L), Rhonchi (R>L), Wheezing (throughout lung [place]) Cardiovascular: Regular Rate, Irregular Rhythm (Afib) GI/Abdominal Exam: Normal Bowel Sounds, Soft, Non-Tender, No Distention (Male) Exam: Deferred Back Exam: Normal Inspection, Full Range of Motion Extremities: Normal Range of Motion, Non-Tender, Normal Capillary Refill, Pedal Edema (2+ bilaterally) Peripheral Pulses: 1+: Posterior Tibial (L), Posterior Tibial (R), Dorsalis Pedis (L), Dorsalis Pedis (R) Skin: Warm, Dry, Intact Wound/Incisions: Healing Well Neurological: No New Focal Deficit Psy/Mental Status: Alert, Normal Affect, Normal Mood - Problem List & Annotations (1) Pneumonia SNOMED Code(s): 470116147 Code(s): J18.9 - PNEUMONIA, UNSPECIFIED ORGANISM Status: Acute Priority: High Current Visit: Yes Qualifiers: Pneumonia type: due to unspecified organism Laterality: right Lung location: lower lobe of lung Qualified Code(s): J18.1 - Lobar pneumonia, unspecified organism (2) Congestive heart failure with preserved left ventricular function, NYHA class 1 SNOMED Code(s): 25934536, 231641859, 696805463 Code(s): I50.30 - UNSPECIFIED DIASTOLIC (CONGESTIVE) HEART FAILURE Status: Chronic Priority: High Current Visit: Yes (3) Cystitis SNOMED Code(s): 29776040 Code(s): N30.90 - CYSTITIS, UNSPECIFIED WITHOUT HEMATURIA Status: Acute Priority: Medium Current Visit: Yes (4) Subtherapeutic international normalized ratio (INR) SNOMED Code(s): 676296329, 237240558 Code(s): R79.1 - ABNORMAL COAGULATION PROFILE Status: Acute Priority: Medium Current Visit: Yes (5) Acute respiratory distress SNOMED Code(s): 229904964 Code(s): R06.03 - ACUTE RESPIRATORY DISTRESS Status: Acute Priority: High Current Visit: Yes (6) Afib SNOMED Code(s): 59852662 Code(s): I48.91 - UNSPECIFIED ATRIAL FIBRILLATION Status: Chronic Priority: Medium Current Visit: Yes (7) CAD (coronary artery disease) SNOMED Code(s): 30066733 Code(s): I25.10 - ATHSCL HEART DISEASE OF [place] CORONARY ARTERY W/O ANG PCTRS Status: Acute Priority: Medium Current Visit: No Qualifiers: Coronary Disease-Associated Artery/Lesion type: unspecified vessel or lesion type [place] vs. transplanted heart: [place] heart Associated angina: without angina Qualified Code(s): I25.10 - Atherosclerotic heart disease of [place] coronary artery without angina pectoris (8) HLD (hyperlipidemia) SNOMED Code(s): 81323614 Code(s): E78.5 - HYPERLIPIDEMIA, UNSPECIFIED Status: Chronic Priority: Low Current Visit: No (9) GERD (gastroesophageal reflux disease) SNOMED Code(s): 652018766 Code(s): K21.9 - GASTRO-ESOPHAGEAL REFLUX DISEASE WITHOUT ESOPHAGITIS Status: Chronic Priority: Low Current Visit: No (10) CKD (chronic kidney disease), stage III SNOMED Code(s): 217377531 Code(s): N18.3 - CHRONIC KIDNEY DISEASE, STAGE 3 (MODERATE) Status: Chronic Priority: Medium Current Visit: Yes (11) Hypothyroid SNOMED Code(s): 57241122 Code(s): E03.9 - HYPOTHYROIDISM, UNSPECIFIED Status: Chronic Priority: Low Current Visit: No (12) Elevated brain natriuretic peptide (BNP) level SNOMED Code(s): 133919380, 802860367 Code(s): R79.89 - OTHER SPECIFIED ABNORMAL FINDINGS OF BLOOD CHEMISTRY Status: Acute Current Visit: Yes (13) Hypoxia SNOMED Code(s): 109162103 Code(s): R09.02 - HYPOXEMIA Status: Acute Current Visit: Yes (14) Benign essential hypertension SNOMED Code(s): 6657868 Code(s): I10 - ESSENTIAL (PRIMARY) HYPERTENSION Status: Acute Current Visit: No - Problem List Review Problem List Initiated/Reviewed/Updated: Yes - My Orders Last 24 Hours: My Active Orders 02/10/18 08:51 Consult to Case Management [CONS] Routine Consult to [employer] Consultant [CONS] Routine 02/10/18 09:00 Azithromycin [Zithromax] 250 mg PO DAILY 02/10/18 10:45 Warfarin Pharmacy to Dose [Pharmacy to Dose - Warfarin] 1 dose PO ASDIRECTED 02/10/18 12:01 CULTURE SPUTUM + SMEAR [RM] Stat 02/11/18 06:00 Furosemide [Lasix] 20 mg IVPUSH BIDDIURETIC - Plan Plan:: I/P: Acute: Community-Acquired Pneumonia- RLL -Parainfluenza Virus 3 positive -Influenza, Mycoplasma, S. pnuemo, MRSA negative -WBC 21.33-->9.92-->6.25 -CRP 10.3-->11.9 -O2 74% on RA; 2L--> 4L O2 to maintain >90% -CXR (02/09/18): Small R sided pleural effusion, questionable R pulmonary vascular congestion, possible R basilar PNA -F/U CXR (02/11/18): Slightly improved pulmonary vessels, better aeration of R lung base, stable pleural thickening within the right lung base from previous exam. -Most likely immunocompromised 2/2 prednisone use--> Decrease dose 25mg to 15mg -Rocephin 2g IV given in ER prophylactically -Azithro 500 IV x1 given 02/09/18--> Azithro 250 PO (02/10/18) -Day 3 -Immunocompromised--> Start Rocephin 1g IV (02/11/18) -Day 1 -RT/Nebs/IS/FV New onset CHF with preserved EF -Risk factors: CAD, OR, Afib -CXR: R sided Pleural effusion -BNP: 31027-->22295-->06721 -Clinical: Pitting edema 2+ bilaterally -2D echo 02/10/18 -EF 60-65%, normalized from 12/15/13. -Suspected Pulmonary HTN--> RV Systolic pressure mod/sev increased at 65.8 -Continue Fluid and salt restriction -D/C Lasix gtt, Start Lasix IV push 20mg BID today (02/11/18) Asymptomatic Cystitis -Urine Cx shows 40-50k Gram positive cocci, unspecified bacteria. -Currently denies any dysuria, hematuria. -Does not have catheter. -Will be covered by antibiotic regimen. Chronic: Afib--> On warfarin OR CAD with stenting Recurrent bronchitis HLD GERD HTN CKD stage III--> eGFR 45, baseline Anemia--> Hgb 9.6-->8.5-->9.5; continue to monitor Hypothyroid Subtherapeutic INR --> INR 1.71; pharmacy to dose lovenox bridge and warfarin Plan: Transfered to telemetry unit today PNA protocol Continue home meds Other orders as indicated above CM/SW for discharge planning Routine AM labs RT/PT/OT DVT Prophylaxis: On warfarin GI prophylaxis: Protonix Ambulated as tolerated Code Status: DNR/DNI; PCP: David Hazel
[2018-02-11] MEDS: Acetaminophen 325 MG Tab PO SCH ×3 (08:12→21:11)
[2018-02-11] MEDS: Tamsulosin 0.4 MG Cap.ER PO SCH ×2 (08:14→21:04)
[2018-02-11] MEDS: Pantoprazole 40 MG Tab.CR PO SCH (08:14)
[2018-02-11] MEDS: Azithromycin 250 MG Tab PO SCH (08:14)
[2018-02-11] MEDS: Cholecalciferol (Vitamin D3) 1,000 Unit Tab PO SCH (08:14)
[2018-02-11] MEDS: predniSONE 5 MG Tab PO SCH (08:15)
[2018-02-11] MEDS: Saccharomyces Boulardii (Probiotic) 250 MG Cap PO SCH ×3 (08:18→21:03)
[2018-02-11] MEDS: Simvastatin 10 MG Tab PO SCH (08:18)
--- NOTE | 2018-02-11 08:30 | CR ---
Chest: Frontal view of the chest was obtained. Comparison: Prior chest x-ray of 02/09/18. Stable blunting the right lateral costophrenic angle is seen. Pulmonary vessels appear slightly less congested than on prior exam. Mildly improved aeration within the right lung base is seen from prior exam. Lungs otherwise are clear. Heart size is normal. Atherosclerotic change is noted within the thoracic aorta. Bony structures are osteopenic. Scoliosis is noted within the spine. Surgical clips are seen within the base of the neck. Lungs appear somewhat hyperinflated suggesting emphysematous change. Impression: 1. Slightly improved pulmonary vessels from previous exam. Better aeration of the right lung base from prior study. 2. Stable pleural thickening within the right lung base from previous exam. Diagnostic code #3
[2018-02-11] MEDS: Metoprolol Tartrate 25 MG Tab PO SCH ×2 (09:38→21:06)
[2018-02-11] MEDS: cefTRIAXone 1 GM in Sodium Chloride 0.9% 100 ML IV SCH (11:42)
[2018-02-11] MEDS ORDERED: Warfarin 2.5 MG Tab PO ONE (18:00)
[2018-02-12] MEDS: Acetaminophen 325 MG Tab PO PRN (00:04)
[2018-02-12] MEDS: Levothyroxine 50 MCG Tab PO SCH (06:43)
[2018-02-12] MEDS: Furosemide 20 MG/2 ML VIAL IVPUSH SCH (06:43)
[2018-02-12] MEDS: Hydrochlorothiazide 12.5 MG Cap PO SCH ×2 (06:43→13:53)
[2018-02-12] MEDS: Azithromycin 250 MG Tab PO SCH (08:29)
[2018-02-12] MEDS: Tamsulosin 0.4 MG Cap.ER PO SCH ×2 (08:29→20:41)
[2018-02-12] MEDS: predniSONE 5 MG Tab PO SCH (08:30)
[2018-02-12] MEDS: Cholecalciferol (Vitamin D3) 1,000 Unit Tab PO SCH (08:31)
[2018-02-12] MEDS: Pantoprazole 40 MG Tab.CR PO SCH (08:31)
[2018-02-12] MEDS: Simvastatin 10 MG Tab PO SCH (08:34)
[2018-02-12] MEDS: Metoprolol Tartrate 25 MG Tab PO SCH ×2 (08:36→20:41)
[2018-02-12] MEDS: Saccharomyces Boulardii (Probiotic) 250 MG Cap PO SCH ×2 (08:36→20:40)
[2018-02-12] MEDS ORDERED: Heparin Sodium 5,000 Units/ML Vial SUBCUT SCH (09:00)
[2018-02-12] MEDS: Insulin Aspart 100 Units/ML 3 ML Pen SUBCUT SCH ×2 (09:54→20:43)
--- NOTE | 2018-02-12 10:00 | PCM.PN ---
<Deana Corona - Last Filed: 02/12/18 12:24> - General Info Date of Service: 02/12/18 Admission Dx/Problem (Free Text): Admission Diagnosis/Problem Admission Diagnosis/Problem Hypoxia Subjective Update: In to see Will today. He is sleeping in bed, but woke up to answer questions. Overall he is doing well. His cough and breathing have improved- he is still comfortable on 2L of O2. Pain is controlled. No fever, chills, abdominal pain, nausea, or vomiting. Urinating well without catheter. Good appetite. Per nursing, he did not sleep well last night- he had an unwitnessed "slide" out of bed last night and was found "wrapped like a mummy" in blankets on the ground. Pt was helped back into bed, did not hit his head, and denies any pain. No other concerns from nursing. Functional Status: Reports: Pain Controlled, Tolerating Diet, Ambulating, Urinating, Incentive Spirometry - Review of Systems General: Reports: No Symptoms. Denies: Fever, Chills HEENT: Reports: No Symptoms Pulmonary: Reports: Shortness of Breath, Cough (improving), Sputum (improving), Wheezing Cardiovascular: Reports: No Symptoms Gastrointestinal: Reports: No Symptoms. Denies: Abdominal Pain, Constipation, Diarrhea, Nausea, Vomiting Genitourinary: Reports: No Symptoms. Denies: Dysuria, Frequency, Burning, Pain Musculoskeletal: Reports: No Symptoms Skin: Reports: No Symptoms Neurological: Reports: No Symptoms Psychiatric: Reports: No Symptoms - Patient Data Vitals - Most Recent: Last Vital Signs Temp 98.4 F 02/12/18 08:25 Pulse 64 02/12/18 08:36 Resp 16 02/12/18 08:25 BP 124/59 L 02/12/18 08:36 Pulse Ox 98 02/12/18 08:52 Weight - Most Recent: 58.74 kg I&O - Last 24 Hours: Intake & Output 02/11/18 02/12/18 02/12/18 22:59 06:59 14:59 Intake Total 500 200 Output Total 900 Balance -400 200 Lab Results Last 24 Hours: Laboratory Results - last 24 hr 02/11/18 02/12/18 02/12/18 Range/Units 21:00 05:43 05:43 WBC 8.41 (4.23-9.07) K/mm3 RBC 2.68 L (4.63-6.08) M/mm3 Hgb 8.9 L (13.7-17.5) gm/L Hct 28.2 L (40.1-51.0) % MCV 105.2 H (79.0-92.2) fl MCH 33.2 H (25.7-32.2) pg MCHC 31.6 L (32.2-35.5) g/dl RDW Std Deviation 61.6 H (35.1-43.9) fL Plt Count 132 L (163-337) K/mm3 MPV 9.9 (9.4-12.3) fl Neut % (Auto) 75.5 H (34.0-67.9) % Lymph % (Auto) 15.6 L (21.8-53.1) % Perkins % (Auto) 8.2 (5.3-12.2) % Eos % (Auto) 0.4 L (0.8-7.0) Baso % (Auto) 0.1 (0.1-1.2) % Neut # (Auto) 6.35 H (1.78-5.38) K/mm3 Lymph # (Auto) 1.31 L (1.32-3.57) K/mm3 [place] # (Auto) 0.69 (0.30-0.82) K/mm3 Eos # (Auto) 0.03 L (0.04-0.54) K/mm3 Baso # (Auto) 0.01 (0.01-0.08) K/mm3 Manual Slide Review Abnormal smear PT (8.0-13.0) SECONDS INR Sodium 141 (136-145) mEq/L Potassium 4.4 (3.5-5.1) mEq/L Chloride 100 (98-107) mEq/L Carbon Dioxide 36 H (21-32) mEq/L Anion Gap 9.4 (5-15) BUN 33 H (7-18) mg/dL Creatinine 1.7 H (0.7-1.3) mg/dL Est Cr Clr Drug Dosing 27.83 mL/min Estimated GFR (MDRD) 39 (>60) mL/min BUN/Creatinine Ratio 19.4 H (14-18) Glucose 101 (83-115) mg/dL POC Glucose 194 H (83-110) mg/dL Calcium 8.9 (8.5-10.1) mg/dL C-Reactive Protein 5.5 H* (<1.0) mg/dL NT-Pro-B Natriuret Pep (0-450) pg/mL 02/12/18 02/12/18 02/12/18 Range/Units 05:43 05:43 06:40 WBC (4.23-9.07) K/mm3 RBC (4.63-6.08) M/mm3 Hgb (13.7-17.5) gm/L Hct (40.1-51.0) % MCV (79.0-92.2) fl MCH (25.7-32.2) pg MCHC (32.2-35.5) g/dl RDW Std Deviation (35.1-43.9) fL Plt Count (163-337) K/mm3 MPV (9.4-12.3) fl Neut % (Auto) (34.0-67.9) % Lymph % (Auto) (21.8-53.1) % [place] % (Auto) (5.3-12.2) % Eos % (Auto) (0.8-7.0) Baso % (Auto) (0.1-1.2) % Neut # (Auto) (1.78-5.38) K/mm3 Lymph # (Auto) (1.32-3.57) K/mm3 [place] # (Auto) (0.30-0.82) K/mm3 Eos # (Auto) (0.04-0.54) K/mm3 Baso # (Auto) (0.01-0.08) K/mm3 Manual Slide Review PT 13.8 H (8.0-13.0) SECONDS INR 1.29 Sodium (136-145) mEq/L Potassium (3.5-5.1) mEq/L Chloride (98-107) mEq/L Carbon Dioxide (21-32) mEq/L Anion Gap (5-15) BUN (7-18) mg/dL Creatinine (0.7-1.3) mg/dL Est Cr Clr Drug Dosing mL/min Estimated GFR (MDRD) (>60) mL/min BUN/Creatinine Ratio (14-18) Glucose (83-115) mg/dL POC Glucose 94 (83-110) mg/dL Calcium (8.5-10.1) mg/dL C-Reactive Protein (<1.0) mg/dL NT-Pro-B Natriuret Pep 9468 H (0-450) pg/mL Manjeet Results Last 24 Hours: Microbiology 02/09/18 10:33 Aerobic Blood Culture - Preliminary Blood - Venous - Lab Draw NO GROWTH AFTER 2 DAYS Anaerobic Blood Culture - Preliminary NO GROWTH AFTER 2 DAYS 02/09/18 10:25 Aerobic Blood Culture - Preliminary Blood - Venous NO GROWTH AFTER 2 DAYS Anaerobic Blood Culture - Preliminary NO GROWTH AFTER 2 DAYS 02/09/18 15:20 Urine Culture - Preliminary Urine, Clean Catch Gram Positive Cocci Gram Positive Cocci#2 Med Orders - Current: Current Medications Acetaminophen (Tylenol) 650 mg PO Q4H PRN PRN Reason: Pain (Mild 1-3)/fever Last Admin: 02/12/18 00:04 Dose: 325 mg Acetaminophen (Tylenol) 325 mg PO TID [facility] Last Admin: 02/11/18 21:11 Dose: Not Given Hydrocodone Bitart/Acetaminophen ([place] 325-5 Mg) 1 tab PO Q4H PRN PRN Reason: Pain (moderate 4-6) Albuterol/Ipratropium (Duoneb 3.0-0.5 Mg/3 Ml) 3 ml NEB Q4H PRN PRN Reason: Shortness Of Breath/wheezing Last Admin: 02/09/18 17:41 Dose: 3 ml Azithromycin (Zithromax) 250 mg PO DAILY [facility] Stop: 02/12/18 10:00 Last Admin: 02/12/18 08:29 Dose: 250 mg Bisacodyl (Dulcolax) 5 mg PO DAILY PRN PRN Reason: Constipation Cholecalciferol (Vitamin D3) 1,000 units PO DAILY [facility] Last Admin: 02/12/18 08:31 Dose: 1,000 units Docusate Sodium (Colace) 100 mg PO BID PRN PRN Reason: Constipation Fentanyl (Duragesic) 12 mcg TRDERM Q72H [facility] Last Admin: 02/10/18 16:37 Dose: Not Given Furosemide (Lasix) 20 mg IVPUSH BIDDIURETIC [facility] Last Admin: 02/12/18 06:43 Dose: 20 mg Guaifenesin/Phenylephrine HCl (Robitussin Dm) 10 ml PO Q4H PRN PRN Reason: Cough Heparin Sodium (Porcine) (Heparin Sodium) 5,000 units SUBCUT Q12HR [facility] Last Admin: 02/12/18 09:48 Dose: 5,000 units Hydralazine HCl (Apresoline) 10 mg IVPUSH Q4H PRN PRN Reason: Hypertension Hydrochlorothiazide (Hydrochlorothiazide) 12.5 mg PO BIDDIURETIC [facility] Last Admin: 02/12/18 06:43 Dose: 12.5 mg Hydromorphone HCl (Dilaudid) 0.25 mg IVPUSH Q2H PRN PRN Reason: Pain (severe 7-10) Promethazine HCl 6.25 mg/ (Sodium Chloride) 50.25 mls @ 100 mls/hr IV Q6H PRN PRN Reason: Nausea/Vomiting Ceftriaxone Sodium 1 gm/ (Sodium Chloride) 100 mls @ 200 mls/hr IV Q24H [facility] Last Admin: 02/11/18 11:42 Dose: 200 mls/hr Insulin Aspart (Novolog) 0 unit SUBCUT BID@0700,2100 [facility]; Protocol Last Admin: 02/12/18 09:54 Dose: Not Given Levothyroxine Sodium (Synthroid) 50 mcg PO ACBREAKFAST [facility] Last Admin: 02/12/18 06:43 Dose: 50 mcg Lorazepam (Ativan) 0.25 mg IV Q6H PRN PRN Reason: Anxiety Magnesium Sulfate (Pharmacy To Dose - Magnesium Replacement) 0 dose .XX ASDIRECTED PRN PRN Reason: RX TO WATCH MAG LEVELS Metoprolol Tartrate (Lopressor) 25 mg PO Q12HR [facility] Last Admin: 02/12/18 08:36 Dose: 25 mg Metoprolol Tartrate (Lopressor) 5 mg IVPUSH Q4H PRN PRN Reason: Tachycardia Ondansetron HCl (Zofran) 4 mg IV Q6H PRN PRN Reason: Nausea/Vomiting Pantoprazole Sodium (Protonix) 40 mg PO DAILY [facility] Last Admin: 02/12/18 08:31 Dose: 40 mg Paroxetine HCl (Paxil) 15 mg PO BID [facility] Last Admin: 02/12/18 08:37 Dose: 15 mg Combivent Respimat Inhaler (Albuterol/Ipratropium 4 Gm) 0 each INH Q4H PRN PRN Reason: Shortness of Breath Polyethylene Glycol (Miralax) 17 gm PO DAILY PRN PRN Reason: Constipation Potassium Chloride (Pharmacy To Dose - Potassium Replacement) 0 dose .XX ASDIRECTED PRN PRN Reason: RX TO WATCH K LEVELS Prednisone (Prednisone) 15 mg PO DAILY [facility] Last Admin: 02/12/18 08:30 Dose: 15 mg Saccharomyces Boulardii (Florastor) 250 mg PO BID [facility] Last Admin: 02/12/18 08:36 Dose: 250 mg Senna/Docusate Sodium (Senna Plus) 1 tab PO BID PRN PRN Reason: Constipation Simvastatin (Zocor) 5 mg PO DAILY [facility] Last Admin: 02/12/18 08:34 Dose: 5 mg Sodium Chloride (Saline Flush) 10 ml FLUSH ASDIRECTED PRN PRN Reason: Keep Vein Open Tamsulosin HCl (Flomax) 0.4 mg PO BID [facility] Last Admin: 02/12/18 08:29 Dose: 0.4 mg Temazepam (Restoril) 7.5 mg PO BEDTIME PRN PRN Reason: Sleep Last Admin: 02/11/18 22:51 Dose: 7.5 mg Warfarin Sodium (Pharmacy To Dose - Warfarin) 1 dose PO ASDIRECTED [facility] Warfarin Sodium (Coumadin) 5 mg PO ONETIME ONE Stop: 02/12/18 18:01 Discontinued Medications Acetaminophen (Tylenol) 650 mg PO Q4HR [facility] Last Admin: 02/10/18 19:53 Dose: Not Given Hydrocodone Bitart/Acetaminophen ([place] 325-5 Mg) 1 tab PO Q6H PRN PRN Reason: Pain Albuterol/Ipratropium (Duoneb 3.0-0.5 Mg/3 Ml) 3 ml NEB ONETIME ONE Stop: 02/09/18 10:10 Last Admin: 02/09/18 10:18 Dose: 3 ml Cyanocobalamin (Vitamin B12) 1,000 mcg IM SEECOMMENT ONE Stop: 02/10/18 09:01 Last Admin: 02/10/18 09:01 Dose: 1,000 mcg Enoxaparin Sodium (Lovenox) 40 mg SUBCUT DAILY [facility] Last Admin: 02/10/18 12:44 Dose: 40 mg Hydrochlorothiazide (Hydrochlorothiazide) 6.25 mg PO BIDDIURETIC [facility] Last Admin: 02/10/18 06:16 Dose: 6.25 mg Ceftriaxone Sodium 2 gm/ (Sodium Chloride) 100 mls @ 100 mls/hr IV ONETIME ONE Stop: 02/09/18 13:07 Last Admin: 02/09/18 12:14 Dose: 100 mls/hr Furosemide 100 mg/ Sodium (Chloride) 100 mls @ 3 mls/hr IV TITRATE JARRED; Protocol Stop: 02/10/18 22:30 Last Admin: 02/09/18 22:23 Dose: 3 mls/hr Azithromycin 500 mg/ Sodium (Chloride) 250 mls @ 250 mls/hr IV ONETIME ONE Stop: 02/09/18 19:28 Last Admin: 02/09/18 19:14 Dose: 250 mls/hr Insulin Aspart (Novolog) 4 unit SUBCUT BID JARRED Insulin Aspart (Novolog) 0 unit SUBCUT BID [facility]; Protocol Last Admin: 02/10/18 21:30 Dose: 2 units Insulin Aspart (Novolog) 0 unit SUBCUT BID [facility]; Protocol Non-Formulary Medication (Cyanocobalamin (Vitamin B-12) [Physicians Ez Use B-12] ) 1,000 mcg IJ ASDIRECTED [facility] Non-Formulary Medication (Fentanyl [Fentanyl]) 1 each TD ASDIRECTED JARRED Paroxetine HCl (Paxil) 15 mg PO BID [facility] Last Admin: 02/10/18 12:55 Dose: Not Given Prednisone (Prednisone) 25 mg PO DAILY [facility] Last Admin: 02/11/18 08:15 Dose: 25 mg Saccharomyces Boulardii (Florastor) 250 mg PO DAILY [facility] Last Admin: 02/11/18 08:18 Dose: 250 mg Sodium Chloride (Saline Flush) 10 ml FLUSH ASDIRECTED PRN PRN Reason: Keep Vein Open Last Admin: 02/09/18 10:33 Dose: 10 ml Warfarin Sodium (Coumadin) 2.5 mg PO ONETIME ONE Stop: 02/10/18 18:01 Last Admin: 02/10/18 17:58 Dose: 2.5 mg Warfarin Sodium (Coumadin) 2.5 mg PO ONETIME ONE Stop: 02/11/18 18:01 Last Admin: 02/11/18 17:22 Dose: 2.5 mg Warfarin Sodium (Coumadin) 2.5 mg PO ONETIME ONE Stop: 02/12/18 18:01 - Exam Quality Assessment: Supplemental Oxygen (2L nasal cannula), DVT Prophylaxis. No : Urine Catheter General: Alert, Oriented HEENT: Pupils Equal, Pupils Reactive, EOMI, Mucous Membr. Moist/[place] Neck: Supple Lungs: Normal Respiratory Effort, Decreased Breath Sounds, Crackles (R>L), Rhonchi (R>L), Wheezing (throughout lung [place]) Cardiovascular: Regular Rate, Irregular Rhythm (a fib) GI/Abdominal Exam: Normal Bowel Sounds, Soft, Non-Tender, No Distention (Male) Exam: Deferred Back Exam: Normal Inspection, Full Range of Motion Extremities: Normal Inspection, Normal Range of Motion, Non-Tender, Normal Capillary Refill, Pedal Edema (2+ bilaterally) Peripheral Pulses: 1+: Posterior Tibial (L), Posterior Tibial (R), Dorsalis Pedis (L), Dorsalis Pedis (R) Skin: Warm, Dry, Intact, Other (Bruising to left forearm and some scratches on the upper R leg and lower left leg from fall last night) Wound/Incisions: Dressing Dry and Intact (small left elbow skin tear from fall last night) Neurological: No New Focal Deficit Psy/Mental Status: Alert, Normal Affect, Normal Mood - Problem List & Annotations (1) Pneumonia SNOMED Code(s): 596670005 Code(s): J18.9 - PNEUMONIA, UNSPECIFIED ORGANISM Status: Acute Priority: High Current Visit: Yes Qualifiers: Pneumonia type: due to unspecified organism Laterality: right Lung location: lower lobe of lung Qualified Code(s): J18.1 - Lobar pneumonia, unspecified organism (2) Congestive heart failure with preserved left ventricular function, NYHA class 1 SNOMED Code(s): 34238198, 460715997, 566597958 Code(s): I50.30 - UNSPECIFIED DIASTOLIC (CONGESTIVE) HEART FAILURE Status: Chronic Priority: High Current Visit: Yes (3) Cystitis SNOMED Code(s): 30764900 Code(s): N30.90 - CYSTITIS, UNSPECIFIED WITHOUT HEMATURIA Status: Acute Priority: Medium Current Visit: Yes (4) Subtherapeutic international normalized ratio (INR) SNOMED Code(s): 896408180, 566569629 Code(s): R79.1 - ABNORMAL COAGULATION PROFILE Status: Acute Priority: Medium Current Visit: Yes (5) Acute respiratory distress SNOMED Code(s): 381862569 Code(s): R06.03 - ACUTE RESPIRATORY DISTRESS Status: Acute Priority: High Current Visit: Yes (6) Afib SNOMED Code(s): 07605953 Code(s): I48.91 - UNSPECIFIED ATRIAL FIBRILLATION Status: Chronic Priority: Medium Current Visit: Yes (7) CAD (coronary artery disease) SNOMED Code(s): 41139943 Code(s): I25.10 - ATHSCL HEART DISEASE OF [place] CORONARY ARTERY W/O ANG PCTRS Status: Acute Priority: Medium Current Visit: No Qualifiers: Coronary Disease-Associated Artery/Lesion type: unspecified vessel or lesion type [place] vs. transplanted heart: [place] heart Associated angina: without angina Qualified Code(s): I25.10 - Atherosclerotic heart disease of [place] coronary artery without angina pectoris (8) HLD (hyperlipidemia) SNOMED Code(s): 53789122 Code(s): E78.5 - HYPERLIPIDEMIA, UNSPECIFIED Status: Chronic Priority: Low Current Visit: No (9) GERD (gastroesophageal reflux disease) SNOMED Code(s): 176903883 Code(s): K21.9 - GASTRO-ESOPHAGEAL REFLUX DISEASE WITHOUT ESOPHAGITIS Status: Chronic Priority: Low Current Visit: No (10) CKD (chronic kidney disease), stage III SNOMED Code(s): 180948962 Code(s): N18.3 - CHRONIC KIDNEY DISEASE, STAGE 3 (MODERATE) Status: Chronic Priority: Medium Current Visit: Yes (11) Hypothyroid SNOMED Code(s): 20988083 Code(s): E03.9 - HYPOTHYROIDISM, UNSPECIFIED Status: Chronic Priority: Low Current Visit: No (12) Elevated brain natriuretic peptide (BNP) level SNOMED Code(s): 940349108, 826191611 Code(s): R79.89 - OTHER SPECIFIED ABNORMAL FINDINGS OF BLOOD CHEMISTRY Status: Acute Current Visit: Yes (13) Hypoxia SNOMED Code(s): 940753230 Code(s): R09.02 - HYPOXEMIA Status: Acute Current Visit: Yes (14) Benign essential hypertension SNOMED Code(s): 3381136 Code(s): I10 - ESSENTIAL (PRIMARY) HYPERTENSION Status: Acute Current Visit: No - Problem List Review Problem List Initiated/Reviewed/Updated: Yes - My Orders Last 24 Hours: My Active Orders 02/11/18 10:30 Saccharomyces Boulardii [Florastor] 250 mg PO BID cefTRIAXone [Rocephin] 1 gm Sodium Chloride 0.9% [Normal Saline] 100 ml IV Q24H 02/12/18 09:00 predniSONE 15 mg PO DAILY - Plan Plan:: I/P: Acute: Community-Acquired Pneumonia- RLL, Improving -Parainfluenza Virus 3 positive -Influenza, Mycoplasma, S. pnuemo, MRSA negative -WBC 21.33-->9.92-->6.25-->8.41 -CRP 10.3-->11.9-->5.5 -O2 2L to maintain >90% -CXR (02/09/18): Small R sided pleural effusion, questionable R pulmonary vascular congestion, possible R basilar PNA -F/U CXR (02/11/18): Slightly improved pulmonary vessels, better aeration of R lung base, stable pleural thickening within the right lung base from previous exam. -Most likely immunocompromised 2/2 prednisone use--> Decrease dose 25mg to 15mg -Rocephin 2g IV given in ER prophylactically -Azithro 500 IV x1 given 02/09/18--> Azithro 250 PO (02/10/18) -Day 4 -Immunocompromised--> Start Rocephin 1g IV (02/11/18) -Day 2 -RT/Nebs/IS/FV New onset CHF with preserved EF, Improved -Risk factors: CAD, [place], Afib -CXR: R sided Pleural effusion -BNP: 80702-->93792-->92150-->9468 -Clinical: Pitting edema 2+ bilaterally-->1+ today -2D echo 02/10/18 -EF 60-65%, normalized from 12/15/13. -Suspected Pulmonary HTN--> RV Systolic pressure mod/sev increased at 65.8 -D/C Fluid restriction, continue salt restriction -D/C Lasix gtt, Start Lasix IV push 20mg BID (02/11/18)--> D/C IV push and start Lasix PO 20 BID (02/12/18) Asymptomatic Cystitis -Urine Cx shows 40-50k Gram positive cocci, unspecified bacteria. -Currently denies any dysuria, hematuria. -Does not have catheter. -Will be covered by antibiotic regimen. Chronic: Afib--> On warfarin [place] CAD with stenting Recurrent bronchitis HLD GERD HTN CKD stage III--> eGFR 45, baseline Anemia--> Hgb 9.6-->8.5-->9.5-->8.9; continue to monitor Hypothyroid Subtherapeutic INR --> INR 1.71-->1.29; D/c Heparin/Warfarin and start Elliquis 2.5mg tonight Plan: Transfered to telemetry unit PNA protocol Continue home meds--> D/C Warfarin and start Elliquis 2.5mg, Decrease Prednisone 25->15mg Other orders as indicated above CM/SW for discharge planning Routine AM labs RT/PT/OT DVT Prophylaxis: On warfarin GI prophylaxis: Protonix Ambulated as tolerated Probable D/C tomorrow pending clinical condition Code Status: DNR/DNI; PCP: David Hazel <Neptali Catalan T - Last Filed: 02/12/18 15:04> - Patient Data Vitals - Most Recent: Last Vital Signs Temp 36.9 C 02/12/18 08:25 Pulse 64 02/12/18 08:36 Resp 16 02/12/18 08:25 BP 124/59 L 02/12/18 08:36 Pulse Ox 98 02/12/18 08:52 I&O - Last 24 Hours: Intake & Output 02/12/18 02/12/18 02/12/18 06:59 14:59 22:59 Intake Total 200 180 Balance 200 180 Lab Results Last 24 Hours: Laboratory Results - last 24 hr 02/11/18 02/12/18 02/12/18 Range/Units 21:00 05:43 05:43 WBC 8.41 (4.23-9.07) K/mm3 RBC 2.68 L (4.63-6.08) M/mm3 Hgb 8.9 L (13.7-17.5) gm/L Hct 28.2 L (40.1-51.0) % MCV 105.2 H (79.0-92.2) fl MCH 33.2 H (25.7-32.2) pg MCHC 31.6 L (32.2-35.5) g/dl RDW Std Deviation 61.6 H (35.1-43.9) fL Plt Count 132 L (163-337) K/mm3 MPV 9.9 (9.4-12.3) fl Neut % (Auto) 75.5 H (34.0-67.9) % Lymph % (Auto) 15.6 L (21.8-53.1) % [place] % (Auto) 8.2 (5.3-12.2) % Eos % (Auto) 0.4 L (0.8-7.0) Baso % (Auto) 0.1 (0.1-1.2) % Neut # (Auto) 6.35 H (1.78-5.38) K/mm3 Lymph # (Auto) 1.31 L (1.32-3.57) K/mm3 [place] # (Auto) 0.69 (0.30-0.82) K/mm3 Eos # (Auto) 0.03 L (0.04-0.54) K/mm3 Baso # (Auto) 0.01 (0.01-0.08) K/mm3 Manual Slide Review Abnormal smear PT (8.0-13.0) SECONDS INR Sodium 141 (136-145) mEq/L Potassium 4.4 (3.5-5.1) mEq/L Chloride 100 (98-107) mEq/L Carbon Dioxide 36 H (21-32) mEq/L Anion Gap 9.4 (5-15) BUN 33 H (7-18) mg/dL Creatinine 1.7 H (0.7-1.3) mg/dL Est Cr Clr Drug Dosing 27.83 mL/min Estimated GFR (MDRD) 39 (>60) mL/min BUN/Creatinine Ratio 19.4 H (14-18) Glucose 101 (83-115) mg/dL POC Glucose 194 H (83-110) mg/dL Calcium 8.9 (8.5-10.1) mg/dL C-Reactive Protein 5.5 H* (<1.0) mg/dL NT-Pro-B Natriuret Pep (0-450) pg/mL 02/12/18 02/12/18 02/12/18 Range/Units 05:43 05:43 06:40 WBC (4.23-9.07) K/mm3 RBC (4.63-6.08) M/mm3 Hgb (13.7-17.5) gm/L Hct (40.1-51.0) % MCV (79.0-92.2) fl MCH (25.7-32.2) pg MCHC (32.2-35.5) g/dl RDW Std Deviation (35.1-43.9) fL Plt Count (163-337) K/mm3 MPV (9.4-12.3) fl Neut % (Auto) (34.0-67.9) % Lymph % (Auto) (21.8-53.1) % [place] % (Auto) (5.3-12.2) % Eos % (Auto) (0.8-7.0) Baso % (Auto) (0.1-1.2) % Neut # (Auto) (1.78-5.38) K/mm3 Lymph # (Auto) (1.32-3.57) K/mm3 [place] # (Auto) (0.30-0.82) K/mm3 Eos # (Auto) (0.04-0.54) K/mm3 Baso # (Auto) (0.01-0.08) K/mm3 Manual Slide Review PT 13.8 H (8.0-13.0) SECONDS INR 1.29 Sodium (136-145) mEq/L Potassium (3.5-5.1) mEq/L Chloride (98-107) mEq/L Carbon Dioxide (21-32) mEq/L Anion Gap (5-15) BUN (7-18) mg/dL Creatinine (0.7-1.3) mg/dL Est Cr Clr Drug Dosing mL/min Estimated GFR (MDRD) (>60) mL/min BUN/Creatinine Ratio (14-18) Glucose (83-115) mg/dL POC Glucose 94 (83-110) mg/dL Calcium (8.5-10.1) mg/dL C-Reactive Protein (<1.0) mg/dL NT-Pro-B Natriuret Pep 9468 H (0-450) pg/mL Manjeet Results Last 24 Hours: Microbiology 02/09/18 15:20 Urine Culture - Final Urine, Clean Catch Aerococcus Urinae Enterococcus Faecalis 02/09/18 10:33 Aerobic Blood Culture - Preliminary Blood - Venous - Lab Draw NO GROWTH AFTER 3 DAYS Anaerobic Blood Culture - Preliminary NO GROWTH AFTER 3 DAYS 02/09/18 10:25 Aerobic Blood Culture - Preliminary Blood - Venous NO GROWTH AFTER 3 DAYS Anaerobic Blood Culture - Preliminary NO GROWTH AFTER 3 DAYS Med Orders - Current: Current Medications Acetaminophen (Tylenol) 650 mg PO Q4H PRN PRN Reason: Pain (Mild 1-3)/fever Last Admin: 02/12/18 00:04 Dose: 325 mg Acetaminophen (Tylenol) 325 mg PO TID [facility] Last Admin: 02/12/18 14:40 Dose: Not Given Hydrocodone Bitart/Acetaminophen ([place] 325-5 Mg) 1 tab PO Q4H PRN PRN Reason: Pain (moderate 4-6) Albuterol/Ipratropium (Duoneb 3.0-0.5 Mg/3 Ml) 3 ml NEB Q4H PRN PRN Reason: Shortness of Breath Apixaban (Eliquis) 2.5 mg PO BID [facility] Bisacodyl (Dulcolax) 5 mg PO DAILY PRN PRN Reason: Constipation Cholecalciferol (Vitamin D3) 1,000 units PO DAILY [facility] Last Admin: 02/12/18 08:31 Dose: 1,000 units Docusate Sodium (Colace) 100 mg PO BID PRN PRN Reason: Constipation Fentanyl (Duragesic) 12 mcg TRDERM Q72H [facility] Last Admin: 02/10/18 16:37 Dose: Not Given Furosemide (Lasix) 20 mg PO DAILY [facility] Guaifenesin/Phenylephrine HCl (Robitussin Dm) 10 ml PO Q4H PRN PRN Reason: Cough Hydralazine HCl (Apresoline) 10 mg IVPUSH Q4H PRN PRN Reason: Hypertension Hydrochlorothiazide (Hydrochlorothiazide) 12.5 mg PO BIDDIURETIC [facility] Last Admin: 02/12/18 13:53 Dose: 12.5 mg Hydromorphone HCl (Dilaudid) 0.25 mg IVPUSH Q2H PRN PRN Reason: Pain (severe 7-10) Promethazine HCl 6.25 mg/ (Sodium Chloride) 50.25 mls @ 100 mls/hr IV Q6H PRN PRN Reason: Nausea/Vomiting Ceftriaxone Sodium 1 gm/ (Sodium Chloride) 100 mls @ 200 mls/hr IV Q24H [facility] Last Admin: 02/12/18 10:50 Dose: 200 mls/hr Insulin Aspart (Novolog) 0 unit SUBCUT BID@0700,2100 [facility]; Protocol Last Admin: 02/12/18 09:54 Dose: Not Given Levothyroxine Sodium (Synthroid) 50 mcg PO ACBREAKFAST [facility] Last Admin: 02/12/18 06:43 Dose: 50 mcg Lorazepam (Ativan) 0.25 mg IV Q6H PRN PRN Reason: Anxiety Magnesium Sulfate (Pharmacy To Dose - Magnesium Replacement) 0 dose .XX ASDIRECTED PRN PRN Reason: RX TO WATCH MAG LEVELS Metoprolol Tartrate (Lopressor) 25 mg PO Q12HR [facility] Last Admin: 02/12/18 08:36 Dose: 25 mg Metoprolol Tartrate (Lopressor) 5 mg IVPUSH Q4H PRN PRN Reason: Tachycardia Ondansetron HCl (Zofran) 4 mg IV Q6H PRN PRN Reason: Nausea/Vomiting Pantoprazole Sodium (Protonix) 40 mg PO DAILY [facility] Last Admin: 02/12/18 08:31 Dose: 40 mg Paroxetine HCl (Paxil) 15 mg PO BID [facility] Last Admin: 02/12/18 08:37 Dose: 15 mg Combivent Respimat Inhaler (Albuterol/Ipratropium 4 Gm) 0 each INH Q4H PRN PRN Reason: Shortness of Breath Polyethylene Glycol (Miralax) 17 gm PO DAILY PRN PRN Reason: Constipation Potassium Chloride (Pharmacy To Dose - Potassium Replacement) 0 dose .XX ASDIRECTED PRN PRN Reason: RX TO WATCH K LEVELS Prednisone (Prednisone) 15 mg PO DAILY [facility] Last Admin: 02/12/18 08:30 Dose: 15 mg Saccharomyces Boulardii (Florastor) 250 mg PO BID [facility] Last Admin: 02/12/18 08:36 Dose: 250 mg Senna/Docusate Sodium (Senna Plus) 1 tab PO BID PRN PRN Reason: Constipation Simvastatin (Zocor) 5 mg PO DAILY [facility] Last Admin: 02/12/18 08:34 Dose: 5 mg Sodium Chloride (Saline Flush) 10 ml FLUSH ASDIRECTED PRN PRN Reason: Keep Vein Open Tamsulosin HCl (Flomax) 0.4 mg PO BID [facility] Last Admin: 02/12/18 08:29 Dose: 0.4 mg Temazepam (Restoril) 7.5 mg PO BEDTIME PRN PRN Reason: Sleep Last Admin: 02/11/18 22:51 Dose: 7.5 mg Discontinued Medications Acetaminophen (Tylenol) 650 mg PO Q4HR [facility] Last Admin: 02/10/18 19:53 Dose: Not Given Hydrocodone Bitart/Acetaminophen ([place] 325-5 Mg) 1 tab PO Q6H PRN PRN Reason: Pain Albuterol/Ipratropium (Duoneb 3.0-0.5 Mg/3 Ml) 3 ml NEB ONETIME ONE Stop: 02/09/18 10:10 Last Admin: 02/09/18 10:18 Dose: 3 ml Albuterol/Ipratropium (Duoneb 3.0-0.5 Mg/3 Ml) 3 ml NEB Q4H PRN PRN Reason: Shortness Of Breath/wheezing Last Admin: 02/09/18 17:41 Dose: 3 ml Azithromycin (Zithromax) 250 mg PO DAILY JARRED Stop: 02/12/18 10:00 Last Admin: 02/12/18 08:29 Dose: 250 mg Cyanocobalamin (Vitamin B12) 1,000 mcg IM SEECOMMENT ONE Stop: 02/10/18 09:01 Last Admin: 02/10/18 09:01 Dose: 1,000 mcg Enoxaparin Sodium (Lovenox) 40 mg SUBCUT DAILY JARRED Last Admin: 02/10/18 12:44 Dose: 40 mg Furosemide (Lasix) 20 mg IVPUSH BIDDIURETIC JARRED Last Admin: 02/12/18 06:43 Dose: 20 mg Heparin Sodium (Porcine) (Heparin Sodium) 5,000 units SUBCUT Q12HR JARRED Last Admin: 02/12/18 09:48 Dose: 5,000 units Hydrochlorothiazide (Hydrochlorothiazide) 6.25 mg PO BIDDIURETIC JARRED Last Admin: 02/10/18 06:16 Dose: 6.25 mg Ceftriaxone Sodium 2 gm/ (Sodium Chloride) 100 mls @ 100 mls/hr IV ONETIME ONE Stop: 02/09/18 13:07 Last Admin: 02/09/18 12:14 Dose: 100 mls/hr Furosemide 100 mg/ Sodium (Chloride) 100 mls @ 3 mls/hr IV TITRATE JARRED; Protocol Stop: 02/10/18 22:30 Last Admin: 02/09/18 22:23 Dose: 3 mls/hr Azithromycin 500 mg/ Sodium (Chloride) 250 mls @ 250 mls/hr IV ONETIME ONE Stop: 02/09/18 19:28 Last Admin: 02/09/18 19:14 Dose: 250 mls/hr Insulin Aspart (Novolog) 4 unit SUBCUT BID [facility] Insulin Aspart (Novolog) 0 unit SUBCUT BID [facility]; Protocol Last Admin: 02/10/18 21:30 Dose: 2 units Insulin Aspart (Novolog) 0 unit SUBCUT BID [facility]; Protocol Non-Formulary Medication (Cyanocobalamin (Vitamin B-12) [Physicians Ez Use B-12] ) 1,000 mcg IJ ASDIRECTED [facility] Non-Formulary Medication (Fentanyl [Fentanyl]) 1 each TD ASDIRECTED [facility] Paroxetine HCl (Paxil) 15 mg PO BID [facility] Last Admin: 02/10/18 12:55 Dose: Not Given Prednisone (Prednisone) 25 mg PO DAILY [facility] Last Admin: 02/11/18 08:15 Dose: 25 mg Saccharomyces Boulardii (Florastor) 250 mg PO DAILY [facility] Last Admin: 02/11/18 08:18 Dose: 250 mg Sodium Chloride (Saline Flush) 10 ml FLUSH ASDIRECTED PRN PRN Reason: Keep Vein Open Last Admin: 02/09/18 10:33 Dose: 10 ml Warfarin Sodium (Coumadin) 2.5 mg PO ONETIME ONE Stop: 02/10/18 18:01 Last Admin: 02/10/18 17:58 Dose: 2.5 mg Warfarin Sodium (Pharmacy To Dose - Warfarin) 1 dose PO ASDIRECTED [facility] Warfarin Sodium (Coumadin) 2.5 mg PO ONETIME ONE Stop: 02/11/18 18:01 Last Admin: 02/11/18 17:22 Dose: 2.5 mg Warfarin Sodium (Coumadin) 2.5 mg PO ONETIME ONE Stop: 02/12/18 18:01 Warfarin Sodium (Coumadin) 5 mg PO ONETIME ONE Stop: 02/12/18 18:01 - Problem List Review Problem List Initiated/Reviewed/Updated: Yes - My Orders Last 24 Hours: My Active Orders 02/12/18 21:00 Apixaban [Eliquis] 2.5 mg PO BID 02/13/18 05:11 BASIC METABOLIC PANEL,BMP [CHEM] AM C-REACTIVE PROTEIN [CHEM] AM CBC WITH AUTO DIFF [HEME] AM PRO B-TYPE NATRIUR PEPT,BNPPRO [CHEM] DAILY 02/13/18 05:25 INR,PT,PROTHROMBIN TIME [COAG] DAILY 02/13/18 09:00 Furosemide [Lasix] 20 mg PO DAILY 02/14/18 05:11 BASIC METABOLIC PANEL,BMP [CHEM] AM C-REACTIVE PROTEIN [CHEM] AM CBC WITH AUTO DIFF [HEME] AM PRO B-TYPE NATRIUR PEPT,BNPPRO [CHEM] DAILY 02/14/18 05:25 INR,PT,PROTHROMBIN TIME [COAG] DAILY - Plan Plan:: He continues to improve clinically. LOS > 96 hrs, he may benefit with one more day of treatment. D/c in AM.
[2018-02-12] MEDS: Acetaminophen 325 MG Tab PO SCH ×3 (10:02→20:42)
[2018-02-12] MEDS: cefTRIAXone 1 GM in Sodium Chloride 0.9% 100 ML IV SCH (10:50)
[2018-02-12] MEDS ORDERED: Albuterol/Ipratropium 3.0-0.5 MG/3 ML Neb Soln NEB PRN (12:20)
[2018-02-12] MEDS ORDERED: Warfarin 2.5 MG Tab PO ONE (18:00)
[2018-02-12] MEDS ORDERED: Warfarin 5 MG Tab PO ONE (18:00)
[2018-02-12] MEDS: Apixaban 5 MG Tab PO SCH (20:43)
[2018-02-12] MEDS ORDERED: Albuterol/Ipratropium 3.0-0.5 MG/3 ML Neb Soln NEB SCH (21:00)
[2018-02-13] MEDS: Hydrochlorothiazide 12.5 MG Cap PO SCH (06:52)
[2018-02-13] MEDS: Levothyroxine 50 MCG Tab PO SCH (06:52)
[2018-02-13] MEDS ORDERED: Furosemide 20 MG Tab PO SCH (09:00)
[2018-02-13 09:56] VITALS: BP 140/66
[2018-02-13] MEDS: Insulin Aspart 100 Units/ML 3 ML Pen SUBCUT SCH (10:00)
[2018-02-13] MEDS: Apixaban 5 MG Tab PO SCH (10:00)
[2018-02-13] MEDS: Tamsulosin 0.4 MG Cap.ER PO SCH (10:01)
[2018-02-13] MEDS: Saccharomyces Boulardii (Probiotic) 250 MG Cap PO SCH (10:01)
[2018-02-13] MEDS: Metoprolol Tartrate 25 MG Tab PO SCH (10:02)
[2018-02-13] MEDS: predniSONE 5 MG Tab PO SCH (10:05)
[2018-02-13] MEDS: Pantoprazole 40 MG Tab.CR PO SCH (10:05)
[2018-02-13] MEDS: Acetaminophen 325 MG Tab PO SCH (10:06)
[2018-02-13] MEDS: Cholecalciferol (Vitamin D3) 1,000 Unit Tab PO SCH (10:09)
[2018-02-13] MEDS: Simvastatin 10 MG Tab PO SCH (10:09)
[2018-02-13] MEDS: fentaNYL 12 MCG/HR Transdermal Patch TRDERM SCH (10:10)
[2018-02-13] MEDS: cefTRIAXone 1 GM in Sodium Chloride 0.9% 100 ML IV SCH (10:10)
--- NOTE | 2018-02-13 12:45 | PCM.DCSUM1 ---
Discharge Summary - Hospital Course HPI Initial Comments: The patient presents with increased shortness of breath and cough. He is a resident of [facility]. He is on oxygen at the [facility] at 2L. He is requiring 4L to keep above 90%. Without it he is 74%. He does not have a fever here but he has some chills. He has a productive cough. He has no chest pain. He has no abdominal pain, nausea, or vomiting. He has no pain or edema in his legs. - Discharge Data Discharge Date: 02/13/18 (admitted on 02/09/18) Discharge Disposition: DC/Tfer to SNF 03 Condition: Good - Discharge Diagnosis/Problem(s) (1) Pneumonia SNOMED Code(s): 355945099 ICD Code: J18.9 - PNEUMONIA, UNSPECIFIED ORGANISM Status: Acute Priority : High Current Visit: Yes Qualifiers: Pneumonia type: due to unspecified organism Laterality: right Lung location: lower lobe of lung Qualified Code(s): J18.1 - Lobar pneumonia, unspecified organism (2) Congestive heart failure with preserved left ventricular function, NYHA class 1 SNOMED Code(s): 82258208, 654111070, 245073397 ICD Code: I50.30 - UNSPECIFIED DIASTOLIC (CONGESTIVE) HEART FAILURE Status : Chronic Priority: High Current Visit: Yes (3) Cystitis SNOMED Code(s): 70240855 ICD Code: N30.90 - CYSTITIS, UNSPECIFIED WITHOUT HEMATURIA Status: Acute Priority: Medium Current Visit: Yes (4) Subtherapeutic international normalized ratio (INR) SNOMED Code(s): 569748262, 564304818 ICD Code: R79.1 - ABNORMAL COAGULATION PROFILE Status: Acute Priority: Medium Current Visit: Yes (5) Acute respiratory distress SNOMED Code(s): 393665297 ICD Code: R06.03 - ACUTE RESPIRATORY DISTRESS Status: Acute Priority: High Current Visit: Yes (6) Afib SNOMED Code(s): 66968917 ICD Code: I48.91 - UNSPECIFIED ATRIAL FIBRILLATION Status: Chronic Priority: Medium Current Visit: Yes (7) CAD (coronary artery disease) SNOMED Code(s): 01839712 ICD Code: I25.10 - ATHSCL HEART DISEASE OF [place] CORONARY ARTERY W/O ANG PCTRS Status: Acute Priority: Medium Current Visit: No Qualifiers: Coronary Disease-Associated Artery/Lesion type: unspecified vessel or lesion type [place] vs. transplanted heart: [place] heart Associated angina: without angina Qualified Code(s): I25.10 - Atherosclerotic heart disease of [place] coronary artery without angina pectoris (8) HLD (hyperlipidemia) SNOMED Code(s): 69378310 ICD Code: E78.5 - HYPERLIPIDEMIA, UNSPECIFIED Status: Chronic Priority: Low Current Visit: No (9) GERD (gastroesophageal reflux disease) SNOMED Code(s): 026971513 ICD Code: K21.9 - GASTRO-ESOPHAGEAL REFLUX DISEASE WITHOUT ESOPHAGITIS Status: Chronic Priority: Low Current Visit: No Qualifiers: Esophagitis presence: esophagitis presence not specified Qualified Code(s) : K21.9 - Gastro-esophageal reflux disease without esophagitis (10) CKD (chronic kidney disease), stage III SNOMED Code(s): 577683598 ICD Code: N18.3 - CHRONIC KIDNEY DISEASE, STAGE 3 (MODERATE) Status: Chronic Priority: Medium Current Visit: Yes (11) Hypothyroid SNOMED Code(s): 34157589 ICD Code: E03.9 - HYPOTHYROIDISM, UNSPECIFIED Status: Chronic Priority: Low Current Visit: No Qualifiers: Hypothyroidism type: unspecified Qualified Code(s): E03.9 - Hypothyroidism , unspecified (12) Hypoxia SNOMED Code(s): 666985646 ICD Code: R09.02 - HYPOXEMIA Status: Acute Current Visit: Yes (13) Benign essential hypertension SNOMED Code(s): 5012499 ICD Code: I10 - ESSENTIAL (PRIMARY) HYPERTENSION Status: Acute Current Visit: No (14) Onychocryptosis SNOMED Code(s): 230368781 ICD Code: L60.0 - INGROWING NAIL Status: Acute Priority: Low Current Visit: Yes - Patient Summary/Data Operative Procedure(s) Performed: none Complications: none Consults: Consultations 02/09/18 17:04 Consult to Regional Economist [CONS] Routine OT Evaluation and Treatment [CONS] Routine PT Evaluation and Treatment [CONS] Routine Respiratory Care Assess and Treatment [CONS] Routine Labs Pending at D/C: none Recommended Follow-up Testing/Procedures: Follow up with PCP in 1 week. Recommend podiatry follow up for onychocryptosis (Right 3rd toe). Planned Operative Procedure(s) after DC: none Hospital Course: I/P: Acute: Community-Acquired Pneumonia- RLL, Improving -Parainfluenza Virus 3 positive -Influenza, Mycoplasma, S. pnuemo, MRSA negative -WBC 21.33-->9.92-->6.25-->8.41-->5.72 -CRP 10.3-->11.9-->5.5-->3.7 -O2 2L to maintain >90% -CXR (02/09/18): Small R sided pleural effusion, questionable R pulmonary vascular congestion, possible R basilar PNA -F/U CXR (02/11/18): Slightly improved pulmonary vessels, better aeration of R lung base, stable pleural thickening within the right lung base from previous exam. -Most likely immunocompromised 2/2 prednisone use--> Decrease dose 25mg to 15mg--> continue 15mg at [facility]. -Rocephin 2g IV given in ER prophylactically -Azithro 500 IV x1 given 02/09/18--> Azithro 250 PO (02/10/18) -Day 4--> D/C today -Immunocompromised--> Start Rocephin 1g IV (02/11/18) -Day 2--> D/C today -RT/Nebs/IS/FV New onset CHF with preserved EF, Improved -Risk factors: CAD, [place], Afib -CXR: R sided Pleural effusion -BNP: 50582-->53099-->47350-->9468--> 5126 -Clinical: Pitting edema 2+ bilaterally-->1+ today--> none today -2D echo 02/10/18 -EF 60-65%, normalized from 12/15/13. -Suspected Pulmonary HTN--> RV Systolic pressure mod/sev increased at 65.8 -D/C Fluid restriction, continue salt restriction at home -D/C Lasix gtt, Start Lasix IV push 20mg BID (02/11/18)--> D/C IV push and start Lasix PO 20 BID (02/12/18) -Continue Lasix [address] [facility] //F and PRN for increased edema or SOB -Start Potassium 10mg with Lasix /W/ -Start Lisinopril 2.5 BID at home Asymptomatic Cystitis -Urine Cx shows Aerococcus Urinae and Enterococcus Faecalis -Currently denies any dysuria, hematuria. -Does not have catheter. -Culture sensitivity showed PCN as preferred treatment --> Prescribed PCN V 250 q6hrs x5 days with probiotic Chronic: Afib--> On Elliquis [place] CAD with stenting Recurrent bronchitis HLD GERD HTN CKD stage III--> eGFR 45, baseline Anemia--> Hgb 9.6-->8.5-->9.5-->8.9; continue to monitor Hypothyroid Subtherapeutic INR --> INR 1.71-->1.29; D/c Heparin/Warfarin-->continue Elliquis 2.5mg at SNF. Plan: Transfered to telemetry unit PNA protocol Continue home meds--> D/C Warfarin--> continue Elliquis 2.5mg, Decrease Prednisone 25->15mg at SNF. Other orders as indicated above CM/SW for discharge planning Routine AM labs RT/PT/OT DVT Prophylaxis: On Elliquis GI prophylaxis: Protonix Ambulated as tolerated D/C today Code Status: DNR/DNI; PCP: David Hazel Will has recovered quite well. He had multiple tests done. He was positive for Parainfluenza Virus 3 as well as a positive urine culture. He has responded well to treatment here and will be sent home with PCN V for complete treatment of the UTI. We suspect his Prednisone may have contributed to this CAP, so we have also lowered his at-home dose from 25mg to 15mg to prevent further immunosuppression. He also has new onset CHF- he will be on salt restriction and prescribed Lasix 20PO M/W/F with K supplement and PRN for increased edema or SOB at home. He has also been started on Lisinopril 2.5. Finally, his INR is notoriously subtherapeutic, so we have switched him from Warfarin to Elliquis. He should follow-up with her primary care provider in 7-10 days. He also complains of onychocryptosis- we recommend follow up with podiatry- this can be arranged with his PCP. He will be discharged back to [facility] today. - Patient Instructions Diet: Heart Healthy Diet, Low Sodium (2g) Activity: As Tolerated Driving: Do Not Drive Showering/Bathing: May Shower Notify Provider of: Fever, Increased Pain, Nausea and/or Vomiting - Discharge Plan Prescriptions/Med Rec: Penicillin V Potassium 250 mg PO Q6HR #20 tablet Apixaban [Eliquis] 2.5 mg PO BID #60 tablet Furosemide [Lasix] 20 mg PO ASDIRECTED #30 tab Lisinopril 2.5 mg PO DAILY #30 tablet Potassium Chloride 10 meq PO ASDIRECTED #30 cap.er Home Medications: Home Meds Acetaminophen 650 mg PO Q4HR PRN 02/09/18 [History] Acetaminophen/HYDROcodone [[place] 325-5 MG] 1 tab PO Q6H PRN 02/09/18 [History] Albuterol/Ipratropium [Combivent Respimat] 4 gm IH Q4H PRN 02/09/18 [History] Cholecalciferol (Vitamin D3) [Vitamin D3] 1,000 unit PO DAILY 02/09/18 [History] Cyanocobalamin (Vitamin B-12) [Physicians Ez Use B-12] 1,000 mcg IJ ASDIRECTED 02/09/18 [History] Levothyroxine [Synthroid] 50 mcg PO ACBREAKFAST 02/09/18 [History] Metoprolol Tartrate [Lopressor] 25 mg PO Q12HR 02/09/18 [History] Omeprazole 20 mg PO DAILY 02/09/18 [History] PARoxetine HCl [Paroxetine HCl] 15 mg PO BID 02/09/18 [History] Pravastatin [Pravachol] 10 mg PO DAILY 02/09/18 [History] Saccharomyces Boulardii [Florastor] 250 mg PO DAILY 02/09/18 [History] Tamsulosin HCl [Flomax] 0.4 mg PO BID 02/09/18 [History] fentaNYL [Fentanyl] 12 mcg TD Q72H 02/09/18 [History] Acetaminophen 325 mg PO TID 02/10/18 [History] Apixaban [Eliquis] 2.5 mg PO BID #60 tablet 02/13/18 [Rx] Furosemide [Lasix] 20 mg PO ASDIRECTED #30 tab 02/13/18 [Rx] Lisinopril 2.5 mg PO DAILY #30 tablet 02/13/18 [Rx] Penicillin V Potassium 250 mg PO Q6HR #20 tablet 02/13/18 [Rx] Potassium Chloride 10 meq PO ASDIRECTED #30 cap.er 02/13/18 [Rx] predniSONE [Prednisone] 15 mg PO DAILY #30 02/13/18 [Rx] Patient Handouts: Heart Failure, [id number], Atrial Fibrillation, Easy-to- Read Referrals: David Hazel MD [Primary Care Provider] - - Discharge Summary/Plan Comment DC Time >30 min.: Yes (50) - Patient Data Vitals - Most Recent: Last Vital Signs Temp 97.8 F 02/13/18 09:00 Pulse 61 02/13/18 10:02 Resp 20 02/13/18 09:00 BP 140/66 02/13/18 10:02 Pulse Ox 96 02/13/18 09:00 Weight - Most Recent: 126 lb 14.4 oz I&O - Last 24 hours: Intake & Output 02/12/18 02/13/18 02/13/18 22:59 06:59 14:59 Intake Total 980 500 540 Output Total 200 500 Balance 780 0 540 Lab Results - Last 24 hrs: Laboratory Results - last 24 hr 02/12/18 02/13/18 02/13/18 Range/Units 20:37 05:25 05:25 WBC 5.72 (4.23-9.07) K/mm3 RBC 2.69 L (4.63-6.08) M/mm3 Hgb 9.2 L (13.7-17.5) gm/L Hct 27.9 L (40.1-51.0) % MCV 103.7 H (79.0-92.2) fl MCH 34.2 H (25.7-32.2) pg MCHC 33.0 (32.2-35.5) g/dl RDW Std Deviation 59.8 H (35.1-43.9) fL Plt Count 151 L (163-337) K/mm3 MPV 9.6 (9.4-12.3) fl Neut % (Auto) 59.0 (34.0-67.9) % Lymph % (Auto) 27.8 (21.8-53.1) % [place] % (Auto) 12.4 H (5.3-12.2) % Eos % (Auto) 0.3 L (0.8-7.0) Baso % (Auto) 0.2 (0.1-1.2) % Neut # (Auto) 3.37 (1.78-5.38) K/mm3 Lymph # (Auto) 1.59 (1.32-3.57) K/mm3 [place] # (Auto) 0.71 (0.30-0.82) K/mm3 Eos # (Auto) 0.02 L (0.04-0.54) K/mm3 Baso # (Auto) 0.01 (0.01-0.08) K/mm3 Manual Slide Review Abnormal smear PT (8.0-13.0) SECONDS INR Sodium 137 (136-145) mEq/L Potassium 3.6 (3.5-5.1) mEq/L Chloride 98 (98-107) mEq/L Carbon Dioxide 32 (21-32) mEq/L Anion Gap 10.6 (5-15) BUN 34 H (7-18) mg/dL Creatinine 1.5 H (0.7-1.3) mg/dL Est Cr Clr Drug Dosing 30.91 mL/min Estimated GFR (MDRD) 45 (>60) mL/min BUN/Creatinine Ratio 22.7 H (14-18) Glucose 131 H (83-115) mg/dL POC Glucose 217 H (83-110) mg/dL Calcium 8.7 (8.5-10.1) mg/dL C-Reactive Protein 3.7 H* (<1.0) mg/dL NT-Pro-B Natriuret Pep (0-450) pg/mL 02/13/18 02/13/18 02/13/18 Range/Units 05:25 05:25 06:51 WBC (4.23-9.07) K/mm3 RBC (4.63-6.08) M/mm3 Hgb (13.7-17.5) gm/L Hct (40.1-51.0) % MCV (79.0-92.2) fl MCH (25.7-32.2) pg MCHC (32.2-35.5) g/dl RDW Std Deviation (35.1-43.9) fL Plt Count (163-337) K/mm3 MPV (9.4-12.3) fl Neut % (Auto) (34.0-67.9) % Lymph % (Auto) (21.8-53.1) % [place] % (Auto) (5.3-12.2) % Eos % (Auto) (0.8-7.0) Baso % (Auto) (0.1-1.2) % Neut # (Auto) (1.78-5.38) K/mm3 Lymph # (Auto) (1.32-3.57) K/mm3 [place] # (Auto) (0.30-0.82) K/mm3 Eos # (Auto) (0.04-0.54) K/mm3 Baso # (Auto) (0.01-0.08) K/mm3 Manual Slide Review PT 14.1 H (8.0-13.0) SECONDS INR 1.31 Sodium (136-145) mEq/L Potassium (3.5-5.1) mEq/L Chloride (98-107) mEq/L Carbon Dioxide (21-32) mEq/L Anion Gap (5-15) BUN (7-18) mg/dL Creatinine (0.7-1.3) mg/dL Est Cr Clr Drug Dosing mL/min Estimated GFR (MDRD) (>60) mL/min BUN/Creatinine Ratio (14-18) Glucose (83-115) mg/dL POC Glucose 98 (83-110) mg/dL Calcium (8.5-10.1) mg/dL C-Reactive Protein (<1.0) mg/dL NT-Pro-B Natriuret Pep 5126 H (0-450) pg/mL 02/13/18 Range/Units 11:36 WBC (4.23-9.07) K/mm3 RBC (4.63-6.08) M/mm3 Hgb (13.7-17.5) gm/L Hct (40.1-51.0) % MCV (79.0-92.2) fl MCH (25.7-32.2) pg MCHC (32.2-35.5) g/dl RDW Std Deviation (35.1-43.9) fL Plt Count (163-337) K/mm3 MPV (9.4-12.3) fl Neut % (Auto) (34.0-67.9) % Lymph % (Auto) (21.8-53.1) % [place] % (Auto) (5.3-12.2) % Eos % (Auto) (0.8-7.0) Baso % (Auto) (0.1-1.2) % Neut # (Auto) (1.78-5.38) K/mm3 Lymph # (Auto) (1.32-3.57) K/mm3 [place] # (Auto) (0.30-0.82) K/mm3 Eos # (Auto) (0.04-0.54) K/mm3 Baso # (Auto) (0.01-0.08) K/mm3 Manual Slide Review PT (8.0-13.0) SECONDS INR Sodium (136-145) mEq/L Potassium (3.5-5.1) mEq/L Chloride (98-107) mEq/L Carbon Dioxide (21-32) mEq/L Anion Gap (5-15) BUN (7-18) mg/dL Creatinine (0.7-1.3) mg/dL Est Cr Clr Drug Dosing mL/min Estimated GFR (MDRD) (>60) mL/min BUN/Creatinine Ratio (14-18) Glucose (83-115) mg/dL POC Glucose 150 H (83-110) mg/dL Calcium (8.5-10.1) mg/dL C-Reactive Protein (<1.0) mg/dL NT-Pro-B Natriuret Pep (0-450) pg/mL RAMON Results - Last 24 hrs: Microbiology 02/12/18 16:12 Gram Stain - Final Sputum - Expectorated Sputum Culture - Final 02/09/18 10:33 Aerobic Blood Culture - Preliminary Blood - Venous - Lab Draw NO GROWTH AFTER 4 DAYS Anaerobic Blood Culture - Preliminary NO GROWTH AFTER 4 DAYS 02/09/18 10:25 Aerobic Blood Culture - Preliminary Blood - Venous NO GROWTH AFTER 4 DAYS Anaerobic Blood Culture - Preliminary NO GROWTH AFTER 4 DAYS 02/09/18 15:20 Urine Culture - Final Urine, Clean Catch Aerococcus Urinae Enterococcus Faecalis Med Orders - Current: Current Medications Acetaminophen (Tylenol) 650 mg PO Q4H PRN PRN Reason: Pain (Mild 1-3)/fever Last Admin: 02/12/18 00:04 Dose: 325 mg Acetaminophen (Tylenol) 325 mg PO TID JARRED Last Admin: 04/06/18 10:06 Dose: 325 mg Hydrocodone Bitart/Acetaminophen ([place] 325-5 Mg) 1 tab PO Q4H PRN PRN Reason: Pain (moderate 4-6) Albuterol/Ipratropium (Duoneb 3.0-0.5 Mg/3 Ml) 3 ml NEB Q4H PRN PRN Reason: Shortness of Breath Apixaban (Eliquis) 2.5 mg PO BID [facility] Last Admin: 02/13/18 10:00 Dose: 2.5 mg Bisacodyl (Dulcolax) 5 mg PO DAILY PRN PRN Reason: Constipation Cholecalciferol (Vitamin D3) 1,000 units PO DAILY [facility] Last Admin: 02/13/18 10:09 Dose: 1,000 units Docusate Sodium (Colace) 100 mg PO BID PRN PRN Reason: Constipation Fentanyl (Duragesic) 12 mcg TRDERM Q72H [facility] Last Admin: 02/13/18 10:10 Dose: Not Given Furosemide (Lasix) 20 mg PO DAILY [facility] Last Admin: 02/13/18 10:01 Dose: 20 mg Guaifenesin/Phenylephrine HCl (Robitussin Dm) 10 ml PO Q4H PRN PRN Reason: Cough Hydralazine HCl (Apresoline) 10 mg IVPUSH Q4H PRN PRN Reason: Hypertension Hydrochlorothiazide (Hydrochlorothiazide) 12.5 mg PO BIDDIURETIC [facility] Last Admin: 02/13/18 06:52 Dose: 12.5 mg Hydromorphone HCl (Dilaudid) 0.25 mg IVPUSH Q2H PRN PRN Reason: Pain (severe 7-10) Promethazine HCl 6.25 mg/ (Sodium Chloride) 50.25 mls @ 100 mls/hr IV Q6H PRN PRN Reason: Nausea/Vomiting Ceftriaxone Sodium 1 gm/ (Sodium Chloride) 100 mls @ 200 mls/hr IV Q24H [facility] Last Admin: 02/13/18 10:10 Dose: 200 mls/hr Insulin Aspart (Novolog) 0 unit SUBCUT BID@0700,2100 [facility]; Protocol Last Admin: 02/13/18 10:00 Dose: Not Given Levothyroxine Sodium (Synthroid) 50 mcg PO ACBREAKFAST [facility] Last Admin: 02/13/18 06:52 Dose: 50 mcg Lorazepam (Ativan) 0.25 mg IV Q6H PRN PRN Reason: Anxiety Magnesium Sulfate (Pharmacy To Dose - Magnesium Replacement) 0 dose .XX ASDIRECTED PRN PRN Reason: RX TO WATCH MAG LEVELS Metoprolol Tartrate (Lopressor) 25 mg PO Q12HR [facility] Last Admin: 02/13/18 10:02 Dose: 25 mg Metoprolol Tartrate (Lopressor) 5 mg IVPUSH Q4H PRN PRN Reason: Tachycardia Ondansetron HCl (Zofran) 4 mg IV Q6H PRN PRN Reason: Nausea/Vomiting Pantoprazole Sodium (Protonix) 40 mg PO DAILY [facility] Last Admin: 02/13/18 10:05 Dose: 40 mg Paroxetine HCl (Paxil) 15 mg PO BID [facility] Last Admin: 02/13/18 10:03 Dose: 15 mg Combivent Respimat Inhaler (Albuterol/Ipratropium 4 Gm) 0 each INH Q4H PRN PRN Reason: Shortness of Breath Polyethylene Glycol (Miralax) 17 gm PO DAILY PRN PRN Reason: Constipation Potassium Chloride (Pharmacy To Dose - Potassium Replacement) 0 dose .XX ASDIRECTED PRN PRN Reason: RX TO WATCH K LEVELS Prednisone (Prednisone) 15 mg PO DAILY [facility] Last Admin: 02/13/18 10:05 Dose: 15 mg Saccharomyces Boulardii (Florastor) 250 mg PO BID [facility] Last Admin: 02/13/18 10:01 Dose: 250 mg Senna/Docusate Sodium (Senna Plus) 1 tab PO BID PRN PRN Reason: Constipation Simvastatin (Zocor) 5 mg PO DAILY [facility] Last Admin: 02/13/18 10:09 Dose: 5 mg Sodium Chloride (Saline Flush) 10 ml FLUSH ASDIRECTED PRN PRN Reason: Keep Vein Open Tamsulosin HCl (Flomax) 0.4 mg PO BID [facility] Last Admin: 02/13/18 10:01 Dose: 0.4 mg Temazepam (Restoril) 7.5 mg PO BEDTIME PRN PRN Reason: Sleep Last Admin: 02/11/18 22:51 Dose: 7.5 mg Discontinued Medications Acetaminophen (Tylenol) 650 mg PO Q4HR [facility] Last Admin: 02/10/18 19:53 Dose: Not Given Hydrocodone Bitart/Acetaminophen ([place] 325-5 Mg) 1 tab PO Q6H PRN PRN Reason: Pain Albuterol/Ipratropium (Duoneb 3.0-0.5 Mg/3 Ml) 3 ml NEB ONETIME ONE Stop: 02/09/18 10:10 Last Admin: 02/09/18 10:18 Dose: 3 ml Albuterol/Ipratropium (Duoneb 3.0-0.5 Mg/3 Ml) 3 ml NEB Q4H PRN PRN Reason: Shortness Of Breath/wheezing Last Admin: 02/09/18 17:41 Dose: 3 ml Azithromycin (Zithromax) 250 mg PO DAILY JARRED Stop: 02/12/18 10:00 Last Admin: 02/12/18 08:29 Dose: 250 mg Cyanocobalamin (Vitamin B12) 1,000 mcg IM SEECOMMENT ONE Stop: 02/10/18 09:01 Last Admin: 02/10/18 09:01 Dose: 1,000 mcg Enoxaparin Sodium (Lovenox) 40 mg SUBCUT DAILY JARRED Last Admin: 02/10/18 12:44 Dose: 40 mg Furosemide (Lasix) 20 mg IVPUSH BIDDIURETIC JARRED Last Admin: 02/12/18 06:43 Dose: 20 mg Heparin Sodium (Porcine) (Heparin Sodium) 5,000 units SUBCUT Q12HR JARRED Last Admin: 02/12/18 09:48 Dose: 5,000 units Hydrochlorothiazide (Hydrochlorothiazide) 6.25 mg PO BIDDIURETIC JARRED Last Admin: 02/10/18 06:16 Dose: 6.25 mg Ceftriaxone Sodium 2 gm/ (Sodium Chloride) 100 mls @ 100 mls/hr IV ONETIME ONE Stop: 02/09/18 13:07 Last Admin: 02/09/18 12:14 Dose: 100 mls/hr Furosemide 100 mg/ Sodium (Chloride) 100 mls @ 3 mls/hr IV TITRATE JARRED; Protocol Stop: 02/10/18 22:30 Last Admin: 02/09/18 22:23 Dose: 3 mls/hr Azithromycin 500 mg/ Sodium (Chloride) 250 mls @ 250 mls/hr IV ONETIME ONE Stop: 02/09/18 19:28 Last Admin: 02/09/18 19:14 Dose: 250 mls/hr Insulin Aspart (Novolog) 4 unit SUBCUT BID JARRED Insulin Aspart (Novolog) 0 unit SUBCUT BID [facility]; Protocol Last Admin: 02/10/18 21:30 Dose: 2 units Insulin Aspart (Novolog) 0 unit SUBCUT BID [facility]; Protocol Non-Formulary Medication (Cyanocobalamin (Vitamin B-12) [Physicians Ez Use B-12] ) 1,000 mcg IJ ASDIRECTED [facility] Non-Formulary Medication (Fentanyl [Fentanyl]) 1 each TD ASDIRECTED [facility] Paroxetine HCl (Paxil) 15 mg PO BID [facility] Last Admin: 02/10/18 12:55 Dose: Not Given Prednisone (Prednisone) 25 mg PO DAILY [facility] Last Admin: 02/11/18 08:15 Dose: 25 mg Saccharomyces Boulardii (Florastor) 250 mg PO DAILY [facility] Last Admin: 02/11/18 08:18 Dose: 250 mg Sodium Chloride (Saline Flush) 10 ml FLUSH ASDIRECTED PRN PRN Reason: Keep Vein Open Last Admin: 02/09/18 10:33 Dose: 10 ml Warfarin Sodium (Coumadin) 2.5 mg PO ONETIME ONE Stop: 02/10/18 18:01 Last Admin: 02/10/18 17:58 Dose: 2.5 mg Warfarin Sodium (Pharmacy To Dose - Warfarin) 1 dose PO ASDIRECTED [facility] Warfarin Sodium (Coumadin) 2.5 mg PO ONETIME ONE Stop: 02/11/18 18:01 Last Admin: 02/11/18 17:22 Dose: 2.5 mg Warfarin Sodium (Coumadin) 2.5 mg PO ONETIME ONE Stop: 02/12/18 18:01 Warfarin Sodium (Coumadin) 5 mg PO ONETIME ONE Stop: 02/12/18 18:01
== END 2018-02-13 13:48 | DRG 194 ==
LOC: JD.ED 09:40 → JD.MS 15:32
PROVIDERS: ADMIT Internal Medicine; ATTEND Internal Medicine
DX: J18.9 Pneumonia, unspecified organism (principal); J12.2 Parainfluenza virus pneumonia; J80 Acute respiratory distress syndrome; I13.0 Hypertensive heart and chronic kidney disease with heart failure and stage 1 through stage 4 chronic kidney disease, or unspecified chronic kidney disease; I50.30 Unspecified diastolic (congestive) heart failure; N18.9 Chronic kidney disease, unspecified; I50.9 Heart failure, unspecified; R09.02 Hypoxemia; Z87.891 Personal history of nicotine dependence; Z66 Do not resuscitate; I48.91 Unspecified atrial fibrillation; E78.00 Pure hypercholesterolemia, unspecified; I73.9 Peripheral vascular disease, unspecified; N30.90 Cystitis, unspecified without hematuria; B95.2 Enterococcus as the cause of diseases classified elsewhere; B95.4 Other streptococcus as the cause of diseases classified elsewhere; I25.10 Atherosclerotic heart disease of native coronary artery without angina pectoris; N18.3 Chronic kidney disease, stage 3 (moderate); Z95.5 Presence of coronary angioplasty implant and graft; E78.5 Hyperlipidemia, unspecified; K21.9 Gastro-esophageal reflux disease without esophagitis; E03.9 Hypothyroidism, unspecified; J45.909 Unspecified asthma, uncomplicated; I25.2 Old myocardial infarction; D64.9 Anemia, unspecified; G89.29 Other chronic pain; M54.9 Dorsalgia, unspecified; F32.9 Major depressive disorder, single episode, unspecified; F41.9 Anxiety disorder, unspecified; R19.7 Diarrhea, unspecified; L60.0 Ingrowing nail; Z88.1 Allergy status to other antibiotic agents; Z88.2 Allergy status to sulfonamides; Z79.01 Long term (current) use of anticoagulants; Z99.81 Dependence on supplemental oxygen; Z79.899 Other long term (current) drug therapy
CPT/HCPCS: 36415; 71045; 80053; 81001; 83605; 83880; 84484; 85025; 86738; 87040 ×2; 87086; 87184; 87186; 87899; 93005; 94640; 96365; 99285; J0696; J7030; J7050; 80048; 82553; 82962; 83735; 85610; 86140; 87088; 87205; 87486; 87581; 87633; 87641; 87798; 87804; 93010; 93306; 94667; 94760; 94761; 97110-GP; 97116-GP; 97162-GP; 97165-GO; 99284-25; A9270-GY; J0456; J1644; J1650; J1815-GY; J1940; J3420

== ENCOUNTER 2018-03-05 10:24 | Inpatient (IN) | payer MEDICARE, OTHER ==
[2018-03-05] MEDS ORDERED: Sodium Chloride 0.9% 10 ML Syringe FLUSH PRN (11:00)
[2018-03-05] MEDS ORDERED: Sodium Chloride 0.9% 500 ML IV ONE (11:00)
[2018-03-05] MEDS ORDERED: Iopamidol 755 Mg/ML 100 ML Bottle IVPUSH ONE (11:20)
[2018-03-05] MEDS ORDERED: Sodium Chloride 0.9% 10 ML Syringe FLUSH ONE (11:20)
[2018-03-05] MEDS ORDERED: Sodium Chloride 0.9% 100 ML IV SCH (11:30)
[2018-03-05] MEDS ORDERED: Sodium Chloride 0.9% 1,000 ML IV ONE (12:00)
--- NOTE | 2018-03-05 12:33 | CT ---
CT abdomen and pelvis Technique: Multiple axial sections were obtained from above the dome of the diaphragm inferiorly through the pubic symphysis. Intravenous contrast was utilized. Study was performed has an aortogram exam. Comparison: [place] [id number]. 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 Maximum AP dimension is about 4.0 cm which is stable from most recent exam. 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 Atherosclerotic calcification is noted throughout the aorta. No evidence of aortic aneurysm rupture. No dissection is seen. Diaphragmatic calcification is seen on the right side which is incidental. Liver shows no focal abnormality. Spleen appears within normal limits. Adrenal glands show no nodule. Kidneys show symmetric contrast enhancement without hydronephrosis or mass. Prior CT exam showed a right psoas muscle hematoma which has decreased in size in the interim from prior study with the right psoas muscle remaining slightly enlarged as compared to the left side. No retroperitoneal adenopathy or mesenteric abnormalities are seen. No pelvic mass or adenopathy is seen. Arias catheter is present within the bladder. Appendix not definitely visualized. No free fluid or inflammatory change is seen. Delayed images obtained during the portal phase appear within normal limits. Bone window settings were reviewed which shows compression deformities within T12 and L1 which appear to be old. Mild degenerative change is scattered within the spine. Impression: 1. No evidence of abdominal aortic aneurysm rupture. Aneurysm is stable from most recent CT exam with maximum AP dimension of 4.0 cm. 2. Other incidental findings as noted above. Nothing acute is appreciated. Diagnostic code #3
[2018-03-05] MEDS ORDERED: Acetaminophen/HYDROcodone 325-5 MG Tab PO ONE (13:33)
[2018-03-05] MEDS ORDERED: cefTRIAXone 1 GM in Sodium Chloride 0.9% 100 ML IV ONE (14:22)
--- NOTE | 2018-03-05 15:08 | EDM.PDOC ---
ED HPI GENERAL MEDICAL PROBLEM - General Chief Complaint: Abdominal Pain Stated Complaint: ABDOMINAL PAIN Time Seen by Provider: 03/05/18 11:10 Source of Information: Reports: Patient, [facility]sp Records History Limitations: Reports: No Limitations - History of Present Illness INITIAL COMMENTS - FREE TEXT/NARRATIVE: 82 year old male presents from [facility] for evaluation treatment of weakness. Patient was brought over to the walk-in clinic was sent to us for further management as he was able to get up out of his wheelchair to his weakness. Patient has been having abdominal pain for the last 2 or 3 days. Reports no vomiting. Reports the pain is located throughout his entire abdomen. Patient is a poor historian. He is a DNR/DNI. Primary care provider Dr. House. The patient's records show that he was hospitalized in early February for hypertension, edema and CHF. I did talk with [facility]. He states that he had a "fever "of 99.8 this morning. They did give him some Tylenol. They report he has not had any vomiting or diarrhea. Patient began complaining of weakness and malaise yesterday. Treatments HEALTH INFORMATION TECHNOLOGIST: Reports: Acetaminophen Middle Abdomen Pain Score (Numeric/FACES): 5 - Related Data Allergies Allergy/AdvReac Type Severity Reaction Status Date / Time levofloxacin Allergy Airway Verified 03/05/18 17:10 Tightness Sulfa (Sulfonamide Allergy Anaphylactic Verified 03/05/18 17:10 Antibiotics) Shock Home Meds: Home Meds Acetaminophen 650 mg PO Q4HR PRN 02/09/18 [History] Acetaminophen/HYDROcodone [[place] 325-5 MG] 1 tab PO Q6H PRN 02/09/18 [History] Albuterol/Ipratropium [Combivent Respimat] 4 gm IH Q4H PRN 02/09/18 [History] Cholecalciferol (Vitamin D3) [Vitamin D3] 1,000 unit PO DAILY 02/09/18 [History] Cyanocobalamin (Vitamin B-12) [Physicians Ez Use B-12] 1,000 mcg IJ ASDIRECTED 02/09/18 [History] Levothyroxine [Synthroid] 50 mcg PO ACBREAKFAST 02/09/18 [History] Metoprolol Tartrate [Lopressor] 25 mg PO Q12HR 02/09/18 [History] Omeprazole 20 mg PO DAILY 02/09/18 [History] PARoxetine HCl [Paroxetine HCl] 30 mg PO DAILY 02/09/18 [History] Pravastatin [Pravachol] 10 mg PO DAILY 02/09/18 [History] Saccharomyces Boulardii [Florastor] 250 mg PO DAILY 02/09/18 [History] Tamsulosin HCl [Flomax] 0.4 mg PO BID 02/09/18 [History] Apixaban [Eliquis] 2.5 mg PO BID #60 tablet 02/13/18 [Rx] Furosemide [Lasix] 20 mg PO ASDIRECTED #30 tab 02/13/18 [Rx] Lisinopril 2.5 mg PO DAILY #30 tablet 02/13/18 [Rx] Potassium Chloride 10 meq PO ASDIRECTED #30 cap.er 02/13/18 [Rx] Past Medical History Cardiovascular History: Reports: Afib, Arrhythmia, CAD, High Cholesterol, Hypertension, GA, PVD Respiratory History: Reports: Bronchitis, Recurrent, Other (See Below) Other Respiratory History: hypoxia with chronic O2 use Gastrointestinal History: Reports: GERD Genitourinary History: Reports: Chronic Renal Insuffiency Musculoskeletal History: Reports: Back Pain, Chronic, Fracture Other Musculoskeletal History: Chronic back pain Psychiatric History: Reports: Anxiety, Depression Endocrine/Metabolic History: Reports: Hypothyroidism Hematologic History: Reports: Anemia, Anticoagulation Therapy - Infectious Disease History Infectious Disease History: Reports: Other (See Below) Other Infectious Disease History: human metapneumovirus - Past Surgical History Cardiovascular Surgical History: Reports: Carotid Endarterectomy, Coronary Artery Stent, Vascular Surgery Respiratory Surgical History: Reports: None GI Surgical History: Reports: Appendectomy Male Surgical History: Reports: Other (See Below) Other Male Surgeries/Procedures: exploratory prostate/testicle surgery Social & Family History - Family History Family Medical History: Noncontributory Cardiac: Reports: GA - Tobacco Use Smoking Status *Q: Former Smoker Years of Tobacco use: 64 Packs/Tins Daily: 1 Used Tobacco, but Quit: Yes Month/Year Tobacco Last Used: patient unable to answer Second Hand Smoke Exposure: No - Caffeine Use Caffeine Use: Reports: None Other Caffeine Use: 2 cups per day Caffeine Use Comment: drinks about 2 cups of coffee per day - Alcohol Use Days Per Week of Alcohol Use: 0 Number of Drinks Per Day: 1 Total Drinks Per Week: 0 - Recreational Drug Use Recreational Drug Use: No - Living Situation & Occupation Living situation: Reports: , with Spouse Occupation: Retired ED ROS GENERAL - Review of Systems Review Of Systems: See Below Constitutional: Reports: Fever (per [facility] 99.8), Weakness Cardiovascular: Denies: Chest Pain GI/Abdominal: Reports: Abdominal Pain. Denies: Diarrhea, Vomiting ED EXAM, GI/ABD - Physical Exam Exam: See Below Exam Limited By: No Limitations General Appearance: Alert, WD/WN, No Apparent Distress, Thin, Other ( chronically ill appearing) Respiratory/Chest: No Respiratory Distress, Crackles (right lung base) Cardiovascular: Normal Peripheral Pulses, Regular Rate, Rhythm, No Murmur GI/Abdominal Exam: Normal Bowel Sounds, Soft, Non-Tender. No: Guarding, Rigid Neurological: Alert, Normal Cognition Psychiatric: Normal Affect, Normal Mood Skin Exam: Warm, Dry, Pallor EKG INTERPRETATION EKG Date: 03/05/18 Time: 11:55 Rhythm: NSR Rate (Beats/Min): 72 [place]: Normal P-Wave: Present QRS: Normal ST-T: Depressed (mild V5, V6 , II, III and AVF) QT: Prolonged (mild , QTc 458) EKG Interpretation Comments: NSR at 72 bpm. LVH pattern, Mild ST depressino V5, V6, II, III and AVF. QT is mildly prolonged. Reviewed by myself and Dr. Benjamin. Course - Vital Signs Last Recorded V/S: Last Vital Signs Temp 37.5 C 03/05/18 17:21 Pulse 72 03/05/18 17:21 Resp 17 03/05/18 17:21 BP 130/78 03/05/18 17:21 Pulse Ox 98 03/05/18 17:21 - Orders/Labs/Meds Orders: Active Orders 24 hr Category Date Time Status Ambulate [RC] ASDIRECTED Care 03/05/18 15:40 Active Height and Weight [RC] 04 Care 03/05/18 15:40 Active Intake and Output [RC] 04,16 Care 03/05/18 15:41 Active Oxygen Therapy [RC] PRN Care 03/05/18 15:40 Active RT Aerosol Therapy [RC] ASDIRECTED Care 03/05/18 15:42 Active Up ad Babita [RC] ASDIRECTED Care 03/05/18 15:40 Active VTE/DVT Education [RC] DAILY Care 03/05/18 15:40 Active Vital Signs [RC] Q4HR Care 03/05/18 15:40 Active Consult to Spiritual Care [CONS] Routine Cons 03/05/18 15:44 Active OT Evaluation and Treatment [CONS] Routine Cons 03/05/18 15:44 Active PT Evaluation and Treatment [CONS] Routine Cons 03/05/18 15:44 Active Clear Liquid Diet [DIET] Diet 03/05/18 Dinner Active Chest 1V Frontal [CR] Stat Exams 03/05/18 11:14 Taken BASIC METABOLIC PANEL,BMP [CHEM] AM Lab 03/06/18 05:11 Ordered BASIC METABOLIC PANEL,BMP [CHEM] AM Lab 03/07/18 05:11 Ordered BASIC METABOLIC PANEL,BMP [CHEM] AM Lab 03/08/18 05:11 Ordered BASIC METABOLIC PANEL,BMP [CHEM] AM Lab 03/09/18 05:11 Ordered BASIC METABOLIC PANEL,BMP [CHEM] AM Lab 03/10/18 05:11 Ordered BASIC METABOLIC PANEL,BMP [CHEM] AM Lab 03/11/18 05:11 Ordered C-REACTIVE PROTEIN [CHEM] AM Lab 03/06/18 05:11 Ordered C-REACTIVE PROTEIN [CHEM] AM Lab 03/07/18 05:11 Ordered C-REACTIVE PROTEIN [CHEM] AM Lab 03/08/18 05:11 Ordered C-REACTIVE PROTEIN [CHEM] AM Lab 03/09/18 05:11 Ordered C-REACTIVE PROTEIN [CHEM] AM Lab 03/10/18 05:11 Ordered CBC WITH AUTO DIFF [HEME] AM Lab 03/06/18 05:11 Ordered CBC WITH AUTO DIFF [HEME] AM Lab 03/07/18 05:11 Ordered CBC WITH AUTO DIFF [HEME] AM Lab 03/08/18 05:11 Ordered CBC WITH AUTO DIFF [HEME] AM Lab 03/09/18 05:11 Ordered CBC WITH AUTO DIFF [HEME] AM Lab 03/10/18 05:11 Ordered CBC WITH AUTO DIFF [HEME] AM Lab 03/11/18 05:11 Ordered CULTURE BLOOD [BC] Stat Lab 03/05/18 11:27 Received CULTURE BLOOD [BC] Stat Lab 03/05/18 11:36 Received CULTURE URINE [RM] Stat Lab 03/05/18 11:15 Ordered CULTURE URINE [RM] Stat Lab 03/05/18 11:15 Received MAGNESIUM [CHEM] AM Lab 03/06/18 05:11 Ordered MAGNESIUM [CHEM] AM Lab 03/07/18 05:11 Ordered MAGNESIUM [CHEM] AM Lab 03/08/18 05:11 Ordered MAGNESIUM [CHEM] AM Lab 03/09/18 05:11 Ordered MAGNESIUM [CHEM] AM Lab 03/10/18 05:11 Ordered UA W/MICROSCOPIC [URIN] Stat Lab 03/05/18 11:15 Ordered Acetaminophen [Tylenol] Med 03/05/18 15:40 Active 650 mg PO Q4H PRN Acetaminophen/HYDROcodone [[place] 325-5 MG] Med 03/05/18 15:40 Active 1 tab PO Q4H PRN Albuterol/Ipratropium [DuoNeb 3.0-0.5 MG/3 ML] Med 03/05/18 15:40 Active 3 ml NEB Q4H PRN Bisacodyl [Dulcolax] Med 03/05/18 15:40 Active 5 mg PO DAILY PRN Docusate Sodium [Colace] Med 03/05/18 15:40 Active 100 mg PO BID PRN Docusate Sodium/Sennosides [Senna Plus] Med 03/05/18 15:40 Active 1 tab PO BID PRN HYDROmorphone [Dilaudid] Med 03/05/18 15:40 Active 0.25 mg IVPUSH Q2H PRN LORazepam [Ativan] Med 03/05/18 15:38 Active 2 mg IVPUSH Q4H PRN Magnesium Rep Pharmacy to Dose [Pharmacy to Dose - Med 03/05/18 15:45 Pending Magnesium Replacement] 1 dose .XX ASDIRECTED Metoprolol Tartrate [Lopressor] Med 03/05/18 15:38 Active 5 mg IVPUSH Q4H PRN Ondansetron [Zofran] Med 03/05/18 15:40 Active 4 mg IV Q6H PRN Polyethylene Glycol 3350 [MiraLAX] Med 03/05/18 15:40 Active 17 gm PO DAILY PRN Potassium Rep Pharmacy to Dose [Pharmacy to Dose - Med 03/05/18 15:45 Pending Potassium Replacement] 1 dose .XX ASDIRECTED Promethazine [Phenergan] 6.25 mg Med 03/05/18 15:40 Active Sodium Chloride 0.9% [Normal Saline] 50 ml IV Q6H Sodium Chloride 0.9% [Normal Saline] 1,000 ml Med 03/05/18 12:00 Active IV ONETIME Sodium Chloride 0.9% [Normal Saline] 100 ml Med 03/05/18 11:30 Active IV ASDIRECTED Sodium Chloride 0.9% [Saline Flush] Med 03/05/18 11:00 Active 10 ml FLUSH ASDIRECTED PRN Temazepam [Restoril] Med 03/05/18 15:40 Active 7.5 mg PO BEDTIME PRN hydrALAZINE [Apresoline] Med 03/05/18 15:38 Active 10 mg IVPUSH Q4H PRN Blood Culture x2 Reflex Set [OM.PC] Stat Oth 03/05/18 10:59 Ordered Peripheral IV Insertion Adult [OM.PC] Routine Oth 03/05/18 11:00 Ordered Medication Orders Acetaminophen (Tylenol) 650 mg PO Q4H PRN PRN Reason: Pain (Mild 1-3)/fever Hydrocodone Bitart/Acetaminophen ([place] 325-5 Mg) 1 tab PO Q4H PRN PRN Reason: Pain (moderate 4-6) Albuterol/Ipratropium (Duoneb 3.0-0.5 Mg/3 Ml) 3 ml NEB Q4H PRN PRN Reason: Shortness Of Breath/wheezing Bisacodyl (Dulcolax) 5 mg PO DAILY PRN PRN Reason: Constipation Docusate Sodium (Colace) 100 mg PO BID PRN PRN Reason: Constipation Hydralazine HCl (Apresoline) 10 mg IVPUSH Q4H PRN PRN Reason: Hypertension Hydromorphone HCl (Dilaudid) 0.25 mg IVPUSH Q2H PRN PRN Reason: Pain (severe 7-10) Sodium Chloride (Normal Saline) 100 mls @ 60 mls/hr IV ASDIRECTED JARRED Last Admin: 03/05/18 11:59 Dose: 60 mls/hr Sodium Chloride (Normal Saline) 1,000 mls @ 100 mls/hr IV ONETIME ONE Stop: 03/05/18 21:59 Last Admin: 03/05/18 12:07 Dose: 100 mls/hr Promethazine HCl 6.25 mg/ (Sodium Chloride) 50.25 mls @ 100 mls/hr IV Q6H PRN PRN Reason: Nausea/Vomiting Lorazepam (Ativan) 2 mg IVPUSH Q4H PRN PRN Reason: Seizures Magnesium Sulfate (Pharmacy To Dose - Magnesium Replacement) 1 dose .XX ASDIRECTED [facility] Metoprolol Tartrate (Lopressor) 5 mg IVPUSH Q4H PRN PRN Reason: Tachycardia Ondansetron HCl (Zofran) 4 mg IV Q6H PRN PRN Reason: Nausea/Vomiting Polyethylene Glycol (Miralax) 17 gm PO DAILY PRN PRN Reason: Constipation Potassium Chloride (Pharmacy To Dose - Potassium Replacement) 1 dose .XX ASDIRECTED [facility] Senna/Docusate Sodium (Senna Plus) 1 tab PO BID PRN PRN Reason: Constipation Sodium Chloride (Saline Flush) 10 ml FLUSH ASDIRECTED PRN PRN Reason: Keep Vein Open Last Admin: 03/05/18 11:19 Dose: 10 ml Temazepam (Restoril) 7.5 mg PO BEDTIME PRN PRN Reason: Sleep Labs: Laboratory Tests 03/05/18 03/05/18 03/05/18 Range/Units 10:50 10:50 10:50 WBC 7.52 (4.23-9.07) K/mm3 RBC 2.73 L (4.63-6.08) M/mm3 Hgb 9.3 L (13.7-17.5) gm/L Hct 29.0 L (40.1-51.0) % MCV 106.2 H (79.0-92.2) fl MCH 34.1 H (25.7-32.2) pg MCHC 32.1 L (32.2-35.5) g/dl RDW Std Deviation 61.8 H (35.1-43.9) fL Plt Count 152 L (163-337) K/mm3 MPV 9.2 L (9.4-12.3) fl Neutrophils % (Manual) 62 H (40-60) % Band Neutrophils % 3 (0-10) % Lymphocytes % (Manual) 30 (20-40) % Atypical Lymphs % 0 % Monocytes % (Manual) 3 (2-10) % Eosinophils % (Manual) 2 (0.8-7.0) % Basophils % (Manual) 0 L (0.2-1.2) Platelet Estimate Adequate Polychromasia 1+ slight Anisocytosis 1+ slight RBC Morph Comment Not Reportable PT 11.1 (9.5-12.1) SECONDS INR 1.02 APTT 35 H (24-31) SECONDS Sodium 131 L (136-145) mEq/L Potassium 4.0 (3.5-5.1) mEq/L Chloride 97 L (98-107) mEq/L Carbon Dioxide 27 (21-32) mEq/L Anion Gap 11.0 (5-15) BUN 33 H (7-18) mg/dL Creatinine 2.2 H (0.7-1.3) mg/dL Est Cr Clr Drug Dosing 22.55 mL/min Estimated GFR (MDRD) 29 (>60) mL/min BUN/Creatinine Ratio 15.0 (14-18) Glucose 175 H (83-115) mg/dL Lactic Acid (0.4-2.0) mmol/L Calcium 8.8 (8.5-10.1) mg/dL Total Bilirubin 0.7 (0.2-1.0) mg/dL AST 22 (15-37) U/L ALT 29 (16-63) U/L Alkaline Phosphatase 68 (46-116) U/L Troponin I (0.00-0.056) ng/mL C-Reactive Protein (<1.0) mg/dL NT-Pro-B Natriuret Pep (0-450) pg/mL Total Protein 6.8 (6.4-8.2) g/dl Albumin 3.3 L (3.4-5.0) g/dl Globulin 3.5 gm/dL Albumin/Globulin Ratio 0.9 L (1-2) Lipase 285 (73-393) U/L Free T4 (0.76-1.46) ng/dL TSH 3rd Generation (0.358-3.74) uIU/mL Urine Color (Yellow) Urine Appearance (Clear) Urine pH (5.0-8.0) Ur Specific [place] (1.005-1.030) Urine Protein (Negative) Urine Glucose (UA) (Negative) Urine Ketones (Negative) Urine Occult Blood (Negative) Urine Nitrite (Negative) Urine Bilirubin (Negative) Urine Urobilinogen (0.2-1.0) Ur Leukocyte Esterase (Negative) Urine RBC (0-5) /hpf Urine WBC (0-5) /hpf Ur Epithelial Cells (0-5) /hpf Urine Bacteria (FEW) /hpf Urine Mucus (FEW) /hpf 03/05/18 03/05/18 03/05/18 Range/Units 10:50 10:50 10:50 WBC (4.23-9.07) K/mm3 RBC (4.63-6.08) M/mm3 Hgb (13.7-17.5) gm/L Hct (40.1-51.0) % MCV (79.0-92.2) fl MCH (25.7-32.2) pg MCHC (32.2-35.5) g/dl RDW Std Deviation (35.1-43.9) fL Plt Count (163-337) K/mm3 MPV (9.4-12.3) fl Neutrophils % (Manual) (40-60) % Band Neutrophils % (0-10) % Lymphocytes % (Manual) (20-40) % Atypical Lymphs % % Monocytes % (Manual) (2-10) % Eosinophils % (Manual) (0.8-7.0) % Basophils % (Manual) (0.2-1.2) Platelet Estimate Polychromasia Anisocytosis RBC Morph Comment PT (9.5-12.1) SECONDS INR APTT (24-31) SECONDS Sodium (136-145) mEq/L Potassium (3.5-5.1) mEq/L Chloride (98-107) mEq/L Carbon Dioxide (21-32) mEq/L Anion Gap (5-15) BUN (7-18) mg/dL Creatinine (0.7-1.3) mg/dL Est Cr Clr Drug Dosing mL/min Estimated GFR (MDRD) (>60) mL/min BUN/Creatinine Ratio (14-18) Glucose (83-115) mg/dL Lactic Acid (0.4-2.0) mmol/L Calcium (8.5-10.1) mg/dL Total Bilirubin (0.2-1.0) mg/dL AST (15-37) U/L ALT (16-63) U/L Alkaline Phosphatase (46-116) U/L Troponin I < 0.017 (0.00-0.056) ng/mL C-Reactive Protein 12.5 H* (<1.0) mg/dL NT-Pro-B Natriuret Pep 3440 H (0-450) pg/mL Total Protein (6.4-8.2) g/dl Albumin (3.4-5.0) g/dl Globulin gm/dL Albumin/Globulin Ratio (1-2) Lipase (73-393) U/L Free T4 (0.76-1.46) ng/dL TSH 3rd Generation (0.358-3.74) uIU/mL Urine Color (Yellow) Urine Appearance (Clear) Urine pH (5.0-8.0) Ur Specific [place] (1.005-1.030) Urine Protein (Negative) Urine Glucose (UA) (Negative) Urine Ketones (Negative) Urine Occult Blood (Negative) Urine Nitrite (Negative) Urine Bilirubin (Negative) Urine Urobilinogen (0.2-1.0) Ur Leukocyte Esterase (Negative) Urine RBC (0-5) /hpf Urine WBC (0-5) /hpf Ur Epithelial Cells (0-5) /hpf Urine Bacteria (FEW) /hpf Urine Mucus (FEW) /hpf 03/05/18 03/05/18 03/05/18 Range/Units 10:50 10:59 11:15 WBC (4.23-9.07) K/mm3 RBC (4.63-6.08) M/mm3 Hgb (13.7-17.5) gm/L Hct (40.1-51.0) % MCV (79.0-92.2) fl MCH (25.7-32.2) pg MCHC (32.2-35.5) g/dl RDW Std Deviation (35.1-43.9) fL Plt Count (163-337) K/mm3 MPV (9.4-12.3) fl Neutrophils % (Manual) (40-60) % Band Neutrophils % (0-10) % Lymphocytes % (Manual) (20-40) % Atypical Lymphs % % Monocytes % (Manual) (2-10) % Eosinophils % (Manual) (0.8-7.0) % Basophils % (Manual) (0.2-1.2) Platelet Estimate Polychromasia Anisocytosis RBC Morph Comment PT (9.5-12.1) SECONDS INR APTT (24-31) SECONDS Sodium (136-145) mEq/L Potassium (3.5-5.1) mEq/L Chloride (98-107) mEq/L Carbon Dioxide (21-32) mEq/L Anion Gap (5-15) BUN (7-18) mg/dL Creatinine (0.7-1.3) mg/dL Est Cr Clr Drug Dosing mL/min Estimated GFR (MDRD) (>60) mL/min BUN/Creatinine Ratio (14-18) Glucose (83-115) mg/dL Lactic Acid 1.8 (0.4-2.0) mmol/L Calcium (8.5-10.1) mg/dL Total Bilirubin (0.2-1.0) mg/dL AST (15-37) U/L ALT (16-63) U/L Alkaline Phosphatase (46-116) U/L Troponin I (0.00-0.056) ng/mL C-Reactive Protein (<1.0) mg/dL NT-Pro-B Natriuret Pep (0-450) pg/mL Total Protein (6.4-8.2) g/dl Albumin (3.4-5.0) g/dl Globulin gm/dL Albumin/Globulin Ratio (1-2) Lipase (73-393) U/L Free T4 1.27 (0.76-1.46) ng/dL TSH 3rd Generation 2.531 (0.358-3.74) uIU/mL Urine Color Yellow (Yellow) Urine Appearance Clear (Clear) Urine pH 7.0 (5.0-8.0) Ur Specific [place] 1.020 (1.005-1.030) Urine Protein 1+ H (Negative) Urine Glucose (UA) Negative (Negative) Urine Ketones Negative (Negative) Urine Occult Blood Negative (Negative) Urine Nitrite Negative (Negative) Urine Bilirubin Negative (Negative) Urine Urobilinogen 0.2 (0.2-1.0) Ur Leukocyte Esterase Negative (Negative) Urine RBC Not seen (0-5) /hpf Urine WBC 0-5 (0-5) /hpf Ur Epithelial Cells Not seen (0-5) /hpf Urine Bacteria Many H (FEW) /hpf Urine Mucus Few (FEW) /hpf Meds: Medications Generic Name Dose Route Start Last Admin Trade Name Freq PRN Reason Stop Dose Admin Acetaminophen 650 mg 03/05/18 15:40 Tylenol PO Q4H PRN Pain (Mild 1-3)/fever Hydrocodone Bitart/Acetaminophen 1 tab 03/05/18 15:40 [place] 325-5 Mg PO Q4H PRN Pain (moderate 4-6) Albuterol/Ipratropium 3 ml 03/05/18 15:40 Duoneb 3.0-0.5 Mg/3 Ml NEB Q4H PRN Shortness Of Breath/wheezing Bisacodyl 5 mg 03/05/18 15:40 Dulcolax PO DAILY PRN Constipation Docusate Sodium 100 mg 03/05/18 15:40 Colace PO BID PRN Constipation Hydralazine HCl 10 mg 03/05/18 15:38 Apresoline IVPUSH Q4H PRN Hypertension Hydromorphone HCl 0.25 mg 03/05/18 15:40 Dilaudid IVPUSH Q2H PRN Pain (severe 7-10) Sodium Chloride 100 mls @ 60 mls/hr 03/05/18 11:30 03/05/18 11:59 Normal Saline IV 60 mls/hr ASDIRECTED [facility] Administration Sodium Chloride 1,000 mls @ 100 mls/hr 03/05/18 12:00 03/05/18 12:07 Normal Saline IV 03/05/18 21:59 100 mls/hr ONETIME ONE Administration Promethazine HCl 6.25 mg/ 50.25 mls @ 100 mls/hr 03/05/18 15:40 Sodium Chloride IV Q6H PRN Nausea/Vomiting Lorazepam 2 mg 03/05/18 15:38 Ativan IVPUSH Q4H PRN Seizures Magnesium Sulfate 1 dose 03/05/18 15:45 Pharmacy To Dose - Magnesium Replacement .XX ASDIRECTED [facility] Metoprolol Tartrate 5 mg 03/05/18 15:38 Lopressor IVPUSH Q4H PRN Tachycardia Ondansetron HCl 4 mg 03/05/18 15:40 Zofran IV Q6H PRN Nausea/Vomiting Polyethylene Glycol 17 gm 03/05/18 15:40 Miralax PO DAILY PRN Constipation Potassium Chloride 1 dose 03/05/18 15:45 Pharmacy To Dose - Potassium Replacement .XX ASDIRECTED [facility] Senna/Docusate Sodium 1 tab 03/05/18 15:40 Senna Plus PO BID PRN Constipation Sodium Chloride 10 ml 03/05/18 11:00 03/05/18 11:19 Saline Flush FLUSH 10 ml ASDIRECTED PRN Administration Keep Vein Open Temazepam 7.5 mg 03/05/18 15:40 Restoril PO BEDTIME PRN Sleep Discontinued Medications Generic Name Dose Route Start Last Admin Trade Name Freq PRN Reason Stop Dose Admin Hydrocodone Bitart/Acetaminophen 1 tab 03/05/18 13:33 03/05/18 13:41 [place] 325-5 Mg PO 03/05/18 13:34 1 tab ONETIME ONE Administration Sodium Chloride 500 mls @ 999 mls/hr 03/05/18 11:00 03/05/18 11:19 Normal Saline IV 03/05/18 11:30 999 mls/hr ONETIME ONE Administration Ceftriaxone Sodium 1 gm/ 100 mls @ 200 mls/hr 03/05/18 14:22 03/05/18 14:32 Sodium Chloride IV 03/05/18 14:51 200 mls/hr ONETIME ONE Administration Iopamidol 100 ml 03/05/18 11:20 03/05/18 11:59 Isovue-370 (76%) IVPUSH 03/05/18 11:21 100 ml ONETIME ONE Administration Sodium Chloride 10 ml 03/05/18 11:20 03/05/18 11:59 Saline Flush FLUSH 03/05/18 11:21 10 ml ONETIME ONE Administration - Radiology Interpretation Free Text/Narrative:: Chest: Frontal view of the chest was obtained. Comparison: Prior chest x-ray of 02/11/18. Heart is enlarged. Atherosclerotic change is noted within the aorta. Slight scarring is seen within the lateral right costophrenic angle. Lungs otherwise are clear. Bony structures are osteopenic. Surgical clips are seen at the base of the left neck. Impression: 1. Findings as noted above. Nothing acute is appreciated. CT abdomen and pelvis Technique: Multiple axial sections were obtained from above the dome of the diaphragm inferiorly through the pubic symphysis. Intravenous contrast was utilized. Study was performed has an aortogram exam. Comparison: [place] [id number]. 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 Maximum AP dimension is about 4.0 cm which is stable from most recent exam. 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 Atherosclerotic calcification is noted throughout the aorta. No evidence of aortic aneurysm rupture. No dissection is seen. Diaphragmatic calcification is seen on the right side which is incidental. Liver shows no focal abnormality. Spleen appears within normal limits. Adrenal glands show no nodule. Kidneys show symmetric contrast enhancement without hydronephrosis or mass. Prior CT exam showed a right psoas muscle hematoma which has decreased in size in the interim from prior study with the right psoas muscle remaining slightly enlarged as compared to the left side. No retroperitoneal adenopathy or mesenteric abnormalities are seen. No pelvic mass or adenopathy is seen. Arias catheter is present within the bladder. Appendix not definitely visualized. No free fluid or inflammatory change is seen. Delayed images obtained during the portal phase appear within normal limits. Bone window settings were reviewed which shows compression deformities within T12 and L1 which appear to be old. Mild degenerative change is scattered within the spine. Impression: 1. No evidence of abdominal aortic aneurysm rupture. Aneurysm is stable from most recent CT exam with maximum AP dimension of 4.0 cm. 2. Other incidental findings as noted above. Nothing acute is appreciated. - Re-Assessments/Exams Free Text/Narrative Re-Assessment/Exam: 03/05/18 15:44 When I arrived at 11:00 nursing staff informed me that he was hypotensive with a blood pressure systolic in the 80s. When he arrived his blood pressure was 108 /44. They did get several readings with his blood pressure 80s. I gave him a 500 no normal saline bolus initially and this seemed to bring up his blood pressure. I did review his records and saw that he has abdominal aortic aneurysm which was seen on his most recent CT and has recently increased in size. Therefore decided to obtain a CTA to evaluate for a ruptured aneurysm. The patient did request something for pain and I did give him a [place], he is on this at the [facility]. urine and blood cultures pending. Patient does have moderate bacteria seen on microscopy on his UA. Rocephin given IV. Given the patient's weakness and feeling he would benefit from an observation admission. Discussed case with Dr. Cardoso, hospice on-call. He agrees to the observation admission. Departure - Departure Time of Disposition: 15:45 Disposition: Admitted As Inpatient 66 Condition: Poor Clinical Impression: Weakness Abdominal pain Qualifiers: Abdominal location: upper abdomen Qualified Code(s): R10.10 - Upper abdominal pain, unspecified - Discharge Information - My Orders Last 24 Hours: My Active Orders 03/05/18 10:59 Blood Culture x2 Reflex Set [OM.PC] Stat 03/05/18 11:00 Sodium Chloride 0.9% [Saline Flush] 10 ml FLUSH ASDIRECTED PRN Peripheral IV Insertion Adult [OM.PC] Routine 03/05/18 11:14 Chest 1V Frontal [CR] Stat 03/05/18 11:15 CULTURE URINE [RM] Stat UA W/MICROSCOPIC [URIN] Stat 03/05/18 11:27 CULTURE BLOOD [BC] Stat 03/05/18 11:30 Sodium Chloride 0.9% [Normal Saline] 100 ml IV ASDIRECTED 03/05/18 11:36 CULTURE BLOOD [BC] Stat 03/05/18 12:00 Sodium Chloride 0.9% [Normal Saline] 1,000 ml IV ONETIME - Assessment/Plan Last 24 Hours: My Active Orders 03/05/18 10:59 Blood Culture x2 Reflex Set [OM.PC] Stat 03/05/18 11:00 Sodium Chloride 0.9% [Saline Flush] 10 ml FLUSH ASDIRECTED PRN Peripheral IV Insertion Adult [OM.PC] Routine 03/05/18 11:14 Chest 1V Frontal [CR] Stat 03/05/18 11:15 CULTURE URINE [RM] Stat UA W/MICROSCOPIC [URIN] Stat 03/05/18 11:27 CULTURE BLOOD [BC] Stat 03/05/18 11:30 Sodium Chloride 0.9% [Normal Saline] 100 ml IV ASDIRECTED 03/05/18 11:36 CULTURE BLOOD [BC] Stat 03/05/18 12:00 Sodium Chloride 0.9% [Normal Saline] 1,000 ml IV ONETIME
[2018-03-05] MEDS ORDERED: LORazepam 2 MG/ML SDV IVPUSH PRN (15:38)
[2018-03-05] MEDS ORDERED: Metoprolol Tartrate 5 MG/5 ML SDV IVPUSH PRN (15:38)
[2018-03-05] MEDS ORDERED: hydrALAZINE 20 MG/ML SDV IVPUSH PRN (15:38)
[2018-03-05] MEDS ORDERED: Promethazine 6.25 MG in Sodium Chloride 0.9% 50 ML IV PRN (15:40)
[2018-03-05] MEDS ORDERED: Albuterol/Ipratropium 3.0-0.5 MG/3 ML Neb Soln NEB PRN (15:40)
[2018-03-05] MEDS ORDERED: Ondansetron 4 MG/2 ML SDV IV PRN (15:40)
[2018-03-05] MEDS ORDERED: Polyethylene Glycol 3350 Powder 17 GM Packet PO PRN (15:40)
--- NOTE | 2018-03-05 15:50 | PCM.HP ---
H&P History of Present Illness - General Date of Service: 03/05/18 Admit Problem/Dx: Generalized Weakness and Abdominal Pain Source of Information: Patient, Old Records, Provider, RN Notes Reviewed History Limitations: Reports: No Limitations - History of Present Illness Initial Comments - Free Text/Narative: This is an 82 year old elderly white male with past medical history of A-Fib on Eliquis, CAD, Hx/o [place], HTN, HLD, PVD, GERD, Hypoxia on Supplemental O2, CKD, Stage 3, Chronic Back Pain, Abdominal Aneurysm, Vit D Deficiency, Urinary Retention, Hypothyroidism, Chronic Anemia, Anxiety and Depression who comes with complaints of generalized weakness and malaise. He was initially brought into the clinic for evaluation and he was found unable to get up on a wheelchair because of weakness. He also has been having abdominal pain for the past 2-3 days. However there are no reports of additional GI issues. His intake remains good. Additionally he was found to have an elevated temperature of 99.8 taken this morning. Initial workup in emergency department shows a CBC remarkable for RBC of 2.73, hemoglobin of 9.3, hematocrit of 29, MCV of 106.2, MCH of 34.1, MCHC of 32.1, RDW of 61.8, platelet count of 152, MPV of 9.2, and neutrophils of 62%. Coagulation studies show PT of 11.1, INR of 1.02, and APTT of 35. His chemistry is significant for sodium of 131, chloride of 97, BUN of 33, creatinine of 2.2, glucose of 175, CRP of 12.5, proBNP of 3440, and albumin of 3.3. His UA is negative for urinary tract infection. His chest x-ray shows no acute abnormal findings. His abdominal/pelvis CT scan report reads no evidence of abdominal aortic aneurysm rupture. Aneurysm is stable from most recent CTs exam with maximum after dimension of 4 cm. Nothing acute is appreciated. Patient is being admitted for medical evaluation of generalized weakness and abdominal pain. He is DNR/DNI Middle Abdomen Pain Score (Numeric/FACES): 5 - Related Data Allergies/Adverse Reactions: Allergies Allergy/AdvReac Type Severity Reaction Status Date / Time levofloxacin Allergy Airway Verified 03/05/18 17:10 Tightness Sulfa (Sulfonamide Allergy Anaphylactic Verified 03/05/18 17:10 Antibiotics) Shock Home Medications: Home Meds Acetaminophen 650 mg PO Q4HR PRN 02/09/18 [History] Acetaminophen/HYDROcodone [[place] 325-5 MG] 1 tab PO Q6H PRN 02/09/18 [History] Albuterol/Ipratropium [Combivent Respimat] 1 inh PO Q4H PRN 02/09/18 [History] Cholecalciferol (Vitamin D3) [Vitamin D3] 1,000 unit PO DAILY 02/09/18 [History] Cyanocobalamin (Vitamin B-12) [Phys[employer] Ez Use B-12] 1,000 mcg IJ ASDIRECTED 02/09/18 [History] Levothyroxine [Synthroid] 50 mcg PO ACBREAKFAST 02/09/18 [History] Metoprolol Tartrate [Lopressor] 25 mg PO Q12HR 02/09/18 [History] Omeprazole 20 mg PO DAILY 02/09/18 [History] PARoxetine HCl [Paroxetine HCl] 30 mg PO BEDTIME 02/09/18 [History] Pravastatin [Pravachol] 10 mg PO DAILY 02/09/18 [History] Saccharomyces Boulardii [Florastor] 250 mg PO DAILY 02/09/18 [History] Tamsulosin HCl [Flomax] 0.4 mg PO BIDPC 02/09/18 [History] Apixaban [Eliquis] 2.5 mg PO BID #60 tablet 02/13/18 [Rx] Lisinopril 2.5 mg PO DAILY #30 tablet 02/13/18 [Rx] Furosemide [Lasix] 20 mg PO MOWEFR 03/06/18 [History] Potassium Chloride 10 meq PO MOWEFR 03/06/18 [History] Past Medical History Cardiovascular History: Reports: Afib, Arrhythmia, CAD, High Cholesterol, Hypertension, IN, PVD Respiratory History: Reports: Bronchitis, Recurrent, Other (See Below) Other Respiratory History: hypoxia with chronic O2 use Gastrointestinal History: Reports: GERD Genitourinary History: Reports: Chronic Renal Insuffiency Musculoskeletal History: Reports: Back Pain, Chronic, Fracture Other Musculoskeletal History: Chronic back pain Psychiatric History: Reports: Anxiety, Depression Endocrine/Metabolic History: Reports: Hypothyroidism Hematologic History: Reports: Anemia, Anticoagulation Therapy - Infectious Disease History Infectious Disease History: Reports: Other (See Below) Other Infectious Disease History: human metapneumovirus - Past Surgical History Cardiovascular Surgical History: Reports: Carotid Endarterectomy, Coronary Artery Stent, Vascular Surgery Respiratory Surgical History: Reports: None GI Surgical History: Reports: Appendectomy Male Surgical History: Reports: Other (See Below) Other Male Surgeries/Procedures: exploratory prostate/testicle surgery Social & Family History - Family History Family Medical History: Noncontributory Cardiac: Reports: IN - Tobacco Use Smoking Status *Q: Former Smoker Years of Tobacco use: 64 Packs/Tins Daily: 1 Used Tobacco, but Quit: Yes Month/Year Tobacco Last Used: patient unable to answer Second Hand Smoke Exposure: No - Caffeine Use Caffeine Use: Reports: None Other Caffeine Use: 2 cups per day Caffeine Use Comment: drinks about 2 cups of coffee per day - Alcohol Use Days Per Week of Alcohol Use: 0 Number of Drinks Per Day: 1 Total Drinks Per Week: 0 - Recreational Drug Use Recreational Drug Use: No - Living Situation & Occupation Living situation: Reports: , with Spouse Occupation: Retired H&P Review of Systems - Review of Systems: Review Of Systems: See Below General: Reports: Other (elevated temperature). Denies: Fever, Chills HEENT: Reports: No Symptoms Pulmonary: Denies: Shortness of Breath Gastrointestinal: Reports: Abdominal Pain, Flatus. Denies: Anorexia, Constipation, Decreased Appetite, Difficulty Swallowing, Nausea, Vomiting Genitourinary: Reports: No Symptoms Musculoskeletal: Reports: No Symptoms Skin: Denies: Cyanosis, Jaundice, Mottled, Pallor, Diaphoresis, Pruritis Psychiatric: Denies: Confusion, Depression, Anxiety, Agitation, Hallucinations, Suicidal Ideation Neurological: Reports: Weakness, Gait Disturbance. Denies: Confusion, Difficulty Walking Hematologic/Lymphatic: Reports: No Symptoms Immunologic: Reports: No Symptoms Exam - Exam Exam: See Below - Vital Signs Vital Signs: Last Vital Signs Temp 36.6 C 03/05/18 10:38 Pulse 70 03/05/18 10:38 Resp 18 03/05/18 10:38 BP 108/44 L 03/05/18 10:38 Pulse Ox 100 03/05/18 10:38 Weight: 61.598 kg - Exam General: Alert, Cooperative. No: Mild Distress HEENT: Conjunctiva Clear, EACs Clear, EOMI, Hearing Intact, Nares Patent, Normal Nasal Septum, Pupils Equal, Pupils Reactive. No: Mucosa Moist & [place] Neck: Supple, Trachea Midline Lungs: Normal Respiratory Effort, Decreased Breath Sounds Cardiovascular: Regular Rate, Regular Rhythm GI/Abdominal Exam: Normal Bowel Sounds, Soft, Non-Tender, No Organomegaly, No Distention, No Abnormal Bruit, No Mass. No: Distended, Guarding, Rigid, Rebound (Male) Exam: Deferred Rectal (Males) Exam: Deferred Back Exam: Normal Inspection, Decreased Range of Motion Extremities: Normal Inspection, Normal Range of Motion, Non-Tender, No Pedal Edema, Normal Capillary Refill Peripheral Pulses: 2+: Posterior Tibial (L), Posterior Tibial (R), Dorsalis Pedis (L), Dorsalis Pedis (R) Skin: Warm, Dry, Intact Neuro Extensive - Mental Status: Normal Cognition, Memory Intact Neuro Extensive - Motor, Sensory, Reflexes: CN II-XII Intact (limited but grossly intact), Abnormal Gait Psychiatric: Alert, Normal Affect, Normal Mood - Patient Data Lab Results Last 24 hrs: Laboratory Results - last 24 hr 03/05/18 03/05/18 03/05/18 Range/Units 10:50 10:50 10:50 WBC 7.52 (4.23-9.07) K/mm3 RBC 2.73 L (4.63-6.08) M/mm3 Hgb 9.3 L (13.7-17.5) gm/L Hct 29.0 L (40.1-51.0) % MCV 106.2 H (79.0-92.2) fl MCH 34.1 H (25.7-32.2) pg MCHC 32.1 L (32.2-35.5) g/dl RDW Std Deviation 61.8 H (35.1-43.9) fL Plt Count 152 L (163-337) K/mm3 MPV 9.2 L (9.4-12.3) fl Neutrophils % (Manual) 62 H (40-60) % Band Neutrophils % 3 (0-10) % Lymphocytes % (Manual) 30 (20-40) % Atypical Lymphs % 0 % Monocytes % (Manual) 3 (2-10) % Eosinophils % (Manual) 2 (0.8-7.0) % Basophils % (Manual) 0 L (0.2-1.2) Platelet Estimate Adequate Polychromasia 1+ slight Anisocytosis 1+ slight RBC Morph Comment Not Reportable PT 11.1 (9.5-12.1) SECONDS INR 1.02 APTT 35 H (24-31) SECONDS Sodium 131 L (136-145) mEq/L Potassium 4.0 (3.5-5.1) mEq/L Chloride 97 L (98-107) mEq/L Carbon Dioxide 27 (21-32) mEq/L Anion Gap 11.0 (5-15) BUN 33 H (7-18) mg/dL Creatinine 2.2 H (0.7-1.3) mg/dL Est Cr Clr Drug Dosing 22.55 mL/min Estimated GFR (MDRD) 29 (>60) mL/min BUN/Creatinine Ratio 15.0 (14-18) Glucose 175 H (83-115) mg/dL Lactic Acid (0.4-2.0) mmol/L Calcium 8.8 (8.5-10.1) mg/dL Total Bilirubin 0.7 (0.2-1.0) mg/dL AST 22 (15-37) U/L ALT 29 (16-63) U/L Alkaline Phosphatase 68 (46-116) U/L Troponin I (0.00-0.056) ng/mL C-Reactive Protein (<1.0) mg/dL NT-Pro-B Natriuret Pep (0-450) pg/mL Total Protein 6.8 (6.4-8.2) g/dl Albumin 3.3 L (3.4-5.0) g/dl Globulin 3.5 gm/dL Albumin/Globulin Ratio 0.9 L (1-2) Lipase 285 (73-393) U/L Urine Color (Yellow) Urine Appearance (Clear) Urine pH (5.0-8.0) Ur Specific [place] (1.005-1.030) Urine Protein (Negative) Urine Glucose (UA) (Negative) Urine Ketones (Negative) Urine Occult Blood (Negative) Urine Nitrite (Negative) Urine Bilirubin (Negative) Urine Urobilinogen (0.2-1.0) Ur Leukocyte Esterase (Negative) Urine RBC (0-5) /hpf Urine WBC (0-5) /hpf Ur Epithelial Cells (0-5) /hpf Urine Bacteria (FEW) /hpf Urine Mucus (FEW) /hpf 04/26/18 04/26/18 04/26/18 Range/Units 10:50 10:50 10:50 WBC (4.23-9.07) K/mm3 RBC (4.63-6.08) M/mm3 Hgb (13.7-17.5) gm/L Hct (40.1-51.0) % MCV (79.0-92.2) fl MCH (25.7-32.2) pg MCHC (32.2-35.5) g/dl RDW Std Deviation (35.1-43.9) fL Plt Count (163-337) K/mm3 MPV (9.4-12.3) fl Neutrophils % (Manual) (40-60) % Band Neutrophils % (0-10) % Lymphocytes % (Manual) (20-40) % Atypical Lymphs % % Monocytes % (Manual) (2-10) % Eosinophils % (Manual) (0.8-7.0) % Basophils % (Manual) (0.2-1.2) Platelet Estimate Polychromasia Anisocytosis RBC Morph Comment PT (9.5-12.1) SECONDS INR APTT (24-31) SECONDS Sodium (136-145) mEq/L Potassium (3.5-5.1) mEq/L Chloride (98-107) mEq/L Carbon Dioxide (21-32) mEq/L Anion Gap (5-15) BUN (7-18) mg/dL Creatinine (0.7-1.3) mg/dL Est Cr Clr Drug Dosing mL/min Estimated GFR (MDRD) (>60) mL/min BUN/Creatinine Ratio (14-18) Glucose (83-115) mg/dL Lactic Acid (0.4-2.0) mmol/L Calcium (8.5-10.1) mg/dL Total Bilirubin (0.2-1.0) mg/dL AST (15-37) U/L ALT (16-63) U/L Alkaline Phosphatase (46-116) U/L Troponin I < 0.017 (0.00-0.056) ng/mL C-Reactive Protein 12.5 H* (<1.0) mg/dL NT-Pro-B Natriuret Pep 3440 H (0-450) pg/mL Total Protein (6.4-8.2) g/dl Albumin (3.4-5.0) g/dl Globulin gm/dL Albumin/Globulin Ratio (1-2) Lipase (73-393) U/L Urine Color (Yellow) Urine Appearance (Clear) Urine pH (5.0-8.0) Ur Specific [place] (1.005-1.030) Urine Protein (Negative) Urine Glucose (UA) (Negative) Urine Ketones (Negative) Urine Occult Blood (Negative) Urine Nitrite (Negative) Urine Bilirubin (Negative) Urine Urobilinogen (0.2-1.0) Ur Leukocyte Esterase (Negative) Urine RBC (0-5) /hpf Urine WBC (0-5) /hpf Ur Epithelial Cells (0-5) /hpf Urine Bacteria (FEW) /hpf Urine Mucus (FEW) /hpf 03/05/18 03/05/18 Range/Units 10:59 11:15 WBC (4.23-9.07) K/mm3 RBC (4.63-6.08) M/mm3 Hgb (13.7-17.5) gm/L Hct (40.1-51.0) % MCV (79.0-92.2) fl MCH (25.7-32.2) pg MCHC (32.2-35.5) g/dl RDW Std Deviation (35.1-43.9) fL Plt Count (163-337) K/mm3 MPV (9.4-12.3) fl Neutrophils % (Manual) (40-60) % Band Neutrophils % (0-10) % Lymphocytes % (Manual) (20-40) % Atypical Lymphs % % Monocytes % (Manual) (2-10) % Eosinophils % (Manual) (0.8-7.0) % Basophils % (Manual) (0.2-1.2) Platelet Estimate Polychromasia Anisocytosis RBC Morph Comment PT (9.5-12.1) SECONDS INR APTT (24-31) SECONDS Sodium (136-145) mEq/L Potassium (3.5-5.1) mEq/L Chloride (98-107) mEq/L Carbon Dioxide (21-32) mEq/L Anion Gap (5-15) BUN (7-18) mg/dL Creatinine (0.7-1.3) mg/dL Est Cr Clr Drug Dosing mL/min Estimated GFR (MDRD) (>60) mL/min BUN/Creatinine Ratio (14-18) Glucose (83-115) mg/dL Lactic Acid 1.8 (0.4-2.0) mmol/L Calcium (8.5-10.1) mg/dL Total Bilirubin (0.2-1.0) mg/dL AST (15-37) U/L ALT (16-63) U/L Alkaline Phosphatase (46-116) U/L Troponin I (0.00-0.056) ng/mL C-Reactive Protein (<1.0) mg/dL NT-Pro-B Natriuret Pep (0-450) pg/mL Total Protein (6.4-8.2) g/dl Albumin (3.4-5.0) g/dl Globulin gm/dL Albumin/Globulin Ratio (1-2) Lipase (73-393) U/L Urine Color Yellow (Yellow) Urine Appearance Clear (Clear) Urine pH 7.0 (5.0-8.0) Ur Specific [place] 1.020 (1.005-1.030) Urine Protein 1+ H (Negative) Urine Glucose (UA) Negative (Negative) Urine Ketones Negative (Negative) Urine Occult Blood Negative (Negative) Urine Nitrite Negative (Negative) Urine Bilirubin Negative (Negative) Urine Urobilinogen 0.2 (0.2-1.0) Ur Leukocyte Esterase Negative (Negative) Urine RBC Not seen (0-5) /hpf Urine WBC 0-5 (0-5) /hpf Ur Epithelial Cells Not seen (0-5) /hpf Urine Bacteria Many H (FEW) /hpf Urine Mucus Few (FEW) /hpf Result Diagrams: 03/06/18 09:24 03/06/18 09:24 EKG INTERPRETATION EKG Date: 03/05/18 Time: 11:55 Rhythm: NSR Rate (Beats/Min): 72 [place]: Normal P-Wave: Present QRS: Normal ST-T: Depressed (mild in leads 2-3, aVF and V5-V6) QT: Prolonged (458) Problem List Initiated/Reviewed/Updated: Yes Orders Last 24hrs: Active Orders 24 hr Category Date Time Status Ambulate [RC] ASDIRECTED Care 03/05/18 15:40 Ordered Cardiac Monitoring [RC] . DIRECTED Care 03/05/18 11:02 Active Cardiac Monitoring [RC] CONTINUOUS Care 03/05/18 15:41 Ordered EKG 12 Lead [EKG Documentation Completion] [RC] STAT Care 03/05/18 11:14 Active Height and Weight [RC] DAILY Care 03/05/18 15:40 Ordered Intake and Output [RC] QSHIFT Care 03/05/18 15:41 Ordered Oxygen Therapy [RC] PRN Care 03/05/18 15:40 Ordered Peripheral IV Care [RC] . DIRECTED Care 03/05/18 11:00 Active RT Aerosol Therapy [RC] ASDIRECTED Care 03/05/18 15:42 Ordered Up ad Babita [RC] ASDIRECTED Care 03/05/18 15:40 Ordered VTE/DVT Education [RC] PER UNIT ROUTINE Care 03/05/18 15:40 Ordered Vital Signs [RC] Q4H Care 03/05/18 15:40 Ordered Consult to Spiritual Care [CONS] Routine Cons 03/05/18 15:44 Ordered OT Evaluation and Treatment [CONS] Routine Cons 03/05/18 15:44 Ordered PT Evaluation and Treatment [CONS] Routine Cons 03/05/18 15:44 Ordered Clear Liquid Diet [DIET] Diet 03/05/18 Dinner Ordered Chest 1V Frontal [CR] Stat Exams 03/05/18 11:14 Taken BASIC METABOLIC PANEL,BMP [CHEM] AM Lab 03/06/18 05:11 Ordered BASIC METABOLIC PANEL,BMP [CHEM] AM Lab 03/07/18 05:11 Ordered BASIC METABOLIC PANEL,BMP [CHEM] AM Lab 03/08/18 05:11 Ordered BASIC METABOLIC PANEL,BMP [CHEM] AM Lab 03/09/18 05:11 Ordered BASIC METABOLIC PANEL,BMP [CHEM] AM Lab 03/10/18 05:11 Ordered BASIC METABOLIC PANEL,BMP [CHEM] AM Lab 03/11/18 05:11 Ordered C-REACTIVE PROTEIN [CHEM] AM Lab 03/06/18 05:11 Ordered C-REACTIVE PROTEIN [CHEM] AM Lab 03/07/18 05:11 Ordered C-REACTIVE PROTEIN [CHEM] AM Lab 03/08/18 05:11 Ordered C-REACTIVE PROTEIN [CHEM] AM Lab 03/09/18 05:11 Ordered C-REACTIVE PROTEIN [CHEM] AM Lab 03/10/18 05:11 Ordered CBC WITH AUTO DIFF [HEME] AM Lab 03/06/18 05:11 Ordered CBC WITH AUTO DIFF [HEME] AM Lab 03/07/18 05:11 Ordered CBC WITH AUTO DIFF [HEME] AM Lab 03/08/18 05:11 Ordered CBC WITH AUTO DIFF [HEME] AM Lab 03/09/18 05:11 Ordered CBC WITH AUTO DIFF [HEME] AM Lab 03/10/18 05:11 Ordered CBC WITH AUTO DIFF [HEME] AM Lab 03/11/18 05:11 Ordered CULTURE BLOOD [BC] Stat Lab 03/05/18 11:27 Received CULTURE BLOOD [BC] Stat Lab 03/05/18 11:36 Received CULTURE URINE [RM] Stat Lab 03/05/18 11:15 Received CULTURE URINE [RM] Stat Lab 03/05/18 15:44 Ordered MAGNESIUM [CHEM] AM Lab 03/06/18 05:11 Ordered MAGNESIUM [CHEM] AM Lab 03/07/18 05:11 Ordered MAGNESIUM [CHEM] AM Lab 03/08/18 05:11 Ordered MAGNESIUM [CHEM] AM Lab 03/09/18 05:11 Ordered MAGNESIUM [CHEM] AM Lab 03/10/18 05:11 Ordered UA W/MICROSCOPIC [URIN] Stat Lab 03/05/18 11:15 Ordered UA W/MICROSCOPIC [URIN] Stat Lab 03/05/18 15:44 Ordered Acetaminophen [Tylenol] Med 03/05/18 15:40 Ordered 650 mg PO Q4H PRN Acetaminophen/HYDROcodone [[place] 325-5 MG] Med 03/05/18 15:40 Ordered 1 tab PO Q4H PRN Albuterol/Ipratropium [DuoNeb 3.0-0.5 MG/3 ML] Med 03/05/18 15:40 Ordered 3 ml NEB Q4H PRN Bisacodyl [Dulcolax] Med 03/05/18 15:40 Ordered 5 mg PO DAILY PRN Docusate Sodium [Colace] Med 03/05/18 15:40 Ordered 100 mg PO BID PRN Docusate Sodium/Sennosides [Senna Plus] Med 03/05/18 15:40 Ordered 1 tab PO BID PRN HYDROmorphone [Dilaudid] Med 03/05/18 15:40 Ordered 0.25 mg IVPUSH Q2H PRN LORazepam [Ativan] Med 03/05/18 15:38 Ordered 2 mg IVPUSH Q4H PRN Magnesium Rep Pharmacy to Dose [Pharmacy to Dose - Med 03/05/18 15:45 Ordered Magnesium Replacement] 1 dose .XX ASDIRECTED Metoprolol Tartrate [Lopressor] Med 03/05/18 15:38 Ordered 5 mg IVPUSH Q4H PRN Ondansetron [Zofran] Med 03/05/18 15:40 Ordered 4 mg IV Q6H PRN Polyethylene Glycol 3350 [MiraLAX] Med 03/05/18 15:40 Ordered 17 gm PO DAILY PRN Potassium Rep Pharmacy to Dose [Pharmacy to Dose - Med 03/05/18 15:45 Ordered Potassium Replacement] 1 dose .XX ASDIRECTED Promethazine [Phenergan] 6.25 mg Med 03/05/18 15:40 Ordered Sodium Chloride 0.9% [Normal Saline] 50 ml IV Q6H Sodium Chloride 0.9% [Normal Saline] 1,000 ml Med 03/05/18 12:00 Active IV ONETIME Sodium Chloride 0.9% [Normal Saline] 100 ml Med 03/05/18 11:30 Active IV ASDIRECTED Sodium Chloride 0.9% [Saline Flush] Med 03/05/18 11:00 Active 10 ml FLUSH ASDIRECTED PRN Temazepam [Restoril] Med 03/05/18 15:40 Ordered 7.5 mg PO BEDTIME PRN hydrALAZINE [Apresoline] Med 03/05/18 15:38 Ordered 10 mg IVPUSH Q4H PRN Blood Culture x2 Reflex Set [OM.PC] Stat Oth 03/05/18 10:59 Ordered Peripheral IV Insertion Adult [OM.PC] Routine Oth 03/05/18 11:00 Ordered Medication Orders Acetaminophen (Tylenol) 650 mg PO Q4H PRN PRN Reason: Pain (Mild 1-3)/fever Hydrocodone Bitart/Acetaminophen ([place] 325-5 Mg) 1 tab PO Q4H PRN PRN Reason: Pain (moderate 4-6) Albuterol/Ipratropium (Duoneb 3.0-0.5 Mg/3 Ml) 3 ml NEB Q4H PRN PRN Reason: Shortness Of Breath/wheezing Bisacodyl (Dulcolax) 5 mg PO DAILY PRN PRN Reason: Constipation Docusate Sodium (Colace) 100 mg PO BID PRN PRN Reason: Constipation Hydralazine HCl (Apresoline) 10 mg IVPUSH Q4H PRN PRN Reason: Hypertension Hydromorphone HCl (Dilaudid) 0.25 mg IVPUSH Q2H PRN PRN Reason: Pain (severe 7-10) Sodium Chloride (Normal Saline) 100 mls @ 60 mls/hr IV ASDIRECTED [facility] Last Admin: 03/05/18 11:59 Dose: 60 mls/hr Sodium Chloride (Normal Saline) 1,000 mls @ 100 mls/hr IV ONETIME ONE Stop: 03/05/18 21:59 Last Admin: 03/05/18 12:07 Dose: 100 mls/hr Promethazine HCl 6.25 mg/ (Sodium Chloride) 50.25 mls @ 100 mls/hr IV Q6H PRN PRN Reason: Nausea/Vomiting Lorazepam (Ativan) 2 mg IVPUSH Q4H PRN PRN Reason: Seizures Magnesium Sulfate (Pharmacy To Dose - Magnesium Replacement) 1 dose .XX ASDIRECTED [facility] Metoprolol Tartrate (Lopressor) 5 mg IVPUSH Q4H PRN PRN Reason: Tachycardia Ondansetron HCl (Zofran) 4 mg IV Q6H PRN PRN Reason: Nausea/Vomiting Polyethylene Glycol (Miralax) 17 gm PO DAILY PRN PRN Reason: Constipation Potassium Chloride (Pharmacy To Dose - Potassium Replacement) 1 dose .XX ASDIRECTED [facility] Senna/Docusate Sodium (Senna Plus) 1 tab PO BID PRN PRN Reason: Constipation Sodium Chloride (Saline Flush) 10 ml FLUSH ASDIRECTED PRN PRN Reason: Keep Vein Open Last Admin: 03/05/18 11:19 Dose: 10 ml Temazepam (Restoril) 7.5 mg PO BEDTIME PRN PRN Reason: Sleep Assessment/Plan Comment:: Assessment/Plan: Acute: Generalized Weakness - 2/2 Multi-factorial: Anemia, Hypothyroidism, Chronic Hypoxia and Hyponatremia - Reduced intake due to abdominal pain - Check for Vit D, Thyroid Panel, Folic Acid, Vit B12, MMA, and Homocystein level - PT/OT consultation Abdominal Pain - Unclear in etiology - Abdominal CT scan reports no acute abnormal findings - Supportive Care Mild Thrombocytopenia - Platelet of 152 - No active bleeding - Has chronic Anemia - Will monitor UA in not Impressive for UTI - Received IV antibiotic in ED - Repeat stat UA Elevated CRP Level - Non-specific - CRP 12.5; will monitor - He is afebrile w/o leukocytosis CHF with Preserved EF - ProBNP level 3440 - Non specific - Has a hx/o HF and CXR shows no acute abnormal findings - 2D echo 02/10/18: within normal limits Chronic: A-Fib on Eliquis CAD Hx/o IN HTN HLD PVD GERD Hypoxia on Supplemental O2 CKD Stage 3, at baseline Back Pain Vit D Deficiency Urinary Retention Hypothyroidism Probable Pulmonary HTN Abdominal Aneurysm, stable Anemia, Hgb Stable at 9.3 Anxiety and Depression Plan: Admit to the floor with Tele Resume Home Meds Routine AM Labs Clear liquid diet and hen advance as tolerated PT/OT consult Code status: DNR/DNI
[2018-03-05] MEDS: HYDROmorphone 0.5 MG/0.5 ML SYRINGE IVPUSH PRN (20:13)
[2018-03-05] MEDS: Temazepam 7.5 MG Cap PO PRN (22:26)
[2018-03-05] MEDS: Acetaminophen/HYDROcodone 325-5 MG Tab PO PRN (22:26)
--- NOTE | 2018-03-06 05:44 | CR ---
Chest: Frontal view of the chest was obtained. Comparison: Prior chest x-ray of 02/11/18. Heart is enlarged. Atherosclerotic change is noted within the aorta. Slight scarring is seen within the lateral right costophrenic angle. Lungs otherwise are clear. Bony structures are osteopenic. Surgical clips are seen at the base of the left neck. Impression: 1. Findings as noted above. Nothing acute is appreciated. Diagnostic code #2
--- NOTE | 2018-03-06 08:09 | PCM.PN ---
- General Info Date of Service: 03/06/18 Admission Dx/Problem (Free Text): Generalized Weakness and Abdominal Pain Subjective Update: In to see Will today. He is lying in bed. Overall he is doing well, but he does seem very agitated this morning and does not want to talk. He is also seeming to be a bit confused stating "I don't know where I am" when asked. He has difficulty getting enough sleep per nursing. His appetite is returning- currently on clear liquid diet, will advance to soft diet today. Ambulating. Pain is controlled. No nausea, vomiting, diarrhea. Urinating. No concerns from nursing. Functional Status: Reports: Pain Controlled, Tolerating Diet, Ambulating, Urinating - Review of Systems General: Reports: No Symptoms. Denies: Fever, Chills HEENT: Reports: No Symptoms Pulmonary: Reports: No Symptoms. Denies: Shortness of Breath, Cough Cardiovascular: Reports: No Symptoms. Denies: Chest Pain Gastrointestinal: Reports: Abdominal Pain, Flatus. Denies: Constipation, Decreased Appetite, Diarrhea, Nausea, Vomiting Genitourinary: Reports: No Symptoms Musculoskeletal: Reports: No Symptoms Skin: Reports: No Symptoms Neurological: Reports: No Symptoms Psychiatric: Reports: Confusion (States he doesn't know where he is), Agitation - Patient Data Vitals - Most Recent: Last Vital Signs Temp 97.9 F 03/05/18 20:28 Pulse 84 03/05/18 20:28 Resp 18 03/05/18 20:28 BP 103/50 L 03/05/18 20:28 Pulse Ox 93 L 03/05/18 20:28 Weight - Most Recent: 135 lb 9 oz I&O - Last 24 Hours: Intake & Output 03/05/18 03/06/18 03/06/18 22:59 06:59 14:59 Intake Total 1200 Output Total 1300 Balance -100 Lab Results Last 24 Hours: Laboratory Results - last 24 hr 03/05/18 03/05/18 03/05/18 Range/Units 10:50 10:50 10:50 WBC 7.52 (4.23-9.07) K/mm3 RBC 2.73 L (4.63-6.08) M/mm3 Hgb 9.3 L (13.7-17.5) gm/L Hct 29.0 L (40.1-51.0) % MCV 106.2 H (79.0-92.2) fl MCH 34.1 H (25.7-32.2) pg MCHC 32.1 L (32.2-35.5) g/dl RDW Std Deviation 61.8 H (35.1-43.9) fL Plt Count 152 L (163-337) K/mm3 MPV 9.2 L (9.4-12.3) fl Neutrophils % (Manual) 62 H (40-60) % Band Neutrophils % 3 (0-10) % Lymphocytes % (Manual) 30 (20-40) % Atypical Lymphs % 0 % Monocytes % (Manual) 3 (2-10) % Eosinophils % (Manual) 2 (0.8-7.0) % Basophils % (Manual) 0 L (0.2-1.2) Platelet Estimate Adequate Polychromasia 1+ slight Anisocytosis 1+ slight RBC Morph Comment Not Reportable PT 11.1 (9.5-12.1) SECONDS INR 1.02 APTT 35 H (24-31) SECONDS Sodium 131 L (136-145) mEq/L Potassium 4.0 (3.5-5.1) mEq/L Chloride 97 L (98-107) mEq/L Carbon Dioxide 27 (21-32) mEq/L Anion Gap 11.0 (5-15) BUN 33 H (7-18) mg/dL Creatinine 2.2 H (0.7-1.3) mg/dL Est Cr Clr Drug Dosing 22.55 mL/min Estimated GFR (MDRD) 29 (>60) mL/min BUN/Creatinine Ratio 15.0 (14-18) Glucose 175 H (83-115) mg/dL Lactic Acid (0.4-2.0) mmol/L Calcium 8.8 (8.5-10.1) mg/dL Total Bilirubin 0.7 (0.2-1.0) mg/dL AST 22 (15-37) U/L ALT 29 (16-63) U/L Alkaline Phosphatase 68 (46-116) U/L Troponin I (0.00-0.056) ng/mL C-Reactive Protein (<1.0) mg/dL NT-Pro-B Natriuret Pep (0-450) pg/mL Total Protein 6.8 (6.4-8.2) g/dl Albumin 3.3 L (3.4-5.0) g/dl Globulin 3.5 gm/dL Albumin/Globulin Ratio 0.9 L (1-2) Lipase 285 (73-393) U/L Free T4 (0.76-1.46) ng/dL TSH 3rd Generation (0.358-3.74) uIU/mL Urine Color (Yellow) Urine Appearance (Clear) Urine pH (5.0-8.0) Ur Specific [place] (1.005-1.030) Urine Protein (Negative) Urine Glucose (UA) (Negative) Urine Ketones (Negative) Urine Occult Blood (Negative) Urine Nitrite (Negative) Urine Bilirubin (Negative) Urine Urobilinogen (0.2-1.0) Ur Leukocyte Esterase (Negative) Urine RBC (0-5) /hpf Urine WBC (0-5) /hpf Ur Epithelial Cells (0-5) /hpf Urine Bacteria (FEW) /hpf Urine Mucus (FEW) /hpf MRSA (PCR) 03/05/18 03/05/18 03/05/18 Range/Units 10:50 10:50 10:50 WBC (4.23-9.07) K/mm3 RBC (4.63-6.08) M/mm3 Hgb (13.7-17.5) gm/L Hct (40.1-51.0) % MCV (79.0-92.2) fl MCH (25.7-32.2) pg MCHC (32.2-35.5) g/dl RDW Std Deviation (35.1-43.9) fL Plt Count (163-337) K/mm3 MPV (9.4-12.3) fl Neutrophils % (Manual) (40-60) % Band Neutrophils % (0-10) % Lymphocytes % (Manual) (20-40) % Atypical Lymphs % % Monocytes % (Manual) (2-10) % Eosinophils % (Manual) (0.8-7.0) % Basophils % (Manual) (0.2-1.2) Platelet Estimate Polychromasia Anisocytosis RBC Morph Comment PT (9.5-12.1) SECONDS INR APTT (24-31) SECONDS Sodium (136-145) mEq/L Potassium (3.5-5.1) mEq/L Chloride (98-107) mEq/L Carbon Dioxide (21-32) mEq/L Anion Gap (5-15) BUN (7-18) mg/dL Creatinine (0.7-1.3) mg/dL Est Cr Clr Drug Dosing mL/min Estimated GFR (MDRD) (>60) mL/min BUN/Creatinine Ratio (14-18) Glucose (83-115) mg/dL Lactic Acid (0.4-2.0) mmol/L Calcium (8.5-10.1) mg/dL Total Bilirubin (0.2-1.0) mg/dL AST (15-37) U/L ALT (16-63) U/L Alkaline Phosphatase (46-116) U/L Troponin I < 0.017 (0.00-0.056) ng/mL C-Reactive Protein 12.5 H* (<1.0) mg/dL NT-Pro-B Natriuret Pep 3440 H (0-450) pg/mL Total Protein (6.4-8.2) g/dl Albumin (3.4-5.0) g/dl Globulin gm/dL Albumin/Globulin Ratio (1-2) Lipase (73-393) U/L Free T4 (0.76-1.46) ng/dL TSH 3rd Generation (0.358-3.74) uIU/mL Urine Color (Yellow) Urine Appearance (Clear) Urine pH (5.0-8.0) Ur Specific [place] (1.005-1.030) Urine Protein (Negative) Urine Glucose (UA) (Negative) Urine Ketones (Negative) Urine Occult Blood (Negative) Urine Nitrite (Negative) Urine Bilirubin (Negative) Urine Urobilinogen (0.2-1.0) Ur Leukocyte Esterase (Negative) Urine RBC (0-5) /hpf Urine WBC (0-5) /hpf Ur Epithelial Cells (0-5) /hpf Urine Bacteria (FEW) /hpf Urine Mucus (FEW) /hpf MRSA (PCR) 03/05/18 03/05/18 03/05/18 Range/Units 10:50 10:59 11:15 WBC (4.23-9.07) K/mm3 RBC (4.63-6.08) M/mm3 Hgb (13.7-17.5) gm/L Hct (40.1-51.0) % MCV (79.0-92.2) fl MCH (25.7-32.2) pg MCHC (32.2-35.5) g/dl RDW Std Deviation (35.1-43.9) fL Plt Count (163-337) K/mm3 MPV (9.4-12.3) fl Neutrophils % (Manual) (40-60) % Band Neutrophils % (0-10) % Lymphocytes % (Manual) (20-40) % Atypical Lymphs % % Monocytes % (Manual) (2-10) % Eosinophils % (Manual) (0.8-7.0) % Basophils % (Manual) (0.2-1.2) Platelet Estimate Polychromasia Anisocytosis RBC Morph Comment PT (9.5-12.1) SECONDS INR APTT (24-31) SECONDS Sodium (136-145) mEq/L Potassium (3.5-5.1) mEq/L Chloride (98-107) mEq/L Carbon Dioxide (21-32) mEq/L Anion Gap (5-15) BUN (7-18) mg/dL Creatinine (0.7-1.3) mg/dL Est Cr Clr Drug Dosing mL/min Estimated GFR (MDRD) (>60) mL/min BUN/Creatinine Ratio (14-18) Glucose (83-115) mg/dL Lactic Acid 1.8 (0.4-2.0) mmol/L Calcium (8.5-10.1) mg/dL Total Bilirubin (0.2-1.0) mg/dL AST (15-37) U/L ALT (16-63) U/L Alkaline Phosphatase (46-116) U/L Troponin I (0.00-0.056) ng/mL C-Reactive Protein (<1.0) mg/dL NT-Pro-B Natriuret Pep (0-450) pg/mL Total Protein (6.4-8.2) g/dl Albumin (3.4-5.0) g/dl Globulin gm/dL Albumin/Globulin Ratio (1-2) Lipase (73-393) U/L Free T4 1.27 (0.76-1.46) ng/dL TSH 3rd Generation 2.531 (0.358-3.74) uIU/mL Urine Color Yellow (Yellow) Urine Appearance Clear (Clear) Urine pH 7.0 (5.0-8.0) Ur Specific [place] 1.020 (1.005-1.030) Urine Protein 1+ H (Negative) Urine Glucose (UA) Negative (Negative) Urine Ketones Negative (Negative) Urine Occult Blood Negative (Negative) Urine Nitrite Negative (Negative) Urine Bilirubin Negative (Negative) Urine Urobilinogen 0.2 (0.2-1.0) Ur Leukocyte Esterase Negative (Negative) Urine RBC Not seen (0-5) /hpf Urine WBC 0-5 (0-5) /hpf Ur Epithelial Cells Not seen (0-5) /hpf Urine Bacteria Many H (FEW) /hpf Urine Mucus Few (FEW) /hpf MRSA (PCR) 03/05/18 Range/Units 18:55 WBC (4.23-9.07) K/mm3 RBC (4.63-6.08) M/mm3 Hgb (13.7-17.5) gm/L Hct (40.1-51.0) % MCV (79.0-92.2) fl MCH (25.7-32.2) pg MCHC (32.2-35.5) g/dl RDW Std Deviation (35.1-43.9) fL Plt Count (163-337) K/mm3 MPV (9.4-12.3) fl Neutrophils % (Manual) (40-60) % Band Neutrophils % (0-10) % Lymphocytes % (Manual) (20-40) % Atypical Lymphs % % Monocytes % (Manual) (2-10) % Eosinophils % (Manual) (0.8-7.0) % Basophils % (Manual) (0.2-1.2) Platelet Estimate Polychromasia Anisocytosis RBC Morph Comment PT (9.5-12.1) SECONDS INR APTT (24-31) SECONDS Sodium (136-145) mEq/L Potassium (3.5-5.1) mEq/L Chloride (98-107) mEq/L Carbon Dioxide (21-32) mEq/L Anion Gap (5-15) BUN (7-18) mg/dL Creatinine (0.7-1.3) mg/dL Est Cr Clr Drug Dosing mL/min Estimated GFR (MDRD) (>60) mL/min BUN/Creatinine Ratio (14-18) Glucose (83-115) mg/dL Lactic Acid (0.4-2.0) mmol/L Calcium (8.5-10.1) mg/dL Total Bilirubin (0.2-1.0) mg/dL AST (15-37) U/L ALT (16-63) U/L Alkaline Phosphatase (46-116) U/L Troponin I (0.00-0.056) ng/mL C-Reactive Protein (<1.0) mg/dL NT-Pro-B Natriuret Pep (0-450) pg/mL Total Protein (6.4-8.2) g/dl Albumin (3.4-5.0) g/dl Globulin gm/dL Albumin/Globulin Ratio (1-2) Lipase (73-393) U/L Free T4 (0.76-1.46) ng/dL TSH 3rd Generation (0.358-3.74) uIU/mL Urine Color (Yellow) Urine Appearance (Clear) Urine pH (5.0-8.0) Ur Specific [place] (1.005-1.030) Urine Protein (Negative) Urine Glucose (UA) (Negative) Urine Ketones (Negative) Urine Occult Blood (Negative) Urine Nitrite (Negative) Urine Bilirubin (Negative) Urine Urobilinogen (0.2-1.0) Ur Leukocyte Esterase (Negative) Urine RBC (0-5) /hpf Urine WBC (0-5) /hpf Ur Epithelial Cells (0-5) /hpf Urine Bacteria (FEW) /hpf Urine Mucus (FEW) /hpf MRSA (PCR) Negative Med Orders - Current: Current Medications Acetaminophen (Tylenol) 650 mg PO Q4H PRN PRN Reason: Pain (Mild 1-3)/fever Hydrocodone Bitart/Acetaminophen ([place] 325-5 Mg) 1 tab PO Q4H PRN PRN Reason: Pain (moderate 4-6) Last Admin: 03/05/18 22:26 Dose: 1 tab Albuterol/Ipratropium (Duoneb 3.0-0.5 Mg/3 Ml) 3 ml NEB Q4H PRN PRN Reason: Shortness Of Breath/wheezing Bisacodyl (Dulcolax) 5 mg PO DAILY PRN PRN Reason: Constipation Docusate Sodium (Colace) 100 mg PO BID PRN PRN Reason: Constipation Hydralazine HCl (Apresoline) 10 mg IVPUSH Q4H PRN PRN Reason: Hypertension Hydromorphone HCl (Dilaudid) 0.25 mg IVPUSH Q2H PRN PRN Reason: Pain (severe 7-10) Last Admin: 03/05/18 20:13 Dose: 0.25 mg Promethazine HCl 6.25 mg/ (Sodium Chloride) 50.25 mls @ 100 mls/hr IV Q6H PRN PRN Reason: Nausea/Vomiting Lorazepam (Ativan) 2 mg IVPUSH Q4H PRN PRN Reason: Seizures Magnesium Sulfate (Pharmacy To Dose - Magnesium Replacement) 0 dose .XX ASDIRECTED PRN PRN Reason: RX TO WATCH MAG LEVELS Metoprolol Tartrate (Lopressor) 5 mg IVPUSH Q4H PRN PRN Reason: Tachycardia Ondansetron HCl (Zofran) 4 mg IV Q6H PRN PRN Reason: Nausea/Vomiting Polyethylene Glycol (Miralax) 17 gm PO DAILY PRN PRN Reason: Constipation Potassium Chloride (Pharmacy To Dose - Potassium Replacement) 0 dose .XX ASDIRECTED PRN PRN Reason: RX TO WATCH K LEVELS Senna/Docusate Sodium (Senna Plus) 1 tab PO BID PRN PRN Reason: Constipation Sodium Chloride (Saline Flush) 10 ml FLUSH ASDIRECTED PRN PRN Reason: Keep Vein Open Last Admin: 03/05/18 11:19 Dose: 10 ml Temazepam (Restoril) 7.5 mg PO BEDTIME PRN PRN Reason: Sleep Last Admin: 03/05/18 22:26 Dose: 7.5 mg Discontinued Medications Hydrocodone Bitart/Acetaminophen ([place] 325-5 Mg) 1 tab PO ONETIME ONE Stop: 03/05/18 13:34 Last Admin: 03/05/18 13:41 Dose: 1 tab Sodium Chloride (Normal Saline) 500 mls @ 999 mls/hr IV ONETIME ONE Stop: 03/05/18 11:30 Last Admin: 03/05/18 11:19 Dose: 999 mls/hr Sodium Chloride (Normal Saline) 100 mls @ 60 mls/hr IV ASDIRECTED JARRED Last Admin: 03/05/18 11:59 Dose: 60 mls/hr Sodium Chloride (Normal Saline) 1,000 mls @ 100 mls/hr IV ONETIME ONE Stop: 03/05/18 21:59 Last Admin: 03/05/18 12:07 Dose: 100 mls/hr Ceftriaxone Sodium 1 gm/ (Sodium Chloride) 100 mls @ 200 mls/hr IV ONETIME ONE Stop: 03/05/18 14:51 Last Admin: 03/05/18 14:32 Dose: 200 mls/hr Iopamidol (Isovue-370 (76%)) 100 ml IVPUSH ONETIME ONE Stop: 03/05/18 11:21 Last Admin: 03/05/18 11:59 Dose: 100 ml Sodium Chloride (Saline Flush) 10 ml FLUSH ONETIME ONE Stop: 03/05/18 11:21 Last Admin: 03/05/18 11:59 Dose: 10 ml - Exam Quality Assessment: Supplemental Oxygen (2L nasal cannula), Urine Catheter, DVT Prophylaxis General: Alert, Other (Extremely agitated). No: Oriented (states he does not know where he is) HEENT: Pupils Equal, Pupils Reactive, EOMI, Mucous Membr. Moist/[place] Neck: Supple, Trachea Midline, No JVD Lungs: Normal Respiratory Effort, Decreased Breath Sounds Cardiovascular: Regular Rate, Irregular Rhythm GI/Abdominal Exam: Normal Bowel Sounds, Soft, Non-Tender, No Organomegaly, No Distention, No Abnormal Bruit, No Mass, Pelvis Stable (Male) Exam: Deferred Back Exam: Normal Inspection, Decreased Range of Motion Extremities: Normal Inspection, Normal Range of Motion, Non-Tender, No Pedal Edema, Normal Capillary Refill Peripheral Pulses: 1+: Posterior Tibial (L), Posterior Tibial (R), Dorsalis Pedis (L), Dorsalis Pedis (R) Skin: Warm, Dry, Intact Neurological: No New Focal Deficit, Cranial Nerves Intact (grossly). No: Normal Gait Psy/Mental Status: Alert, Agitated - Problem List & Annotations (1) Abdominal pain SNOMED Code(s): 04183160 Code(s): R10.9 - UNSPECIFIED ABDOMINAL PAIN Status: Acute Priority: High Current Visit: Yes Qualifiers: Abdominal location: unspecified location Qualified Code(s): R10.9 - Unspecified abdominal pain (2) Weakness SNOMED Code(s): 18866544 Code(s): R53.1 - WEAKNESS Status: Acute Priority: High Current Visit: Yes (3) Anemia SNOMED Code(s): 988333040 Code(s): D64.9 - ANEMIA, UNSPECIFIED Status: Chronic Priority: Medium Current Visit: Yes Qualifiers: Anemia type: unspecified type Qualified Code(s): D64.9 - Anemia, unspecified (4) CAD (coronary artery disease) SNOMED Code(s): 10691144 Code(s): I25.10 - ATHSCL HEART DISEASE OF [place] CORONARY ARTERY W/O ANG PCTRS Status: Chronic Priority: Medium Current Visit: No Qualifiers: Coronary Disease-Associated Artery/Lesion type: unspecified vessel or lesion type [place] vs. transplanted heart: [place] heart Associated angina: without angina Qualified Code(s): I25.10 - Atherosclerotic heart disease of [place] coronary artery without angina pectoris (5) Elevated brain natriuretic peptide (BNP) level SNOMED Code(s): 626916704, 709637616 Code(s): R79.89 - OTHER SPECIFIED ABNORMAL FINDINGS OF BLOOD CHEMISTRY Status: Chronic Priority: Medium Current Visit: Yes (6) Hypoxia SNOMED Code(s): 296007521 Code(s): R09.02 - HYPOXEMIA Status: Chronic Priority: High Current Visit: Yes (7) Renal insufficiency SNOMED Code(s): 196769812, 108323005 Code(s): N28.9 - DISORDER OF KIDNEY AND URETER, UNSPECIFIED Status: Chronic Priority: Medium Current Visit: Yes (8) Afib SNOMED Code(s): 58478883 Code(s): I48.91 - UNSPECIFIED ATRIAL FIBRILLATION Status: Chronic Priority: Medium Current Visit: Yes Qualifiers: Atrial fibrillation type: chronic Qualified Code(s): I48.2 - Chronic atrial fibrillation (9) CKD (chronic kidney disease), stage III SNOMED Code(s): 922295300 Code(s): N18.3 - CHRONIC KIDNEY DISEASE, STAGE 3 (MODERATE) Status: Chronic Priority: Medium Current Visit: No (10) Congestive heart failure with preserved left ventricular function, NYHA class 1 SNOMED Code(s): 08406748, 263283910, 182254332 Code(s): I50.30 - UNSPECIFIED DIASTOLIC (CONGESTIVE) HEART FAILURE Status: Chronic Priority: High Current Visit: No (11) GERD (gastroesophageal reflux disease) SNOMED Code(s): 513631931 Code(s): K21.9 - GASTRO-ESOPHAGEAL REFLUX DISEASE WITHOUT ESOPHAGITIS Status: Chronic Priority: Low Current Visit: No Qualifiers: Esophagitis presence: esophagitis presence not specified Qualified Code(s) : K21.9 - Gastro-esophageal reflux disease without esophagitis (12) HLD (hyperlipidemia) SNOMED Code(s): 56374906 Code(s): E78.5 - HYPERLIPIDEMIA, UNSPECIFIED Status: Chronic Priority: Low Current Visit: No (13) Hypothyroid SNOMED Code(s): 16152871 Code(s): E03.9 - HYPOTHYROIDISM, UNSPECIFIED Status: Chronic Priority: Low Current Visit: No Qualifiers: Hypothyroidism type: unspecified Qualified Code(s): E03.9 - Hypothyroidism , unspecified - Problem List Review Problem List Initiated/Reviewed/Updated: Yes - My Orders Last 24 Hours: My Active Orders 03/06/18 08:00 PRO B-TYPE NATRIUR PEPT,BNPPRO [CHEM] DAILY 03/07/18 08:00 PRO B-TYPE NATRIUR PEPT,BNPPRO [CHEM] DAILY 03/08/18 08:00 PRO B-TYPE NATRIUR PEPT,BNPPRO [CHEM] DAILY - Plan Plan:: Assessment/Plan: Acute: UTI - Received IV antibiotic in ED - Temp 100.2-->99.5; no leukocytosis - UA not impressive for UTI, but did show many bacteria and 1+ protein - CRP 12.5-->23.7 - Urine culture--> Gram positive cocci - Start Keflex 250mg today - No urinary catheter Generalized Weakness - 2/2 Multi-factorial: Anemia, Hypothyroidism, Chronic Hypoxia and Hyponatremia, UTI - Reduced intake due to abdominal pain - Check for Vit D, Folic Acid, Vit B12, MMA, and Homocystein level - TSH 2.531; T4 1.27 - PT/OT consultation Abdominal Pain, improving - Unclear in etiology - Lipase 285 - Abdominal CT scan reports no acute abnormal findings - Supportive Care - Clear liquid diet--> soft diet today Mild Thrombocytopenia - Platelet of 152-->153 - No active bleeding - Has chronic Anemia - Will monitor Chronic: CHF with preserved EF -Echo 02/10/18 EF:60-65% -ProBNP 3440-->2379 -Continue at home lasix -Low sodium diet when ready to advance from soft diet A-Fib on Eliquis CAD Hx/o IA HTN HLD PVD GERD Hypoxia on Supplemental O2 CKD Stage 3, at baseline Back Pain Vit D Deficiency Urinary Retention Hypothyroidism Abdominal Aneurysm, stable Anemia, Hgb Stable at 9.3 Anxiety and Depression Plan: Admit to the floor with Tele Resume Home Meds Routine AM Labs Clear liquid diet and hen advance as tolerated PT/OT consult DVT/GI prophylaxis: On Eliquis, Protonix Code status: DNR/DNI PCP: David Hazel
[2018-03-06] MEDS: Pantoprazole 40 MG Tab.CR PO SCH (08:50)
[2018-03-06] MEDS: Acetaminophen 325 MG Tab PO PRN ×2 (08:50→17:23)
[2018-03-06] MEDS: Acetaminophen/HYDROcodone 325-5 MG Tab PO PRN ×3 (08:52→21:57)
[2018-03-06] MEDS ORDERED: Non-Formulary Medication 1 Each (Albuterol/Ipratropium 4 GM) IH PRN (09:27)
[2018-03-06] MEDS ORDERED: Furosemide 20 MG Tab PO SCH (09:30)
[2018-03-06] MEDS: Apixaban 5 MG Tab PO SCH ×2 (10:52→21:49)
[2018-03-06] MEDS: Cholecalciferol (Vitamin D3) 1,000 Unit Tab PO SCH (10:53)
[2018-03-06] MEDS: Saccharomyces Boulardii (Probiotic) 250 MG Cap PO SCH (10:57)
[2018-03-06] MEDS: Tamsulosin 0.4 MG Cap.ER PO SCH ×2 (10:57→17:27)
[2018-03-06] MEDS: Simvastatin 10 MG Tab PO SCH (10:57)
[2018-03-06] MEDS: Metoprolol Tartrate 25 MG Tab PO SCH ×2 (10:57→21:50)
[2018-03-06] MEDS: Cephalexin 250 MG Cap PO SCH ×2 (10:59→21:50)
[2018-03-06] MEDS: Potassium Chloride 10 MEQ Tab.ER PO SCH (11:08)
[2018-03-06] MEDS: Lisinopril 2.5 MG Tab PO SCH (12:13)
[2018-03-06] MEDS: Docusate Sodium 100 MG Cap PO PRN (17:26)
[2018-03-06] MEDS: Temazepam 7.5 MG Cap PO PRN (21:48)
[2018-03-06] MEDS: PARoxetine 20 MG Tab PO SCH (21:50)
[2018-03-06] MEDS: Bisacodyl 5 MG Tab PO PRN (21:51)
[2018-03-06] MEDS: HYDROmorphone 0.5 MG/0.5 ML SYRINGE IVPUSH PRN (22:18)
[2018-03-07] MEDS: Levothyroxine 50 MCG Tab PO SCH (05:25)
--- NOTE | 2018-03-07 07:39 | PCM.PN ---
- General Info Date of Service: 03/07/18 Admission Dx/Problem (Free Text): Generalized Weakness and Abdominal Pain Subjective Update: Follow Up Functional Status: Reports: Pain Controlled, Tolerating Diet, Ambulating, Urinating. Denies: New Symptoms - Review of Systems Psychiatric: Reports: Confusion Systems Review Comment:: No significant overnight or acute issues. He is off his baseline and appears drowsy this morning. He has been yelling on and off. He gets nasty with staff but not with providers. He is afebrile w/o leukocytosis. His CRP is 28.7 this morning. ROS is limited by AMS (drowsy/sedation) - Patient Data Vitals - Most Recent: Last Vital Signs Temp 37.2 C 03/07/18 03:21 Pulse 76 03/07/18 03:21 Resp 12 03/07/18 03:21 BP 130/50 L 03/07/18 03:21 Pulse Ox 95 03/07/18 03:21 Weight - Most Recent: 61.28 kg I&O - Last 24 Hours: Intake & Output 03/06/18 03/07/18 03/07/18 22:59 06:59 14:59 Intake Total 540 350 Output Total 625 375 Balance -85 -25 Lab Results Last 24 Hours: Laboratory Results - last 24 hr 03/05/18 03/06/18 03/06/18 Range/Units 20:00 09:24 09:24 WBC 7.49 (4.23-9.07) K/mm3 RBC 2.40 L (4.63-6.08) M/mm3 Hgb 8.2 L (13.7-17.5) gm/L Hct 25.5 L (40.1-51.0) % MCV 106.3 H (79.0-92.2) fl MCH 34.2 H (25.7-32.2) pg MCHC 32.2 (32.2-35.5) g/dl RDW Std Deviation 58.9 H (35.1-43.9) fL Plt Count 153 L (163-337) K/mm3 MPV 9.0 L (9.4-12.3) fl Neut % (Auto) 76.3 H (34.0-67.9) % Lymph % (Auto) 11.1 L (21.8-53.1) % [place] % (Auto) 11.5 (5.3-12.2) % Eos % (Auto) 0.7 L (0.8-7.0) Baso % (Auto) 0.1 (0.1-1.2) % Neut # (Auto) 5.72 H (1.78-5.38) K/mm3 Lymph # (Auto) 0.83 L (1.32-3.57) K/mm3 [place] # (Auto) 0.86 H (0.30-0.82) K/mm3 Eos # (Auto) 0.05 (0.04-0.54) K/mm3 Baso # (Auto) 0.01 (0.01-0.08) K/mm3 Manual Slide Review Abnormal smear Sodium 131 L (136-145) mEq/L Potassium 4.2 (3.5-5.1) mEq/L Chloride 99 (98-107) mEq/L Carbon Dioxide 25 (21-32) mEq/L Anion Gap 11.2 (5-15) BUN 29 H (7-18) mg/dL Creatinine 1.9 H (0.7-1.3) mg/dL Est Cr Clr Drug Dosing 26.07 mL/min Estimated GFR (MDRD) 34 (>60) mL/min BUN/Creatinine Ratio 15.3 (14-18) Glucose 186 H (83-115) mg/dL Calcium 8.2 L (8.5-10.1) mg/dL Magnesium 1.8 (1.8-2.4) mg/dl C-Reactive Protein 23.7 H* (<1.0) mg/dL NT-Pro-B Natriuret Pep (0-450) pg/mL Vitamin D 25-Hydroxy 39 (30-100) ng/mL 03/06/18 03/07/18 03/07/18 Range/Units 09:24 06:23 06:23 WBC 8.43 (4.23-9.07) K/mm3 RBC 2.56 L (4.63-6.08) M/mm3 Hgb 8.9 L (13.7-17.5) gm/L Hct 27.3 L (40.1-51.0) % MCV 106.6 H (79.0-92.2) fl MCH 34.8 H (25.7-32.2) pg MCHC 32.6 (32.2-35.5) g/dl RDW Std Deviation 58.3 H (35.1-43.9) fL Plt Count 170 (163-337) K/mm3 MPV 9.3 L (9.4-12.3) fl Neut % (Auto) 72.4 H (34.0-67.9) % Lymph % (Auto) 13.0 L (21.8-53.1) % [place] % (Auto) 12.9 H (5.3-12.2) % Eos % (Auto) 1.1 (0.8-7.0) Baso % (Auto) 0.1 (0.1-1.2) % Neut # (Auto) 6.10 H (1.78-5.38) K/mm3 Lymph # (Auto) 1.10 L (1.32-3.57) K/mm3 [place] # (Auto) 1.09 H (0.30-0.82) K/mm3 Eos # (Auto) 0.09 (0.04-0.54) K/mm3 Baso # (Auto) 0.01 (0.01-0.08) K/mm3 Manual Slide Review Sodium 133 L (136-145) mEq/L Potassium 4.3 (3.5-5.1) mEq/L Chloride 98 (98-107) mEq/L Carbon Dioxide 26 (21-32) mEq/L Anion Gap 13.3 (5-15) BUN 30 H (7-18) mg/dL Creatinine 2.2 H (0.7-1.3) mg/dL Est Cr Clr Drug Dosing 22.44 mL/min Estimated GFR (MDRD) 29 (>60) mL/min BUN/Creatinine Ratio 13.6 L (14-18) Glucose 115 (83-115) mg/dL Calcium 9.0 (8.5-10.1) mg/dL Magnesium 2.1 (1.8-2.4) mg/dl C-Reactive Protein (<1.0) mg/dL NT-Pro-B Natriuret Pep 2379 H (0-450) pg/mL Vitamin D 25-Hydroxy (30-100) ng/mL Manjeet Results Last 24 Hours: Microbiology 03/05/18 11:15 Urine Culture - Preliminary Urine, Voided Gram Positive Cocci 03/05/18 11:27 Aerobic Blood Culture - Preliminary Blood - Venous NO GROWTH AFTER 1 DAY Anaerobic Blood Culture - Preliminary NO GROWTH AFTER 1 DAY 03/05/18 11:36 Aerobic Blood Culture - Preliminary Blood - Venous - Lab Draw NO GROWTH AFTER 1 DAY Anaerobic Blood Culture - Preliminary NO GROWTH AFTER 1 DAY Med Orders - Current: Current Medications Acetaminophen (Tylenol) 650 mg PO Q4H PRN PRN Reason: Pain (Mild 1-3)/fever Last Admin: 03/06/18 17:23 Dose: 325 mg Hydrocodone Bitart/Acetaminophen ([place] 325-5 Mg) 1 tab PO Q4H PRN PRN Reason: Pain (moderate 4-6) Last Admin: 03/06/18 21:57 Dose: 1 tab Albuterol/Ipratropium (Duoneb 3.0-0.5 Mg/3 Ml) 3 ml NEB Q4H PRN PRN Reason: Shortness Of Breath/wheezing Apixaban (Eliquis) 2.5 mg PO BID [facility] Last Admin: 03/06/18 21:49 Dose: 2.5 mg Bisacodyl (Dulcolax) 5 mg PO DAILY PRN PRN Reason: Constipation Last Admin: 03/06/18 21:51 Dose: 5 mg Cephalexin (Keflex) 250 mg PO Q12HR [facility] Last Admin: 03/06/18 21:50 Dose: 250 mg Cholecalciferol (Vitamin D3) 1,000 units PO DAILY [facility] Last Admin: 03/06/18 10:53 Dose: 1,000 units Cyanocobalamin (Vitamin B12) 1,000 mcg IM ONETIME ONE Stop: 03/10/18 13:01 Docusate Sodium (Colace) 100 mg PO BID PRN PRN Reason: Constipation Last Admin: 03/06/18 17:26 Dose: 100 mg Furosemide (Lasix) 20 mg PO MoWeFr [facility] Last Admin: 03/06/18 11:08 Dose: 20 mg Hydralazine HCl (Apresoline) 10 mg IVPUSH Q4H PRN PRN Reason: Hypertension Hydromorphone HCl (Dilaudid) 0.25 mg IVPUSH Q2H PRN PRN Reason: Pain (severe 7-10) Last Admin: 03/06/18 22:18 Dose: 0.25 mg Promethazine HCl 6.25 mg/ (Sodium Chloride) 50.25 mls @ 100 mls/hr IV Q6H PRN PRN Reason: Nausea/Vomiting Levothyroxine Sodium (Synthroid) 50 mcg PO ACBREAKFAST [facility] Last Admin: 03/07/18 05:25 Dose: 50 mcg Lisinopril (Prinivil) 2.5 mg PO 1200 [facility] Last Admin: 03/06/18 12:13 Dose: Not Given Lorazepam (Ativan) 2 mg IVPUSH Q4H PRN PRN Reason: Seizures Magnesium Sulfate (Pharmacy To Dose - Magnesium Replacement) 0 dose .XX ASDIRECTED PRN PRN Reason: RX TO WATCH MAG LEVELS Metoprolol Tartrate (Lopressor) 5 mg IVPUSH Q4H PRN PRN Reason: Tachycardia Metoprolol Tartrate (Lopressor) 25 mg PO Q12HR [facility] Last Admin: 03/06/18 21:50 Dose: 25 mg Ondansetron HCl (Zofran) 4 mg IV Q6H PRN PRN Reason: Nausea/Vomiting Pantoprazole Sodium (Protonix) 40 mg PO DAILY [facility] Last Admin: 03/06/18 08:50 Dose: 40 mg Paroxetine HCl (Paxil) 30 mg PO BEDTIME [facility] Last Admin: 03/06/18 21:50 Dose: 30 mg Polyethylene Glycol (Miralax) 17 gm PO DAILY PRN PRN Reason: Constipation Potassium Chloride (Pharmacy To Dose - Potassium Replacement) 0 dose .XX ASDIRECTED PRN PRN Reason: RX TO WATCH K LEVELS Potassium Chloride (Klor-Con 10) 10 meq PO MoWeFr [facility] Last Admin: 03/06/18 11:08 Dose: 10 meq Saccharomyces Boulardii (Florastor) 250 mg PO DAILY [facility] Last Admin: 03/06/18 10:57 Dose: 250 mg Senna/Docusate Sodium (Senna Plus) 1 tab PO BID PRN PRN Reason: Constipation Simvastatin (Zocor) 5 mg PO DAILY [facility] Last Admin: 03/06/18 10:57 Dose: 5 mg Sodium Chloride (Saline Flush) 10 ml FLUSH ASDIRECTED PRN PRN Reason: Keep Vein Open Last Admin: 03/05/18 11:19 Dose: 10 ml Tamsulosin HCl (Flomax) 0.4 mg PO BIDPC [facility] Last Admin: 03/06/18 17:27 Dose: 0.4 mg Temazepam (Restoril) 7.5 mg PO BEDTIME PRN PRN Reason: Sleep Last Admin: 03/06/18 21:48 Dose: 7.5 mg Discontinued Medications Hydrocodone Bitart/Acetaminophen ([place] 325-5 Mg) 1 tab PO ONETIME ONE Stop: 03/05/18 13:34 Last Admin: 03/05/18 13:41 Dose: 1 tab Sodium Chloride (Normal Saline) 500 mls @ 999 mls/hr IV ONETIME ONE Stop: 03/05/18 11:30 Last Admin: 03/05/18 11:19 Dose: 999 mls/hr Sodium Chloride (Normal Saline) 100 mls @ 60 mls/hr IV ASDIRECTED [facility] Last Admin: 03/05/18 11:59 Dose: 60 mls/hr Sodium Chloride (Normal Saline) 1,000 mls @ 100 mls/hr IV ONETIME ONE Stop: 03/05/18 21:59 Last Admin: 03/05/18 12:07 Dose: 100 mls/hr Ceftriaxone Sodium 1 gm/ (Sodium Chloride) 100 mls @ 200 mls/hr IV ONETIME ONE Stop: 03/05/18 14:51 Last Admin: 03/05/18 14:32 Dose: 200 mls/hr Iopamidol (Isovue-370 (76%)) 100 ml IVPUSH ONETIME ONE Stop: 03/05/18 11:21 Last Admin: 03/05/18 11:59 Dose: 100 ml Non-Formulary Medication (Albuterol/Ipratropium) 4 gm IH Q4H PRN PRN Reason: Shortness of Breath Sodium Chloride (Saline Flush) 10 ml FLUSH ONETIME ONE Stop: 03/05/18 11:21 Last Admin: 03/05/18 11:59 Dose: 10 ml - Exam General: Sedated, Lethargic HEENT: Pupils Equal, Pupils Reactive, Mucous Membr. Moist/[place] Neck: Supple, Trachea Midline Lungs: Normal Respiratory Effort, Decreased Breath Sounds Cardiovascular: Regular Rate, Regular Rhythm GI/Abdominal Exam: Normal Bowel Sounds, Soft, Non-Tender, No Organomegaly, No Distention, No Abnormal Bruit (Male) Exam: Deferred Back Exam: Normal Inspection, Decreased Range of Motion, Vertebral Tenderness Extremities: Normal Inspection, Normal Range of Motion, Non-Tender, No Pedal Edema, Normal Capillary Refill Peripheral Pulses: 2+: Dorsalis Pedis (L), Dorsalis Pedis (R) Skin: Warm, Dry, Intact Neurological: No New Focal Deficit Psy/Mental Status: Other (sedated/lethargic) - Problem List Review Problem List Initiated/Reviewed/Updated: Yes - My Orders Last 24 Hours: My Active Orders 03/06/18 19:05 Urinary Catheter Assessment [RC] ASDIRECTED 03/06/18 19:06 Bladder Scan [RC] ONETIME 03/07/18 06:23 BASIC METABOLIC PANEL,BMP [CHEM] AM C-REACTIVE PROTEIN [CHEM] AM CBC WITH AUTO DIFF [HEME] AM MAGNESIUM [CHEM] AM 03/07/18 Breakfast Soft Diet [DIET] 03/08/18 05:11 BASIC METABOLIC PANEL,BMP [CHEM] AM C-REACTIVE PROTEIN [CHEM] AM CBC WITH AUTO DIFF [HEME] AM MAGNESIUM [CHEM] AM 03/09/18 05:11 BASIC METABOLIC PANEL,BMP [CHEM] AM C-REACTIVE PROTEIN [CHEM] AM CBC WITH AUTO DIFF [HEME] AM MAGNESIUM [CHEM] AM 03/10/18 05:11 BASIC METABOLIC PANEL,BMP [CHEM] AM C-REACTIVE PROTEIN [CHEM] AM CBC WITH AUTO DIFF [HEME] AM MAGNESIUM [CHEM] AM 03/11/18 05:11 BASIC METABOLIC PANEL,BMP [CHEM] AM CBC WITH AUTO DIFF [HEME] AM - Plan Plan:: Assessment/Plan: Acute: Generalized Weakness - 2/2 Multi-factorial: Anemia, Hypothyroidism, Chronic Hypoxia and Hyponatremia - Reduced intake due to abdominal pain - Vit D and Thyroid Panel both normal - Folic Acid, Vit B12, MMA, and Homocystein level-all pending - Continue PT/OT UTI 2/2 E. Faecalies - Received IV antibiotic in ED - Repeat stat UA--> was never done - CRP 12.5--> 23.7 --> 28.7 - UA Cx pos for Enterococcus faecalis - He is on Kelfex; allergic to Quinolones and Sulfa Drugs - Sensitive and will switch to Macrobid 100 mg po BID CHF with Preserved EF, Stable - ProBNP level 3440--> 1714 - Non specific - Has a hx/o HF and CXR shows no acute abnormal findings - 2D echo 02/10/18: within normal limits Resolved: S/p Abdominal Pain - Unclear in etiology - Abdominal CT scan reports no acute abnormal findings - Supportive Care S/p Mild Thrombocytopenia - Platelet of 152--> 170 - No active bleeding - Has chronic Anemia - Will monitor Chronic: A-Fib on Eliquis CAD Hx/o WA HTN HLD PVD GERD Hypoxia on Supplemental O2 CKD Stage 3, at baseline Back Pain Vit D Deficiency Urinary Retention Hypothyroidism Probable Pulmonary HTN Abdominal Aneurysm, stable Anemia, Hgb Stable at 9.3 Anxiety and Depression Plan: He is clinically stable Continue treatment Routine AM Labs Advance as tolerated Continue PT/OT consult Code status: DNR/DNI Possible d/c in 1-2 days
[2018-03-07] MEDS: Metoprolol Tartrate 25 MG Tab PO SCH ×2 (08:46→20:01)
[2018-03-07] MEDS: Docusate Sodium 100 MG Cap PO PRN (08:47)
[2018-03-07] MEDS: Pantoprazole 40 MG Tab.CR PO SCH (08:47)
[2018-03-07] MEDS: Acetaminophen/HYDROcodone 325-5 MG Tab PO PRN ×2 (08:47→17:11)
[2018-03-07] MEDS: Tamsulosin 0.4 MG Cap.ER PO SCH ×2 (08:47→17:11)
[2018-03-07] MEDS: Apixaban 5 MG Tab PO SCH ×2 (08:48→20:01)
[2018-03-07] MEDS: Saccharomyces Boulardii (Probiotic) 250 MG Cap PO SCH (08:48)
[2018-03-07] MEDS: Cholecalciferol (Vitamin D3) 1,000 Unit Tab PO SCH (08:48)
[2018-03-07] MEDS: Cephalexin 250 MG Cap PO SCH ×2 (08:48→20:00)
[2018-03-07] MEDS: Simvastatin 10 MG Tab PO SCH (08:48)
[2018-03-07] MEDS: Lisinopril 2.5 MG Tab PO SCH (13:15)
[2018-03-07] MEDS: Bisacodyl 5 MG Tab PO PRN (17:14)
[2018-03-07] MEDS: PARoxetine 20 MG Tab PO SCH (19:59)
[2018-03-07] MEDS: Temazepam 7.5 MG Cap PO PRN (20:00)
[2018-03-07] MEDS: Acetaminophen 325 MG Tab PO PRN (20:01)
[2018-03-07] MEDS: HYDROmorphone 0.5 MG/0.5 ML SYRINGE IVPUSH PRN (20:41)
[2018-03-08] MEDS: Levothyroxine 50 MCG Tab PO SCH (05:30)
[2018-03-08] MEDS ORDERED: Sodium Chloride 0.9% 250 ML IV ONE (08:12)
--- NOTE | 2018-03-08 08:15 | PCM.PN ---
- General Info Date of Service: 03/08/18 Admission Dx/Problem (Free Text): Generalized Weakness and Abdominal Pain Subjective Update: Follow Up Functional Status: Reports: Pain Controlled, Tolerating Diet, Urinating. Denies : New Symptoms - Review of Systems General: Denies: Fever, Weakness, Fatigue, Malaise, Chills HEENT: Reports: No Symptoms Pulmonary: Denies: Shortness of Breath, Cough Cardiovascular: Denies: Chest Pain, Palpitations, Dyspnea on Exertion, Orthopnea , Lightheadedness Gastrointestinal: Denies: Abdominal Pain, Decreased Appetite, Nausea Genitourinary: Reports: Retention Musculoskeletal: Reports: Back Pain Skin: Reports: Bruising. Denies: Cyanosis, Jaundice, Mottled, Pallor, Diaphoresis Neurological: Reports: Difficulty Walking, Weakness. Denies: Confusion Psychiatric: Denies: Depression, Agitation, Hallucinations, Suicidal Ideation Systems Review Comment:: No significant overnight or acute issues. He is doing fine. He is alert/awake and reasonable to me. He is pleasant and not yelling or hollering at me. He has been having significant urinary retention. He was incontinent of over 700ml yesterday. He is mostly bed-bound with little or no activities with either PT/ OT or nursing staff. - Patient Data Vitals - Most Recent: Last Vital Signs Temp 36.8 C 03/07/18 19:51 Pulse 87 03/07/18 20:01 Resp 22 H 03/07/18 16:00 BP 136/52 L 03/07/18 20:01 Pulse Ox 93 L 03/07/18 19:51 Weight - Most Recent: 60.917 kg I&O - Last 24 Hours: Intake & Output 03/07/18 03/08/18 03/08/18 22:59 06:59 14:59 Intake Total 930 Output Total 700 Balance 230 Lab Results Last 24 Hours: Laboratory Results - last 24 hr 03/07/18 03/08/18 03/08/18 Range/Units 06:23 05:55 05:55 WBC 5.99 (4.23-9.07) K/mm3 RBC 2.43 L (4.63-6.08) M/mm3 Hgb 8.5 L (13.7-17.5) gm/L Hct 25.5 L (40.1-51.0) % MCV 104.9 H (79.0-92.2) fl MCH 35.0 H (25.7-32.2) pg MCHC 33.3 (32.2-35.5) g/dl RDW Std Deviation 56.6 H (35.1-43.9) fL Plt Count 179 (163-337) K/mm3 MPV 9.3 L (9.4-12.3) fl Neut % (Auto) 64.1 (34.0-67.9) % Lymph % (Auto) 17.5 L (21.8-53.1) % [place] % (Auto) 16.0 H (5.3-12.2) % Eos % (Auto) 1.7 (0.8-7.0) Baso % (Auto) 0.2 (0.1-1.2) % Neut # (Auto) 3.84 (1.78-5.38) K/mm3 Lymph # (Auto) 1.05 L (1.32-3.57) K/mm3 [place] # (Auto) 0.96 H (0.30-0.82) K/mm3 Eos # (Auto) 0.10 (0.04-0.54) K/mm3 Baso # (Auto) 0.01 (0.01-0.08) K/mm3 Manual Slide Review Abnormal smear Sodium 131 L (136-145) mEq/L Potassium 4.0 (3.5-5.1) mEq/L Chloride 97 L (98-107) mEq/L Carbon Dioxide 25 (21-32) mEq/L Anion Gap 13.0 (5-15) BUN 32 H (7-18) mg/dL Creatinine 2.4 H (0.7-1.3) mg/dL Est Cr Clr Drug Dosing 20.45 mL/min Estimated GFR (MDRD) 26 (>60) mL/min BUN/Creatinine Ratio 13.3 L (14-18) Glucose 102 (83-115) mg/dL Calcium 8.7 (8.5-10.1) mg/dL Magnesium 2.0 (1.8-2.4) mg/dl C-Reactive Protein 28.7 H* 25.3 H* (<1.0) mg/dL NT-Pro-B Natriuret Pep (0-450) pg/mL 03/08/18 Range/Units 05:55 WBC (4.23-9.07) K/mm3 RBC (4.63-6.08) M/mm3 Hgb (13.7-17.5) gm/L Hct (40.1-51.0) % MCV (79.0-92.2) fl MCH (25.7-32.2) pg MCHC (32.2-35.5) g/dl RDW Std Deviation (35.1-43.9) fL Plt Count (163-337) K/mm3 MPV (9.4-12.3) fl Neut % (Auto) (34.0-67.9) % Lymph % (Auto) (21.8-53.1) % [place] % (Auto) (5.3-12.2) % Eos % (Auto) (0.8-7.0) Baso % (Auto) (0.1-1.2) % Neut # (Auto) (1.78-5.38) K/mm3 Lymph # (Auto) (1.32-3.57) K/mm3 [place] # (Auto) (0.30-0.82) K/mm3 Eos # (Auto) (0.04-0.54) K/mm3 Baso # (Auto) (0.01-0.08) K/mm3 Manual Slide Review Sodium (136-145) mEq/L Potassium (3.5-5.1) mEq/L Chloride (98-107) mEq/L Carbon Dioxide (21-32) mEq/L Anion Gap (5-15) BUN (7-18) mg/dL Creatinine (0.7-1.3) mg/dL Est Cr Clr Drug Dosing mL/min Estimated GFR (MDRD) (>60) mL/min BUN/Creatinine Ratio (14-18) Glucose (83-115) mg/dL Calcium (8.5-10.1) mg/dL Magnesium (1.8-2.4) mg/dl C-Reactive Protein (<1.0) mg/dL NT-Pro-B Natriuret Pep 2112 H (0-450) pg/mL Manjeet Results Last 24 Hours: Microbiology 03/05/18 11:27 Aerobic Blood Culture - Preliminary Blood - Venous NO GROWTH AFTER 2 DAYS Anaerobic Blood Culture - Preliminary NO GROWTH AFTER 2 DAYS 03/05/18 11:36 Aerobic Blood Culture - Preliminary Blood - Venous - Lab Draw NO GROWTH AFTER 2 DAYS Anaerobic Blood Culture - Preliminary NO GROWTH AFTER 2 DAYS 03/05/18 11:15 Urine Culture - Final Urine, Voided Enterococcus Faecalis Med Orders - Current: Current Medications Acetaminophen (Tylenol) 650 mg PO Q4H PRN PRN Reason: Pain (Mild 1-3)/fever Last Admin: 03/07/18 20:01 Dose: 650 mg Hydrocodone Bitart/Acetaminophen ([place] 325-5 Mg) 1 tab PO Q4H PRN PRN Reason: Pain (moderate 4-6) Last Admin: 03/07/18 17:11 Dose: 1 tab Albuterol/Ipratropium (Duoneb 3.0-0.5 Mg/3 Ml) 3 ml NEB Q4H PRN PRN Reason: Shortness Of Breath/wheezing Apixaban (Eliquis) 2.5 mg PO BID [facility] Last Admin: 03/07/18 20:01 Dose: 2.5 mg Bisacodyl (Dulcolax) 5 mg PO DAILY PRN PRN Reason: Constipation Last Admin: 03/07/18 17:14 Dose: 5 mg Cholecalciferol (Vitamin D3) 1,000 units PO DAILY [facility] Last Admin: 03/07/18 08:48 Dose: 1,000 units Cyanocobalamin (Vitamin B12) 1,000 mcg IM ONETIME ONE Stop: 03/10/18 13:01 Docusate Sodium (Colace) 100 mg PO BID PRN PRN Reason: Constipation Last Admin: 03/07/18 08:47 Dose: 100 mg Furosemide (Lasix) 20 mg PO MoWeFr [facility] Last Admin: 03/06/18 11:08 Dose: 20 mg Hydralazine HCl (Apresoline) 10 mg IVPUSH Q4H PRN PRN Reason: Hypertension Hydromorphone HCl (Dilaudid) 0.25 mg IVPUSH Q2H PRN PRN Reason: Pain (severe 7-10) Last Admin: 03/07/18 20:41 Dose: 0.25 mg Promethazine HCl 6.25 mg/ (Sodium Chloride) 50.25 mls @ 100 mls/hr IV Q6H PRN PRN Reason: Nausea/Vomiting Sodium Chloride (Normal Saline) 250 mls @ 999 mls/hr IV .BOLUS ONE Stop: 03/08/18 08:27 Levothyroxine Sodium (Synthroid) 50 mcg PO ACBREAKFAST [facility] Last Admin: 03/08/18 05:30 Dose: 50 mcg Lisinopril (Prinivil) 2.5 mg PO 1200 [facility] Last Admin: 03/07/18 13:15 Dose: 2.5 mg Lorazepam (Ativan) 2 mg IVPUSH Q4H PRN PRN Reason: Seizures Magnesium Sulfate (Pharmacy To Dose - Magnesium Replacement) 0 dose .XX ASDIRECTED PRN PRN Reason: RX TO WATCH MAG LEVELS Metoprolol Tartrate (Lopressor) 5 mg IVPUSH Q4H PRN PRN Reason: Tachycardia Metoprolol Tartrate (Lopressor) 25 mg PO Q12HR [facility] Last Admin: 03/07/18 20:01 Dose: 25 mg Nitrofurantoin Macrocrystals (Macrobid) 100 mg PO BID [facility] Non-Formulary Medication (Potassium Chloride [Potassium Chloride]) 10 meq PO MoWeFr@0900 [facility] Ondansetron HCl (Zofran) 4 mg IV Q6H PRN PRN Reason: Nausea/Vomiting Pantoprazole Sodium (Protonix) 40 mg PO DAILY [facility] Last Admin: 03/07/18 08:47 Dose: 40 mg Paroxetine HCl (Paxil) 30 mg PO BEDTIME [facility] Last Admin: 03/07/18 19:59 Dose: 30 mg Polyethylene Glycol (Miralax) 17 gm PO DAILY PRN PRN Reason: Constipation Potassium Chloride (Pharmacy To Dose - Potassium Replacement) 0 dose .XX ASDIRECTED PRN PRN Reason: RX TO WATCH K LEVELS Potassium Chloride (Klor-Con 10) 10 meq PO MoWeFr [facility] Last Admin: 03/06/18 11:08 Dose: 10 meq Saccharomyces Boulardii (Florastor) 250 mg PO DAILY [facility] Last Admin: 03/07/18 08:48 Dose: 250 mg Senna/Docusate Sodium (Senna Plus) 1 tab PO BID PRN PRN Reason: Constipation Last Admin: 03/07/18 20:00 Dose: 1 tab Simvastatin (Zocor) 5 mg PO DAILY [facility] Last Admin: 03/07/18 08:48 Dose: 5 mg Sodium Chloride (Saline Flush) 10 ml FLUSH ASDIRECTED PRN PRN Reason: Keep Vein Open Last Admin: 03/05/18 11:19 Dose: 10 ml Tamsulosin HCl (Flomax) 0.4 mg PO BIDPC [facility] Last Admin: 03/07/18 17:11 Dose: 0.4 mg Temazepam (Restoril) 7.5 mg PO BEDTIME PRN PRN Reason: Sleep Last Admin: 03/07/18 20:00 Dose: 7.5 mg Discontinued Medications Hydrocodone Bitart/Acetaminophen ([place] 325-5 Mg) 1 tab PO ONETIME ONE Stop: 03/05/18 13:34 Last Admin: 03/05/18 13:41 Dose: 1 tab Cephalexin (Keflex) 250 mg PO Q12HR [facility] Last Admin: 03/07/18 20:00 Dose: 250 mg Furosemide (Lasix) 20 mg PO MoWeFr@0900 [facility] Sodium Chloride (Normal Saline) 500 mls @ 999 mls/hr IV ONETIME ONE Stop: 03/05/18 11:30 Last Admin: 03/05/18 11:19 Dose: 999 mls/hr Sodium Chloride (Normal Saline) 100 mls @ 60 mls/hr IV ASDIRECTED [facility] Last Admin: 03/05/18 11:59 Dose: 60 mls/hr Sodium Chloride (Normal Saline) 1,000 mls @ 100 mls/hr IV ONETIME ONE Stop: 03/05/18 21:59 Last Admin: 03/05/18 12:07 Dose: 100 mls/hr Ceftriaxone Sodium 1 gm/ (Sodium Chloride) 100 mls @ 200 mls/hr IV ONETIME ONE Stop: 03/05/18 14:51 Last Admin: 03/05/18 14:32 Dose: 200 mls/hr Iopamidol (Isovue-370 (76%)) 100 ml IVPUSH ONETIME ONE Stop: 03/05/18 11:21 Last Admin: 03/05/18 11:59 Dose: 100 ml Non-Formulary Medication (Albuterol/Ipratropium) 4 gm IH Q4H PRN PRN Reason: Shortness of Breath Sodium Chloride (Saline Flush) 10 ml FLUSH ONETIME ONE Stop: 03/05/18 11:21 Last Admin: 03/05/18 11:59 Dose: 10 ml - Exam General: Alert, Cooperative, No Acute Distress HEENT: Pupils Equal, Pupils Reactive, Mucous Membr. Moist/[place] Neck: Supple, Trachea Midline, No JVD, No Thyromegaly Lungs: Normal Respiratory Effort, Decreased Breath Sounds Cardiovascular: Regular Rate, Regular Rhythm GI/Abdominal Exam: Normal Bowel Sounds, Soft, Non-Tender, No Organomegaly, No Distention, No Abnormal Bruit, No Mass, Pelvis Stable (Male) Exam: Deferred Back Exam: Normal Inspection, Decreased Range of Motion Extremities: Normal Inspection, Normal Range of Motion, Non-Tender, No Pedal Edema, Normal Capillary Refill Peripheral Pulses: 2+: Dorsalis Pedis (L), Dorsalis Pedis (R) Skin: Warm, Dry, Intact Neurological: No New Focal Deficit Psy/Mental Status: Alert, Normal Affect, Normal Mood - Problem List Review Problem List Initiated/Reviewed/Updated: Yes - My Orders Last 24 Hours: My Active Orders 03/08/18 05:55 FOLIC ACID [CHEM] AM VITAMIN B12 [CHEM] AM 03/08/18 08:12 Sodium Chloride 0.9% [Normal Saline] 250 ml IV .BOLUS 03/08/18 09:00 Nitrofurantoin [place]/Macrocryst [Macrobid] 100 mg PO BID 03/09/18 05:11 BASIC METABOLIC PANEL,BMP [CHEM] AM C-REACTIVE PROTEIN [CHEM] AM CBC WITH AUTO DIFF [HEME] AM MAGNESIUM [CHEM] AM 03/09/18 09:00 Potassium Chloride [Potassium Chloride] 10 meq PO MoWeFr@0900 03/10/18 05:11 BASIC METABOLIC PANEL,BMP [CHEM] AM C-REACTIVE PROTEIN [CHEM] AM CBC WITH AUTO DIFF [HEME] AM MAGNESIUM [CHEM] AM 03/11/18 05:11 BASIC METABOLIC PANEL,BMP [CHEM] AM CBC WITH AUTO DIFF [HEME] AM - Plan Plan:: Assessment/Plan: Acute: Generalized Weakness - 2/2 Multi-factorial: Anemia, Hypothyroidism, Chronic Hypoxia and Hyponatremia - Reduced intake due to abdominal pain - Vit D, Folci Acid and Thyroid Panel all normal - Vit B12--> 1073 (adequate level) - MMA and Homocystein level-pending - Continue PT/OT UTI 2/2 E. Faecalis - Received IV antibiotic in ED - Repeat stat UA--> was never done - CRP 12.5--> 23.7 --> 28.7 - UA Cx pos for Enterococcus faecalis - He is on Kelfex; allergic to Quinolones and Sulfa Drugs - Pharmacy recommending Augmentin 500 mg po BID x 5 days instead of Macrobid CHF with Preserved EF, Stable - ProBNP level 3440--> 1714--> 2112 - Non specific - Has a hx/o HF and CXR shows no acute abnormal findings - 2D echo 02/10/18: within normal limits Resolved: S/p Abdominal Pain - Unclear in etiology - Abdominal CT scan reports no acute abnormal findings - Supportive Care S/p Mild Thrombocytopenia - Platelet of 152--> 170 - No active bleeding - Has chronic Anemia - Will monitor Chronic: A-Fib on Eliquis CAD Hx/o OR HTN HLD PVD GERD Hypoxia on Supplemental O2 CKD Stage 3, at baseline Back Pain Vit D Deficiency Urinary Retention Hypothyroidism Probable Pulmonary HTN Abdominal Aneurysm, stable Anemia, Hgb Stable at 9.3 Anxiety and Depression Plan: He remains clinically stable Continue treatment Routine AM Labs Advance as tolerated Continue PT/OT consult Code status: DNR/DNI Possible d/c in AM Spoke to family members (primarily to his daughter). Updated them about his diagnosis, clinical progress, and discharge care plan.
[2018-03-08] MEDS: Metoprolol Tartrate 25 MG Tab PO SCH (08:41)
[2018-03-08] MEDS: Apixaban 5 MG Tab PO SCH ×2 (08:41→21:07)
[2018-03-08] MEDS: Saccharomyces Boulardii (Probiotic) 250 MG Cap PO SCH (08:41)
[2018-03-08] MEDS: Simvastatin 10 MG Tab PO SCH (08:42)
[2018-03-08] MEDS: Cholecalciferol (Vitamin D3) 1,000 Unit Tab PO SCH (08:42)
[2018-03-08] MEDS: Tamsulosin 0.4 MG Cap.ER PO SCH ×2 (08:42→17:19)
[2018-03-08] MEDS: Pantoprazole 40 MG Tab.CR PO SCH (08:42)
[2018-03-08] MEDS ORDERED: Nitrofurantoin Monohydrate/Macrocrystalline 100 MG Cap PO SCH (09:00)
[2018-03-08] MEDS: Lisinopril 2.5 MG Tab PO SCH (12:48)
[2018-03-08] MEDS: Acetaminophen/HYDROcodone 325-5 MG Tab PO PRN (17:20)
[2018-03-08] MEDS: Amoxicillin/Clavulanate K 500-125 MG Tab PO SCH (21:05)
[2018-03-08] MEDS: PARoxetine 20 MG Tab PO SCH (21:08)
[2018-03-08] MEDS: Temazepam 7.5 MG Cap PO PRN (22:26)
[2018-03-09] MEDS: Metoprolol Tartrate 25 MG Tab PO SCH ×3 (00:51→21:10)
[2018-03-09] MEDS: Levothyroxine 50 MCG Tab PO SCH (05:28)
[2018-03-09] MEDS: Amoxicillin/Clavulanate K 500-125 MG Tab PO SCH ×2 (08:21→21:10)
[2018-03-09] MEDS: Tamsulosin 0.4 MG Cap.ER PO SCH ×2 (08:21→17:39)
[2018-03-09] MEDS: Saccharomyces Boulardii (Probiotic) 250 MG Cap PO SCH (08:21)
[2018-03-09] MEDS: Apixaban 5 MG Tab PO SCH ×2 (08:22→21:10)
[2018-03-09] MEDS: Cholecalciferol (Vitamin D3) 1,000 Unit Tab PO SCH (08:22)
[2018-03-09] MEDS: Pantoprazole 40 MG Tab.CR PO SCH (08:22)
[2018-03-09] MEDS: Simvastatin 10 MG Tab PO SCH (08:22)
[2018-03-09] MEDS: Potassium Chloride 10 MEQ Tab.ER PO SCH (08:31)
[2018-03-09] MEDS ORDERED: Furosemide 20 MG Tab PO PRN (09:00)
[2018-03-09] MEDS ORDERED: Furosemide 20 MG Tab PO SCH (09:00)
[2018-03-09] MEDS ORDERED: Non-Formulary Medication 1 Each (Potassium Chloride [Potassium Chloride] 10 MEQ) PO SCH (09:00)
--- NOTE | 2018-03-09 12:33 | PCM.PN ---
- General Info Date of Service: 03/09/18 Admission Dx/Problem (Free Text): Generalized Weakness and Abdominal Pain Subjective Update: In to see Will today. He is sitting in a chair. Overall he is doing well, less agitated than the last time I saw him. He has been having significant urinary retention. He is mostly bed-bound with little or no activities with either PT/OT or nursing staff. His appetite is returning- soft diet. Pain is controlled. No nausea, vomiting, diarrhea. Urinating. No concerns from nursing. Functional Status: Reports: Pain Controlled, Tolerating Diet, Ambulating, Urinating - Review of Systems General: Reports: No Symptoms. Denies: Fever, Weakness, Fatigue, Malaise, Chills HEENT: Reports: No Symptoms Pulmonary: Reports: No Symptoms. Denies: Shortness of Breath, Pleuritic Chest Pain, Cough, Sputum Cardiovascular: Reports: No Symptoms. Denies: Chest Pain, Palpitations, Dyspnea on Exertion Gastrointestinal: Reports: Other (Retention). Denies: Abdominal Pain, Diarrhea , Nausea, Vomiting Genitourinary: Reports: No Symptoms. Denies: Dysuria, Frequency, Burning, Pain , Urgency Musculoskeletal: Reports: No Symptoms Skin: Reports: No Symptoms Neurological: Reports: No Symptoms Psychiatric: Reports: Agitation - Patient Data Vitals - Most Recent: Last Vital Signs Temp 98.4 F 03/09/18 07:41 Pulse 73 03/09/18 08:23 Resp 16 03/09/18 07:41 BP 124/90 03/09/18 08:23 Pulse Ox 93 L 03/09/18 07:41 Weight - Most Recent: 136 lb 9.6 oz I&O - Last 24 Hours: Intake & Output 03/08/18 03/09/18 03/09/18 22:59 06:59 14:59 Intake Total 770 300 300 Balance 770 300 300 Lab Results Last 24 Hours: Laboratory Results - last 24 hr 03/05/18 03/09/18 03/09/18 Range/Units 20:00 05:50 05:50 WBC 5.65 (4.23-9.07) K/mm3 RBC 2.39 L (4.63-6.08) M/mm3 Hgb 8.3 L (13.7-17.5) gm/L Hct 24.8 L (40.1-51.0) % MCV 103.8 H (79.0-92.2) fl MCH 34.7 H (25.7-32.2) pg MCHC 33.5 (32.2-35.5) g/dl RDW Std Deviation 53.5 H (35.1-43.9) fL Plt Count 199 (163-337) K/mm3 MPV 9.4 (9.4-12.3) fl Neut % (Auto) 62.4 (34.0-67.9) % Lymph % (Auto) 17.9 L (21.8-53.1) % [place] % (Auto) 17.2 H (5.3-12.2) % Eos % (Auto) 2.1 (0.8-7.0) Baso % (Auto) 0.2 (0.1-1.2) % Neut # (Auto) 3.53 (1.78-5.38) K/mm3 Lymph # (Auto) 1.01 L (1.32-3.57) K/mm3 [place] # (Auto) 0.97 H (0.30-0.82) K/mm3 Eos # (Auto) 0.12 (0.04-0.54) K/mm3 Baso # (Auto) 0.01 (0.01-0.08) K/mm3 Manual Slide Review Abnormal smear Sodium 132 L (136-145) mEq/L Potassium 4.4 (3.5-5.1) mEq/L Chloride 99 (98-107) mEq/L Carbon Dioxide 23 (21-32) mEq/L Anion Gap 14.4 (5-15) BUN 27 H (7-18) mg/dL Creatinine 2.1 H (0.7-1.3) mg/dL Est Cr Clr Drug Dosing 23.77 mL/min Estimated GFR (MDRD) 30 (>60) mL/min BUN/Creatinine Ratio 12.9 L (14-18) Glucose 95 (83-115) mg/dL Calcium 8.7 (8.5-10.1) mg/dL Magnesium 2.0 (1.8-2.4) mg/dl C-Reactive Protein 22.4 H* (<1.0) mg/dL NT-Pro-B Natriuret Pep (0-450) pg/mL Vitamin B12 (193-986) pg/ml Homocysteine 17.9 H (<15) umol/L 03/09/18 03/09/18 Range/Units 10:30 10:30 WBC (4.23-9.07) K/mm3 RBC (4.63-6.08) M/mm3 Hgb (13.7-17.5) gm/L Hct (40.1-51.0) % MCV (79.0-92.2) fl MCH (25.7-32.2) pg MCHC (32.2-35.5) g/dl RDW Std Deviation (35.1-43.9) fL Plt Count (163-337) K/mm3 MPV (9.4-12.3) fl Neut % (Auto) (34.0-67.9) % Lymph % (Auto) (21.8-53.1) % [place] % (Auto) (5.3-12.2) % Eos % (Auto) (0.8-7.0) Baso % (Auto) (0.1-1.2) % Neut # (Auto) (1.78-5.38) K/mm3 Lymph # (Auto) (1.32-3.57) K/mm3 [place] # (Auto) (0.30-0.82) K/mm3 Eos # (Auto) (0.04-0.54) K/mm3 Baso # (Auto) (0.01-0.08) K/mm3 Manual Slide Review Sodium (136-145) mEq/L Potassium (3.5-5.1) mEq/L Chloride (98-107) mEq/L Carbon Dioxide (21-32) mEq/L Anion Gap (5-15) BUN (7-18) mg/dL Creatinine (0.7-1.3) mg/dL Est Cr Clr Drug Dosing mL/min Estimated GFR (MDRD) (>60) mL/min BUN/Creatinine Ratio (14-18) Glucose (83-115) mg/dL Calcium (8.5-10.1) mg/dL Magnesium (1.8-2.4) mg/dl C-Reactive Protein (<1.0) mg/dL NT-Pro-B Natriuret Pep 2195 H (0-450) pg/mL Vitamin B12 1376 H (193-986) pg/ml Homocysteine (<15) umol/L Manjeet Results Last 24 Hours: Microbiology 03/05/18 11:27 Aerobic Blood Culture - Preliminary Blood - Venous NO GROWTH AFTER 4 DAYS Anaerobic Blood Culture - Preliminary NO GROWTH AFTER 4 DAYS 03/05/18 11:36 Aerobic Blood Culture - Preliminary Blood - Venous - Lab Draw NO GROWTH AFTER 4 DAYS Anaerobic Blood Culture - Preliminary NO GROWTH AFTER 4 DAYS Med Orders - Current: Current Medications Acetaminophen (Tylenol) 650 mg PO Q4H PRN PRN Reason: Pain (Mild 1-3)/fever Last Admin: 03/07/18 20:01 Dose: 650 mg Hydrocodone Bitart/Acetaminophen ([place] 325-5 Mg) 1 tab PO Q4H PRN PRN Reason: Pain (moderate 4-6) Last Admin: 03/08/18 17:20 Dose: 1 tab Albuterol/Ipratropium (Duoneb 3.0-0.5 Mg/3 Ml) 3 ml NEB Q4H PRN PRN Reason: Shortness Of Breath/wheezing Amoxicillin/Clavulanate Potassium (Augmentin 500 Mg\125 Mg) 1 tab PO BID [facility] Stop: 03/13/18 09:01 Last Admin: 03/09/18 08:21 Dose: 1 tab Apixaban (Eliquis) 2.5 mg PO BID [facility] Last Admin: 03/09/18 08:22 Dose: 2.5 mg Bisacodyl (Dulcolax) 5 mg PO DAILY PRN PRN Reason: Constipation Last Admin: 03/07/18 17:14 Dose: 5 mg Cholecalciferol (Vitamin D3) 1,000 units PO DAILY [facility] Last Admin: 03/09/18 08:22 Dose: 1,000 units Docusate Sodium (Colace) 100 mg PO BID PRN PRN Reason: Constipation Last Admin: 03/07/18 08:47 Dose: 100 mg Furosemide (Lasix) 20 mg PO MoWeFr PRN PRN Reason: INCREASED SWELLING OR SOB Hydralazine HCl (Apresoline) 10 mg IVPUSH Q4H PRN PRN Reason: Hypertension Hydromorphone HCl (Dilaudid) 0.25 mg IVPUSH Q2H PRN PRN Reason: Pain (severe 7-10) Last Admin: 03/07/18 20:41 Dose: 0.25 mg Promethazine HCl 6.25 mg/ (Sodium Chloride) 50.25 mls @ 100 mls/hr IV Q6H PRN PRN Reason: Nausea/Vomiting Levothyroxine Sodium (Synthroid) 50 mcg PO ACBREAKFAST [facility] Last Admin: 03/09/18 05:28 Dose: 50 mcg Lisinopril (Prinivil) 2.5 mg PO 1200 [facility] Last Admin: 03/08/18 12:48 Dose: 2.5 mg Lorazepam (Ativan) 2 mg IVPUSH Q4H PRN PRN Reason: Seizures Magnesium Sulfate (Pharmacy To Dose - Magnesium Replacement) 0 dose .XX ASDIRECTED PRN PRN Reason: RX TO WATCH MAG LEVELS Metoprolol Tartrate (Lopressor) 5 mg IVPUSH Q4H PRN PRN Reason: Tachycardia Metoprolol Tartrate (Lopressor) 25 mg PO Q12HR [facility] Last Admin: 03/09/18 08:23 Dose: 25 mg Ondansetron HCl (Zofran) 4 mg IV Q6H PRN PRN Reason: Nausea/Vomiting Pantoprazole Sodium (Protonix) 40 mg PO DAILY [facility] Last Admin: 03/09/18 08:22 Dose: 40 mg Paroxetine HCl (Paxil) 30 mg PO BEDTIME [facility] Last Admin: 03/08/18 21:08 Dose: 30 mg Polyethylene Glycol (Miralax) 17 gm PO DAILY PRN PRN Reason: Constipation Potassium Chloride (Pharmacy To Dose - Potassium Replacement) 0 dose .XX ASDIRECTED PRN PRN Reason: RX TO WATCH K LEVELS Potassium Chloride (Klor-Con 10) 10 meq PO MoWeFr [facility] Last Admin: 03/09/18 08:31 Dose: 10 meq Saccharomyces Boulardii (Florastor) 250 mg PO DAILY [facility] Last Admin: 03/09/18 08:21 Dose: 250 mg Senna/Docusate Sodium (Senna Plus) 1 tab PO BID PRN PRN Reason: Constipation Last Admin: 03/07/18 20:00 Dose: 1 tab Simvastatin (Zocor) 5 mg PO DAILY [facility] Last Admin: 03/09/18 08:22 Dose: 5 mg Sodium Chloride (Saline Flush) 10 ml FLUSH ASDIRECTED PRN PRN Reason: Keep Vein Open Last Admin: 03/05/18 11:19 Dose: 10 ml Tamsulosin HCl (Flomax) 0.4 mg PO BIDPC [facility] Last Admin: 03/09/18 08:21 Dose: 0.4 mg Temazepam (Restoril) 7.5 mg PO BEDTIME PRN PRN Reason: Sleep Last Admin: 03/08/18 22:26 Dose: 7.5 mg Discontinued Medications Hydrocodone Bitart/Acetaminophen ([place] 325-5 Mg) 1 tab PO ONETIME ONE Stop: 03/05/18 13:34 Last Admin: 03/05/18 13:41 Dose: 1 tab Cephalexin (Keflex) 250 mg PO Q12HR [facility] Last Admin: 03/07/18 20:00 Dose: 250 mg Cyanocobalamin (Vitamin B12) 1,000 mcg IM ONETIME ONE Stop: 03/10/18 13:01 Furosemide (Lasix) 20 mg PO MoWeFr [facility] Last Admin: 03/06/18 11:08 Dose: 20 mg Furosemide (Lasix) 20 mg PO MoWeFr@0900 [facility] Sodium Chloride (Normal Saline) 500 mls @ 999 mls/hr IV ONETIME ONE Stop: 03/05/18 11:30 Last Admin: 03/05/18 11:19 Dose: 999 mls/hr Sodium Chloride (Normal Saline) 100 mls @ 60 mls/hr IV ASDIRECTED [facility] Last Admin: 03/05/18 11:59 Dose: 60 mls/hr Sodium Chloride (Normal Saline) 1,000 mls @ 100 mls/hr IV ONETIME ONE Stop: 03/05/18 21:59 Last Admin: 03/05/18 12:07 Dose: 100 mls/hr Ceftriaxone Sodium 1 gm/ (Sodium Chloride) 100 mls @ 200 mls/hr IV ONETIME ONE Stop: 03/05/18 14:51 Last Admin: 03/05/18 14:32 Dose: 200 mls/hr Sodium Chloride (Normal Saline) 250 mls @ 999 mls/hr IV .BOLUS ONE Stop: 03/08/18 08:27 Last Admin: 03/08/18 08:40 Dose: 999 mls/hr Iopamidol (Isovue-370 (76%)) 100 ml IVPUSH ONETIME ONE Stop: 03/05/18 11:21 Last Admin: 03/05/18 11:59 Dose: 100 ml Nitrofurantoin Macrocrystals (Macrobid) 100 mg PO BID [facility] Last Admin: 03/08/18 08:41 Dose: 100 mg Non-Formulary Medication (Albuterol/Ipratropium) 4 gm IH Q4H PRN PRN Reason: Shortness of Breath Non-Formulary Medication (Potassium Chloride [Potassium Chloride]) 10 meq PO MoWeFr@0900 [facility] Sodium Chloride (Saline Flush) 10 ml FLUSH ONETIME ONE Stop: 03/05/18 11:21 Last Admin: 03/05/18 11:59 Dose: 10 ml - Exam Quality Assessment: Supplemental Oxygen, DVT Prophylaxis. No: Urine Catheter General: Alert, Oriented, Cooperative, No Acute Distress HEENT: Pupils Equal, Pupils Reactive, EOMI, Mucous Membr. Moist/[place] Neck: Supple Lungs: Clear to Auscultation, Normal Respiratory Effort, Decreased Breath Sounds Cardiovascular: Regular Rate, Regular Rhythm GI/Abdominal Exam: Normal Bowel Sounds, Soft, Non-Tender, No Organomegaly, No Distention, No Abnormal Bruit, No Mass, Pelvis Stable (Male) Exam: Deferred Back Exam: Normal Inspection, Decreased Range of Motion Extremities: Normal Inspection, Normal Range of Motion, Non-Tender, No Pedal Edema, Normal Capillary Refill Peripheral Pulses: 2+: Posterior Tibial (L), Posterior Tibial (R), Dorsalis Pedis (L), Dorsalis Pedis (R) Skin: Warm, Dry, Intact Neurological: No New Focal Deficit Psy/Mental Status: Alert, Normal Affect, Normal Mood, Agitated - Problem List & Annotations (1) Abdominal pain SNOMED Code(s): 15538418 Code(s): R10.9 - UNSPECIFIED ABDOMINAL PAIN Status: Acute Priority: High Current Visit: Yes Qualifiers: Abdominal location: unspecified location Qualified Code(s): R10.9 - Unspecified abdominal pain (2) Weakness SNOMED Code(s): 70568210 Code(s): R53.1 - WEAKNESS Status: Acute Priority: High Current Visit: Yes (3) Anemia SNOMED Code(s): 101697883 Code(s): D64.9 - ANEMIA, UNSPECIFIED Status: Chronic Priority: Medium Current Visit: Yes Qualifiers: Anemia type: unspecified type Qualified Code(s): D64.9 - Anemia, unspecified (4) CAD (coronary artery disease) SNOMED Code(s): 14208387 Code(s): I25.10 - ATHSCL HEART DISEASE OF [place] CORONARY ARTERY W/O ANG PCTRS Status: Chronic Priority: Medium Current Visit: No Qualifiers: Coronary Disease-Associated Artery/Lesion type: unspecified vessel or lesion type [place] vs. transplanted heart: [place] heart Associated angina: without angina Qualified Code(s): I25.10 - Atherosclerotic heart disease of [place] coronary artery without angina pectoris (5) Elevated brain natriuretic peptide (BNP) level SNOMED Code(s): 199586178, 402626409 Code(s): R79.89 - OTHER SPECIFIED ABNORMAL FINDINGS OF BLOOD CHEMISTRY Status: Chronic Priority: Medium Current Visit: Yes (6) Hypoxia SNOMED Code(s): 565768917 Code(s): R09.02 - HYPOXEMIA Status: Chronic Priority: High Current Visit: Yes (7) Renal insufficiency SNOMED Code(s): 364631931, 180108999 Code(s): N28.9 - DISORDER OF KIDNEY AND URETER, UNSPECIFIED Status: Chronic Priority: Medium Current Visit: Yes (8) Afib SNOMED Code(s): 29979449 Code(s): I48.91 - UNSPECIFIED ATRIAL FIBRILLATION Status: Chronic Priority: Medium Current Visit: Yes Qualifiers: Atrial fibrillation type: chronic Qualified Code(s): I48.2 - Chronic atrial fibrillation (9) CKD (chronic kidney disease), stage III SNOMED Code(s): 541359602 Code(s): N18.3 - CHRONIC KIDNEY DISEASE, STAGE 3 (MODERATE) Status: Chronic Priority: Medium Current Visit: No (10) Congestive heart failure with preserved left ventricular function, NYHA class 1 SNOMED Code(s): 62839459, 319616682, 049313767 Code(s): I50.30 - UNSPECIFIED DIASTOLIC (CONGESTIVE) HEART FAILURE Status: Chronic Priority: High Current Visit: No (11) GERD (gastroesophageal reflux disease) SNOMED Code(s): 008170647 Code(s): K21.9 - GASTRO-ESOPHAGEAL REFLUX DISEASE WITHOUT ESOPHAGITIS Status: Chronic Priority: Low Current Visit: No Qualifiers: Esophagitis presence: esophagitis presence not specified Qualified Code(s) : K21.9 - Gastro-esophageal reflux disease without esophagitis (12) HLD (hyperlipidemia) SNOMED Code(s): 74054043 Code(s): E78.5 - HYPERLIPIDEMIA, UNSPECIFIED Status: Chronic Priority: Low Current Visit: No (13) Hypothyroid SNOMED Code(s): 13345549 Code(s): E03.9 - HYPOTHYROIDISM, UNSPECIFIED Status: Chronic Priority: Low Current Visit: No Qualifiers: Hypothyroidism type: unspecified Qualified Code(s): E03.9 - Hypothyroidism , unspecified - Problem List Review Problem List Initiated/Reviewed/Updated: Yes - My Orders Last 24 Hours: My Active Orders 03/09/18 09:00 Furosemide [Lasix] 20 mg PO MoWeFr PRN 03/10/18 05:11 PRO B-TYPE NATRIUR PEPT,BNPPRO [CHEM] DAILY VITAMIN B12 [CHEM] AM 03/11/18 05:11 PRO B-TYPE NATRIUR PEPT,BNPPRO [CHEM] DAILY VITAMIN B12 [CHEM] AM 03/12/18 05:11 PRO B-TYPE NATRIUR PEPT,BNPPRO [CHEM] DAILY VITAMIN B12 [CHEM] AM - Plan Plan:: Assessment/Plan: Acute: Generalized Weakness - 2/2 Multi-factorial: Anemia, Hypothyroidism, Chronic Hypoxia and Hyponatremia - Reduced intake due to abdominal pain - Vit D, Folic Acid and Thyroid Panel all normal - Vit B12--> 1073-->1376 (adequate level)--> D/C B12 - Homocystein level--> elevated at 17.9 - MMA pending - Continue PT/OT UTI 2/2 E. Faecalis - Received IV antibiotic in ED - Repeat stat UA--> was never done - CRP 12.5--> 23.7 --> 28.7--> 25.3 --> 22.4 - UA Cx pos for Enterococcus faecalis - He is on Kelfex; allergic to Quinolones and Sulfa Drugs - Pharmacy recommending Augmentin 500 mg po BID x 5 days instead of Macrobid CHF with Preserved EF, Stable - ProBNP level 3440--> 1714--> 2112--> 2195 - Non specific - Has a hx/o HF and CXR shows no acute abnormal findings - 2D echo 02/10/18: within normal limits Resolved: S/p Abdominal Pain - Unclear in etiology - Abdominal CT scan reports no acute abnormal findings - Supportive Care S/p Mild Thrombocytopenia - Platelet of 152--> 170 -->179--> 199 - No active bleeding - Has chronic Anemia - Will monitor Chronic: A-Fib on Eliquis CAD Hx/o [place] HTN HLD PVD GERD Hypoxia on Supplemental O2 CKD Stage 3, at baseline Back Pain Vit D Deficiency Urinary Retention Hypothyroidism Probable Pulmonary HTN Abdominal Aneurysm, stable Anemia Hgb Stable; 9.3-->8.3, asymptomatic Anxiety and Depression Plan: He remains clinically stable Continue treatment Routine AM Labs Advance as tolerated Continue PT/OT consult Code status: DNR/DNI Possible d/c tomorrow Spoke to family members (primarily to his daughter). Updated them about his diagnosis, clinical progress, and discharge care plan.
[2018-03-09] MEDS: Lisinopril 2.5 MG Tab PO SCH (12:49)
[2018-03-09] MEDS: Acetaminophen/HYDROcodone 325-5 MG Tab PO PRN (15:39)
[2018-03-09] MEDS: HYDROmorphone 0.5 MG/0.5 ML SYRINGE IVPUSH PRN (15:53)
[2018-03-09] MEDS: PARoxetine 20 MG Tab PO SCH (21:10)
[2018-03-09] MEDS: Potassium Chloride/Sodium Chloride Tab PO SCH (21:10)
[2018-03-10] MEDS: Acetaminophen/HYDROcodone 325-5 MG Tab PO PRN ×3 (02:46→20:19)
[2018-03-10] MEDS: HYDROmorphone 0.5 MG/0.5 ML SYRINGE IVPUSH PRN ×2 (03:02→23:33)
[2018-03-10] MEDS: Levothyroxine 50 MCG Tab PO SCH (06:31)
[2018-03-10] MEDS: Saccharomyces Boulardii (Probiotic) 250 MG Cap PO SCH (08:32)
[2018-03-10] MEDS: Potassium Chloride/Sodium Chloride Tab PO SCH ×3 (08:32→20:18)
[2018-03-10] MEDS: Metoprolol Tartrate 25 MG Tab PO SCH (08:33)
[2018-03-10] MEDS: Apixaban 5 MG Tab PO SCH ×2 (08:34→20:19)
[2018-03-10] MEDS: Tamsulosin 0.4 MG Cap.ER PO SCH ×2 (08:34→17:15)
[2018-03-10] MEDS: Amoxicillin/Clavulanate K 500-125 MG Tab PO SCH ×2 (08:34→20:18)
[2018-03-10] MEDS: Cholecalciferol (Vitamin D3) 1,000 Unit Tab PO SCH (08:34)
[2018-03-10] MEDS: Pantoprazole 40 MG Tab.CR PO SCH (08:34)
[2018-03-10] MEDS: Simvastatin 10 MG Tab PO SCH (08:35)
[2018-03-10] MEDS ORDERED: Sodium Chloride 0.9% 500 ML IV ONE (09:00)
[2018-03-10] MEDS ORDERED: Sodium Chloride 0.9% 250 ML IV SCH (10:15)
--- NOTE | 2018-03-10 11:37 | PCM.PN ---
- General Info Date of Service: 03/10/18 Admission Dx/Problem (Free Text): Generalized Weakness and Abdominal Pain Subjective Update: In to see Will today. He is lying in bed. Overall he is doing well, less agitated than the last time I saw him. He has been having significant urinary retention. He is mostly bed-bound with little or no activities with either PT/ OT or nursing staff. He states he hasn't been very hungry- currently on soft diet. Pain is controlled. No nausea, vomiting, diarrhea. Urinating. His Hgb went down to 7.8 so 1 unit of blood was transfused. His BP was also low so 500 bolus was given. No other concerns from nursing. Functional Status: Reports: Pain Controlled - Review of Systems General: Reports: No Symptoms. Denies: Fever, Chills HEENT: Reports: No Symptoms Pulmonary: Reports: No Symptoms. Denies: Shortness of Breath, Cough Cardiovascular: Reports: No Symptoms. Denies: Chest Pain, Edema Gastrointestinal: Reports: No Symptoms. Denies: Abdominal Pain, Diarrhea, Nausea, Vomiting Genitourinary: Reports: No Symptoms. Denies: Dysuria, Frequency, Burning Musculoskeletal: Reports: No Symptoms Skin: Reports: No Symptoms Neurological: Reports: No Symptoms Psychiatric: Reports: No Symptoms - Patient Data Vitals - Most Recent: Last Vital Signs Temp 98.2 F 03/10/18 02:52 Pulse 72 03/10/18 08:33 Resp 20 03/10/18 02:52 BP 90/52 L 03/10/18 08:33 Pulse Ox 100 03/10/18 02:52 Weight - Most Recent: 133 lb 8 oz I&O - Last 24 Hours: Intake & Output 03/09/18 03/10/18 03/10/18 22:59 06:59 14:59 Intake Total 780 400 Balance 780 400 Lab Results Last 24 Hours: Laboratory Results - last 24 hr 03/09/18 03/09/18 03/10/18 Range/Units 10:30 10:30 06:27 WBC 5.28 (4.23-9.07) K/mm3 RBC 2.29 L (4.63-6.08) M/mm3 Hgb 7.8 L (13.7-17.5) gm/L Hct 23.9 L (40.1-51.0) % MCV 104.4 H (79.0-92.2) fl MCH 34.1 H (25.7-32.2) pg MCHC 32.6 (32.2-35.5) g/dl RDW Std Deviation 54.3 H (35.1-43.9) fL Plt Count 245 (163-337) K/mm3 MPV 9.1 L (9.4-12.3) fl Neut % (Auto) 62.7 (34.0-67.9) % Lymph % (Auto) 19.3 L (21.8-53.1) % [place] % (Auto) 14.4 H (5.3-12.2) % Eos % (Auto) 3.0 (0.8-7.0) Baso % (Auto) 0.2 (0.1-1.2) % Neut # (Auto) 3.31 (1.78-5.38) K/mm3 Lymph # (Auto) 1.02 L (1.32-3.57) K/mm3 [place] # (Auto) 0.76 (0.30-0.82) K/mm3 Eos # (Auto) 0.16 (0.04-0.54) K/mm3 Baso # (Auto) 0.01 (0.01-0.08) K/mm3 Manual Slide Review Abnormal smear Sodium (136-145) mEq/L Potassium (3.5-5.1) mEq/L Chloride (98-107) mEq/L Carbon Dioxide (21-32) mEq/L Anion Gap (5-15) BUN (7-18) mg/dL Creatinine (0.7-1.3) mg/dL Est Cr Clr Drug Dosing mL/min Estimated GFR (MDRD) (>60) mL/min BUN/Creatinine Ratio (14-18) Glucose (83-115) mg/dL Calcium (8.5-10.1) mg/dL Magnesium (1.8-2.4) mg/dl C-Reactive Protein (<1.0) mg/dL NT-Pro-B Natriuret Pep 2195 H (0-450) pg/mL Vitamin B12 1376 H (193-986) pg/ml Blood Type Gel Antibody Screen Crossmatch 03/10/18 03/10/18 03/10/18 Range/Units 06:27 06:27 06:27 WBC (4.23-9.07) K/mm3 RBC (4.63-6.08) M/mm3 Hgb (13.7-17.5) gm/L Hct (40.1-51.0) % MCV (79.0-92.2) fl MCH (25.7-32.2) pg MCHC (32.2-35.5) g/dl RDW Std Deviation (35.1-43.9) fL Plt Count (163-337) K/mm3 MPV (9.4-12.3) fl Neut % (Auto) (34.0-67.9) % Lymph % (Auto) (21.8-53.1) % [place] % (Auto) (5.3-12.2) % Eos % (Auto) (0.8-7.0) Baso % (Auto) (0.1-1.2) % Neut # (Auto) (1.78-5.38) K/mm3 Lymph # (Auto) (1.32-3.57) K/mm3 [place] # (Auto) (0.30-0.82) K/mm3 Eos # (Auto) (0.04-0.54) K/mm3 Baso # (Auto) (0.01-0.08) K/mm3 Manual Slide Review Sodium 126 L (136-145) mEq/L Potassium 4.5 (3.5-5.1) mEq/L Chloride 95 L (98-107) mEq/L Carbon Dioxide 22 (21-32) mEq/L Anion Gap 13.5 (5-15) BUN 30 H (7-18) mg/dL Creatinine 2.8 H (0.7-1.3) mg/dL Est Cr Clr Drug Dosing 17.42 mL/min Estimated GFR (MDRD) 22 (>60) mL/min BUN/Creatinine Ratio 10.7 L (14-18) Glucose 86 (83-115) mg/dL Calcium 8.8 (8.5-10.1) mg/dL Magnesium 2.1 (1.8-2.4) mg/dl C-Reactive Protein 22.5 H* (<1.0) mg/dL NT-Pro-B Natriuret Pep 1601 H (0-450) pg/mL Vitamin B12 1441 H (193-986) pg/ml Blood Type Gel Antibody Screen Crossmatch 03/10/18 Range/Units 06:27 WBC (4.23-9.07) K/mm3 RBC (4.63-6.08) M/mm3 Hgb (13.7-17.5) gm/L Hct (40.1-51.0) % MCV (79.0-92.2) fl MCH (25.7-32.2) pg MCHC (32.2-35.5) g/dl RDW Std Deviation (35.1-43.9) fL Plt Count (163-337) K/mm3 MPV (9.4-12.3) fl Neut % (Auto) (34.0-67.9) % Lymph % (Auto) (21.8-53.1) % [place] % (Auto) (5.3-12.2) % Eos % (Auto) (0.8-7.0) Baso % (Auto) (0.1-1.2) % Neut # (Auto) (1.78-5.38) K/mm3 Lymph # (Auto) (1.32-3.57) K/mm3 [place] # (Auto) (0.30-0.82) K/mm3 Eos # (Auto) (0.04-0.54) K/mm3 Baso # (Auto) (0.01-0.08) K/mm3 Manual Slide Review Sodium (136-145) mEq/L Potassium (3.5-5.1) mEq/L Chloride (98-107) mEq/L Carbon Dioxide (21-32) mEq/L Anion Gap (5-15) BUN (7-18) mg/dL Creatinine (0.7-1.3) mg/dL Est Cr Clr Drug Dosing mL/min Estimated GFR (MDRD) (>60) mL/min BUN/Creatinine Ratio (14-18) Glucose (83-115) mg/dL Calcium (8.5-10.1) mg/dL Magnesium (1.8-2.4) mg/dl C-Reactive Protein (<1.0) mg/dL NT-Pro-B Natriuret Pep (0-450) pg/mL Vitamin B12 (193-986) pg/ml Blood Type AB POSITIVE Gel Antibody Screen Negative Crossmatch See Detail Manjeet Results Last 24 Hours: Microbiology 03/05/18 11:27 Aerobic Blood Culture - Preliminary Blood - Venous NO GROWTH AFTER 4 DAYS Anaerobic Blood Culture - Preliminary NO GROWTH AFTER 4 DAYS 03/05/18 11:36 Aerobic Blood Culture - Preliminary Blood - Venous - Lab Draw NO GROWTH AFTER 4 DAYS Anaerobic Blood Culture - Preliminary NO GROWTH AFTER 4 DAYS Med Orders - Current: Current Medications Acetaminophen (Tylenol) 650 mg PO Q4H PRN PRN Reason: Pain (Mild 1-3)/fever Last Admin: 03/07/18 20:01 Dose: 650 mg Hydrocodone Bitart/Acetaminophen ([place] 325-5 Mg) 1 tab PO Q4H PRN PRN Reason: Pain (moderate 4-6) Last Admin: 03/10/18 10:13 Dose: 1 tab Albuterol/Ipratropium (Duoneb 3.0-0.5 Mg/3 Ml) 3 ml NEB Q4H PRN PRN Reason: Shortness Of Breath/wheezing Amoxicillin/Clavulanate Potassium (Augmentin 500 Mg\125 Mg) 1 tab PO BID [facility] Stop: 03/13/18 09:01 Last Admin: 03/10/18 08:34 Dose: 1 tab Apixaban (Eliquis) 2.5 mg PO BID [facility] Last Admin: 03/10/18 08:34 Dose: 2.5 mg Bisacodyl (Dulcolax) 5 mg PO DAILY PRN PRN Reason: Constipation Last Admin: 03/07/18 17:14 Dose: 5 mg Cholecalciferol (Vitamin D3) 1,000 units PO DAILY [facility] Last Admin: 03/10/18 08:34 Dose: 1,000 units Docusate Sodium (Colace) 100 mg PO BID PRN PRN Reason: Constipation Last Admin: 03/07/18 08:47 Dose: 100 mg Furosemide (Lasix) 20 mg PO MoWeFr PRN PRN Reason: INCREASED SWELLING OR SOB Hydralazine HCl (Apresoline) 10 mg IVPUSH Q4H PRN PRN Reason: Hypertension Hydromorphone HCl (Dilaudid) 0.25 mg IVPUSH Q2H PRN PRN Reason: Pain (severe 7-10) Last Admin: 03/10/18 03:02 Dose: 0.25 mg Promethazine HCl 6.25 mg/ (Sodium Chloride) 50.25 mls @ 100 mls/hr IV Q6H PRN PRN Reason: Nausea/Vomiting Sodium Chloride (Normal Saline) 250 mls @ 25 mls/hr IV ASDIRECTED [facility] Levothyroxine Sodium (Synthroid) 50 mcg PO ACBREAKFAST [facility] Last Admin: 03/10/18 06:31 Dose: 50 mcg Lisinopril (Prinivil) 2.5 mg PO 1200 [facility] Last Admin: 03/09/18 12:49 Dose: 2.5 mg Lorazepam (Ativan) 2 mg IVPUSH Q4H PRN PRN Reason: Seizures Magnesium Sulfate (Pharmacy To Dose - Magnesium Replacement) 0 dose .XX ASDIRECTED PRN PRN Reason: RX TO WATCH MAG LEVELS Metoprolol Tartrate (Lopressor) 5 mg IVPUSH Q4H PRN PRN Reason: Tachycardia Ondansetron HCl (Zofran) 4 mg IV Q6H PRN PRN Reason: Nausea/Vomiting Oral Electrolytes (Thermotabs) 2 each PO TID [facility] Pantoprazole Sodium (Protonix) 40 mg PO DAILY [facility] Last Admin: 03/10/18 08:34 Dose: 40 mg Paroxetine HCl (Paxil) 30 mg PO BEDTIME [facility] Last Admin: 03/09/18 21:10 Dose: 30 mg Polyethylene Glycol (Miralax) 17 gm PO DAILY PRN PRN Reason: Constipation Potassium Chloride (Pharmacy To Dose - Potassium Replacement) 0 dose .XX ASDIRECTED PRN PRN Reason: RX TO WATCH K LEVELS Potassium Chloride (Klor-Con 10) 10 meq PO MoWeFr [facility] Last Admin: 03/09/18 08:31 Dose: 10 meq Saccharomyces Boulardii (Florastor) 250 mg PO DAILY [facility] Last Admin: 03/10/18 08:32 Dose: 250 mg Senna/Docusate Sodium (Senna Plus) 1 tab PO BID PRN PRN Reason: Constipation Last Admin: 03/07/18 20:00 Dose: 1 tab Simvastatin (Zocor) 5 mg PO DAILY [facility] Last Admin: 03/10/18 08:35 Dose: 5 mg Sodium Chloride (Saline Flush) 10 ml FLUSH ASDIRECTED PRN PRN Reason: Keep Vein Open Last Admin: 03/05/18 11:19 Dose: 10 ml Tamsulosin HCl (Flomax) 0.4 mg PO BIDPC [facility] Last Admin: 03/10/18 08:34 Dose: 0.4 mg Temazepam (Restoril) 7.5 mg PO BEDTIME PRN PRN Reason: Sleep Last Admin: 03/08/18 22:26 Dose: 7.5 mg Discontinued Medications Hydrocodone Bitart/Acetaminophen ([place] 325-5 Mg) 1 tab PO ONETIME ONE Stop: 03/05/18 13:34 Last Admin: 03/05/18 13:41 Dose: 1 tab Cephalexin (Keflex) 250 mg PO Q12HR [facility] Last Admin: 03/07/18 20:00 Dose: 250 mg Cyanocobalamin (Vitamin B12) 1,000 mcg IM ONETIME ONE Stop: 03/10/18 13:01 Furosemide (Lasix) 20 mg PO MoWeFr [facility] Last Admin: 03/06/18 11:08 Dose: 20 mg Furosemide (Lasix) 20 mg PO MoWeFr@0900 [facility] Sodium Chloride (Normal Saline) 500 mls @ 999 mls/hr IV ONETIME ONE Stop: 03/05/18 11:30 Last Admin: 03/05/18 11:19 Dose: 999 mls/hr Sodium Chloride (Normal Saline) 100 mls @ 60 mls/hr IV ASDIRECTED [facility] Last Admin: 03/05/18 11:59 Dose: 60 mls/hr Sodium Chloride (Normal Saline) 1,000 mls @ 100 mls/hr IV ONETIME ONE Stop: 03/05/18 21:59 Last Admin: 03/05/18 12:07 Dose: 100 mls/hr Ceftriaxone Sodium 1 gm/ (Sodium Chloride) 100 mls @ 200 mls/hr IV ONETIME ONE Stop: 03/05/18 14:51 Last Admin: 03/05/18 14:32 Dose: 200 mls/hr Sodium Chloride (Normal Saline) 250 mls @ 999 mls/hr IV .BOLUS ONE Stop: 03/08/18 08:27 Last Admin: 03/08/18 08:40 Dose: 999 mls/hr Sodium Chloride (Normal Saline) 500 mls @ 999 mls/hr IV ONETIME ONE Stop: 03/10/18 09:30 Last Admin: 03/10/18 09:12 Dose: 999 mls/hr Iopamidol (Isovue-370 (76%)) 100 ml IVPUSH ONETIME ONE Stop: 03/05/18 11:21 Last Admin: 03/05/18 11:59 Dose: 100 ml Metoprolol Tartrate (Lopressor) 25 mg PO Q12HR [facility] Last Admin: 03/10/18 08:33 Dose: Not Given Nitrofurantoin Macrocrystals (Macrobid) 100 mg PO BID [facility] Last Admin: 03/08/18 08:41 Dose: 100 mg Non-Formulary Medication (Albuterol/Ipratropium) 4 gm IH Q4H PRN PRN Reason: Shortness of Breath Non-Formulary Medication (Potassium Chloride [Potassium Chloride]) 10 meq PO MoWeFr@0900 [facility] Oral Electrolytes (Thermotabs) 2 each PO BID [facility] Last Admin: 03/10/18 08:32 Dose: 2 each Sodium Chloride (Saline Flush) 10 ml FLUSH ONETIME ONE Stop: 03/05/18 11:21 Last Admin: 03/05/18 11:59 Dose: 10 ml - Exam Quality Assessment: Supplemental Oxygen (2L nasal cannula), DVT Prophylaxis General: Alert, Oriented, Cooperative, No Acute Distress HEENT: Pupils Equal, Pupils Reactive, EOMI, Mucous Membr. Moist/[place] Neck: Supple Lungs: Clear to Auscultation, Normal Respiratory Effort Cardiovascular: Regular Rate, Regular Rhythm GI/Abdominal Exam: Normal Bowel Sounds, Soft, Non-Tender, No Organomegaly, No Distention, No Abnormal Bruit, No Mass, Pelvis Stable (Male) Exam: Deferred Back Exam: Normal Inspection Extremities: Normal Inspection, Normal Range of Motion, Non-Tender, No Pedal Edema, Normal Capillary Refill Peripheral Pulses: 1+: Posterior Tibial (L), Posterior Tibial (R), Dorsalis Pedis (L), Dorsalis Pedis (R) Skin: Warm, Dry, Intact Neurological: No New Focal Deficit Psy/Mental Status: Alert - Problem List & Annotations (1) Abdominal pain SNOMED Code(s): 99507971 Code(s): R10.9 - UNSPECIFIED ABDOMINAL PAIN Status: Acute Priority: High Current Visit: Yes Qualifiers: Abdominal location: unspecified location Qualified Code(s): R10.9 - Unspecified abdominal pain (2) Weakness SNOMED Code(s): 41450287 Code(s): R53.1 - WEAKNESS Status: Acute Priority: High Current Visit: Yes (3) Anemia SNOMED Code(s): 303421976 Code(s): D64.9 - ANEMIA, UNSPECIFIED Status: Chronic Priority: Medium Current Visit: Yes Qualifiers: Anemia type: unspecified type Qualified Code(s): D64.9 - Anemia, unspecified (4) CAD (coronary artery disease) SNOMED Code(s): 48895659 Code(s): I25.10 - ATHSCL HEART DISEASE OF [place] CORONARY ARTERY W/O ANG PCTRS Status: Chronic Priority: Medium Current Visit: No Qualifiers: Coronary Disease-Associated Artery/Lesion type: unspecified vessel or lesion type [place] vs. transplanted heart: [place] heart Associated angina: without angina Qualified Code(s): I25.10 - Atherosclerotic heart disease of [place] coronary artery without angina pectoris (5) Elevated brain natriuretic peptide (BNP) level SNOMED Code(s): 863114485, 957392531 Code(s): R79.89 - OTHER SPECIFIED ABNORMAL FINDINGS OF BLOOD CHEMISTRY Status: Chronic Priority: Medium Current Visit: Yes (6) Hypoxia SNOMED Code(s): 833371505 Code(s): R09.02 - HYPOXEMIA Status: Chronic Priority: High Current Visit: Yes (7) Renal insufficiency SNOMED Code(s): 595812993, 695806088 Code(s): N28.9 - DISORDER OF KIDNEY AND URETER, UNSPECIFIED Status: Chronic Priority: Medium Current Visit: Yes (8) Afib SNOMED Code(s): 94357564 Code(s): I48.91 - UNSPECIFIED ATRIAL FIBRILLATION Status: Chronic Priority: Medium Current Visit: Yes Qualifiers: Atrial fibrillation type: chronic Qualified Code(s): I48.2 - Chronic atrial fibrillation (9) CKD (chronic kidney disease), stage III SNOMED Code(s): 375352168 Code(s): N18.3 - CHRONIC KIDNEY DISEASE, STAGE 3 (MODERATE) Status: Chronic Priority: Medium Current Visit: No (10) Congestive heart failure with preserved left ventricular function, NYHA class 1 SNOMED Code(s): 09446597, 647653820, 037496690 Code(s): I50.30 - UNSPECIFIED DIASTOLIC (CONGESTIVE) HEART FAILURE Status: Chronic Priority: High Current Visit: No (11) GERD (gastroesophageal reflux disease) SNOMED Code(s): 127496843 Code(s): K21.9 - GASTRO-ESOPHAGEAL REFLUX DISEASE WITHOUT ESOPHAGITIS Status: Chronic Priority: Low Current Visit: No Qualifiers: Esophagitis presence: esophagitis presence not specified Qualified Code(s) : K21.9 - Gastro-esophageal reflux disease without esophagitis (12) HLD (hyperlipidemia) SNOMED Code(s): 91081980 Code(s): E78.5 - HYPERLIPIDEMIA, UNSPECIFIED Status: Chronic Priority: Low Current Visit: No (13) Hypothyroid SNOMED Code(s): 38373132 Code(s): E03.9 - HYPOTHYROIDISM, UNSPECIFIED Status: Chronic Priority: Low Current Visit: No Qualifiers: Hypothyroidism type: unspecified Qualified Code(s): E03.9 - Hypothyroidism , unspecified - Problem List Review Problem List Initiated/Reviewed/Updated: Yes - My Orders Last 24 Hours: My Active Orders 03/11/18 05:11 PRO B-TYPE NATRIUR PEPT,BNPPRO [CHEM] DAILY VITAMIN B12 [CHEM] AM 03/12/18 05:11 PRO B-TYPE NATRIUR PEPT,BNPPRO [CHEM] DAILY VITAMIN B12 [CHEM] AM - Plan Plan:: Assessment/Plan: Acute: Generalized Weakness, improving - 2/2 Multi-factorial: Anemia, Hypothyroidism, Chronic Hypoxia and Hyponatremia - Reduced intake due to abdominal pain - Vit D, Folic Acid and Thyroid Panel all normal - Vit B12--> 1073-->1376-->1441 (adequate level)--> D/C B12 supplement - Homocystein level--> elevated at 17.9 - MMA pending - Continue PT/OT - BP 90/52--> 500 ml NS bolus given, hold Lopressor and Lisinopril today Anemia -Acute on chronic - Hgb 7.8 --> 1 U blood given today UTI 2/2 E. Faecalis, improving - Received IV antibiotic in ED - Repeat stat UA--> was never done - CRP 12.5--> 23.7 --> 28.7--> 25.3 --> 22.4-->22.5 - UA Cx pos for Enterococcus faecalis - He is on Kelfex; allergic to Quinolones and Sulfa Drugs - Pharmacy recommending Augmentin 500 mg po BID x 5 days instead of Macrobid CHF with Preserved EF, Stable - ProBNP level 3440--> 1714--> 2112--> 2195--> 1601 - Non specific - Has a hx/o HF and CXR shows no acute abnormal findings - 2D echo 02/10/18: within normal limits Electrolyte Abnormalities -2/2 inadequate food intake -Na 126--> Thermotabs TID Resolved: S/p Abdominal Pain - Unclear in etiology - Abdominal CT scan reports no acute abnormal findings - Supportive Care S/p Mild Thrombocytopenia - Platelet of 152--> 170 -->179--> 199-->245 - No active bleeding - Has chronic Anemia - Will monitor Chronic: A-Fib on Eliquis CAD Hx/o [place] HTN HLD PVD GERD Hypoxia on Supplemental O2 CKD Stage 3, at baseline Back Pain Vit D Deficiency Urinary Retention Hypothyroidism Probable Pulmonary HTN Abdominal Aneurysm, stable Anemia Anxiety and Depression Plan: He remains clinically stable Continue treatment Routine AM Labs Advance as tolerated Continue PT/OT consult Code status: DNR/DNI Possible d/c tomorrow DNR/DNI; PCP: David Hazel Spoke to family members (primarily to his daughter). Updated them about his diagnosis, clinical progress, and discharge care plan.
[2018-03-10] MEDS ORDERED: Cyanocobalamin (Vitamin B12) 1,000 MCG/ML SDV IM ONE (13:00)
[2018-03-10] MEDS: Temazepam 7.5 MG Cap PO PRN (23:33)
[2018-03-11] MEDS: Levothyroxine 50 MCG Tab PO SCH (05:31)
[2018-03-11] MEDS: Apixaban 5 MG Tab PO SCH (09:06)
[2018-03-11] MEDS: Simvastatin 10 MG Tab PO SCH (09:07)
[2018-03-11] MEDS: Saccharomyces Boulardii (Probiotic) 250 MG Cap PO SCH (09:08)
[2018-03-11] MEDS: Cholecalciferol (Vitamin D3) 1,000 Unit Tab PO SCH (09:08)
[2018-03-11] MEDS: Tamsulosin 0.4 MG Cap.ER PO SCH (09:08)
[2018-03-11] MEDS: Amoxicillin/Clavulanate K 500-125 MG Tab PO SCH (09:08)
[2018-03-11] MEDS: Pantoprazole 40 MG Tab.CR PO SCH (09:08)
[2018-03-11] MEDS: Potassium Chloride/Sodium Chloride Tab PO SCH (09:08)
[2018-03-11] MEDS: Acetaminophen/HYDROcodone 325-5 MG Tab PO PRN (09:16)
--- NOTE | 2018-03-11 11:42 | PCM.DCSUM1 ---
Discharge Summary - Hospital Course Brief History: This is an 82 year old elderly white male with past medical history of A-Fib on Eliquis, CAD, Hx/o NE, HTN, HLD, PVD, GERD, Hypoxia on Supplemental O2, CKD, Stage 3, Chronic Back Pain, Abdominal Aneurysm, Vit D Deficiency, Urinary Retention, Hypothyroidism, Chronic Anemia, Anxiety and Depression who comes with complaints of generalized weakness and malaise. He was initially brought into the clinic for evaluation and he was found unable to get up on a wheelchair because of weakness. He also has been having abdominal pain for the past 2-3 days. However there are no reports of additional GI issues. His intake remains good. Additionally he was found to have an elevated temperature of 99.8 taken this morning. Initial workup in emergency department shows a CBC remarkable for RBC of 2.73, hemoglobin of 9.3, hematocrit of 29, MCV of 106.2, MCH of 34.1, MCHC of 32.1, RDW of 61.8, platelet count of 152, MPV of 9.2, and neutrophils of 62%. Coagulation studies show PT of 11.1, INR of 1.02, and APTT of 35. His chemistry is significant for sodium of 131, chloride of 97, BUN of 33, creatinine of 2.2, glucose of 175, CRP of 12.5, proBNP of 3440 , and albumin of 3.3. His UA is negative for urinary tract infection. His chest x-ray shows no acute abnormal findings. His abdominal/pelvis CT scan report reads no evidence of abdominal aortic aneurysm rupture. Aneurysm is stable from most recent CTs exam with maximum after dimension of 4 cm. Nothing acute is appreciated. Patient is being admitted for medical evaluation of generalized weakness and abdominal pain. He is DNR/DNI - Discharge Data Discharge Date: 03/11/18 [facility] Dis[facility] [place] [place] [facility] [place] [id number] Condition: Good - Discharge Diagnosis/Problem(s) (1) Anemia SNOMED Code(s): 665754466 ICD Code: D64.9 - ANEMIA, UNSPECIFIED Status: Resolved Qualifiers: Iron deficiency anemia type: chronic blood loss (2) Hyponatremia SNOMED Code(s): 64702039 ICD Code: E87.1 - HYPO-OSMOLALITY AND HYPONATREMIA Status: Acute (3) Abdominal pain SNOMED Code(s): 73313615 ICD Code: R10.9 - UNSPECIFIED ABDOMINAL PAIN Status: Resolved Priority: High Qualifiers: Abdominal location: lower abdomen, unspecified Qualified Code(s): R10.30 - Lower abdominal pain, unspecified (4) Weakness SNOMED Code(s): 50399001 ICD Code: R53.1 - WEAKNESS Status: Acute Priority: High (5) Renal insufficiency SNOMED Code(s): 831781030, 014455043 ICD Code: N28.9 - DISORDER OF KIDNEY AND URETER, UNSPECIFIED Status: Chronic Priority: Medium (6) Chronic pain syndrome SNOMED Code(s): 976707270 ICD Code: G89.4 - CHRONIC PAIN SYNDROME Status: Chronic (7) Urinary retention SNOMED Code(s): 123541208 ICD Code: R33.9 - RETENTION OF URINE, UNSPECIFIED Status: Chronic - Patient Summary/Data Operative Procedure(s) Performed: None Complications: None Consults: Consultations 03/05/18 15:44 Consult to Spiritual Care [CONS] Routine OT Evaluation and Treatment [CONS] Routine PT Evaluation and Treatment [CONS] Routine Labs Pending at D/C: None Recommended Follow-up Testing/Procedures: Repeat labs on follow up appointment with PCP in 1 week Planned Operative Procedure(s) after DC: None Hospital Course: Patient was primarily admitted for abdominal pain and he was found to have urinary tract infection. He grew enterococcus faecalis on his urine culture. His chest x-ray and blood cultures showed no acute abnormal findings. The patient received appropriate treatment for antibiotic and he slowly improved on this regimen. He received a total 7 day course of antibiotic treatment. His hospital course was complicated by acute anemia wherein his hemoglobin dropped to 7.8 from his admission baseline of 9.3. He also developed urinary retention secondary to opioid abuse and immobility. During his hospital stay patient was not very mobile and in fact he was chronically asking for narcotic pills for chronic pain syndromes. However, we educated him about the side effects associated with narcotic pills, i.e. urinary retention, constipation, respiratory depression and altered mentation if taken to much or too many too soon. His most recent hemoglobin level is 10.3 with a sodium level of 133. His intake was not great but throughout this hospitalization, his appetite was never an issue an appetite. Patient was discharged clinically stable. He was provided prescription for stool softener since he was on narcotic pain pills. He was advised to follow-up or call his primary care doctor for any questions or concerns after discharge. He was further advised to come back or seek immediate care should his symptoms persist or get worse. The patient expressed understanding and in agreement with the plans as discussed above. All questions were answered. Dr. Serna was called and updated regarding discharged care plans. - Patient Instructions Diet: Usual Diet as Tolerated Activity: As Tolerated Driving: Do Not Drive Showering/Bathing: May Shower, No Tub Bathing/Swimming Notify Provider of: Fever, Increased Pain, Swelling and Redness, Nausea and/or Vomiting Other/Special Instructions: - Please resume all home medications. - Continue routine home activities as tolerated. - Recommened repeat CBC, BMP and Mg through your PCP's office on follow up appointment. - Call your family doctor ( PCP) for any questions or concerns after discharge. - Follow up with PCP in 1 week. - Come back or seek immediate care should your symptoms persist or get worse - Discharge Plan Prescriptions/Med Rec: Sennosides/Docusate Sodium [Senokot-S Tablet] 1 each PO DAILY #30 tablet Home Medications: Home Meds Acetaminophen 650 mg PO Q4HR PRN 02/09/18 [History] Acetaminophen/HYDROcodone [Docena 325-5 MG] 1 tab PO Q6H PRN 02/09/18 [History] Albuterol/Ipratropium [Combivent Respimat] 1 inh PO Q4H PRN 02/09/18 [History] Cholecalciferol (Vitamin D3) [Vitamin D3] 1,000 unit PO DAILY 02/09/18 [History] Cyanocobalamin (Vitamin B-12) [Physicians Ez Use B-12] 1,000 mcg IJ ASDIRECTED 02/09/18 [History] Levothyroxine [Synthroid] 50 mcg PO ACBREAKFAST 02/09/18 [History] Metoprolol Tartrate [Lopressor] 25 mg PO Q12HR 02/09/18 [History] Omeprazole 20 mg PO DAILY 02/09/18 [History] PARoxetine HCl [Paroxetine HCl] 30 mg PO BEDTIME 02/09/18 [History] Pravastatin [Pravachol] 10 mg PO DAILY 02/09/18 [History] Saccharomyces Boulardii [Florastor] 250 mg PO DAILY 02/09/18 [History] Tamsulosin HCl [Flomax] 0.4 mg PO BIDPC 02/09/18 [History] Apixaban [Eliquis] 2.5 mg PO BID #60 tablet 02/13/18 [Rx] Lisinopril 2.5 mg PO DAILY #30 tablet 02/13/18 [Rx] Furosemide [Lasix] 20 mg PO MOWEFR 03/06/18 [History] Potassium Chloride 10 meq PO MOWEFR 03/06/18 [History] Sennosides/Docusate Sodium [Senokot-S Tablet] 1 each PO DAILY #30 tablet [Rx] Patient Handouts: Hyponatremia, [id number]-Hvis, Weakness, Lxav-yj-Ixbs, Urinary Tract Infection, Adult, Hfey-fo-Ywim, Abdominal Pain, Adult, Vxdx-fs-Ghby, Chronic Pain, Adult, Acute Urinary Retention, Male, Uklc-ds-Xwge Referrals: David Hazel MD [Primary Care Provider] - (Daughter thinks there may be an appointment already scheduled on fridaymarch 09. ) - Discharge Summary/Plan Comment DC Time >30 min.: Yes (45 mins) Discharge Summary/Plan Comment: Discharge to [place] - General Info Date of Service: 03/11/18 Admission Dx/Problem (Free Text: Generalized Weakness and Abdominal Pain Subjective Update: Follow Up Functional Status: Reports: Tolerating Diet, Urinating. Denies: Pain Controlled , Ambulating - Review of Systems General: Denies: Fever, Weakness, Fatigue, Malaise, Chills HEENT: Reports: No Symptoms Pulmonary: Denies: Shortness of Breath Cardiovascular: Denies: Chest Pain, Palpitations, Dyspnea on Exertion, Edema, Lightheadedness Gastrointestinal: Denies: Abdominal Pain, Decreased Appetite, Nausea, Vomiting Genitourinary: Reports: No Symptoms Musculoskeletal: Reports: No Symptoms. Denies: Other Skin: Denies: Cyanosis, Jaundice, Mottled, Pallor, Pruritis Neurological: Reports: Weakness. Denies: Confusion, Difficulty Walking, Gait Disturbance Psychiatric: Denies: Depression, Anxiety, Agitation, Hallucinations Systems Review Comment: NO significant overnight or acute issues. He states "I'm better now". he added "At least I know what's going on that I did not know before". His pain is controlled and he reports no new complaints. Again patient is pleasant with providers and recognizes me but he is opposite with staff. He still yells and screams on and off as usual. He is pretty much bed-bound and not mobile. He is barely touching his food but reports no issues with appetite. - Patient Data Vitals - Most Recent: Last Vital Signs Temp 37.6 C 03/11/18 03:32 Pulse 83 03/11/18 03:32 Resp 19 03/11/18 03:32 BP 174/59 H 03/11/18 03:32 Pulse Ox 95 03/11/18 03:32 Weight - Most Recent: 58.967 kg I&O - Last 24 hours: Intake & Output 03/10/18 03/11/18 03/11/18 22:59 06:59 14:59 Intake Total 1345 650 300 Output Total 550 Balance 1345 100 300 Lab Results - Last 24 hrs: Laboratory Results - last 24 hr 03/05/18 03/10/18 03/11/18 Range/Units 20:00 06:27 06:15 WBC 5.86 (4.23-9.07) K/mm3 RBC 2.70 L (4.63-6.08) M/mm3 Hgb 9.2 L (13.7-17.5) gm/L Hct 27.5 L (40.1-51.0) % MCV 101.9 H (79.0-92.2) fl MCH 34.1 H (25.7-32.2) pg MCHC 33.5 (32.2-35.5) g/dl RDW Std Deviation 57.5 H (35.1-43.9) fL Plt Count 264 (163-337) K/mm3 MPV 8.9 L (9.4-12.3) fl Neut % (Auto) 61.6 (34.0-67.9) % Lymph % (Auto) 23.5 (21.8-53.1) % [place] % (Auto) 11.8 (5.3-12.2) % Eos % (Auto) 2.4 (0.8-7.0) Baso % (Auto) 0.2 (0.1-1.2) % Neut # (Auto) 3.61 (1.78-5.38) K/mm3 Lymph # (Auto) 1.38 (1.32-3.57) K/mm3 [place]ade # (Auto) 0.69 (0.30-0.82) K/mm3 Eos # (Auto) 0.14 (0.04-0.54) K/mm3 Baso # (Auto) 0.01 (0.01-0.08) K/mm3 Sodium (136-145) mEq/L Potassium (3.5-5.1) mEq/L Chloride (98-107) mEq/L Carbon Dioxide (21-32) mEq/L Anion Gap (5-15) BUN (7-18) mg/dL Creatinine (0.7-1.3) mg/dL Est Cr Clr Drug Dosing mL/min Estimated GFR (MDRD) (>60) mL/min BUN/Creatinine Ratio (14-18) Glucose (83-115) mg/dL Calcium (8.5-10.1) mg/dL C-Reactive Protein (<1.0) mg/dL NT-Pro-B Natriuret Pep (0-450) pg/mL Vitamin B12 (193-986) pg/ml Methylmalonic Acid 0.34 (0.00-0.40) umol/L Blood Type AB POSITIVE Gel Antibody Screen Negative Crossmatch See Detail 03/11/18 03/11/18 03/11/18 Range/Units 06:15 06:15 06:15 WBC (4.23-9.07) K/mm3 RBC (4.63-6.08) M/mm3 Hgb (13.7-17.5) gm/L Hct (40.1-51.0) % MCV (79.0-92.2) fl MCH (25.7-32.2) pg MCHC (32.2-35.5) g/dl RDW Std Deviation (35.1-43.9) fL Plt Count (163-337) K/mm3 MPV (9.4-12.3) fl Neut % (Auto) (34.0-67.9) % Lymph % (Auto) (21.8-53.1) % [place]ade % (Auto) (5.3-12.2) % Eos % (Auto) (0.8-7.0) Baso % (Auto) (0.1-1.2) % Neut # (Auto) (1.78-5.38) K/mm3 Lymph # (Auto) (1.32-3.57) K/mm3 Meade # (Auto) (0.30-0.82) K/mm3 Eos # (Auto) (0.04-0.54) K/mm3 Baso # (Auto) (0.01-0.08) K/mm3 Sodium 133 L (136-145) mEq/L Potassium 4.6 (3.5-5.1) mEq/L Chloride 102 (98-107) mEq/L Carbon Dioxide 22 (21-32) mEq/L Anion Gap 13.6 (5-15) BUN 26 H (7-18) mg/dL Creatinine 2.2 H (0.7-1.3) mg/dL Est Cr Clr Drug Dosing 21.59 mL/min Estimated GFR (MDRD) 29 (>60) mL/min BUN/Creatinine Ratio 11.8 L (14-18) Glucose 116 H (83-115) mg/dL Calcium 8.8 (8.5-10.1) mg/dL C-Reactive Protein (<1.0) mg/dL NT-Pro-B Natriuret Pep 1126 H (0-450) pg/mL Vitamin B12 1375 H (193-986) pg/ml Methylmalonic Acid (0.00-0.40) umol/L Blood Type Gel Antibody Screen Crossmatch 03/11/18 Range/Units 06:15 WBC (4.23-9.07) K/mm3 RBC (4.63-6.08) M/mm3 Hgb (13.7-17.5) gm/L Hct (40.1-51.0) % MCV (79.0-92.2) fl MCH (25.7-32.2) pg MCHC (32.2-35.5) g/dl RDW Std Deviation (35.1-43.9) fL Plt Count (163-337) K/mm3 MPV (9.4-12.3) fl Neut % (Auto) (34.0-67.9) % Lymph % (Auto) (21.8-53.1) % [place]ade % (Auto) (5.3-12.2) % Eos % (Auto) (0.8-7.0) Baso % (Auto) (0.1-1.2) % Neut # (Auto) (1.78-5.38) K/mm3 Lymph # (Auto) (1.32-3.57) K/mm3 [place]ade # (Auto) (0.30-0.82) K/mm3 Eos # (Auto) (0.04-0.54) K/mm3 Baso # (Auto) (0.01-0.08) K/mm3 Sodium (136-145) mEq/L Potassium (3.5-5.1) mEq/L Chloride (98-107) mEq/L Carbon Dioxide (21-32) mEq/L Anion Gap (5-15) BUN (7-18) mg/dL Creatinine (0.7-1.3) mg/dL Est Cr Clr Drug Dosing mL/min Estimated GFR (MDRD) (>60) mL/min BUN/Creatinine Ratio (14-18) Glucose (83-115) mg/dL Calcium (8.5-10.1) mg/dL C-Reactive Protein 18.2 H* (<1.0) mg/dL NT-Pro-B Natriuret Pep (0-450) pg/mL Vitamin B12 (193-986) pg/ml Methylmalonic Acid (0.00-0.40) umol/L Blood Type Gel Antibody Screen Crossmatch RAMON Results - Last 24 hrs: Microbiology 03/05/18 11:27 Aerobic Blood Culture - Preliminary Blood - Venous NO GROWTH AFTER 5 DAYS Anaerobic Blood Culture - Preliminary NO GROWTH AFTER 5 DAYS 03/05/18 11:36 Aerobic Blood Culture - Preliminary Blood - Venous - Lab Draw NO GROWTH AFTER 5 DAYS Anaerobic Blood Culture - Preliminary NO GROWTH AFTER 5 DAYS Med Orders - Current: Current Medications Acetaminophen (Tylenol) 650 mg PO Q4H PRN PRN Reason: Pain (Mild 1-3)/fever Last Admin: 03/07/18 20:01 Dose: 650 mg Hydrocodone Bitart/Acetaminophen (Docena 325-5 Mg) 1 tab PO Q4H PRN PRN Reason: Pain (moderate 4-6) Last Admin: 03/11/18 09:16 Dose: 1 tab Albuterol/Ipratropium (Duoneb 3.0-0.5 Mg/3 Ml) 3 ml NEB Q4H PRN PRN Reason: Shortness Of Breath/wheezing Amoxicillin/Clavulanate Potassium (Augmentin 500 Mg\\125 Mg) 1 tab PO BID [facility] Stop: 03/13/18 09:01 Last Admin: 03/11/18 09:08 Dose: 1 tab Apixaban (Eliquis) 2.5 mg PO BID [facility] Last Admin: 03/11/18 09:06 Dose: 2.5 mg Bisacodyl (Dulcolax) 5 mg PO DAILY PRN PRN Reason: Constipation Last Admin: 03/07/18 17:14 Dose: 5 mg Cholecalciferol (Vitamin D3) 1,000 units PO DAILY [facility] Last Admin: 03/11/18 09:08 Dose: 1,000 units Docusate Sodium (Colace) 100 mg PO BID PRN PRN Reason: Constipation Last Admin: 03/07/18 08:47 Dose: 100 mg Furosemide (Lasix) 20 mg PO MoWeFr PRN PRN Reason: INCREASED SWELLING OR SOB Hydralazine HCl (Apresoline) 10 mg IVPUSH Q4H PRN PRN Reason: Hypertension Hydromorphone HCl (Dilaudid) 0.25 mg IVPUSH Q2H PRN PRN Reason: Pain (severe 7-10) Last Admin: 03/10/18 23:33 Dose: 0.25 mg Promethazine HCl 6.25 mg/ (Sodium Chloride) 50.25 mls @ 100 mls/hr IV Q6H PRN PRN Reason: Nausea/Vomiting Levothyroxine Sodium (Synthroid) 50 mcg PO ACBREAKFAST [facility] Last Admin: 03/11/18 05:31 Dose: 50 mcg Lisinopril (Prinivil) 2.5 mg PO 1200 [facility] Last Admin: 03/09/18 12:49 Dose: 2.5 mg Lorazepam (Ativan) 2 mg IVPUSH Q4H PRN PRN Reason: Seizures Magnesium Sulfate (Pharmacy To Dose - Magnesium Replacement) 0 dose .XX ASDIRECTED PRN PRN Reason: RX TO WATCH MAG LEVELS Metoprolol Tartrate (Lopressor) 5 mg IVPUSH Q4H PRN PRN Reason: Tachycardia Ondansetron HCl (Zofran) 4 mg IV Q6H PRN PRN Reason: Nausea/Vomiting Oral Electrolytes (Thermotabs) 2 each PO TID [facility] Last Admin: 03/11/18 09:08 Dose: 2 each Pantoprazole Sodium (Protonix) 40 mg PO DAILY [facility] Last Admin: 03/11/18 09:08 Dose: 40 mg Paroxetine HCl (Paxil) 30 mg PO BEDTIME [facility] Last Admin: 03/09/18 21:10 Dose: 30 mg Polyethylene Glycol (Miralax) 17 gm PO DAILY PRN PRN Reason: Constipation Potassium Chloride (Pharmacy To Dose - Potassium Replacement) 0 dose .XX ASDIRECTED PRN PRN Reason: RX TO WATCH K LEVELS Potassium Chloride (Klor-Con 10) 10 meq PO MoWeFr [facility] Last Admin: 03/09/18 08:31 Dose: 10 meq Saccharomyces Boulardii (Florastor) 250 mg PO DAILY [facility] Last Admin: 03/11/18 09:08 Dose: 250 mg Senna/Docusate Sodium (Senna Plus) 1 tab PO BID PRN PRN Reason: Constipation Last Admin: 03/07/18 20:00 Dose: 1 tab Simvastatin (Zocor) 5 mg PO DAILY [facility] Last Admin: 03/11/18 09:07 Dose: 5 mg Sodium Chloride (Saline Flush) 10 ml FLUSH ASDIRECTED PRN PRN Reason: Keep Vein Open Last Admin: 03/05/18 11:19 Dose: 10 ml [facility]amsulosin [facility]) [facility] Last Admin: 03/11/18 09:08 Dose: 0.4 mg Temazepam (Restoril) 7.5 mg PO BEDTIME PRN PRN Reason: Sleep Last Admin: 03/10/18 23:33 Dose: 7.5 mg Discontinued Medications Hydrocodone Bitart/Acetaminophen (Docena 325-5 Mg) 1 tab PO ONETIME ONE Stop: 03/05/18 13:34 Last Admin: 03/05/18 13:41 Dose: 1 tab Cephalexin (Keflex) 250 mg PO Q12HR [facility] Last Admin: 03/07/18 20:00 Dose: 250 mg Cyanocobalamin (Vitamin B12) 1,000 mcg IM ONETIME ONE Stop: 03/10/18 13:01 Furosemide (Lasix) 20 mg PO MoWeFr [facility] Last Admin: 03/06/18 11:08 Dose: 20 mg Furosemide (Lasix) 20 mg PO MoWeFr@0900 [facility] Sodium Chloride (Normal Saline) 500 mls @ 999 mls/hr IV ONETIME ONE Stop: 03/05/18 11:30 Last Admin: 03/05/18 11:19 Dose: 999 mls/hr Sodium Chloride (Normal Saline) 100 mls @ 60 mls/hr IV ASDIRECTED [facility] Last Admin: 03/05/18 11:59 Dose: 60 mls/hr Sodium Chloride (Normal Saline) 1,000 mls @ 100 mls/hr IV ONETIME ONE Stop: 03/05/18 21:59 Last Admin: 03/05/18 12:07 Dose: 100 mls/hr Ceftriaxone Sodium 1 gm/ (Sodium Chloride) 100 mls @ 200 mls/hr IV ONETIME ONE Stop: 03/05/18 14:51 Last Admin: 03/05/18 14:32 Dose: 200 mls/hr Sodium Chloride (Normal Saline) 250 mls @ 999 mls/hr IV .BOLUS ONE Stop: 03/08/18 08:27 Last Admin: 03/08/18 08:40 Dose: 999 mls/hr Sodium Chloride (Normal Saline) 500 mls @ 999 mls/hr IV ONETIME ONE Stop: 03/10/18 09:30 Last Admin: 03/10/18 09:12 Dose: 999 mls/hr Sodium Chloride (Normal Saline) 250 mls @ 25 mls/hr IV ASDIRECTED [facility] Last Admin: 03/10/18 12:22 Dose: 25 mls/hr Iopamidol (Isovue-370 (76%)) 100 ml IVPUSH ONETIME ONE Stop: 03/05/18 11:21 Last Admin: 03/05/18 11:59 Dose: 100 ml Metoprolol Tartrate (Lopressor) 25 mg PO Q12HR [facility] Last Admin: 03/10/18 08:33 Dose: Not Given Nitrofurantoin Macrocrystals (Macrobid) 100 mg PO BID [facility] Last Admin: 03/08/18 08:41 Dose: 100 mg Non-Formulary Medication (Albuterol/Ipratropium) 4 gm IH Q4H PRN PRN Reason: Shortness of Breath Non-Formulary Medication (Potassium Chloride [Potassium Chloride]) 10 meq PO MoWeFr@0900 [facility] Oral Electrolytes (Thermotabs) 2 each PO BID [facility] Last Admin: 03/10/18 08:32 Dose: 2 each Sodium Chloride (Saline Flush) 10 ml FLUSH ONETIME ONE Stop: 03/05/18 11:21 Last Admin: 03/05/18 11:59 Dose: 10 ml - Exam General: Reports: Alert, Cooperative, No Acute Distress, Other (muscle wasting on bilateral lower extremity) HEENT: Reports: Pupils Equal, Pupils Reactive, EOMI, Mucous Membr. Moist/[place], Other (pinpointed pupils) Neck: Reports: Supple, Trachea Midline, No JVD Lungs: Reports: Normal Respiratory Effort, Decreased Breath Sounds Cardiovascular: Reports: Regular Rate, Regular Rhythm GI/Abdominal Exam: Normal Bowel Sounds, Soft, Non-Tender, No Organomegaly, No Distention, No Abnormal Bruit, No Mass (Male) Exam: Deferred Rectal (Males) Exam: Deferred Back Exam: Reports: Normal Inspection, Decreased Range of Motion Extremities: Normal Inspection, Normal Range of Motion, Non-Tender, No Pedal Edema, Normal Capillary Refill Skin: Reports: Warm, Dry, Intact Neurological: Reports: No New Focal Deficit Psy/Mental Status: Reports: Alert, Normal Affect, Normal Mood
[2018-03-11] MEDS: Potassium Chloride 10 MEQ Tab.ER PO SCH (12:33)
[2018-03-11 13:56] VITALS: BP 114/51
== END 2018-03-11 13:35 | DRG 690 ==
LOC: JD.ED 10:24 → JD.MS 15:45 → OBSVTOIN 03-09 16:13
PROVIDERS: ADMIT Internal Medicine; ATTEND Internal Medicine
PROC: 30233N1 Transfusion of Nonautologous Red Blood Cells into Peripheral Vein, Percutaneous Approach (ICD-10-PCS; principal; 2018-03-10)
DX: R53.1 Weakness (principal); R10.9 Unspecified abdominal pain; N39.0 Urinary tract infection, site not specified; N18.9 Chronic kidney disease, unspecified; I50.9 Heart failure, unspecified; R50.9 Fever, unspecified; R53.81 Other malaise; I48.91 Unspecified atrial fibrillation; E87.1 Hypo-osmolality and hyponatremia; E78.00 Pure hypercholesterolemia, unspecified; I13.0 Hypertensive heart and chronic kidney disease with heart failure and stage 1 through stage 4 chronic kidney disease, or unspecified chronic kidney disease; I50.32 Chronic diastolic (congestive) heart failure; B95.2 Enterococcus as the cause of diseases classified elsewhere; G89.29 Other chronic pain; I95.9 Hypotension, unspecified; I25.10 Atherosclerotic heart disease of native coronary artery without angina pectoris; I73.9 Peripheral vascular disease, unspecified; R09.02 Hypoxemia; D64.9 Anemia, unspecified; I71.4 Abdominal aortic aneurysm, without rupture; E78.5 Hyperlipidemia, unspecified; K21.9 Gastro-esophageal reflux disease without esophagitis; N18.3 Chronic kidney disease, stage 3 (moderate); E55.9 Vitamin D deficiency, unspecified; R33.9 Retention of urine, unspecified; D50.0 Iron deficiency anemia secondary to blood loss (chronic); G89.4 Chronic pain syndrome; N28.9 Disorder of kidney and ureter, unspecified; D69.6 Thrombocytopenia, unspecified; I27.20 Pulmonary hypertension, unspecified; R79.89 Other specified abnormal findings of blood chemistry; I48.2 Chronic atrial fibrillation; M54.9 Dorsalgia, unspecified; F41.9 Anxiety disorder, unspecified; F32.9 Major depressive disorder, single episode, unspecified; E03.9 Hypothyroidism, unspecified; R45.1 Restlessness and agitation; R41.0 Disorientation, unspecified; I25.2 Old myocardial infarction; Z99.81 Dependence on supplemental oxygen; Z66 Do not resuscitate; Z88.1 Allergy status to other antibiotic agents; Z88.2 Allergy status to sulfonamides; Z79.899 Other long term (current) drug therapy; Z74.01 Bed confinement status; Z79.01 Long term (current) use of anticoagulants; Z95.5 Presence of coronary angioplasty implant and graft; Z87.891 Personal history of nicotine dependence
CPT/HCPCS: 36415 ×5; 51701 ×2; 51702; 51798 ×2; 71045; 74175; 80048 ×4; 80053; 81001; 82306; 82607 ×2; 82746; 83090; 83605; 83690; 83735 ×4; 83880 ×5; 83921; 84439; 84443; 84484; 85025 ×5; 85610; 85730; 86140 ×5; 87040 ×2; 87086; 87088; 87186; 87641; 93005; 94760; 96361; 96365; 97110 ×2; 97162; 97167; 97530 ×4; 99285; A9270 ×76; J0696; J1170 ×4; J7030 ×2; J7040 ×3; J7050 ×2; Q9967; 36430; 86850; 86900; 86901; 86922; 93010; 96375; 96376; 97116-GP; 99284; G0378; P9016

== ENCOUNTER 2018-05-28 08:58 | Day surgery (SDC) | payer MEDICARE, OTHER ==
[~2018-05-28 08:58] MED LIST: Lactated Ringers 1,000 ML IV SCH; Lidocaine 1%/Sod Bicarbonate in NS 8.4% 1 ML Syringe IDERM PRN; Sodium Chloride 0.9% 10 ML Syringe FLUSH PRN
[2018-05-28] MEDS ORDERED: Propofol 200 MG/20 ML SDV ONE (09:22)
[2018-05-28] MEDS ORDERED: fentaNYL 100 MCG/2 ML SDV ONE (09:22)
[2018-05-28] MEDS ORDERED: Lidocaine 1% 4 ML ONE (09:25)
--- NOTE | 2018-05-28 09:48 | PCM.PREANE ---
Preanesthetic Assessment - Anesthesia/Transfusion/Family Hx Anesthesia History: Prior Anesthesia Without Reaction Family History of Anesthesia Reaction: No Transfusion History: Prior Transfusion Without Reaction - Review of Systems General: No Symptoms Pulmonary: No Symptoms Cardiovascular: Dyspnea on Exertion Gastrointestinal: No Symptoms Neurological: No Symptoms Other: Reports: Easy Bruising, Thyroid Problems (hypothyroid) - Physical Assessment NPO Status Date: 05/28/18 NPO Status Time: 01:00 Pulse: 60 O2 Sat by Pulse Oximetry: 97 Respiratory Rate: 20 Blood Pressure: 129/71 Temperature: 36.3 C Height: 1.78 m Weight: 62.596 kg ASA Class: 3 Mental Status: Alert & Oriented x3 Dentition: Reports: Dentures Thyro-Mental Finger Breadths: 3 Mouth Opening Finger Breadths: 2 ROM/Head Extension: Full Lungs: Clear to Auscultation, Normal Respiratory Effort Cardiovascular: Regular Rate, Regular Rhythm - Allergies Allergies/Adverse Reactions: Allergies Allergy/AdvReac Type Severity Reaction Status Date / Time levofloxacin Allergy Airway Verified 05/27/18 14:21 Tightness Sulfa (Sulfonamide Allergy Anaphylactic Verified 05/27/18 14:21 Antibiotics) Shock - Blood Blood Available: No Product(s) Available: None - Anesthesia Plan Pre-Op Medication Ordered: Beta Fredrick Beta Fredrick: Metoprolol Med Last Dose Date: 05/28/18 Med Last Dose Time: 06:00 - Acknowledgements Anesthesia Type Planned: MAC Pt an Appropriate Candidate for the Planned Anesthesia: Yes Alternatives and Risks of Anesthesia Discussed w Pt/Guardian: Yes Pt/Guardian Understands and Agrees with Anesthesia Plan: Yes PreAnesthesia Questionnaire HEENT History: Reports: None Cardiovascular History: Reports: Afib, Aneurysm, Arrhythmia, CAD, High Cholesterol, Hypertension, [place], PVD Respiratory History: Reports: Bronchitis, Recurrent, Other (See Below) Other Respiratory History: hypoxia with chronic O2 use Gastrointestinal History: Reports: GERD, Other (See Below) Other Gastrointestinal History: esophagitis Genitourinary History: Reports: Chronic Renal Insuffiency, Urinary Incontinence , UTI, Recurrent Other Genitourinary History: nephrotic syndrome, chronic renal insufficiency Musculoskeletal History: Reports: Back Pain, Chronic, Fracture Other Musculoskeletal History: Chronic back pain Neurological History: Reports: Other (See Below) Other Neuro History: dizziness, temporal arteritis Psychiatric History: Reports: Anxiety, Depression Endocrine/Metabolic History: Reports: Hypothyroidism, Other (See Below) Other Endocrine/Metabolic History: vitamin b12 deficiency, adrenal insufficiency Hematologic History: Reports: Anemia, Anticoagulation Therapy Immunologic History: Reports: None Oncologic (Cancer) History: Reports: None Dermatologic History: Reports: None - Infectious Disease History Infectious Disease History: Reports: Other (See Below) Other Infectious Disease History: human metapneumovirus - Past Surgical History Head Surgeries/Procedures: Reports: None HEENT Surgical History: Reports: None Cardiovascular Surgical History: Reports: Carotid Endarterectomy, Coronary Artery Stent, Vascular Surgery Respiratory Surgical History: Reports: None GI Surgical History: Reports: Appendectomy, EGD, Other (See Below) Other GI Surgeries/Procedures: cystodema Female Surgical History: Reports: None Male Surgical History: Reports: Other (See Below) Other Male Surgeries/Procedures: exploratory prostate/testicle surgery Endocrine Surgical History: Reports: None Neurological Surgical History: Reports: None Oncologic Surgical History: Reports: None Dermatological Surgical History: Reports: None - SUBSTANCE USE Smoking Status *Q: Former Smoker Tobacco Use Within Last Twelve Months: No Second Hand Smoke Exposure: No Days Per Week of Alcohol Use: 0 Number of Drinks Per Day: 0 Total Drinks Per Week: 0 Recreational Drug Use History: No - HOME MEDS Home Medications: Home Meds Acetaminophen 650 mg PO Q4HR PRN 02/09/18 [History] Acetaminophen/HYDROcodone [[place] 325-5 MG] 1 tab PO Q6H PRN 02/09/18 [History] Cholecalciferol (Vitamin D3) [Vitamin D3] 1,000 unit PO DAILY 02/09/18 [History] Cyanocobalamin (Vitamin B-12) [[employer] Ez Use B-12] 1,000 mcg IM ASDIRECTED 02/09/18 [History] Levothyroxine [Synthroid] 50 mcg PO ACBREAKFAST 02/09/18 [History] Metoprolol Tartrate [Lopressor] 25 mg PO Q12HR 02/09/18 [History] Omeprazole 20 mg PO DAILY 02/09/18 [History] PARoxetine HCl [Paroxetine HCl] 30 mg PO BEDTIME 02/09/18 [History] Pravastatin [Pravachol] 10 mg PO DAILY 02/09/18 [History] Saccharomyces Boulardii [Florastor] 250 mg PO DAILY 02/09/18 [History] Tamsulosin HCl [Flomax] 0.4 mg PO BID 02/09/18 [History] Sennosides/Docusate Sodium [Senokot-S Tablet] 1 each PO DAILY #30 tablet [Rx] Gluc 2KCl/Chondr/Rod Hy/Hy Ac [Glucosamine & Chondroitin Cap] 1 cap PO BID [History] Nicotine Polacrilex [Nicotine Lozenge] 2 mg BUCCAL Q1H PRN 05/27/18 [History] predniSONE [Prednisone] 5 mg PO DAILY 05/27/18 [History] - CURRENT (IN HOUSE) MEDS Current Meds: Current Medications Lactated Ringer's (Ringers, Lactated) 1,000 mls @ 125 mls/hr IV ASDIRECTED JARRED Stop: 05/28/18 23:00 Lidocaine/Sodium Bicarbonate (Buffered Lidocaine 1% In Ns 8.4%) 0.25 ml IDERM ONETIME PRN PRN Reason: Prior to IV Start Stop: 05/28/18 18:00 Sodium Chloride (Saline Flush) 10 ml FLUSH ASDIRECTED PRN PRN Reason: Keep Vein Open Stop: 05/28/18 18:00 Discontinued Medications Fentanyl (Sublimaze) Confirm Administered Dose 100 mcg .ROUTE .STK-MED ONE Stop: 05/28/18 09:23 Lidocaine HCl (Xylocaine-Mpf 1%) Confirm Administered Dose 4 mls @ as directed .ROUTE .STK-MED ONE Stop: 05/28/18 09:26 Propofol (Diprivan 20 Ml) Confirm Administered Dose 200 mg .ROUTE .STK-MED ONE Stop: 05/28/18 09:23
--- NOTE | 2018-05-28 11:38 | PCM48HPAN ---
Post Anesthesia Note - EVALUATION WITHIN 48HRS OF ANESTHETIC Vital Signs in Normal Range: Yes Patient Participated in Evaluation: Yes Respiratory Function Stable: Yes Airway Patent: Yes Cardiovascular Function Stable: Yes Hydration Status Stable: Yes Pain Control Satisfactory: Yes Nausea and Vomiting Control Satisfactory: Yes Mental Status Recovered: Yes Pulse Rate: 53 SaO2: 92 Resp Rate: 12 Temperature: 36.4 C Blood Pressure: 103/52
--- NOTE | 2018-05-28 11:41 | PCM.OPNOTE ---
- General Post-Op/Procedure Note Date of Surgery/Procedure: 05/28/18 Operative Procedure(s): EGD/colonoscopy Pre Op Diagnosis: anemis Post-Op Diagnosis: Same Anesthesia Technique: MAC Primary Surgeon: Matthew Masterson EBL in mLs: 0 Complications: None Condition: Good
[2018-05-28 14:12] VITALS: BP 136/62
--- NOTE | 2018-05-29 07:14 | OR ---
DATE OF OPERATION: 05/28/2018 SURGEON: Matthew Masterson MD PREOPERATIVE DIAGNOSIS: Anemia. POSTOPERATIVE DIAGNOSIS: Anemia. OPERATION PERFORMED: Esophagogastroduodenoscopy. FINDINGS: Incompetent hiatus with a sliding hiatal hernia. GE junction located about 38 cm. Second portion of the duodenum, duodenal bulb, pyloric channel, antrum, body, cardia, fundus of the stomach, and balance of the esophagus was normal. No acute disease was seen. ANESTHESIA: EGD done under IV sedation. DESCRIPTION OF PROCEDURE: The patient was taken to the endoscopy room, connected to monitoring equipment, given IV sedation, placed in left lateral position. Bite-block was inserted and video Olympus gastroscope placed in the posterior oropharynx, under direct vision, threaded past the cricopharyngeus, down the esophagus into the stomach. Stomach was insufflated, and the scope passed through the pylorus to the second portion of the duodenum, which was normal, was then slowly withdrawn showing the normal second portion of the duodenum, duodenal bulb, pyloric channel, antrum, body, and cardia of the stomach was normal. J-maneuver showed a normal fundus. Hiatal hernia was noted. Scope withdrawn to the GE junction. The hiatal hernia pouch which was unremarkable. Z-line was sharp and located about 38 cm. The rest of the esophagus viewed, the scope withdrawn, normal. The patient tolerated the procedure. IV sedation continued for colonoscopy. ESTIMATED BLOOD LOSS: MMODAL /[id number]
--- NOTE | 2018-05-29 07:16 | OR ---
DATE OF OPERATION: 05/28/2018 SURGEON: Matthew Masterson MD PREOPERATIVE DIAGNOSIS: Anemia. POSTOPERATIVE DIAGNOSIS: Anemia. OPERATION PERFORMED: Diagnostic colonoscopy. FINDINGS: Normal study. There were no angiodysplasias, neoplasias, large tumor masses, ulcerations, or notable diverticulum. ANESTHESIA: Procedure done under IV sedation. DESCRIPTION OF PROCEDURE: The patient was taken to the endoscopy room, connected to monitoring equipment, given IV sedation for upper GI endoscopy. This was continued for colonoscopy. He was placed in left lateral position. Perianal area was inspected and it was normal. Rectal exam showed good sphincter tone. A video Olympus colonoscope was then introduced into the rectum and threaded up without problem to the cecum, where the appendicular orifice ileocecal valve was noted. Prep was excellent. [place] Cleansing Score grade A throughout the colon. Scope was slowly withdrawn showing the cecum, ascending colon, transverse colon, descending colon, sigmoid colon, and rectum. The patient tolerated the procedure, sent to recovery room in a stable condition, will be followed up as needed in the clinic. ESTIMATED BLOOD LOSS: MMODAL /[id number]
== END 2018-05-28 13:20 | disposition home or self-care (01) ==
LOC: JD.SDS 08:58
PROVIDERS: ATTEND Surgery
DX: D64.9 Anemia, unspecified (principal); R19.5 Other fecal abnormalities; K44.9 Diaphragmatic hernia without obstruction or gangrene; I25.10 Atherosclerotic heart disease of native coronary artery without angina pectoris; I73.9 Peripheral vascular disease, unspecified; I48.91 Unspecified atrial fibrillation; I12.9 Hypertensive chronic kidney disease with stage 1 through stage 4 chronic kidney disease, or unspecified chronic kidney disease; E11.22 Type 2 diabetes mellitus with diabetic chronic kidney disease; N18.9 Chronic kidney disease, unspecified; K21.0 Gastro-esophageal reflux disease with esophagitis; E55.9 Vitamin D deficiency, unspecified; E78.5 Hyperlipidemia, unspecified; F41.9 Anxiety disorder, unspecified; F32.9 Major depressive disorder, single episode, unspecified; Z79.01 Long term (current) use of anticoagulants; Z79.899 Other long term (current) drug therapy; Z79.4 Long term (current) use of insulin; Z88.1 Allergy status to other antibiotic agents; Z88.2 Allergy status to sulfonamides; Z87.891 Personal history of nicotine dependence
CPT/HCPCS: 43235; 45378; J2704; J3010; J7120; J2001

== ENCOUNTER 2019-04-17 13:00 | Emergency (ER) | payer MEDICARE, OTHER, MEDICAID ==
[2019-04-17 13:15] VITALS: BP 158/75
[2019-04-17] MEDS ORDERED: Sodium Chloride 0.9% 10 ML Syringe FLUSH PRN (13:32)
[2019-04-17] MEDS ORDERED: HYDROmorphone 0.5 MG/0.5 ML Syringe IVPUSH ONE (13:33)
--- NOTE | 2019-04-17 14:44 | EDM.PDOC ---
ED HPI GENERAL MEDICAL PROBLEM - General Chief Complaint: Lower Extremity Injury/Pain Stated Complaint: L FOOT PAIN Time Seen by Provider: 04/17/19 13:18 Source of Information: Reports: Patient, Shelter Records - History of Present Illness INITIAL COMMENTS - FREE TEXT/NARRATIVE: 83-year-old half-way resident has been sent here evaluation of left foot pain, increasing erythema of left foot and increasing drainage open lesion distal left great toe. He does have history of hypertension, renal insufficiency , COPD type 2 diabetes, a fib., and probable peripheral vascular disease. CODE STATUS DNR. He has been getting some Tylenol for pain and occasional tramadol but is reported to of be having worsening pain of the left great toe and foot the last few days. there is no report of fever. No chest pain or difficulty breathing. - Related Data Allergies Allergy/AdvReac Type Severity Reaction Status Date / Time levofloxacin Allergy Airway Verified 04/17/19 13:15 Tightness Sulfa (Sulfonamide Allergy Anaphylactic Verified 04/17/19 13:15 Antibiotics) Shock Home Meds: Home Meds Acetaminophen 650 mg PO Q4HR PRN 02/09/18 [History] Cholecalciferol (Vitamin D3) [Vitamin D3] 1,000 unit PO DAILY 02/09/18 [History] Levothyroxine [Synthroid] 50 mcg PO ACBREAKFAST 02/09/18 [History] Metoprolol Tartrate [Lopressor] 25 mg PO Q12HR 02/09/18 [History] Pravastatin [Pravachol] 10 mg PO DAILY 02/09/18 [History] Tamsulosin HCl [Flomax] 0.4 mg PO BID 02/09/18 [History] Sennosides/Docusate Sodium [Senokot-S Tablet] 1 each PO DAILY #30 tablet [Rx] Gluc 2KCl/Chondr/Rod Hy/Hy Ac [Glucosamine & Chondroitin Cap] 1 cap PO BID [History] Nicotine Polacrilex [Nicotine Lozenge] 2 mg BUCCAL Q1H PRN 05/27/18 [History] predniSONE [Prednisone] 5 mg PO DAILY 05/27/18 [History] Lisinopril 2.5 mg PO DAILY 05/28/18 [History] ARIPiprazole [Abilify] 5 mg PO DAILY 04/17/19 [History] Cephalexin [Keflex] 500 mg PO TID #20 capsule 04/17/19 [Rx] Insulin Aspart [NovoLOG] 0 unit SQ WITHMEALSANDBED 04/17/19 [History] Lactobacillus Acidophilus [Acidophilus Lactobacilli] 1 each PO DAILY 04/17/19 [ History] Multivit-Min/FA/Lycopene/Lut [Centrum Silver Tablet] 1 tab PO DAILY 04/17/19 [ History] Pramipexole Di-HCl [Mirapex] 0.25 mg PO DAILY 04/17/19 [History] Ranitidine [Zantac] 150 mg PO DAILY PRN 04/17/19 [History] Sertraline [Zoloft] 75 mg PO DAILY 04/17/19 [History] Warfarin [Coumadin] 3 mg PO DAILY 04/17/19 [History] traMADol [Ultram] 50 mg PO Q8HR PRN 04/17/19 [History] Past Medical History HEENT History: Reports: None Cardiovascular History: Reports: Afib, Aneurysm, Arrhythmia, CAD, High Cholesterol, Hypertension, [place], PVD Respiratory History: Reports: Bronchitis, Recurrent, Other (See Below) Other Respiratory History: hypoxia with chronic O2 use Gastrointestinal History: Reports: GERD, Other (See Below) Other Gastrointestinal History: esophagitis Genitourinary History: Reports: Chronic Renal Insuffiency, Urinary Incontinence , UTI, Recurrent Other Genitourinary History: nephrotic syndrome, chronic renal insufficiency Musculoskeletal History: Reports: Back Pain, Chronic, Fracture Other Musculoskeletal History: Chronic back pain Neurological History: Reports: Other (See Below) Other Neuro History: dizziness, temporal arteritis Psychiatric History: Reports: Anxiety, Depression Endocrine/Metabolic History: Reports: Hypothyroidism, Other (See Below) Other Endocrine/Metabolic History: vitamin b12 deficiency, adrenal insufficiency Hematologic History: Reports: Anemia, Anticoagulation Therapy Immunologic History: Reports: None Oncologic (Cancer) History: Reports: None Dermatologic History: Reports: None - Infectious Disease History Infectious Disease History: Reports: Other (See Below) Other Infectious Disease History: human metapneumovirus - Past Surgical History Head Surgeries/Procedures: Reports: None HEENT Surgical History: Reports: None Cardiovascular Surgical History: Reports: Carotid Endarterectomy, Coronary Artery Stent, Vascular Surgery Respiratory Surgical History: Reports: None GI Surgical History: Reports: Appendectomy, EGD, Other (See Below) Other GI Surgeries/Procedures: cystodema Male Surgical History: Reports: Other (See Below) Other Male Surgeries/Procedures: exploratory prostate/testicle surgery Endocrine Surgical History: Reports: None Neurological Surgical History: Reports: None Oncologic Surgical History: Reports: None Dermatological Surgical History: Reports: None Social & Family History - Family History Family Medical History: Noncontributory Cardiac: Reports: [place] - Tobacco Use Smoking Status *Q: Never Smoker - Caffeine Use Caffeine Use: Reports: None Other Caffeine Use: 2 cups per day - Recreational Drug Use Recreational Drug Use: No - Living Situation & Occupation Living situation: Reports: , with Spouse Occupation: Retired Review of Systems - Review of Systems Review Of Systems: See Below Constitutional: Denies: Fever Mouth/Throat: Reports: No Symptoms Respiratory: Denies: Shortness of Breath Cardiovascular: Denies: Chest Pain GI/Abdominal: Denies: Abdominal Pain, Vomiting Musculoskeletal: Reports: Other (Left foot pain) Skin: Reports: Other (Open lesion distal left great toe) Neurological: Denies: Trouble Speaking, Weakness (No focal weakness) ED EXAM, GENERAL - Physical Exam Exam: See Below General Appearance: Alert, Mild Distress Eye Exam: Bilateral Eye: PERRL Throat/Mouth: Normal Inspection Head: Atraumatic. No: Facial Swelling Neck: Supple Respiratory/Chest: No Respiratory Distress, Lungs Clear, Normal Breath Sounds Cardiovascular: Irregularly Irregular GI/Abdominal: Soft, Non-Tender Extremities: Redness (There is increased erythema of the left foot, more so distal left foot), Other (There is a open lesion of the distal left great toe just under the toenail, somewhat moist with granulation tissue and some yellow exudate, very superficial small vesicular lesion left fourth toe with no open drainage). No: Leg Pain, Increased Warmth (Left foot is actually somewhat cool to touch) Neurological: Alert, Other (There is no focal weakness, patient does answer questions appropriately, cooperative with exam) Skin Exam: Warm, Dry Course - Vital Signs Last Recorded V/S: Last Vital Signs Temp 98 F 04/17/19 13:11 Pulse 73 04/17/19 13:11 Resp 18 04/17/19 13:11 BP 158/75 H 04/17/19 13:11 Pulse Ox 90 L 04/17/19 15:47 - Orders/Labs/Meds Orders: Active Orders 24 hr Category Date Time Status Peripheral IV Care [RC] . DIRECTED Care 04/17/19 13:33 Active Foot Comp Min 3V Lt [CR] Stat Exams 04/17/19 13:34 Taken CULTURE WOUND [RM] Stat Lab 04/17/19 14:55 Received Peripheral IV Insertion Adult [OM.PC] Stat Oth 04/17/19 13:33 Ordered Labs: Laboratory Tests 04/17/19 04/17/19 04/17/19 Range/Units 13:40 13:40 13:40 WBC 7.97 (4.23-9.07) K/mm3 RBC 2.89 L (4.63-6.08) M/mm3 Hgb 9.6 L (13.7-17.5) gm/L Hct 29.9 L (40.1-51.0) % MCV 103.5 H (79.0-92.2) fl MCH 33.2 H (25.7-32.2) pg MCHC 32.1 L (32.2-35.5) g/dl RDW Std Deviation 53.2 H (35.1-43.9) fL Plt Count 220 (163-337) K/mm3 MPV 9.1 L (9.4-12.3) fl Neutrophils % (Manual) 59 (40-60) % Band Neutrophils % 1 (0-10) % Lymphocytes % (Manual) 22 (20-40) % Atypical Lymphs % 0 % Monocytes % (Manual) 12 H (2-10) % Eosinophils % (Manual) 6 (0.8-7.0) % Basophils % (Manual) 0 L (0.2-1.2) Platelet Estimate Adequate RBC Morph Comment Normal PT (9.5-12.1) SECONDS INR Sodium 137 (136-145) mEq/L Potassium 5.0 (3.5-5.1) mEq/L Chloride 100 (98-107) mEq/L Carbon Dioxide 29 (21-32) mEq/L Anion Gap 13.0 (5-15) BUN 53 H D (7-18) mg/dL Creatinine 2.4 H (0.7-1.3) mg/dL Est Cr Clr Drug Dosing 18.01 mL/min Estimated GFR (MDRD) 26 (>60) mL/min BUN/Creatinine Ratio 22.1 H (14-18) Glucose 105 (83-115) mg/dL Uric Acid 8.0 H (3.5-7.2) mg/dL Calcium 9.2 (8.5-10.1) mg/dL Total Bilirubin 0.2 (0.2-1.0) mg/dL AST 23 (15-37) U/L ALT 24 (16-63) U/L Alkaline Phosphatase 58 (46-116) U/L C-Reactive Protein 4.0 H* (<1.0) mg/dL Total Protein 7.0 (6.4-8.2) g/dl Albumin 3.4 (3.4-5.0) g/dl Globulin 3.6 gm/dL Albumin/Globulin Ratio 0.9 L (1-2) 04/17/19 Range/Units 13:40 WBC (4.23-9.07) K/mm3 RBC (4.63-6.08) M/mm3 Hgb (13.7-17.5) gm/L Hct (40.1-51.0) % MCV (79.0-92.2) fl MCH (25.7-32.2) pg MCHC (32.2-35.5) g/dl RDW Std Deviation (35.1-43.9) fL Plt Count (163-337) K/mm3 MPV (9.4-12.3) fl Neutrophils % (Manual) (40-60) % Band Neutrophils % (0-10) % Lymphocytes % (Manual) (20-40) % Atypical Lymphs % % Monocytes % (Manual) (2-10) % Eosinophils % (Manual) (0.8-7.0) % Basophils % (Manual) (0.2-1.2) Platelet Estimate RBC Morph Comment PT 30.1 H D (9.5-12.1) SECONDS INR 2.82 Sodium (136-145) mEq/L Potassium (3.5-5.1) mEq/L Chloride (98-107) mEq/L Carbon Dioxide (21-32) mEq/L Anion Gap (5-15) BUN (7-18) mg/dL Creatinine (0.7-1.3) mg/dL Est Cr Clr Drug Dosing mL/min Estimated GFR (MDRD) (>60) mL/min BUN/Creatinine Ratio (14-18) Glucose (83-115) mg/dL Uric Acid (3.5-7.2) mg/dL Calcium (8.5-10.1) mg/dL Total Bilirubin (0.2-1.0) mg/dL AST (15-37) U/L ALT (16-63) U/L Alkaline Phosphatase (46-116) U/L C-Reactive Protein (<1.0) mg/dL Total Protein (6.4-8.2) g/dl Albumin (3.4-5.0) g/dl Globulin gm/dL Albumin/Globulin Ratio (1-2) Meds: Medications Discontinued Medications Generic Name Dose Route Start Last Admin Trade Name Freq PRN Reason Stop Dose Admin Aspirin 81 mg 04/17/19 15:47 04/17/19 15:53 Halfprin PO 04/17/19 15:48 81 mg ONETIME ONE Administration Cephalexin 500 mg 04/17/19 15:49 04/17/19 15:53 Keflex PO 04/17/19 15:50 500 mg ONETIME ONE Administration Hydromorphone HCl 0.5 mg 04/17/19 13:33 04/17/19 13:44 Dilaudid IVPUSH 04/17/19 13:34 0.5 mg ONETIME ONE Administration Sodium Chloride 10 ml 04/17/19 13:32 04/17/19 13:45 Saline Flush FLUSH 10 ml ASDIRECTED PRN Administration Keep Vein Open - Re-Assessments/Exams Free Text/Narrative Re-Assessment/Exam: 04/17/19 15:55 I was able to get Doppler dorsalis pedis pulse with the right foot, not able to get Doppler pulses on the left. Clinically he has significant peripheral vascular disease and vascular insufficiency left foot, he is not a surgical candidate. Code status DNR. He does appear to have a component of infection developing. Have prescribed cephalexin 500 mg 3 times a day. I discussed current symptoms and findings with his charge nurse. He eryn is on Coumadin. We'll start him on aspirin 81 mg now and then on a Friday schedule. He does have tramadol for breakthrough pain. According to the charge nurse they are not getting that frequently so will not prescribe anything stronger for pain at this time. We did give a small dose of IV Dilaudid here in the emergency department his pain did completely go away. Discharge instructions as documented. Departure - Departure Time of Disposition: 15:57 Disposition: DC/Tfer to [place] [id number] Condition: Serious Clinical Impression: Vascular insufficiency, Renal insufficiency, Foot pain, left Cellulitis Qualifiers: Site of cellulitis: extremity Site of cellulitis of extremity: lower extremity Laterality: left Qualified Code(s): L03.116 - Cellulitis of left lower limb - Discharge Information Prescriptions: Cephalexin [Keflex] 500 mg PO TID #20 capsule Instructions: Cellulitis, Adult, [id number] Referrals: David Hazel MD [Primary Care Provider] - Forms: ED Department Discharge Additional Instructions: Cephalexin 500 mg 3 times daily. We have given a dose of aspirin 81 mg orally here in the ED. Continue aspirin 81 mg Friday, 3 times per week only. Continue Tylenol as prescribed, tramadol may be given in addition for breakthrough pain as needed. Consult with Dr. Hazel for further orders/ treatment as needed. - My Orders Last 24 Hours: My Active Orders 04/17/19 13:33 Peripheral IV Care [RC] . DIRECTED Peripheral IV Insertion Adult [OM.PC] Stat 04/17/19 13:34 Foot Comp Min 3V Lt [CR] Stat 04/17/19 14:55 CULTURE WOUND [RM] Stat - Assessment/Plan Last 24 Hours: My Active Orders 04/17/19 13:33 Peripheral IV Care [RC] . DIRECTED Peripheral IV Insertion Adult [OM.PC] Stat 04/17/19 13:34 Foot Comp Min 3V Lt [CR] Stat 04/17/19 14:55 CULTURE WOUND [RM] Stat
[2019-04-17] MEDS ORDERED: Aspirin 81 MG Tab.EC PO ONE (15:47)
[2019-04-17] MEDS ORDERED: Cephalexin 500 MG Cap PO ONE (15:49)
--- NOTE | 2019-04-18 19:35 | CR ---
Left foot: Four views of the left foot were obtained. Comparison: No previous study. Mild vascular calcification is seen. Bony structures are osteoporotic. No acute fracture or other bony abnormality is appreciated. Impression: 1. Incidental findings as noted above. No acute abnormality is appreciated on the left foot exam. Diagnostic code #1
== END 2019-04-17 16:20 ==
LOC: JD.ED 13:00
DX: I99.8 Other disorder of circulatory system (principal); L03.116 Cellulitis of left lower limb; I12.9 Hypertensive chronic kidney disease with stage 1 through stage 4 chronic kidney disease, or unspecified chronic kidney disease; N18.9 Chronic kidney disease, unspecified; D63.1 Anemia in chronic kidney disease; F41.9 Anxiety disorder, unspecified; F32.9 Major depressive disorder, single episode, unspecified; E03.9 Hypothyroidism, unspecified; K21.9 Gastro-esophageal reflux disease without esophagitis; I48.91 Unspecified atrial fibrillation; E78.00 Pure hypercholesterolemia, unspecified; Z79.01 Long term (current) use of anticoagulants; Z79.899 Other long term (current) drug therapy; Z88.1 Allergy status to other antibiotic agents; Z88.2 Allergy status to sulfonamides
CPT/HCPCS: 36415; 73630; 80053; 84550; 85007; 85027; 85610; 86140; 87070; 87077; 87186; 96374; 99283; A9270; J1170; 99284

== ENCOUNTER 2019-07-07 16:54 | Emergency (ER) | payer MEDICARE, OTHER, MEDICAID ==
[2019-07-07 17:15] VITALS: BP 149/64
--- NOTE | 2019-07-07 18:35 | EDM.PDOC ---
ED HPI GENERAL MEDICAL PROBLEM - General Chief Complaint: ENT Problem Stated Complaint: [facility] Time Seen by Provider: 07/07/19 18:17 Source of Information: Reports: Patient History Limitations: Reports: No Limitations - History of Present Illness INITIAL COMMENTS - FREE TEXT/NARRATIVE: The patient is sent from [facility] with report that he has had left-sided epistaxis on and off today. Paperwork sent from [facility] indicates that the patient is on supplemental oxygen on an as-needed basis. On presentation to the ED, his left nostril is packed, and he is wearing supplemental oxygen per nasal cannula. Of interest, when I removed the nasal cannula to examine the patient, I found that the patient's oxygen saturation is highly variable based on the position of his finger. When his finger is straightened out, there is a good waveform, and his oxygen saturation is 93% on room air. The patient is on Coumadin. Paperwork from [facility] indicates that his INR was 2.4 on 07/05/2019. The patient's PCP is Dr. Hazel. - Related Data Allergies Allergy/AdvReac Type Severity Reaction Status Date / Time levofloxacin Allergy Airway Verified 07/07/19 17:15 Tightness Sulfa (Sulfonamide Allergy Anaphylactic Verified 07/07/19 17:15 Antibiotics) Shock Home Meds: Home Meds Acetaminophen 650 mg PO Q4HR PRN 02/09/18 [History] Cholecalciferol (Vitamin D3) [Vitamin D3] 1,000 unit PO DAILY 02/09/18 [History] Levothyroxine [Synthroid] 50 mcg PO ACBREAKFAST 02/09/18 [History] Metoprolol Tartrate [Lopressor] 12.5 mg PO Q12HR 02/09/18 [History] Pravastatin [Pravachol] 10 mg PO DAILY 02/09/18 [History] Tamsulosin HCl [Flomax] 0.4 mg PO BID 02/09/18 [History] Sennosides/Docusate Sodium [Senokot-S Tablet] 1 each PO DAILY #30 tablet [Rx] Gluc 2KCl/Chondr/Rod Hy/Hy Ac [Glucosamine & Chondroitin Cap] 1 cap PO BID [History] Nicotine Polacrilex [Nicotine Lozenge] 2 mg BUCCAL Q1H PRN 05/27/18 [History] predniSONE [Prednisone] 5 mg PO DAILY 05/27/18 [History] Insulin Aspart [NovoLOG] 0 unit SQ WITHMEALSANDBED 04/17/19 [History] Lactobacillus Acidophilus [Acidophilus Lactobacilli] 1 each PO DAILY 04/17/19 [ History] Pramipexole Di-HCl [Mirapex] 0.25 mg PO DAILY 04/17/19 [History] Ranitidine [Zantac] 150 mg PO DAILY PRN 04/17/19 [History] Sertraline [Zoloft] 75 mg PO DAILY 04/17/19 [History] Warfarin [Coumadin] 1.5 mg PO TUFR 04/17/19 [History] traMADol [Ultram] 50 mg PO Q8HR PRN 04/17/19 [History] ARIPiprazole [Abilify] 5 mg PO DAILY 06/12/19 [History] Acetaminophen/HYDROcodone [Mullin 325-5 MG] 1 tab PO Q6H PRN 06/12/19 [History] Aspirin 81 mg PO MOWEFR 06/12/19 [History] Multivit-Min/FA/Lycopene/Lut [Centrum Silver Tablet] 1 tab PO DAILY 06/12/19 [ History] Nut Tx, Lact-Reduced, Iron [Boost VHC] 90 ml PO TID 06/12/19 [History] Warfarin [Coumadin] 3 mg PO SUMOWETHSA 06/12/19 [History] buPROPion HCl [Wellbutrin Xl] 150 mg PO DAILY 06/12/19 [History] fentaNYL [Duragesic] 12 mcg TOP Q72H 06/12/19 [History] Past Medical History Cardiovascular History: Reports: Afib, CAD, Heart Failure, High Cholesterol, Hypertension, PVD Respiratory History: Reports: COPD Gastrointestinal History: Reports: GERD Genitourinary History: Reports: Chronic Renal Insuffiency Musculoskeletal History: Reports: Fracture Psychiatric History: Reports: Anxiety, Depression, Other (See Below) (Restless leg syndrome) Endocrine/Metabolic History: Reports: Diabetes, Type II, Hypothyroidism, Other ( See Below) (Adrenal insufficiency) Hematologic History: Reports: Anemia, Anticoagulation Therapy (COumadin), B12 Deficiency Immunologic History: Reports: Other (See Below) (Giant cell (temporal) arteritis ) - Past Surgical History Cardiovascular Surgical History: Reports: Carotid Endarterectomy, Coronary Artery Stent, Vascular Surgery GI Surgical History: Reports: Appendectomy, EGD, Other (See Below) Other GI Surgeries/Procedures: cystodema Male Surgical History: Reports: Other (See Below) Other Male Surgeries/Procedures: exploratory prostate/testicle surgery Social & Family History - Family History Family Medical History: Noncontributory Cardiac: Reports: [place] - Tobacco Use Smoking Status *Q: Never Smoker - Caffeine Use Caffeine Use: Reports: Coffee, Soda Other Caffeine Use: 2 cups per day - Living Situation & Occupation Living situation: Reports: , with Spouse Occupation: Retired ED ROS ENT - Review of Systems Review Of Systems: ROS reveals no pertinent complaints other than HPI. Musculoskeletal: Reports: Back Pain (chronic) ED EXAM, ENT - Physical Exam Exam: See Below Exam Limited By: No Limitations General Appearance: Alert, WD/WN, No Apparent Distress Eye Exam: Bilateral Eye: EOMI, Normal Inspection Ears: Normal External Exam, Hearing Loss (modest) Nose: Active Bleeding (VERY slight, from a visible vessel on the septum) Mouth/Throat: Normal Inspection, Normal Gums, Normal Lips, Normal Oropharynx, Normal Teeth Head: Atraumatic, Normocephalic ED ENT PROCEDURES - Epistaxis Procedure Indication: Epistaxis, Controlled Recent anticoagulants/antiplatlets: Yes (Coumadin) Uncontrolled HTN: No Recent septal/nasal surgery: No Site of bleeding: Left Nare, Anterior Clearing of clots: Patient Blew Nose Ice pack to area: No Chemical cautery: Silver Nitrate Topical Complications: No Course - Vital Signs Last Recorded V/S: Last Vital Signs Temp 36.4 C 07/07/19 17:13 Pulse 92 07/07/19 17:13 Resp 16 07/07/19 17:13 BP 149/64 H 07/07/19 17:13 Pulse Ox 94 L 07/07/19 17:13 - Orders/Labs/Meds Labs: Laboratory Tests 07/07/19 Range/Units 18:35 PT 24.7 H (9.7-12.0) SECONDS INR 2.38 - Re-Assessments/Exams Free Text/Narrative Re-Assessment/Exam: 07/07/19 18:33 After the nasal packing, placed at the retirement, was removed, a small minimally bleeding vessel was visible, which was cauterized using silver nitrate. The patient tolerated the procedure well. I have ordered an INR. 07/07/19 19:19 The patient's INR has returned within therapeutic range at 2.38. The patient's left nostril has not restarted bleeding. I will discharge him back to [facility]. Departure - Departure Time of Disposition: 19:20 Disposition: Home, Self-Care 01 Condition: Good Clinical Impression: Left-sided epistaxis - Discharge Information *PRESCRIPTION DRUG MONITORING PROGRAM REVIEWED*: Not Applicable *COPY OF PRESCRIPTION DRUG MONITORING REPORT IN PATIENT LEE: Not Applicable Instructions: Nosebleed, [id number] Referrals: David Hazel MD [Primary Care Provider] - Forms: ED Department Discharge Additional Instructions: Mr. Do was seen in the emergency room for an on and off left-sided nosebleed all day. On evaluation in the ER, his nose was not bleeding, however, a visible vessel was cauterized with silver nitrate. We recommend that a thin smear of Trillium jelly be applied to his bilateral nasal septum, daily. If any other problems, please do not hesitate to return Mr. Do to the ER.
== END 2019-07-07 19:50 | disposition home or self-care (01) ==
LOC: JD.ED 16:54
DX: R04.0 Epistaxis (principal); I13.0 Hypertensive heart and chronic kidney disease with heart failure and stage 1 through stage 4 chronic kidney disease, or unspecified chronic kidney disease; E11.22 Type 2 diabetes mellitus with diabetic chronic kidney disease; N18.9 Chronic kidney disease, unspecified; I50.9 Heart failure, unspecified; D63.1 Anemia in chronic kidney disease; I48.91 Unspecified atrial fibrillation; I25.10 Atherosclerotic heart disease of native coronary artery without angina pectoris; E78.00 Pure hypercholesterolemia, unspecified; J44.9 Chronic obstructive pulmonary disease, unspecified; K21.9 Gastro-esophageal reflux disease without esophagitis; F41.9 Anxiety disorder, unspecified; F32.9 Major depressive disorder, single episode, unspecified; E03.9 Hypothyroidism, unspecified; Z79.01 Long term (current) use of anticoagulants; Z79.4 Long term (current) use of insulin; Z79.899 Other long term (current) drug therapy; Z88.1 Allergy status to other antibiotic agents; Z88.2 Allergy status to sulfonamides
CPT/HCPCS: 30901; 36415; 85610; 99283

== ENCOUNTER 2019-07-15 10:49 | Emergency (ER) | payer MEDICARE, OTHER, MEDICAID ==
--- NOTE | 2019-07-15 11:09 | EDM.PDOC ---
ED HPI GENERAL MEDICAL PROBLEM - General Chief Complaint: ENT Problem Stated Complaint: [facility] Time Seen by Provider: 07/15/19 10:49 - History of Present Illness INITIAL COMMENTS - FREE TEXT/NARRATIVE: 83-year-old male brought in to the emergency room from shelter with a nosebleed. This started about an hour before arrival. The patient has had recurrent nosebleeds that have been somewhat problematic for him. The patient has had problems with anemia and received a transfusion yesterday. Patient recently had a endarterectomy in his left femoral artery. And is taking Plavix for this. Patient is also on Coumadin for chronic atrial fibrillation. The patient has some underlying dementia. - Related Data Allergies Allergy/AdvReac Type Severity Reaction Status Date / Time levofloxacin Allergy Airway Verified 07/15/19 11:16 Tightness Sulfa (Sulfonamide Allergy Anaphylactic Verified 07/15/19 11:16 Antibiotics) Shock Home Meds: Home Meds Acetaminophen 650 mg PO Q6H PRN 07/14/19 [History] Albuterol/Ipratropium [DuoNeb 3.0-0.5 MG/3 ML] 3 ml INH QID PRN 07/14/19 [ History] Bisacodyl 10 mg RECTAL DAILY PRN 07/14/19 [History] Clopidogrel [Plavix] 75 mg PO QAM 07/14/19 [History] Cyanocobalamin (Vitamin B-12) [Vitamin B-12] 1,000 mcg INJECT ASDIRECTED [History] Ferrous Sulfate 325 mg PO BID 07/14/19 [History] Furosemide [Lasix] 20 mg PO BID 07/14/19 [History] Levothyroxine [Synthroid] 50 mcg PO QAM 07/14/19 [History] Metoprolol Tartrate [Lopressor] 12.5 mg PO BID 07/14/19 [History] Pantoprazole Sodium 40 mg PO QAM 07/14/19 [History] Pramipexole [Mirapex] 0.25 mg PO BEDTIME 07/14/19 [History] Rosuvastatin [Crestor] 20 mg PO QAM 07/14/19 [History] Sennosides/Docusate Sodium [Senna-S] 2 tab PO BID 07/14/19 [History] Tamsulosin [Flomax] 0.8 mg PO QAM 07/14/19 [History] Warfarin [Coumadin] 1.5 mg PO QPM 07/14/19 [History] buPROPion [Wellbutrin SR] 100 mg PO BID 07/14/19 [History] predniSONE 5 mg PO QPM 07/14/19 [History] Past Medical History HEENT History: Reports: None Cardiovascular History: Reports: Afib, CAD, Heart Failure, High Cholesterol, Hypertension, PVD Respiratory History: Reports: COPD Other Respiratory History: hypoxia with chronic O2 use Gastrointestinal History: Reports: GERD Other Gastrointestinal History: esophagitis Genitourinary History: Reports: Chronic Renal Insuffiency Other Genitourinary History: nephrotic syndrome, chronic renal insufficiency Musculoskeletal History: Reports: Fracture Other Musculoskeletal History: Chronic back pain Neurological History: Reports: Other (See Below) Other Neuro History: dizziness, temporal arteritis Psychiatric History: Reports: Anxiety, Depression, Other (See Below) (Restless leg syndrome) Endocrine/Metabolic History: Reports: Diabetes, Type II, Hypothyroidism, Other ( See Below) (Adrenal insufficiency) Other Endocrine/Metabolic History: vitamin b12 deficiency, adrenal insufficiency Hematologic History: Reports: Anemia, Anticoagulation Therapy (COumadin), B12 Deficiency Immunologic History: Reports: Other (See Below) (Giant cell (temporal) arteritis ) Oncologic (Cancer) History: Reports: None Dermatologic History: Reports: None - Infectious Disease History Infectious Disease History: Reports: Other (See Below) Other Infectious Disease History: human metapneumovirus - Past Surgical History Cardiovascular Surgical History: Reports: Carotid Endarterectomy, Coronary Artery Stent, Vascular Surgery GI Surgical History: Reports: Appendectomy, EGD, Other (See Below) Other GI Surgeries/Procedures: cystodema Male Surgical History: Reports: Other (See Below) Other Male Surgeries/Procedures: exploratory prostate/testicle surgery Social & Family History - Family History Family Medical History: Noncontributory Cardiac: Reports: [place] - Caffeine Use Caffeine Use: Reports: Coffee, Soda Other Caffeine Use: 2 cups per day - Living Situation & Occupation Living situation: Reports: , with Spouse Occupation: Retired ED ROS ENT - Review of Systems Review Of Systems: See Below Constitutional: Reports: No Symptoms HEENT: Reports: Nosebleed Respiratory: Reports: No Symptoms Cardiovascular: Reports: No Symptoms Endocrine: Reports: No Symptoms GI/Abdominal: Reports: No Symptoms Musculoskeletal: Reports: No Symptoms Skin: Reports: No Symptoms Neurological: Reports: No Symptoms ED EXAM, ENT - Physical Exam Exam: See Below Exam Limited By: Other (He has some dementia but will answer questions and what seems a fairly accurate fashion) General Appearance: Alert, No Apparent Distress Eye Exam: Bilateral Eye: Normal Inspection Nose: Other (Nosebleed at the left naris.) Mouth/Throat: Other (Draining down the posterior pharynx and dried blood inside the mouth the lips) Head: Atraumatic, Normocephalic Neck: Normal Inspection, Supple. No: Lymphadenopathy (L), Lymphadenopathy (R) Respiratory/Chest: No Respiratory Distress, Lungs Clear, Normal Breath Sounds Cardiovascular: Regular Rate, Rhythm, No Edema, No Murmur Course - Vital Signs Last Recorded V/S: Last Vital Signs Temp 36.6 C 07/15/19 17:00 Pulse 88 07/15/19 16:56 Resp 16 07/15/19 17:00 BP 156/66 H 07/15/19 17:00 Pulse Ox 93 L 07/15/19 17:00 - Orders/Labs/Meds Orders: Active Orders 24 hr Category Date Time Status Sodium Chloride 0.9% [Normal Saline] 250 ml Med 07/15/19 16:45 Active IV ASDIRECTED Transfuse Fresh Frozen Plasma [COMM] Routine Oth 07/15/19 15:55 Ordered Medication Orders Sodium Chloride (Normal Saline) 250 mls @ 250 mls/hr IV ASDIRECTED JARRED Last Admin: 07/15/19 16:35 Dose: 250 mls/hr Labs: Laboratory Tests 07/15/19 07/15/19 07/15/19 Range/Units 11:31 11:31 11:31 WBC 12.47 H (4.23-9.07) K/mm3 RBC 3.17 L (4.63-6.08) M/mm3 Hgb 9.9 L (13.7-17.5) gm/L Hct 29.9 L (40.1-51.0) % MCV 94.3 H D (79.0-92.2) fl MCH 31.2 (25.7-32.2) pg MCHC 33.1 (32.2-35.5) g/dl RDW Std Deviation 54.5 H (35.1-43.9) fL Plt Count 184 D (163-337) K/mm3 MPV 9.0 L (9.4-12.3) fl Neutrophils % (Manual) 85 H (40-60) % Band Neutrophils % 0 (0-10) % Lymphocytes % (Manual) 11 L (20-40) % Atypical Lymphs % 0 % Monocytes % (Manual) 3 (2-10) % Eosinophils % (Manual) 1 (0.8-7.0) % Basophils % (Manual) 0 L (0.2-1.2) Platelet Estimate Adequate Hypochromasia 1+ slight Anisocytosis 1+ slight Microcytosis 1+ slight RBC Morph Comment Not Reportable PT 19.1 H (9.7-12.0) SECONDS INR 1.81 APTT 34 H (22-31) SECONDS Sodium 137 (136-145) mEq/L Potassium 3.2 L (3.5-5.1) mEq/L Chloride 95 L (98-107) mEq/L Carbon Dioxide 31 (21-32) mEq/L Anion Gap 14.2 (5-15) BUN 78 H (7-18) mg/dL Creatinine 2.0 H (0.7-1.3) mg/dL Est Cr Clr Drug Dosing 27.83 mL/min Estimated GFR (MDRD) 32 (>60) mL/min BUN/Creatinine Ratio 39.0 H (14-18) Glucose 87 (83-115) mg/dL Calcium 8.9 (8.5-10.1) mg/dL Total Bilirubin 0.5 (0.2-1.0) mg/dL AST 18 (15-37) U/L ALT 16 (16-63) U/L Alkaline Phosphatase 70 (46-116) U/L Total Protein 7.0 (6.4-8.2) g/dl Albumin 2.9 L (3.4-5.0) g/dl Globulin 4.1 gm/dL Albumin/Globulin Ratio 0.7 L (1-2) Blood Type 07/15/19 Range/Units 11:39 WBC (4.23-9.07) K/mm3 RBC (4.63-6.08) M/mm3 Hgb (13.7-17.5) gm/L Hct (40.1-51.0) % MCV (79.0-92.2) fl MCH (25.7-32.2) pg MCHC (32.2-35.5) g/dl RDW Std Deviation (35.1-43.9) fL Plt Count (163-337) K/mm3 MPV (9.4-12.3) fl Neutrophils % (Manual) (40-60) % Band Neutrophils % (0-10) % Lymphocytes % (Manual) (20-40) % Atypical Lymphs % % Monocytes % (Manual) (2-10) % Eosinophils % (Manual) (0.8-7.0) % Basophils % (Manual) (0.2-1.2) Platelet Estimate Hypochromasia Anisocytosis Microcytosis RBC Morph Comment PT (9.7-12.0) SECONDS INR APTT (22-31) SECONDS Sodium (136-145) mEq/L Potassium (3.5-5.1) mEq/L Chloride (98-107) mEq/L Carbon Dioxide (21-32) mEq/L Anion Gap (5-15) BUN (7-18) mg/dL Creatinine (0.7-1.3) mg/dL Est Cr Clr Drug Dosing mL/min Estimated GFR (MDRD) (>60) mL/min BUN/Creatinine Ratio (14-18) Glucose (83-115) mg/dL Calcium (8.5-10.1) mg/dL Total Bilirubin (0.2-1.0) mg/dL AST (15-37) U/L ALT (16-63) U/L Alkaline Phosphatase (46-116) U/L Total Protein (6.4-8.2) g/dl Albumin (3.4-5.0) g/dl Globulin gm/dL Albumin/Globulin Ratio (1-2) Blood Type AB POSITIVE Meds: Medications Generic Name Dose Route Start Last Admin Trade Name Freq PRN Reason Stop Dose Admin Sodium Chloride 250 mls @ 250 mls/hr 07/15/19 16:45 07/15/19 16:35 Normal Saline IV 250 mls/hr ASDIRECTED JARRED Administration Discontinued Medications Generic Name Dose Route Start Last Admin Trade Name Freq PRN Reason Stop Dose Admin Phytonadione 1 mg 07/15/19 15:18 07/15/19 15:28 Aquamephyton IM 07/15/19 15:19 1 mg ONETIME ONE Administration - Re-Assessments/Exams Free Text/Narrative Re-Assessment/Exam: 07/15/19 11:53 Upon arrival here using overhead light and nasal speculum and suction I cannot identify the source of his bleeding a 5.0 rapid Rhino was placed which significantly slowed his bleeding. However the bleeding increased a little bit over the last 15 minutes or so he has a total of 4-1/2 mL of air in this after I just put another 1cc in and the bleeding has slowed significant we will watch at this point his H&H looks better he was 6.9 the other day he was transfused and now he is 9.9. INR still pending he is on Coumadin and Plavix. 07/15/19 18:03 Patient did require repacking of his nose as he was still bleeding posteriorly and to a lesser degree anteriorly. A 5.5 rapid Rhino was placed which stopped the posterior bleeding anterior bleeding continued for quite some time but it is slower rate. Case was discussed with Dr. Robb and nose and throat physician at [facility] in [place] who recommended reversing some of the anticoagulation if at all possible. He did not think he had anything to offer this gentleman from an ENT perspective just the coagulopathy needs to be corrected. I did discuss situation with Dr. Cuenca vascular surgeon on-call at [facility] who is covering for the physician and did the endarterectomy he recommended stopping the Coumadin first even though his INR somewhat subtherapeutic. Patient was given 1 mg of vitamin K and a unit of FFP. After this his bleeding slowed and eventually stopped. Patient did try taking the clot out of his nose and did so without stirring up any blood the packing stayed in place. I did discuss situation with Dr. Kay patient's regular physician who will arrange a CBC for the morning at the shelter. Anticipate sending the patient to the shelter in the very near future Departure - Departure Time of Disposition: 18:09 Disposition: DC/Tfer to [facility] Clinical Impression: Epistaxis, Warfarin-induced coagulopathy, Medication induced coagulopathy - Discharge Information Forms: ED Department Discharge Additional Instructions: Hold Coumadin. Continue Plavix. Dr. Kay should have called in a CBC for tomorrow morning. Return to the emergency room with any questions or worsening symptoms - My Orders Last 24 Hours: My Active Orders 07/15/19 15:55 Transfuse Fresh Frozen Plasma [COMM] Routine 07/15/19 16:45 Sodium Chloride 0.9% [Normal Saline] 250 ml IV ASDIRECTED - Assessment/Plan Last 24 Hours: My Active Orders 07/15/19 15:55 Transfuse Fresh Frozen Plasma [COMM] Routine 07/15/19 16:45 Sodium Chloride 0.9% [Normal Saline] 250 ml IV ASDIRECTED
[2019-07-15] MEDS ORDERED: Sodium Chloride 0.9% 250 ML IV SCH (16:45)
[2019-07-15 17:17] VITALS: BP 156/66
== END 2019-07-15 18:43 ==
LOC: JD.ED 10:49
DX: R04.0 Epistaxis (principal); D68.8 Other specified coagulation defects; E11.22 Type 2 diabetes mellitus with diabetic chronic kidney disease; I13.0 Hypertensive heart and chronic kidney disease with heart failure and stage 1 through stage 4 chronic kidney disease, or unspecified chronic kidney disease; N18.9 Chronic kidney disease, unspecified; I50.9 Heart failure, unspecified; F41.9 Anxiety disorder, unspecified; D64.9 Anemia, unspecified; K21.9 Gastro-esophageal reflux disease without esophagitis; F32.9 Major depressive disorder, single episode, unspecified; E78.00 Pure hypercholesterolemia, unspecified; Z88.2 Allergy status to sulfonamides; Z88.1 Allergy status to other antibiotic agents; Z79.51 Long term (current) use of inhaled steroids; Z79.899 Other long term (current) drug therapy; Z79.01 Long term (current) use of anticoagulants; Z98.890 Other specified postprocedural states; Z90.49 Acquired absence of other specified parts of digestive tract
CPT/HCPCS: 30903; 36415; 36430; 80053; 85007; 85027; 85610; 85730; 86900; 86901; 96360; 96372; 99283; J3430; J7050; P9017

== ENCOUNTER 2019-07-17 04:17 | Emergency (ER) | payer MEDICARE, OTHER, MEDICAID ==
--- NOTE | 2019-07-17 04:26 | EDM.PDOC ---
ED HPI GENERAL MEDICAL PROBLEM - General Stated Complaint: [facility] Time Seen by Provider: 07/17/19 04:17 Source of Information: Reports: EMS, Old Records (ED visits 07/07/19, 07/15/19) History Limitations: Reports: No Limitations - History of Present Illness INITIAL COMMENTS - FREE TEXT/NARRATIVE: Mr. Morales is a very pleasant 83-year-old gentleman with a past medical history significant for atrial fibrillation and coronary artery disease, on Coumadin and Plavix, who resides at [facility]. I saw him in this ED on 06/29/2019 for left-sided epistaxis that had been going on and off that day. Paperwork from [facility] indicated that he was on supplemental oxygen on an as-needed basis. On presentation to the ED that day, his left nostril was packed, and he was wearing supplemental oxygen. When the nasal packing was removed, the nostril was not bleeding, however, a vessel was visible, that was subsequently cauterized with silver nitrate. Medical records indicate that the patient returned to this ED on 07/15/2019, again with left-sided epistaxis. The patient at that time had active bleeding, although the source of the bleeding could not be found, therefore a Rapid Rhino was placed. It is not known to us how long the Rapid Rhino remained in place. The patient is now returned to the ED with a report from EMS that he again developed left-sided epistaxis just a few minutes prior to EMS being called. Upon arrival, no packing was in the nostril, but there was some blood clot in the left nostril. He is not on supplemental O2 this time. I asked him to gently blow his nose, and once the clot was cleared, no active bleeding was found, either by direct inspection of his left nostril, or running down his posterior oropharynx. Additionally, no vessels are visible to cauterize. The patient's PCP is Dr. David Hazel. - Related Data Allergies Allergy/AdvReac Type Severity Reaction Status Date / Time levofloxacin Allergy Airway Verified 07/17/19 04:29 Tightness Sulfa (Sulfonamide Allergy Anaphylactic Verified 07/17/19 04:29 Antibiotics) Shock Home Meds: Home Meds Acetaminophen 650 mg PO Q6H PRN 07/14/19 [History] Albuterol/Ipratropium [DuoNeb 3.0-0.5 MG/3 ML] 3 ml INH QID PRN 07/14/19 [ History] Bisacodyl 10 mg RECTAL DAILY PRN 07/14/19 [History] Clopidogrel [Plavix] 75 mg PO QAM 07/14/19 [History] Cyanocobalamin (Vitamin B-12) [Vitamin B-12] 1,000 mcg INJECT ASDIRECTED [History] Ferrous Sulfate 325 mg PO BID 07/14/19 [History] Furosemide [Lasix] 20 mg PO BID 07/14/19 [History] Levothyroxine [Synthroid] 50 mcg PO QAM 07/14/19 [History] Metoprolol Tartrate [Lopressor] 12.5 mg PO BID 07/14/19 [History] Pantoprazole Sodium 40 mg PO QAM 07/14/19 [History] Pramipexole [Mirapex] 0.25 mg PO BEDTIME 07/14/19 [History] Rosuvastatin [Crestor] 20 mg PO QAM 07/14/19 [History] Sennosides/Docusate Sodium [Senna-S] 2 tab PO BID 07/14/19 [History] Tamsulosin [Flomax] 0.8 mg PO QAM 07/14/19 [History] Warfarin [Coumadin] 1.5 mg PO QPM 07/14/19 [History] buPROPion [Wellbutrin SR] 100 mg PO BID 07/14/19 [History] predniSONE 5 mg PO QPM 07/14/19 [History] Past Medical History Cardiovascular History: Reports: Afib, CAD, Heart Failure, High Cholesterol, Hypertension, PVD Respiratory History: Reports: COPD Gastrointestinal History: Reports: GERD Genitourinary History: Reports: Chronic Renal Insuffiency Musculoskeletal History: Reports: Fracture Neurological History: Reports: Alzheimers Disease Psychiatric History: Reports: Anxiety, Depression, Other (See Below) (Restless leg syndrome) Endocrine/Metabolic History: Reports: Diabetes, Type II, Hypothyroidism, Other ( See Below) (Adrenal insufficiency) Hematologic History: Reports: Anemia, Anticoagulation Therapy (Coumadin), B12 Deficiency Immunologic History: Reports: Other (See Below) (Giant cell (temporal) arteritis ) - Past Surgical History Cardiovascular Surgical History: Reports: Carotid Endarterectomy (left), Coronary Artery Stent, Vascular Surgery GI Surgical History: Reports: Appendectomy, EGD Social & Family History - Family History Family Medical History: Noncontributory Cardiac: Reports: [place] - Tobacco Use Smoking Status *Q: Never Smoker - Caffeine Use Caffeine Use: Reports: Coffee, Soda Other Caffeine Use: 2 cups per day - Living Situation & Occupation Living situation: Reports: , with Spouse, Extended Care Facility ([facility] senior living) Occupation: Retired ED ROS ENT - Review of Systems Review Of Systems: ROS reveals no pertinent complaints other than HPI. ED EXAM, ENT - Physical Exam Exam: See Below Exam Limited By: No Limitations General Appearance: Alert, No Apparent Distress, Thin Eye Exam: Bilateral Eye: EOMI, Normal Inspection Ears: Normal External Exam, Hearing Loss Nose: Normal Inspection, Normal Mucousa (no visible vessels), Dried Blood (clot , cleared with blowing nose). No: Active Bleeding Mouth/Throat: Normal Inspection, Normal Gums, Normal Lips, Normal Oropharynx ( no blood seen in posterior oropharynx), Normal Teeth Head: Atraumatic, Normocephalic Neck: Normal Inspection, Supple, Non-Tender, Full Range of Motion Course - Vital Signs Last Recorded V/S: Last Vital Signs Temp 36.4 C 07/17/19 04:25 Pulse 87 07/17/19 04:25 Resp 16 07/17/19 04:25 BP 144/44 H 07/17/19 04:25 Pulse Ox 98 07/17/19 04:25 Departure - Departure Time of Disposition: 04:25 Disposition: Home, Self-Care 01 Condition: Good Clinical Impression: Recurrent epistaxis - Discharge Information *PRESCRIPTION DRUG MONITORING PROGRAM REVIEWED*: Not Applicable *COPY OF PRESCRIPTION DRUG MONITORING REPORT IN PATIENT LEE: Not Applicable Instructions: Nosebleed, Adult Forms: ED Department Discharge Additional Instructions: Mr. Do was seen in the emergency room for recurrent left nose bleeding. On evaluation, his nosebleed had already stopped without any treatment. No vessels were seen that could be cauterized. He may continue his usual medications, including his Plavix and Coumadin. If his nose bleeds again, we recommend that he sit upright with his head tilted slightly forward, and that his nostrils be squeezed FIRMLY for 10-15 minutes. This stops most nosebleeds, even when patients are on anticoagulants. Additionally, ice can be applied to the nose. We recommend that he follow-up with the ENT Dr. Christopher Cohen in [place] at the next available appointment. If any other problems, please do not hesitate to return Mr. Do to the ER.
[2019-07-17 04:49] VITALS: BP 144/44
== END 2019-07-17 05:19 | disposition home or self-care (01) ==
LOC: JD.ED 04:17
DX: R04.0 Epistaxis (principal); I13.0 Hypertensive heart and chronic kidney disease with heart failure and stage 1 through stage 4 chronic kidney disease, or unspecified chronic kidney disease; E11.22 Type 2 diabetes mellitus with diabetic chronic kidney disease; N18.9 Chronic kidney disease, unspecified; I50.9 Heart failure, unspecified; D63.1 Anemia in chronic kidney disease; K21.9 Gastro-esophageal reflux disease without esophagitis; J44.9 Chronic obstructive pulmonary disease, unspecified; E78.00 Pure hypercholesterolemia, unspecified; F41.9 Anxiety disorder, unspecified; F32.9 Major depressive disorder, single episode, unspecified; E03.9 Hypothyroidism, unspecified; Z79.01 Long term (current) use of anticoagulants; Z88.1 Allergy status to other antibiotic agents; Z88.2 Allergy status to sulfonamides; Z79.899 Other long term (current) drug therapy
CPT/HCPCS: 99281; 99284

== ENCOUNTER 2019-07-22 13:22 | Emergency (ER) | payer MEDICARE, OTHER, MEDICAID ==
[2019-07-22 13:28] VITALS: BP 135/65; PULSE 82
--- NOTE | 2019-07-22 13:37 | EDM.PDOC ---
ED HPI GENERAL MEDICAL PROBLEM - General Chief Complaint: ENT Problem Stated Complaint: [facility] Time Seen by Provider: 07/22/19 13:26 - History of Present Illness INITIAL COMMENTS - FREE TEXT/NARRATIVE: 83-year-old male presents emergency room with recurrent nosebleed. I saw the patient last week packed him. He was on Coumadin and Plavix the Plavix is for a recent endarterectomy in his leg. Coumadin is for A. fib it was determined safest to go ahead and stop the Coumadin he received FFP and vitamin K and did better after that somehow the patient removed his packing a couple days later and was seen here with some bleeding however the bleeding had completely stopped before [place] left [place] [facility] so he was sent back [place] the [place] [facility] [place] today shortly before EMS was called the patient started bleeding again out of his left naris. He still taken the Plavix it does not appear that he is on Coumadin at this time. - Related Data Allergies Allergy/AdvReac Type Severity Reaction Status Date / Time levofloxacin Allergy Airway Verified 07/17/19 04:29 Tightness Sulfa (Sulfonamide Allergy Anaphylactic Verified 07/17/19 04:29 Antibiotics) Shock Home Meds: Home Meds Acetaminophen 650 mg PO Q6H PRN 07/14/19 [History] Albuterol/Ipratropium [DuoNeb 3.0-0.5 MG/3 ML] 3 ml INH QID PRN 07/14/19 [ History] Bisacodyl 10 mg RECTAL DAILY PRN 07/14/19 [History] Clopidogrel [Plavix] 75 mg PO QAM 07/14/19 [History] Cyanocobalamin (Vitamin B-12) [Vitamin B-12] 1,000 mcg INJECT ASDIRECTED [History] Ferrous Sulfate 325 mg PO BID 07/14/19 [History] Furosemide [Lasix] 20 mg PO BID 07/14/19 [History] Levothyroxine [Synthroid] 50 mcg PO QAM 07/14/19 [History] Metoprolol Tartrate [Lopressor] 12.5 mg PO BID 07/14/19 [History] Pantoprazole Sodium 40 mg PO QAM 07/14/19 [History] Pramipexole [Mirapex] 0.25 mg PO BEDTIME 07/14/19 [History] Rosuvastatin [Crestor] 20 mg PO QAM 07/14/19 [History] Sennosides/Docusate Sodium [Senna-S] 2 tab PO BID 07/14/19 [History] Tamsulosin [Flomax] 0.8 mg PO QAM 07/14/19 [History] Warfarin [Coumadin] 1.5 mg PO QPM 07/14/19 [History] buPROPion [Wellbutrin SR] 100 mg PO BID 07/14/19 [History] predniSONE 5 mg PO QPM 07/14/19 [History] Past Medical History HEENT History: Reports: None Cardiovascular History: Reports: Afib, CAD, Heart Failure, High Cholesterol, Hypertension, PVD Respiratory History: Reports: COPD Other Respiratory History: hypoxia with chronic O2 use Gastrointestinal History: Reports: GERD Other Gastrointestinal History: esophagitis Genitourinary History: Reports: Chronic Renal Insuffiency Other Genitourinary History: nephrotic syndrome, chronic renal insufficiency Musculoskeletal History: Reports: Fracture Other Musculoskeletal History: Chronic back pain Neurological History: Reports: Other (See Below) Other Neuro History: dizziness, temporal arteritis Psychiatric History: Reports: Anxiety, Depression, Other (See Below) (Restless leg syndrome) Other Psychiatric History: tobacco use Endocrine/Metabolic History: Reports: Diabetes, Type II, Hypothyroidism, Other ( See Below) (Adrenal insufficiency) Other Endocrine/Metabolic History: vitamin b12 deficiency, adrenal insufficiency Hematologic History: Reports: Anemia, Anticoagulation Therapy (Coumadin), B12 Deficiency Immunologic History: Reports: Other (See Below) (Giant cell (temporal) arteritis ) Oncologic (Cancer) History: Reports: None Dermatologic History: Reports: None Other Dermatologic History: venous stasis; left foot chronic ulcer; PVD - Infectious Disease History Infectious Disease History: Reports: Other (See Below) Other Infectious Disease History: human metapneumovirus - Past Surgical History Cardiovascular Surgical History: Reports: Carotid Endarterectomy (left), Coronary Artery Stent, Vascular Surgery GI Surgical History: Reports: Appendectomy, EGD Social & Family History - Family History Family Medical History: Noncontributory Cardiac: Reports: [place] - Caffeine Use Caffeine Use: Reports: Coffee, Soda Other Caffeine Use: 2 cups per day - Living Situation & Occupation Living situation: Reports: , with Spouse, Extended Care Facility ([facility] [place] [facility] Occupation: Retired ED ROS ENT - Review of Systems Review Of Systems: See Below Constitutional: Reports: No Symptoms HEENT: Reports: Nosebleed Respiratory: Reports: No Symptoms Cardiovascular: Reports: No Symptoms GI/Abdominal: Reports: No Symptoms Skin: Reports: No Symptoms Neurological: Reports: Other (He denies problems but is at baseline best I can tell he does have dementia.) ED EXAM, ENT - Physical Exam Exam: See Below Exam Limited By: Other (Dementia) General Appearance: Alert, No Apparent Distress Eye Exam: Bilateral Eye: Normal Inspection Ears: Normal External Exam, Normal Canal, Hearing Grossly Normal, Normal TMs Nose: Other (Large clot was removed by blowing the nose from the left naris. Direct visualization revealed no obvious bleeding site) Mouth/Throat: Normal Inspection, Normal Gums, Normal Oropharynx, Other (He has blood draining down the back of the posterior pharynx) Head: Atraumatic, Normocephalic Neck: Normal Inspection, Supple, Non-Tender, Full Range of Motion Respiratory/Chest: No Respiratory Distress, Lungs Clear, Normal Breath Sounds Cardiovascular: No Edema, Irregularly Irregular ED ENT PROCEDURES - Epistaxis Procedure Indication: Uncontrolled Recent anticoagulants/antiplatlets: Yes Uncontrolled HTN: No Recent septal/nasal surgery: No Site of bleeding: Left Nare, Posterior Clearing of clots: Patient Blew Nose Anterior Packing: Other (7.5 rapid Rhino placed) Complications: No Course - Vital Signs Last Recorded V/S: Last Vital Signs Temp 36.4 C 07/22/19 13:25 Pulse 82 07/22/19 13:25 Resp 16 07/22/19 13:25 BP 135/65 07/22/19 13:25 Pulse Ox 94 L 07/22/19 13:25 - Orders/Labs/Meds Labs: Laboratory Tests 07/22/19 07/22/19 07/22/19 Range/Units 14:06 14:06 14:06 WBC 10.53 H (4.23-9.07) K/mm3 RBC 2.68 L (4.63-6.08) M/mm3 Hgb 8.5 L (13.7-17.5) gm/L Hct 26.2 L (40.1-51.0) % MCV 97.8 H D (79.0-92.2) fl MCH 31.7 (25.7-32.2) pg MCHC 32.4 (32.2-35.5) g/dl RDW Std Deviation 55.7 H (35.1-43.9) fL Plt Count 257 (163-337) K/mm3 MPV 8.6 L (9.4-12.3) fl Neutrophils % (Manual) 78 H (40-60) % Band Neutrophils % 0 (0-10) % Lymphocytes % (Manual) 19 L (20-40) % Atypical Lymphs % 0 % Monocytes % (Manual) 2 (2-10) % Eosinophils % (Manual) 1 (0.8-7.0) % Basophils % (Manual) 0 L (0.2-1.2) Platelet Estimate Adequate Anisocytosis Moderate RBC Morph Comment Abnormal PT 10.9 D (9.7-12.0) SECONDS INR 1.00 APTT 27 (22-31) SECONDS Sodium 135 L (136-145) mEq/L Potassium 3.6 (3.5-5.1) mEq/L Chloride 97 L (98-107) mEq/L Carbon Dioxide 31 (21-32) mEq/L Anion Gap 10.6 (5-15) BUN 70 H (7-18) mg/dL Creatinine 2.5 H (0.7-1.3) mg/dL Est Cr Clr Drug Dosing 21.69 mL/min Estimated GFR (MDRD) 25 (>60) mL/min BUN/Creatinine Ratio 28.0 H (14-18) Glucose 74 L (83-115) mg/dL Calcium 9.0 (8.5-10.1) mg/dL Total Bilirubin 0.4 (0.2-1.0) mg/dL AST 36 (15-37) U/L ALT 17 (16-63) U/L Alkaline Phosphatase 80 (46-116) U/L Total Protein 7.0 (6.4-8.2) g/dl Albumin 2.9 L (3.4-5.0) g/dl Globulin 4.1 gm/dL Albumin/Globulin Ratio 0.7 L (1-2) - Re-Assessments/Exams Free Text/Narrative Re-Assessment/Exam: 07/22/19 15:43 Patient was observed for some time after his rapid Rhino was placed he has no bleeding anteriorly he has a clot in the posterior pharynx but this is unchanged and despite her efforts to get them to clear this he cannot. Labs reviewed hemoglobin down to 8.6. We will send him back to the [place] [facility]. Departure - Departure Time of Disposition: 15:36 Disposition: DC/Tfer to Disease Case Manager Care 63 Clinical Impression: Epistaxis, Medication induced coagulopathy - Discharge Information Referrals: David Hazel MD [Primary Care Provider] - Forms: ED Department Discharge Additional Instructions: Return to the emergency room with any questions problems worsening symptoms. Have the nasal packing, the rapid Rhino, removed in 5 days.
== END 2019-07-22 16:25 ==
LOC: JD.ED 13:22
DX: R04.0 Epistaxis (principal); D68.9 Coagulation defect, unspecified; I25.10 Atherosclerotic heart disease of native coronary artery without angina pectoris; I48.91 Unspecified atrial fibrillation; E78.00 Pure hypercholesterolemia, unspecified; J44.9 Chronic obstructive pulmonary disease, unspecified; K21.9 Gastro-esophageal reflux disease without esophagitis; I13.0 Hypertensive heart and chronic kidney disease with heart failure and stage 1 through stage 4 chronic kidney disease, or unspecified chronic kidney disease; E11.22 Type 2 diabetes mellitus with diabetic chronic kidney disease; N18.9 Chronic kidney disease, unspecified; I50.9 Heart failure, unspecified; F41.9 Anxiety disorder, unspecified; F32.9 Major depressive disorder, single episode, unspecified; E03.9 Hypothyroidism, unspecified; D64.9 Anemia, unspecified; Z88.2 Allergy status to sulfonamides; Z88.8 Allergy status to other drugs, medicaments and biological substances; Z79.899 Other long term (current) drug therapy
CPT/HCPCS: 30903; 30905; 36415; 80053; 85007; 85027; 85610; 85730; 99283; 99285-25

== ENCOUNTER 2019-07-25 20:58 | Emergency (ER) | payer MEDICARE, OTHER, MEDICAID ==
[2019-07-25] MEDS ORDERED: Lactated Ringers 500 ML IV ONE (21:18)
--- NOTE | 2019-07-25 21:21 | EDM.PDOC ---
ED HPI GENERAL MEDICAL PROBLEM - General Chief Complaint: Cardiovascular Problem Stated Complaint: [facility] Time Seen by Provider: 07/25/19 21:10 - History of Present Illness INITIAL COMMENTS - FREE TEXT/NARRATIVE: 83-year-old male presents emergency room by EMS from the residential [facility]. He's had decreased level of consciousness fevers and chills. The onset of this is unclear. Recently we have seen this gentleman multiple times for bloody noses. Patient has a history of A. fib with a stop his Coumadin because of his coagulopathy. We were able to continue his Plavix and aspirin as he recently had a endarterectomy in his left leg. - Related Data Allergies Allergy/AdvReac Type Severity Reaction Status Date / Time levofloxacin Allergy Airway Verified 07/25/19 21:51 Tightness Sulfa (Sulfonamide Allergy Anaphylactic Verified 07/25/19 21:51 Antibiotics) Shock Home Meds: Home Meds Acetaminophen 650 mg PO Q6H PRN 07/14/19 [History] Albuterol/Ipratropium [DuoNeb 3.0-0.5 MG/3 ML] 3 ml INH QID PRN 07/14/19 [ History] Bisacodyl 10 mg RECTAL DAILY PRN 07/14/19 [History] Clopidogrel [Plavix] 75 mg PO QAM 07/14/19 [History] Cyanocobalamin (Vitamin B-12) [Vitamin B-12] 1,000 mcg INJECT ASDIRECTED [History] Ferrous Sulfate 325 mg PO BID 07/14/19 [History] Furosemide [Lasix] 20 mg PO BID 07/14/19 [History] Levothyroxine [Synthroid] 50 mcg PO QAM 07/14/19 [History] Metoprolol Tartrate [Lopressor] 12.5 mg PO BID 07/14/19 [History] Pantoprazole Sodium 40 mg PO QAM 07/14/19 [History] Pramipexole [Mirapex] 0.25 mg PO BEDTIME 07/14/19 [History] Rosuvastatin [Crestor] 20 mg PO QAM 07/14/19 [History] Sennosides/Docusate Sodium [Senna-S] 2 tab PO BID 07/14/19 [History] Tamsulosin [Flomax] 0.8 mg PO QAM 07/14/19 [History] buPROPion [Wellbutrin SR] 100 mg PO BID 07/14/19 [History] predniSONE 5 mg PO QPM 07/14/19 [History] Insulin Aspart [NovoLOG] See Protocol SUBCUT TID PRN 07/25/19 [History] QUEtiapine [SEROquel] 25 mg PO BEDTIME 07/25/19 [History] QUEtiapine [SEROquel] 25 mg PO Q6HR PRN 07/25/19 [History] Past Medical History HEENT History: Reports: None Cardiovascular History: Reports: Afib, CAD, Heart Failure, High Cholesterol, Hypertension, PVD Respiratory History: Reports: COPD Other Respiratory History: hypoxia with chronic O2 use Gastrointestinal History: Reports: GERD Other Gastrointestinal History: esophagitis Genitourinary History: Reports: Chronic Renal Insuffiency Other Genitourinary History: nephrotic syndrome, chronic renal insufficiency Musculoskeletal History: Reports: Fracture Other Musculoskeletal History: Chronic back pain Neurological History: Reports: Other (See Below) Other Neuro History: dizziness, temporal arteritis Psychiatric History: Reports: Anxiety, Depression, Other (See Below) Other Psychiatric History: tobacco use Endocrine/Metabolic History: Reports: Diabetes, Type II, Hypothyroidism, Other ( See Below) Other Endocrine/Metabolic History: vitamin b12 deficiency, adrenal insufficiency Hematologic History: Reports: Anemia, Anticoagulation Therapy, B12 Deficiency Immunologic History: Reports: Other (See Below) Oncologic (Cancer) History: Reports: None Dermatologic History: Reports: None Other Dermatologic History: venous stasis; left foot chronic ulcer; PVD - Infectious Disease History Infectious Disease History: Reports: Other (See Below) Other Infectious Disease History: human metapneumovirus - Past Surgical History Head Surgeries/Procedures: Reports: None Cardiovascular Surgical History: Reports: Carotid Endarterectomy, Coronary Artery Stent, Vascular Surgery GI Surgical History: Reports: Appendectomy, EGD Social & Family History - Family History Family Medical History: Noncontributory Cardiac: Reports: [place] - Caffeine Use Caffeine Use: Reports: Coffee, Soda Other Caffeine Use: 2 cups per day - Living Situation & Occupation Living situation: Reports: , with Spouse, Extended Care Facility ([facility]dc) Occupation: Retired ED ROS GENERAL - Review of Systems Review Of Systems: Unable To Obtain ED EXAM, GENERAL - Physical Exam Exam: See Below Exam Limited By: Other (Patient is minimally responsive) General Appearance: Lethargic, Other (His blood pressure is low he's mildly tachycardic). No: Alert Ears: Normal External Exam, Normal Canal, Hearing Grossly Normal, Normal TMs Ear Exam: Bilateral Ear: Auricle Normal, Canal Normal, TM normal Nose: Other (Patient is a rapid Rhino in his left naris as the patient is believed to be septic this could be a source his rapid Rhino was removed he's got a spot of blood old this is. Her posterior aspect of the 7.5 rapid Rhino no evidence of any anterior bleeding) Throat/Mouth: Other (Semi-dry mucosa) Head: Atraumatic, Normocephalic Neck: Normal Inspection, Supple, Non-Tender, Full Range of Motion Respiratory/Chest: Lungs Clear, Decreased Breath Sounds Cardiovascular: Normal Peripheral Pulses, Regular Rate, Rhythm, Other (Rate around 100) GI/Abdominal: Normal Bowel Sounds, Soft Extremities: Other (Left lower extremities examination the cellulitis most likely great toe infection) Skin Exam: Cool Lymphatic: No Adenopathy Course - Vital Signs Last Recorded V/S: Last Vital Signs Temp 36.8 C 07/25/19 21:08 Pulse 102 H 07/25/19 21:26 Resp 17 07/25/19 21:08 BP 106/49 L 07/25/19 21:26 Pulse Ox 96 07/25/19 21:08 - Orders/Labs/Meds Orders: Active Orders 24 hr Category Date Time Status Patient Status [ADT] Stat ADT 07/25/19 23:00 Active Chest 1V Frontal [CR] Stat Exams 07/25/19 21:11 Taken Foot Comp Min 3V Lt [CR] Stat Exams 07/25/19 22:37 Taken CULTURE BLOOD [BC] Stat Lab 07/25/19 21:20 Received CULTURE BLOOD [BC] Stat Lab 07/25/19 21:47 Received CULTURE URINE [RM] Stat Lab 07/25/19 21:35 Received Pharmacy to Dose - Vancomycin Med 07/25/19 22:13 Pending 1 dose .XX ONETIME ONE Vancomycin 1 gm Med 07/25/19 22:30 Active Sodium Chloride 0.9% [Normal Saline] 250 ml IV ONETIME cefTRIAXone [Rocephin] 2 gm Med 07/25/19 22:20 Active Sodium Chloride 0.9% [Normal Saline] 100 ml IV Q24H Blood Culture x2 Reflex Set [OM.PC] Stat Oth 07/25/19 21:11 Ordered Medication Orders Vancomycin HCl 1 gm/ Sodium (Chloride) 250 mls @ 250 mls/hr IV ONETIME ONE Stop: 07/25/19 23:29 Last Admin: 07/25/19 23:10 Dose: 250 mls/hr Ceftriaxone Sodium 2 gm/ (Sodium Chloride) 100 mls @ 200 mls/hr IV Q24H JARRED Last Admin: 07/25/19 22:35 Dose: 200 mls/hr Vancomycin HCl (Pharmacy To Dose - Vancomycin) 1 dose .XX ONETIME ONE Stop: 07/25/19 22:14 Labs: Laboratory Tests 07/25/19 07/25/19 07/25/19 Range/Units 21:20 21:20 21:20 WBC 16.81 H (4.23-9.07) K/mm3 RBC 2.74 L (4.63-6.08) M/mm3 Hgb 8.6 L (13.7-17.5) gm/L Hct 26.9 L (40.1-51.0) % MCV 98.2 H (79.0-92.2) fl MCH 31.4 (25.7-32.2) pg MCHC 32.0 L (32.2-35.5) g/dl RDW Std Deviation 57.7 H (35.1-43.9) fL Plt Count 284 (163-337) K/mm3 MPV 8.9 L (9.4-12.3) fl Neutrophils % (Manual) 93 H (40-60) % Band Neutrophils % 0 (0-10) % Lymphocytes % (Manual) 5 L (20-40) % Atypical Lymphs % 0 % Monocytes % (Manual) 2 (2-10) % Eosinophils % (Manual) 0 L (0.8-7.0) % Basophils % (Manual) 0 L (0.2-1.2) Toxic Granulation 1+ slight Platelet Estimate Adequate Polychromasia 1+ slight Anisocytosis 2+ moderate RBC Morph Comment Abnormal PT 12.1 H (9.7-12.0) SECONDS INR 1.12 APTT 27 (22-31) SECONDS Sodium 138 (136-145) mEq/L Potassium 3.6 (3.5-5.1) mEq/L Chloride 99 (98-107) mEq/L Carbon Dioxide 27 (21-32) mEq/L Anion Gap 15.6 H (5-15) BUN 58 H (7-18) mg/dL Creatinine 3.7 H D (0.7-1.3) mg/dL Est Cr Clr Drug Dosing 12.71 mL/min Estimated GFR (MDRD) 16 (>60) mL/min BUN/Creatinine Ratio 15.7 (14-18) Glucose 98 (83-115) mg/dL Lactic Acid (0.4-2.0) mmol/L Calcium 9.0 (8.5-10.1) mg/dL Total Bilirubin 0.5 (0.2-1.0) mg/dL AST 105 H (15-37) U/L ALT 24 (16-63) U/L Alkaline Phosphatase 85 (46-116) U/L NT-Pro-B Natriuret Pep (0-450) pg/mL Total Protein 7.0 (6.4-8.2) g/dl Albumin 2.6 L (3.4-5.0) g/dl Globulin 4.4 gm/dL Albumin/Globulin Ratio 0.6 L (1-2) Urine Color (Yellow) Urine Appearance (Clear) Urine pH (5.0-8.0) Ur Specific [place] (1.005-1.030) Urine Protein (Negative) Urine Glucose (UA) (Negative) Urine Ketones (Negative) Urine Occult Blood (Negative) Urine Nitrite (Negative) Urine Bilirubin (Negative) Urine Urobilinogen (0.2-1.0) Ur Leukocyte Esterase (Negative) Urine RBC (0-5) /hpf Urine WBC (0-5) /hpf Ur Squamous Epith Cells (0-5) /hpf Urine Bacteria (FEW) /hpf Urine Mucus (FEW) /hpf 07/25/19 07/25/19 07/25/19 Range/Units 21:20 21:20 21:36 WBC (4.23-9.07) K/mm3 RBC (4.63-6.08) M/mm3 Hgb (13.7-17.5) gm/L Hct (40.1-51.0) % MCV (79.0-92.2) fl MCH (25.7-32.2) pg MCHC (32.2-35.5) g/dl RDW Std Deviation (35.1-43.9) fL Plt Count (163-337) K/mm3 MPV (9.4-12.3) fl Neutrophils % (Manual) (40-60) % Band Neutrophils % (0-10) % Lymphocytes % (Manual) (20-40) % Atypical Lymphs % % Monocytes % (Manual) (2-10) % Eosinophils % (Manual) (0.8-7.0) % Basophils % (Manual) (0.2-1.2) Toxic Granulation Platelet Estimate Polychromasia Anisocytosis RBC Morph Comment PT (9.7-12.0) SECONDS INR APTT (22-31) SECONDS Sodium (136-145) mEq/L Potassium (3.5-5.1) mEq/L Chloride (98-107) mEq/L Carbon Dioxide (21-32) mEq/L Anion Gap (5-15) BUN (7-18) mg/dL Creatinine (0.7-1.3) mg/dL Est Cr Clr Drug Dosing mL/min Estimated GFR (MDRD) (>60) mL/min BUN/Creatinine Ratio (14-18) Glucose (83-115) mg/dL Lactic Acid 2.0 (0.4-2.0) mmol/L Calcium (8.5-10.1) mg/dL Total Bilirubin (0.2-1.0) mg/dL AST (15-37) U/L ALT (16-63) U/L Alkaline Phosphatase (46-116) U/L NT-Pro-B Natriuret Pep 7328 H (0-450) pg/mL Total Protein (6.4-8.2) g/dl Albumin (3.4-5.0) g/dl Globulin gm/dL Albumin/Globulin Ratio (1-2) Urine Color Yellow (Yellow) Urine Appearance Cloudy H (Clear) Urine pH 7.0 (5.0-8.0) Ur Specific [place] 1.015 (1.005-1.030) Urine Protein 1+ H (Negative) Urine Glucose (UA) Negative (Negative) Urine Ketones Negative (Negative) Urine Occult Blood 2+ H (Negative) Urine Nitrite Negative (Negative) Urine Bilirubin Negative (Negative) Urine Urobilinogen 0.2 (0.2-1.0) Ur Leukocyte Esterase 2+ H (Negative) Urine RBC 0-5 (0-5) /hpf Urine WBC 75-100 H (0-5) /hpf Ur Squamous Epith Cells Not seen (0-5) /hpf Urine Bacteria Few (FEW) /hpf Urine Mucus Not seen (FEW) /hpf Meds: Medications Generic Name Dose Route Start Last Admin Trade Name Freq PRN Reason Stop Dose Admin Vancomycin HCl 1 gm/ Sodium 250 mls @ 250 mls/hr 07/25/19 22:30 07/25/19 23: 10 Chloride IV 07/25/19 23:29 250 mls/hr ONETIME ONE Administration Ceftriaxone Sodium 2 gm/ 100 mls @ 200 mls/hr 07/25/19 22:20 07/25/19 22:35 Sodium Chloride IV 200 mls/hr Q24H JARRED Administration Vancomycin HCl 1 dose 07/25/19 22:13 Pharmacy To Dose - Vancomycin .XX 07/25/19 22:14 ONETIME ONE Discontinued Medications Generic Name Dose Route Start Last Admin Trade Name Freq PRN Reason Stop Dose Admin Lactated Ringer's 500 mls @ 999 mls/hr 07/25/19 21:18 07/25/19 21:25 Ringers, Lactated IV 07/25/19 21:48 999 mls/hr .BOLUS ONE Administration Lactated Ringer's 1,000 mls @ 125 mls/hr 07/25/19 21:30 07/25/19 22:35 Ringers, Lactated IV 0 mls/hr ASDIRECTED JARRED Infusion Ceftriaxone Sodium 2 gm/ 100 mls @ 200 mls/hr 07/25/19 22:12 07/25/19 22:26 Sodium Chloride IV 07/25/19 22:41 Not Given ONETIME ONE Sodium Chloride 1,000 mls @ 999 mls/hr 07/25/19 22:16 07/25/19 22:35 Normal Saline IV 07/25/19 23:16 999 mls/hr ONETIME ONE Administration - Re-Assessments/Exams Free Text/Narrative Re-Assessment/Exam: 07/25/19 23:24 Patient was consult on by Dr. Dr. Bowser discussed situation with family he is [facility] will go back to his fdc is believe the patient is septic most likely from his urine as well as his foot. Departure - Departure Time of Disposition: 23:25 Disposition: DC/Tfer to [facility] Clinical Impression: Urinary tract infection, Foot infection Sepsis Qualifiers: Sepsis type: sepsis due to unspecified organism Sepsis acute organ dysfunction status: unspecified Qualified Code(s): A41.9 - Sepsis, unspecified organism - My Orders Last 24 Hours: My Active Orders 07/25/19 21:11 Chest 1V Frontal [CR] Stat Blood Culture x2 Reflex Set [OM.PC] Stat 07/25/19 21:20 CULTURE BLOOD [BC] Stat 07/25/19 21:35 CULTURE URINE [RM] Stat 07/25/19 21:47 CULTURE BLOOD [BC] Stat 07/25/19 22:13 Pharmacy to Dose - Vancomycin 1 dose .XX ONETIME ONE 07/25/19 22:20 cefTRIAXone [Rocephin] 2 gm Sodium Chloride 0.9% [Normal Saline] 100 ml IV Q24H 07/25/19 22:37 Foot Comp Min 3V Lt [CR] Stat 07/25/19 23:00 Patient Status [ADT] Stat - Assessment/Plan Last 24 Hours: My Active Orders 07/25/19 21:11 Chest 1V Frontal [CR] Stat Blood Culture x2 Reflex Set [OM.PC] Stat 07/25/19 21:20 CULTURE BLOOD [BC] Stat 07/25/19 21:35 CULTURE URINE [RM] Stat 07/25/19 21:47 CULTURE BLOOD [BC] Stat 07/25/19 22:13 Pharmacy to Dose - Vancomycin 1 dose .XX ONETIME ONE 07/25/19 22:20 cefTRIAXone [Rocephin] 2 gm Sodium Chloride 0.9% [Normal Saline] 100 ml IV Q24H 07/25/19 22:37 Foot Comp Min 3V Lt [CR] Stat 07/25/19 23:00 Patient Status [ADT] Stat
[2019-07-25 21:27] VITALS: BP 106/49; PULSE 102
[2019-07-25] MEDS ORDERED: Lactated Ringers 1,000 ML IV SCH (21:30)
[2019-07-25] MEDS ORDERED: cefTRIAXone 2 GM in Sodium Chloride 0.9% 100 ML IV ONE (22:12)
[2019-07-25] MEDS ORDERED: Sodium Chloride 0.9% 1,000 ML IV ONE (22:16)
[2019-07-25] MEDS ORDERED: cefTRIAXone 2 GM in Sodium Chloride 0.9% 100 ML IV SCH (22:20)
--- NOTE | 2019-07-25 23:39 | PCM.CONS ---
H&P History of Present Illness - General Date of Service: 07/25/19 Admit Problem/Dx: Admission Diagnosis/Problem Admission Diagnosis/Problem Sepsis - History of Present Illness Initial Comments - Free Text/Narative: 83-year-old male brought to the emergency room by EMS. Patient came from [facility] secondary to decreased level of consciousness, fevers, and chills. Onset was unclear. Patient had been seen multiple times in the last few days in the emergency room with epistaxis. He does have a history of atrial fibrillation may did have to stop his Coumadin secondary to a clot coagulopathy. He continued on Plavix and aspirin. Fortunately he is not having any bleeding at this time. He does have nasal packing that the emergency room physician removed tonight without any complications. I was consultative because of patient's worsening condition including sepsis, renal insufficiency, cellulitis with possible osteomyelitis of the left great toe, UTI, and heart failure. Patient was unable to give history and was not arousable. He would call out to stimuli but not be able to have any form of conversation or follow direction. Family was called including both of his daughters, one being the power of insurance defense attorney Kaylamoo Steeldori. Patient was admitted last month in [place] with sepsis and nonhealing left foot ulcer. At that time it was discussed that he would not be a candidate for surgery because of his frail condition. At that time they agreed that he should be kept comfortable and not have any further treatment. Kayla Ramirez explained to me that he would not want to continue with treatment at this point and he would like to be kept comfortable. He apparently understood that this condition would likely recur and he would not want to keep suffering. - Related Data Allergies/Adverse Reactions: Allergies Allergy/AdvReac Type Severity Reaction Status Date / Time levofloxacin Allergy Airway Verified 07/25/19 21:51 Tightness Sulfa (Sulfonamide Allergy Anaphylactic Verified 07/25/19 21:51 Antibiotics) Shock Home Medications: Home Meds Acetaminophen 650 mg PO Q6H PRN 07/14/19 [History] Albuterol/Ipratropium [DuoNeb 3.0-0.5 MG/3 ML] 3 ml INH QID PRN 07/14/19 [ History] Bisacodyl 10 mg RECTAL DAILY PRN 07/14/19 [History] Clopidogrel [Plavix] 75 mg PO QAM 07/14/19 [History] Cyanocobalamin (Vitamin B-12) [Vitamin B-12] 1,000 mcg INJECT ASDIRECTED [History] Ferrous Sulfate 325 mg PO BID 07/14/19 [History] Furosemide [Lasix] 20 mg PO BID 07/14/19 [History] Levothyroxine [Synthroid] 50 mcg PO QAM 07/14/19 [History] Metoprolol Tartrate [Lopressor] 12.5 mg PO BID 07/14/19 [History] Pantoprazole Sodium 40 mg PO QAM 07/14/19 [History] Pramipexole [Mirapex] 0.25 mg PO BEDTIME 07/14/19 [History] Rosuvastatin [Crestor] 20 mg PO QAM 07/14/19 [History] Sennosides/Docusate Sodium [Senna-S] 2 tab PO BID 07/14/19 [History] Tamsulosin [Flomax] 0.8 mg PO QAM 07/14/19 [History] buPROPion [Wellbutrin SR] 100 mg PO BID 07/14/19 [History] predniSONE 5 mg PO QPM 07/14/19 [History] Insulin Aspart [NovoLOG] See Protocol SUBCUT TID PRN 07/25/19 [History] QUEtiapine [SEROquel] 25 mg PO BEDTIME 07/25/19 [History] QUEtiapine [SEROquel] 25 mg PO Q6HR PRN 07/25/19 [History] Past Medical History HEENT History: Reports: None Cardiovascular History: Reports: Afib, CAD, Heart Failure, High Cholesterol, Hypertension, PVD Respiratory History: Reports: COPD Other Respiratory History: hypoxia with chronic O2 use Gastrointestinal History: Reports: GERD Other Gastrointestinal History: esophagitis Genitourinary History: Reports: Chronic Renal Insuffiency Other Genitourinary History: nephrotic syndrome, chronic renal insufficiency Musculoskeletal History: Reports: Fracture Other Musculoskeletal History: Chronic back pain Neurological History: Reports: Other (See Below) Other Neuro History: dizziness, temporal arteritis Psychiatric History: Reports: Anxiety, Depression, Other (See Below) Other Psychiatric History: tobacco use Endocrine/Metabolic History: Reports: Diabetes, Type II, Hypothyroidism, Other ( See Below) Other Endocrine/Metabolic History: vitamin b12 deficiency, adrenal insufficiency Hematologic History: Reports: Anemia, Anticoagulation Therapy, B12 Deficiency Immunologic History: Reports: Other (See Below) Oncologic (Cancer) History: Reports: None Dermatologic History: Reports: None Other Dermatologic History: venous stasis; left foot chronic ulcer; PVD - Infectious Disease History Infectious Disease History: Reports: Other (See Below) Other Infectious Disease History: human metapneumovirus - Past Surgical History Head Surgeries/Procedures: Reports: None Cardiovascular Surgical History: Reports: Carotid Endarterectomy, Coronary Artery Stent, Vascular Surgery GI Surgical History: Reports: Appendectomy, EGD Social & Family History - Family History Family Medical History: Noncontributory Cardiac: Reports: [place] - Caffeine Use Caffeine Use: Reports: Coffee, Soda Other Caffeine Use: 2 cups per day - Recreational Drug Use Recreational Drug Use: No Other Recreational Drug Type: unsure pt is lethargic - Living Situation & Occupation Living situation: Reports: , with Spouse, Extended Care Facility ([facility]) Occupation: Retired H&P Review of Systems - Review of Systems: Review Of Systems: Unable To Obtain Exam - Exam Exam: See Below - Vital Signs Vital Signs: Last Vital Signs Temp 98.2 F 07/25/19 21:08 Pulse 102 H 07/25/19 21:26 Resp 17 07/25/19 21:08 BP 106/49 L 07/25/19 21:26 Pulse Ox 96 07/25/19 21:08 Weight: 131 lb - Exam Quality Assessment: Supplemental Oxygen General: Obtunded HEENT: Conjunctiva Clear, EACs Clear, Mucosa Moist & [place] Neck: Supple, Trachea Midline Lungs: Decreased Breath Sounds Cardiovascular: Irregular Rhythm GI/Abdominal Exam: Normal Bowel Sounds, Soft, Non-Tender, No Distention Extremities: Other (Left great toe is red, swollen, and there is an eschar over where the toenail is missing. Erythema travels up to half of his foot.) - Patient Data Lab Results Last 24 hrs: Laboratory Results - last 24 hr 07/25/19 07/25/19 07/25/19 Range/Units 21:20 21:20 21:20 WBC 16.81 H (4.23-9.07) K/mm3 RBC 2.74 L (4.63-6.08) M/mm3 Hgb 8.6 L (13.7-17.5) gm/L Hct 26.9 L (40.1-51.0) % MCV 98.2 H (79.0-92.2) fl MCH 31.4 (25.7-32.2) pg MCHC 32.0 L (32.2-35.5) g/dl RDW Std Deviation 57.7 H (35.1-43.9) fL Plt Count 284 (163-337) K/mm3 MPV 8.9 L (9.4-12.3) fl Neutrophils % (Manual) 93 H (40-60) % Band Neutrophils % 0 (0-10) % Lymphocytes % (Manual) 5 L (20-40) % Atypical Lymphs % 0 % Monocytes % (Manual) 2 (2-10) % Eosinophils % (Manual) 0 L (0.8-7.0) % Basophils % (Manual) 0 L (0.2-1.2) Toxic Granulation 1+ slight Platelet Estimate Adequate Polychromasia 1+ slight Anisocytosis 2+ moderate RBC Morph Comment Abnormal PT 12.1 H (9.7-12.0) SECONDS INR 1.12 APTT 27 (22-31) SECONDS Sodium 138 (136-145) mEq/L Potassium 3.6 (3.5-5.1) mEq/L Chloride 99 (98-107) mEq/L Carbon Dioxide 27 (21-32) mEq/L Anion Gap 15.6 H (5-15) BUN 58 H (7-18) mg/dL Creatinine 3.7 H D (0.7-1.3) mg/dL Est Cr Clr Drug Dosing 12.71 mL/min Estimated GFR (MDRD) 16 (>60) mL/min BUN/Creatinine Ratio 15.7 (14-18) Glucose 98 (83-115) mg/dL Lactic Acid (0.4-2.0) mmol/L Calcium 9.0 (8.5-10.1) mg/dL Total Bilirubin 0.5 (0.2-1.0) mg/dL AST 105 H (15-37) U/L ALT 24 (16-63) U/L Alkaline Phosphatase 85 (46-116) U/L NT-Pro-B Natriuret Pep (0-450) pg/mL Total Protein 7.0 (6.4-8.2) g/dl Albumin 2.6 L (3.4-5.0) g/dl Globulin 4.4 gm/dL Albumin/Globulin Ratio 0.6 L (1-2) Urine Color (Yellow) Urine Appearance (Clear) Urine pH (5.0-8.0) Ur Specific [place] (1.005-1.030) Urine Protein (Negative) Urine Glucose (UA) (Negative) Urine Ketones (Negative) Urine Occult Blood (Negative) Urine Nitrite (Negative) Urine Bilirubin (Negative) Urine Urobilinogen (0.2-1.0) Ur Leukocyte Esterase (Negative) Urine RBC (0-5) /hpf Urine WBC (0-5) /hpf Ur Squamous Epith Cells (0-5) /hpf Urine Bacteria (FEW) /hpf Urine Mucus (FEW) /hpf 07/25/19 07/25/19 07/25/19 Range/Units 21:20 21:20 21:36 WBC (4.23-9.07) K/mm3 RBC (4.63-6.08) M/mm3 Hgb (13.7-17.5) gm/L Hct (40.1-51.0) % MCV (79.0-92.2) fl MCH (25.7-32.2) pg MCHC (32.2-35.5) g/dl RDW Std Deviation (35.1-43.9) fL Plt Count (163-337) K/mm3 MPV (9.4-12.3) fl Neutrophils % (Manual) (40-60) % Band Neutrophils % (0-10) % Lymphocytes % (Manual) (20-40) % Atypical Lymphs % % Monocytes % (Manual) (2-10) % Eosinophils % (Manual) (0.8-7.0) % Basophils % (Manual) (0.2-1.2) Toxic Granulation Platelet Estimate Polychromasia Anisocytosis RBC Morph Comment PT (9.7-12.0) SECONDS INR APTT (22-31) SECONDS Sodium (136-145) mEq/L Potassium (3.5-5.1) mEq/L Chloride (98-107) mEq/L Carbon Dioxide (21-32) mEq/L Anion Gap (5-15) BUN (7-18) mg/dL Creatinine (0.7-1.3) mg/dL Est Cr Clr Drug Dosing mL/min Estimated GFR (MDRD) (>60) mL/min BUN/Creatinine Ratio (14-18) Glucose (83-115) mg/dL Lactic Acid 2.0 (0.4-2.0) mmol/L Calcium (8.5-10.1) mg/dL Total Bilirubin (0.2-1.0) mg/dL AST (15-37) U/L ALT (16-63) U/L Alkaline Phosphatase (46-116) U/L NT-Pro-B Natriuret Pep 7328 H (0-450) pg/mL Total Protein (6.4-8.2) g/dl Albumin (3.4-5.0) g/dl Globulin gm/dL Albumin/Globulin Ratio (1-2) Urine Color Yellow (Yellow) Urine Appearance Cloudy H (Clear) Urine pH 7.0 (5.0-8.0) Ur Specific [place] 1.015 (1.005-1.030) Urine Protein 1+ H (Negative) Urine Glucose (UA) Negative (Negative) Urine Ketones Negative (Negative) Urine Occult Blood 2+ H (Negative) Urine Nitrite Negative (Negative) Urine Bilirubin Negative (Negative) Urine Urobilinogen 0.2 (0.2-1.0) Ur Leukocyte Esterase 2+ H (Negative) Urine RBC 0-5 (0-5) /hpf Urine WBC 75-100 H (0-5) /hpf Ur Squamous Epith Cells Not seen (0-5) /hpf Urine Bacteria Few (FEW) /hpf Urine Mucus Not seen (FEW) /hpf Result Diagrams: 07/25/19 21:20 07/25/19 21:20 Imaging Impressions Last 24 hrs: Chest x-ray shows increased vascular markings consistent with congestive heart failure. X-ray of the left foot and great toe shows degenerative changes. No apparent bony erosion. Consult PN Assessment/Plan Procedures: Procedures AGENT NOS ASSAY W/OPTIC (02/09/18) AIRWAY INHALATION TREATMENT (02/09/18) ASSAY OF BLOOD/URIC ACID (04/17/19) ASSAY OF FOLIC ACID SERUM (03/09/18) ASSAY OF FREE THYROXINE (03/09/18) ASSAY OF HOMOCYSTINE (03/09/18) ASSAY OF LACTIC ACID (06/12/19) ASSAY OF LIPASE (03/09/18) ASSAY OF MAGNESIUM (03/09/18) ASSAY OF NATRIURETIC PEPTIDE (03/09/18) ASSAY OF TROPONIN QUANT (03/09/18) ASSAY THYROID STIM HORMONE (03/09/18) BL SMEAR W/DIFF WBC COUNT (07/15/19) BLOOD CULTURE FOR BACTERIA (06/12/19) BLOOD TRANSFUSION SERVICE (07/15/19) BLOOD TYPING SEROLOGIC ABO (07/15/19) BLOOD TYPING SEROLOGIC RH(D) (07/15/19) C DIFF AMPLIFIED PROBE (01/13/18) C-REACTIVE PROTEIN (06/12/19) CHEST WALL MANIPULATION (02/09/18) CHEST X-RAY 1 VIEW FRONTAL (02/22/16) CHEST X-RAY 2VW FRONTAL&LATL (02/24/16) CHYLMD PNEUM DNA AMP PROBE (02/09/18) COGNITIVE TEST BY HC PRO (12/30/17) COMPATIBILITY TEST ANTIGLOB (07/14/19) COMPLETE CBC AUTOMATED (07/15/19) COMPLETE CBC W/AUTO DIFF WBC (03/09/18) COMPREHEN METABOLIC PANEL (07/15/19) CONTROL OF NOSEBLEED (07/15/19) CONTROL OF NOSEBLEED (07/07/19) CONTRST X-RAY UPPR GI TRACT (01/19/16) CREATINE MB FRACTION (02/09/18) CT ABD & PELV W/CONTRAST (01/13/18) CT ANGIO ABDOM W/O & W/DYE (03/09/18) CT HEAD/BRAIN W/O DYE (01/13/18) CT LOWER EXTREMITY W/O DYE (01/09/18) CULTURE AEROBIC IDENTIFY (04/17/19) CULTURE OTHR SPECIMN AEROBIC (04/17/19) DETECT AGENT NOS DNA AMP (02/09/18) DIAGNOSTIC COLONOSCOPY (05/28/18) EGD DIAGNOSTIC BRUSH WASH (05/28/18) ELECTROCARDIOGRAM TRACING (06/12/19) EMERGENCY DEPT VISIT (07/17/19) EMERGENCY DEPT VISIT (07/15/19) EMERGENCY DEPT VISIT (06/12/19) EMERGENCY DEPT VISIT (04/17/19) EMERGENCY DEPT VISIT (03/09/18) EMERGENCY DEPT VISIT (02/22/16) EMERGENCY DEPT VISIT (07/02/15) FIBRIN DEGRADATION QUANT (02/24/16) GAIT TRAINING THERAPY (03/09/18) GLUCOSE BLOOD TEST (02/09/18) HYDRATE IV INFUSION ADD-ON (06/12/19) HYDRATION IV INFUSION INIT (07/15/19) INFLUENZA ASSAY W/OPTIC (02/09/18) INSERT BLADDER CATHETER (03/09/18) INSERT TEMP BLADDER CATH (03/09/18) M.PNEUMON DNA AMP PROBE (02/09/18) MEASURE BLOOD OXYGEN LEVEL (03/09/18) MEASURE BLOOD OXYGEN LEVEL (02/09/18) MEASURE BLOOD OXYGEN LEVEL (01/13/18) MEASURE BLOOD OXYGEN LEVEL (01/13/18) MEASURE BLOOD OXYGEN LEVEL (12/30/17) MEASURE BLOOD OXYGEN LEVEL (12/30/17) METABOLIC PANEL TOTAL CA (03/09/18) MICROBE SUSCEPTIBLE DISK (02/09/18) MICROBE SUSCEPTIBLE RAMON (04/17/19) MR-STAPH DNA AMP PROBE (03/09/18) MRI LUMBAR SPINE W/O DYE (02/29/16) MYCOPLASMA ANTIBODY (02/09/18) OCCULT BLD FECES 1-3 TESTS (01/13/18) ORGANIC ACID SINGLE QUANT (03/09/18) OT EVAL HIGH COMPLEX 60 MIN (03/09/18) OT EVAL LOW COMPLEX 30 MIN (02/09/18) OT EVAL MOD COMPLEX 45 MIN (01/13/18) PROTHROMBIN TIME (07/15/19) PT EVAL MOD COMPLEX 30 MIN (03/09/18) RBC ANTIBODY SCREEN (07/14/19) RBC SED RATE AUTOMATED (07/07/15) RESP VIRUS 12-25 TARGETS (02/09/18) ROUTINE VENIPUNCTURE (07/15/19) SELF CARE MNGMENT TRAINING (01/13/18) SMEAR GRAM STAIN (02/09/18) THER/PROPH/DIAG INJ IV PUSH (04/17/19) THER/PROPH/DIAG INJ SC/IM (07/15/19) THER/PROPH/DIAG IV INF ADDON (06/12/19) THER/PROPH/DIAG IV INF INIT (06/12/19) THERAPEUTIC ACTIVITIES (03/09/18) THERAPEUTIC EXERCISES (03/09/18) THROMBOPLASTIN TIME PARTIAL (07/15/19) TTE W/DOPPLER COMPLETE (02/09/18) TX/PRO/DX INJ NEW DRUG ADDON (06/12/19) TX/PRO/DX INJ SAME DRUG LAWN SERVICE WORKER (03/09/18) URINALYSIS AUTO W/SCOPE (03/09/18) URINE BACTERIA CULTURE (03/09/18) URINE CULTURE/COLONY COUNT (03/09/18) US EXAM ABDO BACK WALL COMP (10/26/14) US URINE CAPACITY MEASURE (03/09/18) VITAMIN B-12 (03/09/18) VITAMIN D 25 HYDROXY (03/09/18) X-RAY EXAM CHEST 1 VIEW (06/12/19) X-RAY EXAM CHEST 2 VIEWS (12/30/17) X-RAY EXAM L-S SPINE 2/3 VWS (02/22/16) X-RAY EXAM OF FOOT (04/17/19) Problem List Initiated/Reviewed/Updated: Yes Plan: Assessment * 83-year-old male with sepsis and altered level of consciousness * Cellulitis with possible underlying osteomyelitis left great toe * UTI * Decompensated congestive heart failure * Acute on chronic renal insufficiency Plan * Again spoke with his power of insurance defense attorney we have on record through [facility] nursing facility, Kayla Ramirez, who states his wishes were to be kept comfortable. Patient would not want further treatment for his current medical condition. Kayla Ramirez understands that this will lead to his , although even with treatment his long-term prognosis is extremely poor and likely fatal. * Patient will be discharged back to [facility] for compassionate and comfort care.
--- NOTE | 2019-07-26 14:12 | CR ---
Left foot: Three views of the left foot were obtained. Comparison: Previous left foot exam of 04/17/19. Bony structures are osteoporotic. No discrete fracture or other abnormality is appreciated. Impression: 1. Osteoporosis. Nothing acute is definitely seen on left foot exam. Diagnostic code #2
--- NOTE | 2019-07-26 14:12 | CR ---
Chest: Portable view of the chest was obtained. Comparison: Prior chest x-ray of 06/12/19. Heart is slightly prominent in size. Tortuous thoracic aorta is seen. Lungs are clear. Bony structures are osteopenic. Impression: 1. Nothing acute is appreciated on portable chest x-ray. Diagnostic code #2
== END 2019-07-25 23:52 ==
LOC: JD.ED 20:58 → UNDOADMIN 23:10 → JD.ICU 23:10 → UNDODISIN 23:45
DX: A41.9 Sepsis, unspecified organism (principal); R65.20 Severe sepsis without septic shock; N17.9 Acute kidney failure, unspecified; I13.0 Hypertensive heart and chronic kidney disease with heart failure and stage 1 through stage 4 chronic kidney disease, or unspecified chronic kidney disease; I50.9 Heart failure, unspecified; N18.9 Chronic kidney disease, unspecified; N39.0 Urinary tract infection, site not specified; E11.22 Type 2 diabetes mellitus with diabetic chronic kidney disease; L08.9 Local infection of the skin and subcutaneous tissue, unspecified; F32.9 Major depressive disorder, single episode, unspecified; D64.9 Anemia, unspecified; K21.9 Gastro-esophageal reflux disease without esophagitis; E03.9 Hypothyroidism, unspecified; F41.9 Anxiety disorder, unspecified; Z88.2 Allergy status to sulfonamides; Z88.1 Allergy status to other antibiotic agents; Z79.899 Other long term (current) drug therapy; Z79.51 Long term (current) use of inhaled steroids; Z90.49 Acquired absence of other specified parts of digestive tract; Z98.890 Other specified postprocedural states; Z79.4 Long term (current) use of insulin
CPT/HCPCS: 36415; 71045; 73630; 80053; 81001; 83605; 83880; 85007; 85027; 85610; 85730; 87040; 87086; 96361; 96365; 96367; 99285; J0696; J3370; J7030; J7040; J7050; J7120; 87088; 87186; 96366